=== PATIENT | male | born 1945 | race Hispanic/Latino ===

== ENCOUNTER 2017-07-13 08:56 | Emergency (ER) | payer SELFPAY ==
[2017-07-13 09:50] LABS: Basophils % (Auto) 0.6 % (0.0-1.8); Eosinophils # (Auto) 0.1 K/mm3 (0.0-0.4); Hemoglobin 14.9 gm/dl (11.8-15.2); Lymphocytes # (Auto) 2.2 K/mm3 (1.2-5.4); Lymphocytes % (Auto) 26.3 % (13.4-35.0); Mean Corpuscular HGB Conc 33 % (32-34); Mean Corpuscular Hemoglobin 31 pg (28-32); Mean Corpuscular Volume 95 fl (84-94); Monocytes # (Auto) 0.8 K/mm3 (0.0-0.8); Platelet Count 258 K/mm3 (140-440); Red Blood Count 4.76 M/mm3 (3.65-5.03); Red Cell Distribution Width 13.7 % (13.2-15.2)
[2017-07-13 10:07] LABS: Alanine Aminotransferase 10 units/L (7-56); Albumin 4.4 g/dL (3.9-5); BUN/Creatinine Ratio 19; Blood Urea Nitrogen 17 mg/dL (9-20); Hemolysis Index 15
[2017-07-13 16:06] VITALS: BP 158/108
[2017-07-13 16:35] LABS: Bilirubin,Urine NEG (Negative); Blood,Urine NEG (Negative); Color,Urine Yellow (Yellow); Mucus,Urine FEW /HPF; Nitrite,Urine NEG (Negative); Protein,Urine <15 mg/dL mg/dL (Negative)
--- NOTE | 2017-07-13 18:02 | Emergency Department Report ---
Minor Respiratory - HPI Chief Complaint: Abdominal Pain Stated Complaint: ABDOMINAL PAIN Time Seen by Provider: 07/13/17 16:19 Duration: 5 Days Severity: moderate Minor Respiratory: Yes Rhinorrhea, Yes Able to Tolerate Fluids, Yes Cough ( patient has been complaining of a dry cough for approximately 6 days. Patient states that he thinks the cough is coming from people spraying bug spray in his apartment. Patient states that they've been spraying bug spray in the department for many months), No Sore Throat, No Ear Pain, No Sick Contacts, No Hemoptysis, No Chest Pain, No Shortness of Breath, No Fever ED Review of Systems ROS: Stated complaint: ABDOMINAL PAIN Other details as noted in HPI Comment: All other systems reviewed and negative ED Past Medical Hx - Past Medical History Hx Hypertension: Yes Additional medical history: hernia repair - Medications Home Medications: Home Medications Medication Instructions Recorded Confirmed Last Taken Type Amlodipine Besylate [Norvasc] 5 mg PO DAILY #30 tablet 07/13/17 Unknown Rx Benzonatate [Tessalon Perles] 100 mg PO Q8HR #14 capsule 07/13/17 Unknown Rx Doxycycline [Vibramycin CAP] 100 mg PO Q12HR #14 capsule 07/13/17 Unknown Rx Minor Respiratory Exam - Exam General: Vital signs noted. No distress. Alert and acting appropriately. HEENT: Yes Moist Mucous Membranes, No Pharyngeal Erythema, No Pharyngeal Exudates, No Rhinorrhea, No Conjuctival Injection, No Frontal Tenderness, No Maxillary Tenderness Ear: Neither TM Bulge, Neither TM Erythema, Neither EAC Pain, Neither EAC Discharge Neck: Yes Supple, No Adenopathy Lungs: Yes Good Air Exchange, No Wheezes, No Ronchi, No Stridor, No Cough, No Labored Respirations, No Retractions, No Use of Accessory Muscles, No Other Abnormal Lung Sounds Heart: Yes Regular, No Murmur Abdomen: Yes Normal Bowel Sounds, No Tenderness (patient does have a ventral hernia present), No Peritoneal Signs Skin: No Rash, No Edema Neurologic: Alert and oriented, no deficits. Musculoskeletal: Unremarkable. ED Course Vital Signs 07/13/17 07/13/17 09:24 16:05 Temperature 97.4 F L 97.9 F Pulse Rate 71 83 Respiratory 16 18 Rate Blood Pressure 137/80 Blood Pressure 158/108 [Left] O2 Sat by Pulse 95 97 Oximetry ED Medical Decision Making - Lab Data Result diagrams: 07/13/17 09:33 07/13/17 09:33 - Radiology Data Radiology results: image reviewed No acute process - Medical Decision Making Patient is a 72-year-old male who is presenting with cough cold congestion. X-ray is within normal limits. Patient will be discharged home will start the patient on doxycycline secondary to his age and a cough almost a week in duration. Patient also asked for a refill of his Norvasc which was given as well Critical care attestation.: If time is entered above; I have spent that time in minutes in the direct care of this critically ill patient, excluding procedure time. ED Disposition Clinical Impression: Acute bronchitis Qualifiers: Bronchitis organism: unspecified organism Qualified Code(s): J20.9 - Acute bronchitis, unspecified Disposition: DC-01 TO HOME OR SELFCARE Is pt being admited?: No Does the pt Need Aspirin: No Condition: Stable Instructions: Acute Bronchitis (ED) Prescriptions: Amlodipine Besylate [Norvasc] 5 mg PO DAILY #30 tablet Benzonatate [Tessalon Perles] 100 mg PO Q8HR #14 capsule Doxycycline [Vibramycin CAP] 100 mg PO Q12HR #14 capsule Referrals: PRIMARY CARE, [Primary Care Provider] - 3-5 Days
--- NOTE | 2017-07-13 18:29 | XRay Report ---
FINAL REPORT EXAM: XR CHEST ROUTINE 2V HISTORY: cough TECHNIQUE: 2 view examination of the chest PRIORS: None FINDINGS: Oblique patient position limits the examination. Atherosclerotic change in the thoracic aorta. Degenerative change in the thoracic spine. There is no visible pulmonary consolidation, pleural effusion, or pneumothorax. Cardiac silhouette size is normal without vascular congestion. IMPRESSION: No evidence of acute cardiopulmonary disease
== END 2017-07-13 18:25 | disposition home or self-care (01) ==
LOC: ED 08:56
DX: J20.9 Acute bronchitis, unspecified (principal); I10 Essential (primary) hypertension
CPT/HCPCS: 36415; 71046; 80053; 81001; 85025

== ENCOUNTER 2017-10-05 14:42 | Emergency (ER) | payer MEDICARE ==
[2017-10-05 15:28] VITALS: BP 101/73
--- NOTE | 2017-10-05 17:06 | Emergency Department Report ---
HPI - General Chief Complaint: Abdominal Pain Time Seen by Provider: 10/05/17 16:58 - HPI HPI: patient c/o periumbilical pain, h/o hernia, wants referral to get it fix. no fever, no dysuria. ED Past Medical Hx - Past Medical History Hx Hypertension: Yes Hx Congestive Heart Failure: Yes Additional medical history: hernia repair - Social History Smoking Status: Never Smoker Substance Use Type: Alcohol - Medications Home Medications: Home Medications Medication Instructions Recorded Confirmed Last Taken Type Amlodipine Besylate [Norvasc] 5 mg PO DAILY #30 tablet 07/13/17 Unknown Rx Benzonatate [Tessalon Perles] 100 mg PO Q8HR #14 capsule 07/13/17 Unknown Rx Doxycycline [Vibramycin CAP] 100 mg PO Q12HR #14 capsule 07/13/17 Unknown Rx Acetaminophen [Tylenol Extra 500 mg PO ACHS PRN #60 tablet 10/05/17 Unknown Rx Strength] ED Review of Systems ROS: Stated complaint: ABD PAIN Other details as noted in HPI Constitutional: no symptoms reported Respiratory: denies: cough Cardiovascular: denies: chest pain Endocrine: denies: excessive sweating Gastrointestinal: abdominal pain. denies: nausea Physical Exam - Physical Exam Vital Signs: Vital Signs 10/05/17 15:23 Temperature 98.3 F Pulse Rate 99 H Respiratory 18 Rate Blood Pressure 101/73 O2 Sat by Pulse 95 Oximetry Physical Exam: GENERAL APPEARANCE: Well developed, well nourished, alert and cooperative, and appears to be in no acute distress. HEAD: normocephalic. EYES: PERRL, EOMI. Fundi normal, vision is grossly intact. EARS: External auditory canals and tympanic membranes clear, hearing grossly intact. NOSE: No nasal discharge. THROAT: Oral cavity and pharynx normal. No inflammation, swelling, exudate, or lesions. Teeth and gingiva in good general condition. NECK: Neck supple, non-tender without lymphadenopathy, masses or thyromegaly. CARDIAC: Normal S1 and S2. No S3, S4 or murmurs. Rhythm is regular. There is no peripheral edema, cyanosis or pallor. Extremities are warm and well perfused. Capillary refill is less than 2 seconds. No carotid bruits. LUNGS: Clear to auscultation and percussion without rales, rhonchi, wheezing or diminished breath sounds. ABDOMEN: easily reducible hernia, periumbilical MUSKULOSKELETAL: Adequately aligned spine. ROM intact spine and extremities. No joint erythema or tenderness. Normal muscular development. Normal ED Course Vital Signs 10/05/17 15:23 Temperature 98.3 F Pulse Rate 99 H Respiratory 18 Rate Blood Pressure 101/73 O2 Sat by Pulse 95 Oximetry Critical care attestation.: If time is entered above; I have spent that time in minutes in the direct care of this critically ill patient, excluding procedure time. ED Disposition Clinical Impression: Umbilical hernia Qualifiers: Obstruction and gangrene presence: without obstruction or gangrene Qualified Code(s): K42.9 - Umbilical hernia without obstruction or gangrene Disposition: - TO HOME OR SELFCARE Is pt being admited?: No Does the pt Need Aspirin: No Condition: Stable Instructions: Umbilical Hernia (ED) Prescriptions: Acetaminophen [Tylenol Extra Strength] 500 mg PO ACHS PRN #60 tablet PRN Reason: Pain Referrals: JOSHUA LEIJA DO [Staff Physician] - 3-5 Days
== END 2017-10-05 17:27 | disposition home or self-care (01) ==
LOC: ED 14:42
DX: K42.9 Umbilical hernia without obstruction or gangrene (principal); I11.0 Hypertensive heart disease with heart failure
CPT/HCPCS: 99283

== ENCOUNTER 2017-10-05 18:18 | Emergency (ER) | payer MEDICARE ==
[2017-10-05 19:50] LABS: Hematocrit 43.3 % (35.5-45.6); Mean Corpuscular HGB Conc 35 % (32-34); Mean Corpuscular Hemoglobin 32 pg (28-32); Mean Corpuscular Volume 93 fl (84-94); Platelet Count 250 K/mm3 (140-440); Red Blood Count 4.64 M/mm3 (3.65-5.03); Red Cell Distribution Width 13.4 % (13.2-15.2)
[2017-10-05 19:59] LABS: BUN/Creatinine Ratio 16; Blood Urea Nitrogen 14 mg/dL (9-20); Calcium 9.4 mg/dL (8.4-10.2); Hemolysis Index 13
--- NOTE | 2017-10-05 20:09 | Cat Scan Report ---
FINAL REPORT EXAM: CT HEAD/BRAIN WO CON HISTORY: headache r/t fall/headinjury TECHNIQUE: CT head without contrast PRIORS: None. FINDINGS: No acute intra-axial or extra-axial hemorrhage is identified. There is no evidence of midline shift or mass effect. The ventricles and sulci are within normal limits. Flanagan-white matter differentiation is intact. No acute parenchymal abnormalities seen. Basal ganglia calcifications are. Bony calvarium is grossly intact. Visualized portions of the mastoids and paranasal sinuses are unremarkable. IMPRESSION: Negative CT head
[2017-10-05 20:24] LABS: Bilirubin,Urine NEG (Negative); Blood,Urine NEG (Negative); Color,Urine Yellow (Yellow); Mucus,Urine FEW /HPF; Protein,Urine <15 mg/dL mg/dL (Negative)
[2017-10-05] MEDS ORDERED: TYLENOL PO ONE (21:05)
--- NOTE | 2017-10-05 21:08 | Emergency Department Report ---
ED General Adult HPI - General Chief complaint: Head Injury Stated complaint: FALL Source: patient Mode of arrival: Ambulatory Limitations: No Limitations - History of Present Illness Initial comments: 72-year-old male comes back into the emergency room after being discharge earlier states that he went outside and fell and hit his head. Patient with a past medical history of hernia and hypertension. -: This evening Location: head Severity scale (0 -10): 8 Quality: aching Consistency: constant Improves with: none Worsens with: none Associated Symptoms: denies other symptoms - Related Data Previous Rx's Medication Instructions Recorded Last Taken Type Amlodipine Besylate [Norvasc] 5 mg PO DAILY #30 tablet 07/13/17 Unknown Rx Benzonatate [Tessalon Perles] 100 mg PO Q8HR #14 capsule 07/13/17 Unknown Rx Doxycycline [Vibramycin CAP] 100 mg PO Q12HR #14 capsule 07/13/17 Unknown Rx Acetaminophen [Tylenol Extra 500 mg PO ACHS PRN #60 tablet 10/05/17 Unknown Rx Strength] Allergies Allergy/AdvReac Type Severity Reaction Status Date / Time amitriptyline [From Elavil] Allergy Unknown Verified 10/05/17 15:30 chlorpromazine Allergy Unknown Verified 10/05/17 15:30 [From Thorazine] Penicillins Allergy Unknown Verified 10/05/17 15:30 Sulfa (Sulfonamide Allergy Unknown Verified 10/05/17 15:30 Antibiotics) ED Review of Systems ROS: Stated complaint: FALL Other details as noted in HPI Constitutional: denies: chills, fever Eyes: denies: eye pain, eye discharge, vision change ENT: denies: ear pain, throat pain Respiratory: denies: cough, shortness of breath, wheezing Cardiovascular: denies: chest pain, palpitations Endocrine: no symptoms reported Gastrointestinal: abdominal pain (addressed earlier today). denies: nausea, diarrhea Genitourinary: denies: urgency, dysuria Musculoskeletal: denies: back pain, joint swelling, arthralgia Skin: denies: rash, lesions Neurological: headache Psychiatric: denies: anxiety, depression Hematological/Lymphatic: denies: easy bleeding, easy bruising ED Past Medical Hx - Past Medical History Hx Hypertension: Yes Hx Congestive Heart Failure: Yes Additional medical history: hernia repair - Social History Smoking Status: Never Smoker Substance Use Type: None - Medications Home Medications: Home Medications Medication Instructions Recorded Confirmed Last Taken Type Amlodipine Besylate [Norvasc] 5 mg PO DAILY #30 tablet 07/13/17 Unknown Rx Benzonatate [Tessalon Perles] 100 mg PO Q8HR #14 capsule 07/13/17 Unknown Rx Doxycycline [Vibramycin CAP] 100 mg PO Q12HR #14 capsule 07/13/17 Unknown Rx Acetaminophen [Tylenol Extra 500 mg PO ACHS PRN #60 tablet 10/05/17 Unknown Rx Strength] ED Physical Exam - General Limitations: No Limitations General appearance: alert, in no apparent distress - Head Head exam: Present: atraumatic, normocephalic - Eye Eye exam: Present: normal appearance - ENT ENT exam: Present: mucous membranes moist - Neck Neck exam: Present: normal inspection - Respiratory Respiratory exam: Present: normal lung sounds bilaterally. Absent: respiratory distress - Cardiovascular Cardiovascular Exam: Present: regular rate, normal rhythm. Absent: systolic murmur, diastolic murmur, rubs, gallop - GI/Abdominal GI/Abdominal exam: Present: soft, normal bowel sounds - Rectal Rectal exam: Present: deferred - Extremities Exam Extremities exam: Present: normal inspection, other (no abrasions noted on hands and knees) - Back Exam Back exam: Present: normal inspection, full ROM. Absent: tenderness - Neurological Exam Neurological exam: Present: alert, oriented X3, other (slow gait) - Psychiatric Psychiatric exam: Present: normal affect, normal mood - Skin Skin exam: Present: warm, dry, abrasion (that was noted on his prior ER visit this evening. No active bleeding noted no swelling. Scab is intact) ED Course Vital Signs 10/05/17 18:37 Temperature 98.4 F Pulse Rate 113 H Respiratory 18 Rate Blood Pressure 109/59 O2 Sat by Pulse 100 Oximetry ED Medical Decision Making - Lab Data Result diagrams: 10/05/17 19:24 10/05/17 19:24 - Radiology Data Radiology results: report reviewed, image reviewed FINDINGS: No acute intra-axial or extra-axial hemorrhage is identified. There is no evidence of midline shift or mass effect. The ventricles and sulci are within normal limits. Flanagan-white matter differentiation is intact. No acute parenchymal abnormalities seen. Basal ganglia calcifications are. Bony calvarium is grossly intact. Visualized portions of the mastoids and paranasal sinuses are unremarkable. IMPRESSION: Negative CT head Transcribed By: KELVIN Dictated By: MOHIT KLEIN MD Electronically Authenticated By: MOHIT KLEIN MD Signed Date/Time: 10/05/172002 DD/ 02 TD/TT: 10/05/17 200 Critical care attestation.: If time is entered above; I have spent that time in minutes in the direct care of this critically ill patient, excluding procedure time. ED Disposition Clinical Impression: Fall Qualifiers: Encounter type: initial encounter Qualified Code(s): W19.XXXA - Unspecified fall, initial encounter Disposition: - TO HOME OR SELFCARE Is pt being admited?: No Does the pt Need Aspirin: No Condition: Stable Instructions: Fall Prevention for Older Adults (ED) Additional Instructions: Please take Tylenol as prescribed earlier today. Follow up with her primary care provider if symptoms persist or gets worse. Referrals: [facility] [Provider Group] - 3-5 Days ANA MARIA WU MD [Staff Physician] - 3-5 Days
[2017-10-05] MEDS ORDERED: BOOSTRIX IM ONE (22:00)
[2017-10-06 02:36] VITALS: BP 105/68
== END 2017-10-05 22:00 | disposition home or self-care (01) ==
LOC: ED 18:18
DX: S09.90XA Unspecified injury of head, initial encounter (principal); I10 Essential (primary) hypertension; Z88.0 Allergy status to penicillin; Z88.2 Allergy status to sulfonamides; Z88.8 Allergy status to other drugs, medicaments and biological substances; W18.39XA Other fall on same level, initial encounter; Y93.89 Activity, other specified; Y92.89 Other specified places as the place of occurrence of the external cause; Y99.8 Other external cause status
CPT/HCPCS: 36415; 70450; 80048; 81001; 85027; 90715

== ENCOUNTER 2017-10-05 23:21 | Emergency (ER) | payer MEDICARE ==
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
[2017-10-06 09:35] VITALS: BP 144/89
== END 2017-10-06 17:12 | disposition home or self-care (01) ==
LOC: ED 23:21 → EEVIPCON 23:21 → ED 10-06 17:12
DX: I10 Essential (primary) hypertension (principal); Z88.0 Allergy status to penicillin; Z88.2 Allergy status to sulfonamides
CPT/HCPCS: 99282

== ENCOUNTER 2018-07-08 21:06 | Emergency (ER) | payer MEDICARE ==
[2018-07-08] MEDS ORDERED: NACL 0.9% 1000 ML 1,000 ML IV ONE (21:26)
[2018-07-08 21:49] LABS: Basophils % (Auto) 0.5 % (0.0-1.8); Eosinophils # (Auto) 0.1 K/mm3 (0.0-0.4); Eosinophils % (Auto) 1.5 % (0.0-4.3); Hematocrit 42.6 % (35.5-45.6); Hemoglobin 14.4 gm/dl (11.8-15.2); Lymphocytes # (Auto) 2.5 K/mm3 (1.2-5.4); Lymphocytes % (Auto) 27.9 % (13.4-35.0); Mean Corpuscular HGB Conc 34 % (32-34); Mean Corpuscular Volume 96 fl (84-94); Monocytes # (Auto) 0.9 K/mm3 (0.0-0.8); Monocytes % (Auto) 10.1 % (0.0-7.3); Platelet Count 303 K/mm3 (140-440); Red Blood Count 4.43 M/mm3 (3.65-5.03); Red Cell Distribution Width 14.2 % (13.2-15.2)
[2018-07-08 22:05] LABS: Alanine Aminotransferase 17 units/L (7-56); Albumin 4.1 g/dL (3.9-5); BUN/Creatinine Ratio 21; Blood Urea Nitrogen 19 mg/dL (9-20); Calcium 9.1 mg/dL (8.4-10.2); Hemolysis Index 77
[2018-07-08] MEDS ORDERED: ULTRAM ONE (22:41)
[2018-07-08] MEDS ORDERED: ULTRAM PO ONE (22:44)
--- NOTE | 2018-07-08 23:13 | Emergency Department Report ---
ED General Adult HPI - General Chief complaint: Abdominal Pain Stated complaint: ABDOMINAL PAIN Time Seen by Provider: 07/08/18 21:57 Source: patient Mode of arrival: Ambulatory Limitations: No Limitations - History of Present Illness Initial comments: Patient presents to emergency department with a chief complaint of abdominal pain from his hernia. Patient states she's had this hernia for years but today due to the cold is causing pain. Patient also states that he has nowhere to stay tonight so he thought he come to the hospital. Patient denies chest pain, shortness breath, headache. -: Gradual Location: abdomen Radiation: non-radiation Severity scale (0 -10): 5 Quality: dull Consistency: constant Improves with: none Worsens with: none Associated Symptoms: denies other symptoms Treatments Prior to Arrival: none - Related Data Home Medications Medication Instructions Recorded Confirmed Last Taken Aspirin [Aspirin BABY CHEW TAB] 81 mg PO BID 04/14/18 04/14/18 04/14/18 Previous Rx's Medication Instructions Recorded Last Taken Type Ibuprofen [Motrin] 800 mg PO Q8HR PRN #20 tablet 04/14/18 Unknown Rx EPINEPHrine [Epipen] 0.3 mg IJ ONCE PRN #1 auto.injct 05/09/18 Unknown Rx Ibuprofen [Motrin] 800 mg PO Q8HR PRN #12 tablet 07/08/18 Unknown Rx Allergies Allergy/AdvReac Type Severity Reaction Status Date / Time acetaminophen [From Tylenol] Allergy Angioedema Verified 04/14/18 08:22 amitriptyline [From Elavil] Allergy Unknown Verified 10/06/17 01:05 chlorpromazine Allergy Unknown Verified 10/06/17 01:05 [From Thorazine] diphenhydramine Allergy Angioedema Verified 04/14/18 08:22 [From Benadryl] Penicillins Allergy Unknown Verified 10/06/17 01:05 Sulfa (Sulfonamide Allergy Unknown Verified 10/06/17 01:05 Antibiotics) ED Review of Systems ROS: Stated complaint: ABDOMINAL PAIN Other details as noted in HPI Comment: All other systems reviewed and negative Constitutional: denies: chills, fever Eyes: denies: eye pain, eye discharge, vision change ENT: denies: ear pain, throat pain Respiratory: denies: cough, shortness of breath, wheezing Cardiovascular: denies: chest pain, palpitations Endocrine: no symptoms reported Gastrointestinal: abdominal pain. denies: nausea, diarrhea Genitourinary: denies: urgency, dysuria Musculoskeletal: denies: back pain, joint swelling, arthralgia Skin: denies: rash, lesions Neurological: denies: headache, weakness, paresthesias Psychiatric: denies: anxiety, depression Hematological/Lymphatic: denies: easy bleeding, easy bruising ED Past Medical Hx - Past Medical History Hx Hypertension: Yes Hx Congestive Heart Failure: Yes Additional medical history: hernia repair - Surgical History Additional Surgical History: hernia repair. eye - Social History Smoking Status: Never Smoker Substance Use Type: None - Medications Home Medications: Home Medications Medication Instructions Recorded Confirmed Last Taken Type Aspirin [Aspirin BABY CHEW TAB] 81 mg PO BID 04/14/18 04/14/18 04/14/18 History Ibuprofen [Motrin] 800 mg PO Q8HR PRN #20 tablet 04/14/18 Unknown Rx EPINEPHrine [Epipen] 0.3 mg IJ ONCE PRN #1 auto.injct 05/09/18 Unknown Rx Ibuprofen [Motrin] 800 mg PO Q8HR PRN #12 tablet 07/08/18 Unknown Rx ED Physical Exam - General Limitations: No Limitations General appearance: alert, in no apparent distress - Head Head exam: Present: atraumatic, normocephalic - Eye Eye exam: Present: normal appearance, PERRL, EOMI - ENT ENT exam: Present: mucous membranes moist - Neck Neck exam: Present: normal inspection - Respiratory Respiratory exam: Present: normal lung sounds bilaterally. Absent: respiratory distress, wheezes, rales, rhonchi - Cardiovascular Cardiovascular Exam: Present: regular rate, normal rhythm. Absent: systolic murmur, diastolic murmur, rubs, gallop - GI/Abdominal GI/Abdominal exam: Present: soft, tenderness (tenderness to palpation of the periumbilical hernia which is easily reducible on exam and is not incarcerated. Otherwise abdomen is nice and soft and nontender), normal bowel sounds. Absent: distended - Rectal Rectal exam: Present: deferred - Extremities Exam Extremities exam: Present: normal inspection - Back Exam Back exam: Present: normal inspection - Neurological Exam Neurological exam: Present: alert, oriented X3, CN II-XII intact. Absent: motor sensory deficit - Psychiatric Psychiatric exam: Present: normal affect, normal mood - Skin Skin exam: Present: warm, dry, intact, normal color. Absent: rash ED Course Vital Signs 07/08/18 21:58 Respiratory 14 Rate O2 Sat by Pulse 98 Oximetry ED Medical Decision Making - Lab Data Result diagrams: 07/08/18 21:39 07/08/18 21:39 Lab Results 07/08/18 07/08/18 Range/Units 21:39 21:39 WBC 8.9 (4.5-11.0) K/mm3 RBC 4.43 (3.65-5.03) M/mm3 Hgb 14.4 (11.8-15.2) gm/dl Hct 42.6 (35.5-45.6) % MCV 96 H (84-94) fl MCH 33 H (28-32) pg MCHC 34 (32-34) % RDW 14.2 (13.2-15.2) % Plt Count 303 (140-440) K/mm3 Lymph % (Auto) 27.9 (13.4-35.0) % [place] % (Auto) 10.1 H (0.0-7.3) % Eos % (Auto) 1.5 (0.0-4.3) % Baso % (Auto) 0.5 (0.0-1.8) % Lymph # 2.5 (1.2-5.4) K/mm3 [place] # 0.9 H (0.0-0.8) K/mm3 Eos # 0.1 (0.0-0.4) K/mm3 Baso # 0.0 (0.0-0.1) K/mm3 Seg Neutrophils % 60.0 (40.0-70.0) % Seg Neutrophils # 5.3 (1.8-7.7) K/mm3 Sodium 142 (137-145) mmol/L Potassium 4.7 (3.6-5.0) mmol/L Chloride 103.3 (98-107) mmol/L Carbon Dioxide 31 H (22-30) mmol/L Anion Gap 12 mmol/L BUN 19 (9-20) mg/dL Creatinine 0.9 (0.8-1.5) mg/dL Estimated GFR > 60 ml/min BUN/Creatinine Ratio 21 % Glucose 86 (75-100) mg/dL Calcium 9.1 (8.4-10.2) mg/dL Total Bilirubin 0.40 (0.1-1.2) mg/dL AST 27 (5-40) units/L ALT 17 (7-56) units/L Alkaline Phosphatase 72 (35-129) units/L Total Protein 7.2 (6.3-8.2) g/dL Albumin 4.1 (3.9-5) g/dL Albumin/Globulin Ratio 1.3 % Lipase 22 (13-60) units/L Critical care attestation.: If time is entered above; I have spent that time in minutes in the direct care of this critically ill patient, excluding procedure time. ED Disposition Clinical Impression: Ventral hernia without obstruction or gangrene Disposition: TO HOME OR SELFCARE Is pt being admited?: No Does the pt Need Aspirin: No Condition: Stable Instructions: Ventral Hernia (ED) Additional Instructions: return if worse Prescriptions: Ibuprofen [Motrin] 800 mg PO Q8HR PRN #12 tablet PRN Reason: pain Referrals: TYRON WOODRUFF MD [Primary Care Provider] - 3-5 Days [facility] [Provider Group] - 3-5 Days [facility] [Provider Group] - 3-5 Days Time of Disposition: 23:13
[2018-07-10 13:02] VITALS: BP 131/86
== END 2018-07-08 23:22 | disposition home or self-care (01) ==
LOC: ED 21:06
DX: K43.9 Ventral hernia without obstruction or gangrene (principal); I11.0 Hypertensive heart disease with heart failure; I50.9 Heart failure, unspecified; Z88.2 Allergy status to sulfonamides; Z88.0 Allergy status to penicillin; Z88.8 Allergy status to other drugs, medicaments and biological substances; Z88.6 Allergy status to analgesic agent
CPT/HCPCS: 36415; 80053; 83690; 85025

== ENCOUNTER 2018-07-09 22:10 | Emergency (ER) | payer MEDICARE, OTHER ==
[2018-07-10 08:38] LABS: Basophils % (Auto) 0.5 % (0.0-1.8); Eosinophils # (Auto) 0.2 K/mm3 (0.0-0.4); Eosinophils % (Auto) 2.1 % (0.0-4.3); Hematocrit 43.7 % (35.5-45.6); Hemoglobin 14.6 gm/dl (11.8-15.2); Mean Corpuscular HGB Conc 34 % (32-34); Mean Corpuscular Volume 97 fl (84-94); Monocytes # (Auto) 0.9 K/mm3 (0.0-0.8); Monocytes % (Auto) 10.6 % (0.0-7.3); Platelet Count 264 K/mm3 (140-440); Red Blood Count 4.49 M/mm3 (3.65-5.03); Red Cell Distribution Width 14.1 % (13.2-15.2)
--- NOTE | 2018-07-10 08:48 | Emergency Department Report ---
ED General Adult HPI - General Chief complaint: Medical Clearance Stated complaint: HOMELESS Time Seen by Provider: 07/10/18 08:13 Source: patient Mode of arrival: Ambulatory Limitations: Physical Limitation - History of Present Illness Initial comments: This is a 73-year-old male that I am told regularly and habits the waiting room. He is homeless. He was here 2 days ago complaining of ventral hernia. I do not know that he ever left. Actually he was placed in the room for medical clearance quite some time ago. He was just brought to my attention. I did see the patient. He was eating and tolerating it well. He had no active complaints. He does appear to have some delusions/dementia. He states that he was in a karate class. He has an abraded area on his forehead which looks more like excoriations. Does not complain of headache or acute injury. He is waiting on the patient case manager. -: month(s) - Related Data Home Medications Medication Instructions Recorded Confirmed Last Taken Aspirin [Aspirin BABY CHEW TAB] 81 mg PO BID 04/14/18 04/14/18 04/14/18 Previous Rx's Medication Instructions Recorded Last Taken Type Ibuprofen [Motrin] 800 mg PO Q8HR PRN #20 tablet 04/14/18 Unknown Rx EPINEPHrine [Epipen] 0.3 mg IJ ONCE PRN #1 auto.injct 05/09/18 Unknown Rx Ibuprofen [Motrin] 800 mg PO Q8HR PRN #12 tablet 07/08/18 Unknown Rx Allergies Allergy/AdvReac Type Severity Reaction Status Date / Time acetaminophen [From Tylenol] Allergy Angioedema Verified 04/14/18 08:22 amitriptyline [From Elavil] Allergy Unknown Verified 10/06/17 01:05 chlorpromazine Allergy Unknown Verified 10/06/17 01:05 [From Thorazine] diphenhydramine Allergy Angioedema Verified 04/14/18 08:22 [From Benadryl] Penicillins Allergy Unknown Verified 10/06/17 01:05 Sulfa (Sulfonamide Allergy Unknown Verified 10/06/17 01:05 Antibiotics) ED Review of Systems ROS: Stated complaint: HOMELESS Other details as noted in HPI Constitutional: denies: chills, fever Eyes: denies: eye pain, eye discharge, vision change ENT: denies: ear pain, throat pain Respiratory: denies: cough, shortness of breath, wheezing Cardiovascular: denies: chest pain, palpitations Endocrine: no symptoms reported Gastrointestinal: denies: abdominal pain, nausea, diarrhea Genitourinary: denies: urgency, dysuria Musculoskeletal: denies: back pain, joint swelling, arthralgia Skin: denies: rash, lesions Neurological: denies: headache, weakness, paresthesias Psychiatric: denies: anxiety, depression Hematological/Lymphatic: denies: easy bleeding, easy bruising ED Past Medical Hx - Past Medical History Previous Medical History?: Yes Hx Hypertension: Yes Hx Congestive Heart Failure: Yes Additional medical history: hernia repair, dementia - Surgical History Additional Surgical History: hernia repair. eye - Social History Smoking Status: Unknown if ever smoked Substance Use Type: None - Medications Home Medications: Home Medications Medication Instructions Recorded Confirmed Last Taken Type Aspirin [Aspirin BABY CHEW TAB] 81 mg PO BID 04/14/18 04/14/18 04/14/18 History Ibuprofen [Motrin] 800 mg PO Q8HR PRN #20 tablet 04/14/18 Unknown Rx EPINEPHrine [Epipen] 0.3 mg IJ ONCE PRN #1 auto.injct 05/09/18 Unknown Rx Ibuprofen [Motrin] 800 mg PO Q8HR PRN #12 tablet 07/08/18 Unknown Rx ED Physical Exam - General Limitations: No Limitations General appearance: alert, in no apparent distress - Head Head exam: Present: normocephalic, other (excoriation left forehead) - Eye Eye exam: Present: normal appearance. Absent: scleral icterus - ENT ENT exam: Present: mucous membranes moist - Neck Neck exam: Present: normal inspection - Respiratory Respiratory exam: Present: normal lung sounds bilaterally. Absent: respiratory distress - Cardiovascular Cardiovascular Exam: Present: regular rate, normal rhythm. Absent: systolic murmur, diastolic murmur, rubs, gallop - GI/Abdominal GI/Abdominal exam: Present: soft, distended, normal bowel sounds, hernia (slightly from ventral hernia no incarceration). Absent: tenderness, guarding, rebound, rigid - Rectal Rectal exam: Present: deferred - Extremities Exam Extremities exam: Present: normal inspection - Back Exam Back exam: Present: normal inspection - Neurological Exam Neurological exam: Present: alert, oriented X3, CN II-XII intact. Absent: motor sensory deficit - Psychiatric Psychiatric exam: Present: normal affect, normal mood - Skin Skin exam: Present: warm, dry, intact, normal color. Absent: rash ED Course Vital Signs 07/09/18 22:58 Temperature 98.4 F Pulse Rate 84 Respiratory 18 Rate Blood Pressure 113/76 O2 Sat by Pulse 98 Oximetry - Reevaluation(s) Reevaluation #1: Patient will have medical screening done. Actually his labs were fine from a few days ago. He will see the patient case manager. His disposition is pending. 07/10/18 08:47 Reevaluation #2: I am told that case management advised discharge of this patient. He ate and had no difficulty. He was fully ambulatory. Therefore he will be released. 07/10/18 11:46 ED Medical Decision Making - Lab Data Result diagrams: 07/10/18 08:20 07/10/18 08:20 Laboratory Results - last 24 hr 07/10/18 07/10/18 07/10/18 08:20 08:20 08:20 WBC 8.5 RBC 4.49 Hgb 14.6 Hct 43.7 MCV 97 H MCH 33 H MCHC 34 RDW 14.1 Plt Count 264 Lymph % (Auto) 23.0 [place] % (Auto) 10.6 H Eos % (Auto) 2.1 Baso % (Auto) 0.5 Lymph # 2.0 [place] # 0.9 H Eos # 0.2 Baso # 0.0 Seg Neutrophils % 63.8 Seg Neutrophils # 5.4 Magnesium 1.80 Plasma/Serum Alcohol < 0.01 Critical care attestation.: If time is entered above; I have spent that time in minutes in the direct care of this critically ill patient, excluding procedure time. ED Disposition Clinical Impression: Homelessness, Ventral hernia without obstruction or gangrene Dementia Qualifiers: Dementia type: unspecified type Dementia behavioral disturbance: without behavioral disturbance Qualified Code(s): F03.90 - Unspecified dementia without behavioral disturbance Disposition: DC-01 TO HOME OR SELFCARE Is pt being admited?: No Does the pt Need Aspirin: No Condition: Stable Instructions: Ventral Hernia (ED) Additional Instructions: Emergency department for any acute change or problem. [facility] and [facility] Referrals: LARA CISNEROS MD [Primary Care Provider] - 3-5 Days [facility] [Provider Group] - 3-5 Days [facility] [Outside] - 24 Hours Time of Disposition: 11:47
[2018-07-10 08:49] LABS: Alanine Aminotransferase 16 units/L (7-56); Albumin 4.3 g/dL (3.9-5); BUN/Creatinine Ratio 27; Blood Urea Nitrogen 24 mg/dL (9-20); Calcium 9.1 mg/dL (8.4-10.2); Hemolysis Index 11
[2018-07-10 08:59] LABS: Bilirubin,Direct < 0.2 mg/dL (0-0.2)
[2018-07-10 09:12] LABS: Bilirubin,Urine NEG (Negative); Blood,Urine NEG (Negative); Color,Urine Yellow (Yellow); Protein,Urine <15 mg/dL mg/dL (Negative); Urobilinogen,Urine < 2.0 mg/dL (<2.0); WBC,Urine < 1.0 /HPF (0.0-6.0)
[2018-07-10 09:20] LABS: Amphetamine Screen,Urine PRESUMPTIVE NEGATIVE; Benzodiazepines Screen,Urine PRESUMPTIVE NEGATIVE; Cannabinoid Screen,Urine PRESUMPTIVE NEGATIVE; Cocaine Screen,Urine PRESUMPTIVE NEGATIVE; Methadone Screen,Urine PRESUMPTIVE NEGATIVE; Opiate Screen,Urine PRESUMPTIVE NEGATIVE
[2018-07-10 14:51] VITALS: BP 120/72
== END 2018-07-10 12:12 | disposition home or self-care (01) ==
LOC: ED 22:10
DX: K43.9 Ventral hernia without obstruction or gangrene (principal); F03.90 Unspecified dementia, unspecified severity, without behavioral disturbance, psychotic disturbance, mood disturbance, and anxiety; Z59.0 Homelessness; I11.0 Hypertensive heart disease with heart failure; I50.9 Heart failure, unspecified
CPT/HCPCS: 36415; 80048; 80076; 80307; 81001; 83735; 85025; 99283; G0480; 80320

== ENCOUNTER 2018-11-01 21:53 | Emergency (ER) | payer MEDICARE ==
--- NOTE | 2018-11-01 22:44 | Emergency Department Report ---
Chief Complaint: Abdominal Pain Stated Complaint: ABD PAIN Time Seen by Provider: 11/01/18 22:38 - HPI History of Present Illness: This is a 73 y.o. M. that presents to the ER with abdominal pain 1 hour. PMH: CHF, HTN, dementia, umbilical hernia Denies N/V/D - Exam Vital Signs: Vital Signs 11/01/18 22:37 Temperature 98 F Pulse Rate 96 H Respiratory 18 Rate Blood Pressure 126/81 O2 Sat by Pulse 96 Oximetry MSE screening note: Focused history and physical exam performed. Due to findings the following was ordered: This initial assessment/diagnostic orders/clinical plan/treatment(s) is/are subject to change based on patient's health status, clinical progression and re- assessment by fellow clinical providers in the ED. Further treatment and workup at subsequent clinical providers discretion. Patient/guardians urged not to elope from the ED as their condition may be serious if not clinically assessed and managed. Initial orders include: 1- Patient sent to [facility] for further evaluation and treatment 2- Labs and CT ED Disposition for MSE Condition: Stable
[2018-11-01 23:16] LABS: Basophils # (Auto) 0.1 K/mm3 (0.0-0.1); Basophils % (Auto) 0.5 % (0.0-1.8); Eosinophils # (Auto) 0.2 K/mm3 (0.0-0.4); Eosinophils % (Auto) 2.3 % (0.0-4.3); Hematocrit 43.7 % (35.5-45.6); Hemoglobin 14.8 gm/dl (11.8-15.2); Lymphocytes # (Auto) 2.3 K/mm3 (1.2-5.4); Lymphocytes % (Auto) 23.1 % (13.4-35.0); Mean Corpuscular HGB Conc 34 % (32-34); Mean Corpuscular Volume 97 fl (84-94); Monocytes # (Auto) 1.1 K/mm3 (0.0-0.8); Monocytes % (Auto) 10.8 % (0.0-7.3); Platelet Count 296 K/mm3 (140-440); Red Cell Distribution Width 13.8 % (13.2-15.2)
[2018-11-01 23:50] LABS: Alanine Aminotransferase 23 units/L (7-56); Albumin 4.3 g/dL (3.9-5); BUN/Creatinine Ratio 32; Blood Urea Nitrogen 29 mg/dL (9-20); Calcium 9.9 mg/dL (8.4-10.2); Hemolysis Index 11
--- NOTE | 2018-11-02 03:04 | Cat Scan Report ---
PROCEDURE: CT ABDOMEN PELVIS WO CON Technique: Axial images were acquired from the lung bases through the ischial tuberosities without co ntrast. Coronal and sagittal reconstructed images were acquired. Absent IV contrast precludes adequate evaluation of viscera and vessels, including lymph nodes. HISTORY: Abdominal pain. Priors: None Available Findings: Lower Thorax: Lungs: Bibasilar atelectasis without focal consolidation or pleural effusion. No pneumothorax. Moder ate-sized hiatal hernia. Atherosclerosis: Atherosclerotic changes in the aorta and coronary arteries. Pericardial effusion: No pericardial effusion. Abdomen: Liver: No calcification or adjacent inflammatory change. Gallbladder: Multiple layering gallstones are present. No adjacent inflammatory change. Pancreas: No focal abnormality or adjacent inflammatory change. Adrenals: Usual non-contrast appearance. Spleen: Usual non-contrast appearance. Kidneys: 3.0 cm left upper pole low-attenuation lesion. No obstructive uropathy.. No hydronephrosis. Pelvis: Ureters: Not dilated. Bowel: Non-obstructive pattern. Moderate volume of formed colonic stool fills the colon. Moderate colonic diverticuli without adjacent inflammatory change noted. Appendix normal. Peritoneum: No large volume free intraperitoneal fluid or air noted. Vessels: Atherosclerotic changes or the aorta and its branch vessels. Bladder: Distended with urine. Mild thickening of the posterior bladder wall. Bones: No acute osseous abnormality. Multilevel vertebral endplate degenerative changes. Paraspinal fat planes appear preserved. Miscellaneous: Incidental fat-containing left inguinal hernia. Left, supraumbilical ventral hernia, d iscontinuity measuring 3.4 cm transverse (axial image 101) which contains mesenteric fat and vessels is noted. There is no herniation of bowel into the ventral soft tissues. Hernia sac measures 10.6 cm superior-inferior 8.4 cm transverse. IMPRESSION: 1. Large, fat containing left supraumbilical ventral hernia. 2. Gallstones, no pericholecystic inflammatory change. 3. Moderate hiatal hernia. 4. Moderate volume of formed stool fills the colon. 5. Diverticulosis, no findings of diverticulitis. This document is electronically signed by Fabrizio Anderson DO., Nov 02 2018 03:02:27 AM ET
--- NOTE | 2018-11-02 04:14 | Emergency Department Report ---
ED Abdominal Pain HPI - General Chief Complaint: Abdominal Pain Stated Complaint: ABD PAIN Time Seen by Provider: 11/01/18 22:38 Source: patient, EMS Mode of arrival: Wheelchair Limitations: No Limitations - History of Present Illness Initial Comments: CC: "I gets charley horses. I also had a hernia." HPI: Mr. aGrcia is a 73-year-old male with history of dementia, CHF, HTN, homelessness, ventral hernia who presents to the ER via EMS for evaluation of hernia and "charley horses". He has mild pain in the abdomen. He is concerned that over the years that the hernia has increased in size. He asked his immune system was good enough for repair. Denies fever. Denies vomiting. MD Complaint: abdominal pain -: Gradual, year(s) (several years) Location: periumbilical, epigastric Radiation: none Severity: mild Severity scale (0 -10): 0 Consistency: now resolved Improves With: nothing Worsens With: nothing Associated Symptoms: denies other symptoms - Related Data Home Medications Medication Instructions Recorded Confirmed Last Taken Aspirin [Aspirin BABY CHEW TAB] 81 mg PO BID 04/14/18 04/14/18 04/14/18 Previous Rx's Medication Instructions Recorded Last Taken Type Ibuprofen [Motrin] 800 mg PO Q8HR PRN #20 tablet 04/14/18 Unknown Rx EPINEPHrine [Epipen] 0.3 mg IJ ONCE PRN #1 auto.injct 05/09/18 Unknown Rx Ibuprofen [Motrin] 800 mg PO Q8HR PRN #12 tablet 07/08/18 Unknown Rx Allergies Allergy/AdvReac Type Severity Reaction Status Date / Time acetaminophen [From Tylenol] Allergy Angioedema Verified 04/14/18 08:22 amitriptyline [From Elavil] Allergy Unknown Verified 10/06/17 01:05 chlorpromazine Allergy Unknown Verified 10/06/17 01:05 [From Thorazine] diphenhydramine Allergy Angioedema Verified 04/14/18 08:22 [From Benadryl] Iodinated Contrast- Oral and Allergy Unknown Verified 11/02/18 01:22 IV Dye Penicillins Allergy Unknown Verified 10/06/17 01:05 Sulfa (Sulfonamide Allergy Unknown Verified 10/06/17 01:05 Antibiotics) ED Review of Systems ROS: Stated complaint: ABD PAIN Other details as noted in HPI Comment: All other systems reviewed and negative Constitutional: denies: fever, malaise Cardiovascular: denies: chest pain Gastrointestinal: denies: abdominal pain, nausea ED Past Medical Hx - Past Medical History Previous Medical History?: Yes Hx Hypertension: Yes Hx Congestive Heart Failure: Yes Additional medical history: hernia repair, dementia - Surgical History Past Surgical History?: Yes Additional Surgical History: hernia repair. eye sx/procedure during childhood - Social History Smoking Status: Never Smoker Substance Use Type: None - Medications Home Medications: Home Medications Medication Instructions Recorded Confirmed Last Taken Type Aspirin [Aspirin BABY CHEW TAB] 81 mg PO BID 04/14/18 04/14/18 04/14/18 History Ibuprofen [Motrin] 800 mg PO Q8HR PRN #20 tablet 04/14/18 Unknown Rx EPINEPHrine [Epipen] 0.3 mg IJ ONCE PRN #1 auto.injct 05/09/18 Unknown Rx Ibuprofen [Motrin] 800 mg PO Q8HR PRN #12 tablet 07/08/18 Unknown Rx ED Physical Exam - General Limitations: No Limitations General appearance: alert, in no apparent distress - Head Head exam: Present: atraumatic, normocephalic - Eye Eye exam: Present: normal appearance - ENT ENT exam: Present: mucous membranes moist - Neck Neck exam: Present: normal inspection, full ROM - Respiratory Respiratory exam: Present: normal lung sounds bilaterally. Absent: respiratory distress, wheezes, rales, rhonchi - Cardiovascular Cardiovascular Exam: Present: regular rate, normal rhythm, normal heart sounds. Absent: systolic murmur, diastolic murmur, rubs, gallop - GI/Abdominal GI/Abdominal exam: Present: soft, normal bowel sounds, hernia. Absent: distended, tenderness, guarding, rebound - Rectal Rectal exam: Present: deferred - Extremities Exam Extremities exam: Present: normal inspection - Neurological Exam Neurological exam: Present: alert, oriented X3 - Psychiatric Psychiatric exam: Present: normal affect, normal mood - Skin Skin exam: Present: warm, dry, intact, normal color. Absent: rash ED Course Vital Signs 11/01/18 11/01/18 11/02/18 22:01 22:37 01:25 Temperature 98.0 F 98 F 98 F Pulse Rate 95 H 96 H 79 Respiratory 18 18 16 Rate Blood Pressure 126/81 126/81 Blood Pressure 128/85 [Left] O2 Sat by Pulse 96 96 98 Oximetry ED Medical Decision Making - Lab Data Result diagrams: 11/01/18 22:59 11/01/18 22:55 Laboratory Results - last 24 hr 11/01/18 11/01/18 22:55 22:59 WBC 9.9 RBC 4.50 Hgb 14.8 Hct 43.7 MCV 97 H MCH 33 H MCHC 34 RDW 13.8 Plt Count 296 Lymph % (Auto) 23.1 [place] % (Auto) 10.8 H Eos % (Auto) 2.3 Baso % (Auto) 0.5 Lymph # 2.3 [place] # 1.1 H Eos # 0.2 Baso # 0.1 Seg Neutrophils % 63.3 Seg Neutrophils # 6.2 Sodium 143 Potassium 4.5 Chloride 105.1 Carbon Dioxide 24 Anion Gap 18 BUN 29 H Creatinine 0.9 Estimated GFR > 60 BUN/Creatinine Ratio 32 Glucose 101 H Calcium 9.9 Total Bilirubin 0.30 AST 28 ALT 23 Alkaline Phosphatase 77 Total Protein 7.2 Albumin 4.3 Albumin/Globulin Ratio 1.5 Lipase 18 - Radiology Data Radiology results: report reviewed CT abdomen and pelvis without contrast revealed cholelithiasis and fat- containing ventral hernia - Medical Decision Making Mr. Villegas presents with concerns of charley horses in his extremities and ventral hernia. No evidence of acute emergent illness. Discharged to self-care. Labs and CT reviewed. No acute medical illness present at this time. Critical care attestation.: If time is entered above; I have spent that time in minutes in the direct care of this critically ill patient, excluding procedure time. ED Disposition Clinical Impression: Ventral hernia, Dementia Disposition: - TO HOME OR SELFCARE Is pt being admited?: No Does the pt Need Aspirin: No Condition: Stable Instructions: Ventral Hernia (ED) Referrals: LETICIA SEVILLA MD [Staff Physician] - as needed
[2018-11-02 05:18] VITALS: BP 117/73
== END 2018-11-02 05:02 | disposition home or self-care (01) ==
LOC: ED 21:53
DX: K43.9 Ventral hernia without obstruction or gangrene (principal); F03.90 Unspecified dementia, unspecified severity, without behavioral disturbance, psychotic disturbance, mood disturbance, and anxiety; I11.0 Hypertensive heart disease with heart failure; I50.9 Heart failure, unspecified
CPT/HCPCS: 36415; 74176; 80053; 83690; 85025

== ENCOUNTER 2018-11-08 00:36 | Emergency (ER) | payer MEDICARE ==
[2018-11-08 01:16] LABS: Basophils % (Auto) 0.3 % (0.0-1.8); Eosinophils # (Auto) 0.2 K/mm3 (0.0-0.4); Eosinophils % (Auto) 2.4 % (0.0-4.3); Hematocrit 41.4 % (35.5-45.6); Hemoglobin 14.1 gm/dl (11.8-15.2); Lymphocytes # (Auto) 2.5 K/mm3 (1.2-5.4); Lymphocytes % (Auto) 25.2 % (13.4-35.0); Mean Corpuscular HGB Conc 34 % (32-34); Mean Corpuscular Volume 98 fl (84-94); Monocytes # (Auto) 0.9 K/mm3 (0.0-0.8); Monocytes % (Auto) 8.5 % (0.0-7.3); Platelet Count 267 K/mm3 (140-440); Red Blood Count 4.23 M/mm3 (3.65-5.03); Red Cell Distribution Width 13.9 % (13.2-15.2)
[2018-11-08 01:39] LABS: Alanine Aminotransferase 20 units/L (7-56); Albumin 4.2 g/dL (3.9-5); BUN/Creatinine Ratio 21; Blood Urea Nitrogen 17 mg/dL (9-20); Calcium 9.3 mg/dL (8.4-10.2); Hemolysis Index 8
--- NOTE | 2018-11-08 06:42 | Emergency Department Report ---
ED General Adult HPI - General Chief complaint: Abdominal Pain Stated complaint: HERNIA Time Seen by Provider: 11/08/18 06:18 Source: patient Mode of arrival: Ambulatory Limitations: No Limitations - History of Present Illness Initial comments: The patient presents to the emergency department with a chief complaint of abdominal pain secondary to hernia. Patient states that he's had issues with this hernia for years. Patient states yesterday he laughed which causes hernia to bolus. Patient states she is normally able to reduce the hernia was not able to do it yesterday. Patient has no other complaints at this time. Patient has chest pain, shortness breath, or headache. -: Sudden Location: abdomen Radiation: non-radiation Severity scale (0 -10): 0 Improves with: none Worsens with: none Associated Symptoms: denies other symptoms Treatments Prior to Arrival: none - Related Data Home Medications Medication Instructions Recorded Confirmed Last Taken Aspirin [Aspirin BABY CHEW TAB] 81 mg PO BID 04/14/18 04/14/18 04/14/18 Previous Rx's Medication Instructions Recorded Last Taken Type Ibuprofen [Motrin] 800 mg PO Q8HR PRN #20 tablet 04/14/18 Unknown Rx EPINEPHrine [Epipen] 0.3 mg IJ ONCE PRN #1 auto.injct 05/09/18 Unknown Rx Ibuprofen [Motrin] 800 mg PO Q8HR PRN #12 tablet 07/08/18 Unknown Rx Allergies Allergy/AdvReac Type Severity Reaction Status Date / Time acetaminophen [From Tylenol] Allergy Angioedema Verified 04/14/18 08:22 amitriptyline [From Elavil] Allergy Unknown Verified 10/06/17 01:05 chlorpromazine Allergy Unknown Verified 10/06/17 01:05 [From Thorazine] diphenhydramine Allergy Angioedema Verified 04/14/18 08:22 [From Benadryl] Iodinated Contrast- Oral and Allergy Unknown Verified 11/02/18 01:22 IV Dye Penicillins Allergy Unknown Verified 10/06/17 01:05 Sulfa (Sulfonamide Allergy Unknown Verified 10/06/17 01:05 Antibiotics) ED Review of Systems ROS: Stated complaint: HERNIA Other details as noted in HPI Constitutional: denies: chills, fever Eyes: denies: eye pain, eye discharge, vision change ENT: denies: ear pain, throat pain Respiratory: denies: cough, shortness of breath, wheezing Cardiovascular: denies: chest pain, palpitations Endocrine: no symptoms reported Gastrointestinal: abdominal pain. denies: nausea, diarrhea Genitourinary: denies: urgency, dysuria Musculoskeletal: denies: back pain, joint swelling, arthralgia Skin: denies: rash, lesions Neurological: denies: headache, weakness, paresthesias Psychiatric: denies: anxiety, depression Hematological/Lymphatic: denies: easy bleeding, easy bruising ED Past Medical Hx - Past Medical History Previous Medical History?: Yes Hx Hypertension: Yes Hx Congestive Heart Failure: Yes Additional medical history: hernia repair, dementia - Surgical History Past Surgical History?: Yes Additional Surgical History: hernia repair. eye sx/procedure during childhood - Social History Smoking Status: Never Smoker Substance Use Type: None - Medications Home Medications: Home Medications Medication Instructions Recorded Confirmed Last Taken Type Aspirin [Aspirin BABY CHEW TAB] 81 mg PO BID 04/14/18 04/14/18 04/14/18 History Ibuprofen [Motrin] 800 mg PO Q8HR PRN #20 tablet 04/14/18 Unknown Rx EPINEPHrine [Epipen] 0.3 mg IJ ONCE PRN #1 auto.injct 05/09/18 Unknown Rx Ibuprofen [Motrin] 800 mg PO Q8HR PRN #12 tablet 07/08/18 Unknown Rx ED Physical Exam - General Limitations: No Limitations General appearance: alert, in no apparent distress - Head Head exam: Present: atraumatic, normocephalic - Eye Eye exam: Present: normal appearance, PERRL, EOMI - ENT ENT exam: Present: mucous membranes moist - Neck Neck exam: Present: normal inspection - Respiratory Respiratory exam: Present: normal lung sounds bilaterally. Absent: respiratory distress - Cardiovascular Cardiovascular Exam: Present: regular rate, normal rhythm. Absent: systolic murmur, diastolic murmur, rubs, gallop - GI/Abdominal GI/Abdominal exam: Present: soft, normal bowel sounds, hernia. Absent: distended - Rectal Rectal exam: Present: deferred - Extremities Exam Extremities exam: Present: normal inspection - Back Exam Back exam: Present: normal inspection - Neurological Exam Neurological exam: Present: alert, oriented X3, CN II-XII intact. Absent: motor sensory deficit - Psychiatric Psychiatric exam: Present: normal affect, normal mood - Skin Skin exam: Present: warm, dry, intact, normal color. Absent: rash ED Course Vital Signs 06/04/19 00:48 Temperature 97.4 F L Pulse Rate 85 Respiratory 18 Rate Blood Pressure 128/76 O2 Sat by Pulse 98 Oximetry - Procedure Description Procedures done: Paraumbilical hernia reduction. Verbal consent obtained from the patient to reduce his hernia. Patient was laid in a supine position and palpation was used to assess the area of the hernia. Direct light pressure was placed on the apex of the hernia with complete reduction of the hernia. Patient tolerated procedure well. No sedation was used. Abdominal binder via [place] wrap was placed. ED Medical Decision Making - Lab Data Result diagrams: 11/08/18 00:51 11/08/18 00:55 Lab Results 11/08/18 11/08/18 Range/Units 00:51 00:55 WBC 10.1 (4.5-11.0) K/mm3 RBC 4.23 (3.65-5.03) M/mm3 Hgb 14.1 (11.8-15.2) gm/dl Hct 41.4 (35.5-45.6) % MCV 98 H (84-94) fl MCH 33 H (28-32) pg MCHC 34 (32-34) % RDW 13.9 (13.2-15.2) % Plt Count 267 (140-440) K/mm3 Lymph % (Auto) 25.2 (13.4-35.0) % [place] % (Auto) 8.5 H (0.0-7.3) % Eos % (Auto) 2.4 (0.0-4.3) % Baso % (Auto) 0.3 (0.0-1.8) % Lymph # 2.5 (1.2-5.4) K/mm3 [place] # 0.9 H (0.0-0.8) K/mm3 Eos # 0.2 (0.0-0.4) K/mm3 Baso # 0.0 (0.0-0.1) K/mm3 Seg Neutrophils % 63.6 (40.0-70.0) % Seg Neutrophils # 6.4 (1.8-7.7) K/mm3 Sodium 138 (137-145) mmol/L Potassium 4.3 (3.6-5.0) mmol/L Chloride 101.3 (98-107) mmol/L Carbon Dioxide 28 (22-30) mmol/L Anion Gap 13 mmol/L BUN 17 (9-20) mg/dL Creatinine 0.8 (0.8-1.5) mg/dL Estimated GFR > 60 ml/min BUN/Creatinine Ratio 21 % Glucose 124 H (75-100) mg/dL Calcium 9.3 (8.4-10.2) mg/dL Total Bilirubin 0.50 (0.1-1.2) mg/dL AST 22 (5-40) units/L ALT 20 (7-56) units/L Alkaline Phosphatase 69 (35-129) units/L Total Protein 7.2 (6.3-8.2) g/dL Albumin 4.2 (3.9-5) g/dL Albumin/Globulin Ratio 1.4 % Critical care attestation.: If time is entered above; I have spent that time in minutes in the direct care of this critically ill patient, excluding procedure time. ED Disposition Clinical Impression: Hernia Disposition: DC- TO HOME OR SELFCARE Is pt being admited?: No Does the pt Need Aspirin: No Condition: Stable Instructions: Ventral Hernia (ED), Umbilical Hernia (ED) Additional Instructions: return if worse Referrals: PRIMARY CARE, [Primary Care Provider] - 3-5 Days OCTAVIA CASIANO MD [Staff Physician] - 3-5 Days Time of Disposition: 06:41
[2018-11-08 09:15] VITALS: BP 130/80
== END 2018-11-08 09:22 | disposition home or self-care (01) ==
LOC: ED 00:36
DX: K46.9 Unspecified abdominal hernia without obstruction or gangrene (principal); I11.0 Hypertensive heart disease with heart failure; I50.9 Heart failure, unspecified; Z79.82 Long term (current) use of aspirin; Z88.8 Allergy status to other drugs, medicaments and biological substances; Z88.0 Allergy status to penicillin; Z88.2 Allergy status to sulfonamides; Z91.041 Radiographic dye allergy status
CPT/HCPCS: 36415; 80053; 85025; 99283

== ENCOUNTER 2018-11-29 09:18 | Emergency (ER) | payer MEDICARE ==
[2018-11-29 09:44] VITALS: BP 123/80
--- NOTE | 2018-11-29 12:23 | XRay Report ---
ROUTINE CHEST, TWO VIEWS: HISTORY: Dyspnea. The trachea, heart, mediastinal contour, lung mckinley and bony thorax are unremarkable. No significant change since 07/13/17. IMPRESSION: Unremarkable chest x-ray.
[2018-11-29 12:30] LABS: Basophils # (Auto) 0.1 K/mm3 (0.0-0.1); Basophils % (Auto) 0.5 % (0.0-1.8); Eosinophils # (Auto) 0.2 K/mm3 (0.0-0.4); Eosinophils % (Auto) 1.6 % (0.0-4.3); Hematocrit 42.5 % (35.5-45.6); Hemoglobin 14.5 gm/dl (11.8-15.2); Lymphocytes # (Auto) 2.5 K/mm3 (1.2-5.4); Lymphocytes % (Auto) 23.7 % (13.4-35.0); Mean Corpuscular HGB Conc 34 % (32-34); Mean Corpuscular Volume 96 fl (84-94); Monocytes # (Auto) 1.1 K/mm3 (0.0-0.8); Monocytes % (Auto) 10.7 % (0.0-7.3); Platelet Count 423 K/mm3 (140-440); Red Blood Count 4.41 M/mm3 (3.65-5.03); Red Cell Distribution Width 13.6 % (13.2-15.2)
[2018-11-29 12:51] LABS: BUN/Creatinine Ratio 25; Blood Urea Nitrogen 25 mg/dL (9-20); Calcium 9.6 mg/dL (8.4-10.2); Hemolysis Index 26
--- NOTE | 2018-11-29 13:41 | Vascular Lab Report ---
PROCEDURE: VL VENOUS DUPLEX LE BILAT TECHNIQUE: Grayscale, color flow and spectral waveform images were obtained of bilateral lower extre mities. HISTORY: bilateral leg swelling for week COMPARISON: None FINDINGS: There is no deep venous thrombosis seen in the left or right lower extremity. Flow is demonstrated by color flow and spectral waveform imaging. There is appropriate wall compression and augmentation. There is also no evidence of superficial venous thrombus. IMPRESSION: There is no evidence for DVT in either right or left lower extremity. This document is electronically signed by Rach Zaragoza MD., November 29 2018 01:38:26 PM ET
[2018-11-29 14:06] LABS: Bilirubin,Urine NEG (Negative); Blood,Urine NEG (Negative); Color,Urine Yellow (Yellow); Protein,Urine <15 mg/dL mg/dL (Negative); Urobilinogen,Urine < 2.0 mg/dL (<2.0)
--- NOTE | 2018-11-29 15:15 | Emergency Department Report ---
ED Fever HPI - General Chief Complaint: Extremity Problem,Nontraumatic Stated Complaint: RIB PAIN Time Seen by Provider: 11/29/18 11:56 - History of Present Illness Initial Comments: Patient is a 73-year-old male with a past medical history of congestive heart failure hypertension who is presenting with right rib pain. Patient states that he's had a cough that has been productive of clear sputum for the last 5-6 days. Patient states that today he suddenly developed pain in his right ribs as well as short shortness of breath. Patient denies fevers chills. Patient states is been no nausea vomiting diarrhea. Patient has a history of bilateral lower extremity swelling 3 he feels as though his right leg is more swollen than his left at this time. ED Review of Systems ROS: Stated complaint: RIB PAIN Other details as noted in HPI Comment: All other systems reviewed and negative ED Past Medical Hx - Past Medical History Previous Medical History?: Yes Hx Hypertension: Yes Hx Congestive Heart Failure: Yes Additional medical history: hernia repair, dementia - Surgical History Past Surgical History?: Yes Additional Surgical History: hernia repair. eye sx/procedure during childhood - Social History Smoking Status: Never Smoker Substance Use Type: None, Other - Medications Home Medications: Home Medications Medication Instructions Recorded Confirmed Last Taken Type Aspirin [Aspirin BABY CHEW TAB] 81 mg PO BID 04/14/18 04/14/18 04/14/18 History Ibuprofen [Motrin] 800 mg PO Q8HR PRN #20 tablet 04/14/18 Unknown Rx EPINEPHrine [Epipen] 0.3 mg IJ ONCE PRN #1 auto.injct 05/09/18 Unknown Rx Ibuprofen [Motrin] 800 mg PO Q8HR PRN #12 tablet 07/08/18 Unknown Rx ALBUTEROL Inhaler (OR & NICU) 2 puff IH QID PRN #1 inhalation 11/29/18 Unknown Rx [ProAir HFA Inhaler] Azithromycin [Zithromax Z-PARAG] 250 mg PO DAILY #6 tablet 11/29/18 Unknown Rx Benzonatate [Tessalon Perles] 100 mg PO Q8HR #10 capsule 11/29/18 Unknown Rx Ibuprofen [Motrin 400 MG tab] 400 mg PO Q8H PRN #20 tablet 11/29/18 Unknown Rx traMADol [Ultram] 50 mg PO Q6HR PRN #12 tablet 11/29/18 Unknown Rx ED Physical Exam - General Limitations: No Limitations General appearance: alert, in no apparent distress - Head Head exam: Present: atraumatic, normocephalic - Eye Eye exam: Present: normal appearance - ENT ENT exam: Present: mucous membranes moist - Neck Neck exam: Present: normal inspection - Respiratory Respiratory exam: Present: normal lung sounds bilaterally, chest wall tenderness. Absent: respiratory distress, wheezes, rales, rhonchi, accessory muscle use - Cardiovascular Cardiovascular Exam: Present: regular rate, normal rhythm, normal heart sounds. Absent: systolic murmur, diastolic murmur, rubs, gallop - GI/Abdominal GI/Abdominal exam: Present: soft, normal bowel sounds - Rectal Rectal exam: Present: deferred - Extremities Exam Extremities exam: Present: normal inspection, joint swelling (bilateral ankle swelling) - Back Exam Back exam: Present: normal inspection - Neurological Exam Neurological exam: Present: alert, oriented X3 - Psychiatric Psychiatric exam: Present: normal affect, normal mood - Skin Skin exam: Present: warm, dry, intact, normal color. Absent: rash ED Course Vital Signs 11/29/18 09:41 Temperature 97.9 F Pulse Rate 54 L Respiratory 18 Rate Blood Pressure 123/80 O2 Sat by Pulse 94 Oximetry ED Medical Decision Making - Lab Data Result diagrams: 11/29/18 12:19 11/29/18 12:19 Lab Results 11/29/18 11/29/18 11/29/18 Range/Units 12:19 12:19 12:19 WBC 10.7 (4.5-11.0) K/mm3 RBC 4.41 (3.65-5.03) M/mm3 Hgb 14.5 (11.8-15.2) gm/dl Hct 42.5 (35.5-45.6) % MCV 96 H (84-94) fl MCH 33 H (28-32) pg MCHC 34 (32-34) % RDW 13.6 (13.2-15.2) % Plt Count 423 (140-440) K/mm3 Lymph % (Auto) 23.7 (13.4-35.0) % [place] % (Auto) 10.7 H (0.0-7.3) % Eos % (Auto) 1.6 (0.0-4.3) % Baso % (Auto) 0.5 (0.0-1.8) % Lymph # 2.5 (1.2-5.4) K/mm3 [place] # 1.1 H (0.0-0.8) K/mm3 Eos # 0.2 (0.0-0.4) K/mm3 Baso # 0.1 (0.0-0.1) K/mm3 Seg Neutrophils % 63.5 (40.0-70.0) % Seg Neutrophils # 6.8 (1.8-7.7) K/mm3 D-Dimer 242.71 H (0-234) ng/mlDDU Sodium 140 (137-145) mmol/L Potassium 4.7 (3.6-5.0) mmol/L Chloride 100.4 (98-107) mmol/L Carbon Dioxide 26 (22-30) mmol/L Anion Gap 18 mmol/L BUN 25 H (9-20) mg/dL Creatinine 1.0 (0.8-1.5) mg/dL Estimated GFR > 60 ml/min BUN/Creatinine Ratio 25 % Glucose 85 (75-100) mg/dL Calcium 9.6 (8.4-10.2) mg/dL Troponin T (0.00-0.029) ng/mL NT-Pro-B Natriuret Pep 19.05 (0-900) pg/mL Urine Color (Yellow) Urine Turbidity (Clear) Urine pH (5.0-7.0) Ur Specific [place] (1.003-1.030) Urine Protein (Negative) mg/dL Urine Glucose (UA) (Negative) mg/dL Urine Ketones (Negative) mg/dL Urine Blood (Negative) Urine Nitrite (Negative) Urine Bilirubin (Negative) Urine Urobilinogen (<2.0) mg/dL Ur Leukocyte Esterase (Negative) Urine WBC (Auto) (0.0-6.0) /HPF Urine RBC (Auto) (0.0-6.0) /HPF U Epithel Cells (Auto) (0-13.0) /HPF 11/29/18 11/29/18 Range/Units 12:19 13:59 WBC (4.5-11.0) K/mm3 RBC (3.65-5.03) M/mm3 Hgb (11.8-15.2) gm/dl Hct (35.5-45.6) % MCV (84-94) fl MCH (28-32) pg MCHC (32-34) % RDW (13.2-15.2) % Plt Count (140-440) K/mm3 Lymph % (Auto) (13.4-35.0) % [place] % (Auto) (0.0-7.3) % Eos % (Auto) (0.0-4.3) % Baso % (Auto) (0.0-1.8) % Lymph # (1.2-5.4) K/mm3 [place] # (0.0-0.8) K/mm3 Eos # (0.0-0.4) K/mm3 Baso # (0.0-0.1) K/mm3 Seg Neutrophils % (40.0-70.0) % Seg Neutrophils # (1.8-7.7) K/mm3 D-Dimer (0-234) ng/mlDDU Sodium (137-145) mmol/L Potassium (3.6-5.0) mmol/L Chloride (98-107) mmol/L Carbon Dioxide (22-30) mmol/L Anion Gap mmol/L BUN (9-20) mg/dL Creatinine (0.8-1.5) mg/dL Estimated GFR ml/min BUN/Creatinine Ratio % Glucose (75-100) mg/dL Calcium (8.4-10.2) mg/dL Troponin T < 0.010 (0.00-0.029) ng/mL NT-Pro-B Natriuret Pep (0-900) pg/mL Urine Color Yellow (Yellow) Urine Turbidity Clear (Clear) Urine pH 5.0 (5.0-7.0) Ur Specific [place] 1.017 (1.003-1.030) Urine Protein <15 mg/dl (Negative) mg/dL Urine Glucose (UA) Neg (Negative) mg/dL Urine Ketones Neg (Negative) mg/dL Urine Blood Neg (Negative) Urine Nitrite Neg (Negative) Urine Bilirubin Neg (Negative) Urine Urobilinogen < 2.0 (<2.0) mg/dL Ur Leukocyte Esterase Neg (Negative) Urine WBC (Auto) 1.0 (0.0-6.0) /HPF Urine RBC (Auto) 1.0 (0.0-6.0) /HPF U Epithel Cells (Auto) 1.0 (0-13.0) /HPF - EKG Data -: EKG Interpreted by Nd EKG shows normal: sinus rhythm, axis, intervals, QRS complexes, ST-T waves Rate: normal - EKG Data Interpretation: normal EKG - Radiology Data [address] [address] XRay Report Signed Patient: LYSSA AL III R#: [id number] : 1945 Acct:[id number] Age/Sex: 73 / M ADM Date: 11/29/18 Loc: ED Attending Dr: Ordering Physician: BRAIN DUBON MD Date of Service: 11/29/18 Procedure(s): XR chest routine 2V Accession Number(s): [id number] cc: BRAIN DUBON MD Fluoro Time In Minutes: ROUTINE CHEST, TWO VIEWS: HISTORY: Dyspnea. The trachea, heart, mediastinal contour, lung mckinley and bony thorax are unremarkable. No significant change since 07/13/17. IMPRESSION: Unremarkable chest x-ray. Transcribed By: TTR Dictated By: SHELLY ROSALES JR, MD Electronically Authenticated By: SHELLY ROSALES JR, MD Signed Date/Time: 11/29/181217 DD/ 16 TD/TT: 11/29/181217 [address] [address] Vascular Lab Report Signed Patient: LYSSA AL III R#: [id number] : 1945 Acct:[id number] Age/Sex: 73 / M ADM Date: 11/29/18 Loc: ED Attending Dr: Ordering Physician: BRAIN DUBON MD Date of Service: 11/29/18 Procedure(s): VL venous duplex LE BILAT Accession Number(s): [id number] cc: BRAIN DUBON MD PROCEDURE: VL VENOUS DUPLEX LE BILAT TECHNIQUE: Grayscale, color flow and spectral waveform images were obtained of bilateral lower extremities. HISTORY: bilateral leg swelling for week COMPARISON: None FINDINGS: There is no deep venous thrombosis seen in the left or right lower extremity. Flow is demonstrated by color flow and spectral waveform imaging. There is appropriate wall compression and augmentation. There is also no evidence of superficial venous thrombus. IMPRESSION: There is no evidence for DVT in either right or left lower extremity. This document is electronically signed by Rach Zaragoza MD., November 29 2018 0 1:38:26 PM ET Transcribed By: REBA Dictated By: RACH ZARAGOZA MD Electronically Authenticated By: RACH ZARAGOZA MD Signed Date/Time: 11/29/18 1341 DD/ 1258 TD/TT: 11/29/18 1259 - Medical Decision Making Patient is a 73-year-old gentleman who's had a cough for the last several days but had right rib pain and worsening shortness of breath today while at a gas station. Patient history was concerning for PE since the patient states that he has some worsening right lower extremity swelling because of his pain was pleuritic. Patient does have a history of a chronic cough therefore workup for pulmonary embolus was done. Patient's d-dimer was less than 250 which is the cut off in our system. Patient's ultrasound bilateral lower extremity shows no DVT. Patient likely with costochondritis and pleurisy secondary to his respiratory infection. Patient to be discharged home with medications for symptomatic relief. Critical care attestation.: If time is entered above; I have spent that time in minutes in the direct care of this critically ill patient, excluding procedure time. ED Disposition Clinical Impression: Acute chest wall pain, Dependent edema Upper respiratory infection Qualifiers: URI type: unspecified URI Qualified Code(s): J06.9 - Acute upper respiratory infection, unspecified Disposition: - TO HOME OR SELFCARE Is pt being admited?: No Does the pt Need Aspirin: No Condition: Stable Instructions: Chest Pain (ED), Costochondritis (ED), Upper Respiratory Infection (ED) Referrals: JOSI LOPEZ MD [Primary Care Provider] - 3-5 Days Time of Disposition: 15:19
== END 2018-11-29 16:42 | disposition home or self-care (01) ==
LOC: ED 09:18
DX: J06.9 Acute upper respiratory infection, unspecified (principal); R60.9 Edema, unspecified; I11.0 Hypertensive heart disease with heart failure; I50.9 Heart failure, unspecified; F03.90 Unspecified dementia, unspecified severity, without behavioral disturbance, psychotic disturbance, mood disturbance, and anxiety; Z98.890 Other specified postprocedural states; Z79.899 Other long term (current) drug therapy; Z88.6 Allergy status to analgesic agent; Z88.8 Allergy status to other drugs, medicaments and biological substances
CPT/HCPCS: 36415; 71046; 80048; 81001; 83880; 84484; 85025; 85379; 93970

== ENCOUNTER 2018-12-05 14:07 | Emergency (ER) | payer MEDICARE ==
[2018-12-05 14:15] VITALS: BP 156/83
--- NOTE | 2018-12-05 15:05 | Emergency Department Report ---
ED General Adult HPI - General Chief complaint: Headache Stated complaint: HEADACHE Time Seen by Provider: 12/05/18 14:46 Source: patient Mode of arrival: Ambulatory Limitations: No Limitations - History of Present Illness Initial comments: This is a 73-year-old male who presents to the emergency room with a headache and lower abdominal cramping. Past medical history of hypertension, congestive heart failure, dementia, and hernia. Reports the headache was right frontal and lasted for 1-1/2 hours. She reports the headache improved but he continues to have abdominal cramping. He is wearing an abdominal binder with some discomfort with movement. Onset/Timin -: hour(s) Location: head Radiation: non-radiation Severity scale (0 -10): 3 Quality: aching Consistency: now resolved Improves with: none Worsens with: movement Associated Symptoms: headaches. denies: confusion, chest pain, cough, diaphoresis, fever/chills, loss of appetite, malaise, nausea/vomiting, rash, seizure, shortness of breath, syncope, weakness Treatments Prior to Arrival: NSAID - Related Data Home Medications Medication Instructions Recorded Confirmed Last Taken Aspirin [Aspirin BABY CHEW TAB] 81 mg PO BID 04/14/18 04/14/18 04/14/18 Previous Rx's Medication Instructions Recorded Last Taken Type Ibuprofen [Motrin] 800 mg PO Q8HR PRN #20 tablet 04/14/18 Unknown Rx EPINEPHrine [Epipen] 0.3 mg IJ ONCE PRN #1 auto.injct 05/09/18 Unknown Rx Ibuprofen [Motrin] 800 mg PO Q8HR PRN #12 tablet 07/08/18 Unknown Rx ALBUTEROL Inhaler (OR & NICU) 2 puff IH QID PRN #1 inhalation 11/29/18 Unknown Rx [ProAir HFA Inhaler] Azithromycin [Zithromax Z-PARAG] 250 mg PO DAILY #6 tablet 11/29/18 Unknown Rx Benzonatate [Tessalon Perles] 100 mg PO Q8HR #10 capsule 11/29/18 Unknown Rx Ibuprofen [Motrin 400 MG tab] 400 mg PO Q8H PRN #20 tablet 11/29/18 Unknown Rx traMADol [Ultram] 50 mg PO Q6HR PRN #12 tablet 11/29/18 Unknown Rx Allergies Allergy/AdvReac Type Severity Reaction Status Date / Time acetaminophen [From Tylenol] Allergy Angioedema Verified 04/14/18 08:22 amitriptyline [From Elavil] Allergy Unknown Verified 10/06/17 01:05 chlorpromazine Allergy Unknown Verified 10/06/17 01:05 [From Thorazine] diphenhydramine Allergy Angioedema Verified 04/14/18 08:22 [From Benadryl] Iodinated Contrast- Oral and Allergy Unknown Verified 11/02/18 01:22 IV Dye Penicillins Allergy Unknown Verified 10/06/17 01:05 Sulfa (Sulfonamide Allergy Unknown Verified 10/06/17 01:05 Antibiotics) ED Review of Systems ROS: Stated complaint: HEADACHE Other details as noted in HPI Constitutional: denies: chills, fever Respiratory: denies: cough, shortness of breath, wheezing Cardiovascular: denies: chest pain, palpitations Gastrointestinal: abdominal pain. denies: nausea, diarrhea Musculoskeletal: denies: back pain, joint swelling, arthralgia Skin: denies: rash, lesions Neurological: headache. denies: weakness, paresthesias Psychiatric: denies: anxiety, depression ED Past Medical Hx - Past Medical History Previous Medical History?: Yes Hx Hypertension: Yes Hx Congestive Heart Failure: Yes Additional medical history: hernia repair, dementia - Surgical History Past Surgical History?: Yes Additional Surgical History: hernia repair. eye sx/procedure during childhood - Social History Smoking Status: Former Smoker Substance Use Type: None - Medications Home Medications: Home Medications Medication Instructions Recorded Confirmed Last Taken Type Aspirin [Aspirin BABY CHEW TAB] 81 mg PO BID 04/14/18 04/14/18 04/14/18 History Ibuprofen [Motrin] 800 mg PO Q8HR PRN #20 tablet 04/14/18 Unknown Rx EPINEPHrine [Epipen] 0.3 mg IJ ONCE PRN #1 auto.injct 05/09/18 Unknown Rx Ibuprofen [Motrin] 800 mg PO Q8HR PRN #12 tablet 07/08/18 Unknown Rx ALBUTEROL Inhaler (OR & NICU) 2 puff IH QID PRN #1 inhalation 11/29/18 Unknown Rx [ProAir HFA Inhaler] Azithromycin [Zithromax Z-PARAG] 250 mg PO DAILY #6 tablet 11/29/18 Unknown Rx Benzonatate [Tessalon Perles] 100 mg PO Q8HR #10 capsule 11/29/18 Unknown Rx Ibuprofen [Motrin 400 MG tab] 400 mg PO Q8H PRN #20 tablet 11/29/18 Unknown Rx traMADol [Ultram] 50 mg PO Q6HR PRN #12 tablet 11/29/18 Unknown Rx ED Physical Exam - General Limitations: No Limitations General appearance: alert, in no apparent distress, obese - Respiratory Respiratory exam: Present: normal lung sounds bilaterally. Absent: respiratory distress - Cardiovascular Cardiovascular Exam: Present: regular rate, normal rhythm. Absent: systolic murmur, diastolic murmur, rubs, gallop - GI/Abdominal GI/Abdominal exam: Present: soft, normal bowel sounds, hernia (umbilical hernia). Absent: distended, tenderness, guarding, rebound, rigid - Neurological Exam Neurological exam: Present: alert, oriented X3, normal gait - Psychiatric Psychiatric exam: Present: normal affect, normal mood - Skin Skin exam: Present: warm, dry, intact, normal color. Absent: rash ED Course Vital Signs 12/05/18 14:13 Temperature 97.8 F Pulse Rate 104 H Respiratory 20 Rate Blood Pressure 156/83 O2 Sat by Pulse 96 Oximetry ED Medical Decision Making - Lab Data Result diagrams: 12/05/18 15:08 12/05/18 15:08 Lab Results 12/05/18 12/05/18 Range/Units 15:08 15:08 WBC 8.4 (4.5-11.0) K/mm3 RBC 4.30 (3.65-5.03) M/mm3 Hgb 14.1 (11.8-15.2) gm/dl Hct 41.6 (35.5-45.6) % MCV 97 H (84-94) fl MCH 33 H (28-32) pg MCHC 34 (32-34) % RDW 14.0 (13.2-15.2) % Plt Count 357 (140-440) K/mm3 Sodium 141 (137-145) mmol/L Potassium 4.3 (3.6-5.0) mmol/L Chloride 103.9 (98-107) mmol/L Carbon Dioxide 25 (22-30) mmol/L Anion Gap 16 mmol/L BUN 19 (9-20) mg/dL Creatinine 0.9 (0.8-1.5) mg/dL Estimated GFR > 60 ml/min BUN/Creatinine Ratio 21 % Glucose 114 H (75-100) mg/dL Calcium 8.9 (8.4-10.2) mg/dL Total Bilirubin 0.20 (0.1-1.2) mg/dL AST 24 (5-40) units/L ALT 20 (7-56) units/L Alkaline Phosphatase 103 (35-129) units/L Total Protein 7.3 (6.3-8.2) g/dL Albumin 4.2 (3.9-5) g/dL Albumin/Globulin Ratio 1.4 % - Medical Decision Making Patient was examined by me. Vitals are normal and patient is in no acute distress. Obtained a BMP and CBC. All labs are unremarkable. There is a reproducible umbilical hernia present. Patient reports headache has resolved. Instructed to take NSAIDs for pain relief. Continue wearing abdominal binder. Patient informed of results. Plan discussed with patient to discharge home and treat outpatient. He agrees with ER plan. Patient discharged home in stable condition. Follow up with PCP in 2-3 days. Critical care attestation.: If time is entered above; I have spent that time in minutes in the direct care of this critically ill patient, excluding procedure time. ED Disposition Clinical Impression: Tension headache Abdominal pain Qualifiers: Abdominal location: periumbilical Qualified Code(s): R10.33 - Periumbilical pain Disposition: DC- TO HOME OR SELFCARE Is pt being admited?: No Does the pt Need Aspirin: No Condition: Stable Instructions: Umbilical Hernia (ED), Tension Headache (ED) Additional Instructions: Continues taking scheduled medication. Follow-up with her primary care doctor regarding your hernia. Return to the emergency room if worsening symptoms. Referrals: SALLIE BENITEZ MD [Primary Care Provider] - 3-5 Days STEVEN ROUSSEAU MD [Staff Physician] - 3-5 Days [facility] [Outside] - 3-5 Days Time of Disposition: 17:08
[2018-12-05 15:37] LABS: Hematocrit 41.6 % (35.5-45.6); Hemoglobin 14.1 gm/dl (11.8-15.2); Mean Corpuscular HGB Conc 34 % (32-34); Mean Corpuscular Volume 97 fl (84-94); Platelet Count 357 K/mm3 (140-440)
[2018-12-05 16:02] LABS: Alanine Aminotransferase 20 units/L (7-56); Albumin 4.2 g/dL (3.9-5); BUN/Creatinine Ratio 21; Blood Urea Nitrogen 19 mg/dL (9-20); Calcium 8.9 mg/dL (8.4-10.2); Hemolysis Index 48
== END 2018-12-05 17:29 | disposition home or self-care (01) ==
LOC: ED 14:07
DX: G44.209 Tension-type headache, unspecified, not intractable (principal); K42.9 Umbilical hernia without obstruction or gangrene; I11.0 Hypertensive heart disease with heart failure; I50.9 Heart failure, unspecified; Z79.82 Long term (current) use of aspirin; Z79.1 Long term (current) use of non-steroidal anti-inflammatories (NSAID); Z79.899 Other long term (current) drug therapy; Z88.0 Allergy status to penicillin; Z88.2 Allergy status to sulfonamides; Z88.5 Allergy status to narcotic agent; Z91.041 Radiographic dye allergy status; Z98.890 Other specified postprocedural states; Z87.891 Personal history of nicotine dependence
CPT/HCPCS: 36415; 80053; 81001; 85027; 99283

== ENCOUNTER 2018-12-05 22:56 | Emergency (ER) | payer MEDICARE ==
[2018-12-05 23:40] VITALS: BP 132/88
[2018-12-06 03:21] LABS: Bilirubin,Urine NEG (Negative); Blood,Urine NEG (Negative); Color,Urine Yellow (Yellow); Mucus,Urine FEW /HPF; Protein,Urine <15 mg/dL mg/dL (Negative); Urobilinogen,Urine < 2.0 mg/dL (<2.0)
== END 2018-12-06 00:50 | disposition left against medical advice (07) ==
LOC: ED 22:56
DX: R10.9 Unspecified abdominal pain (principal); Z53.21 Procedure and treatment not carried out due to patient leaving prior to being seen by health care provider
CPT/HCPCS: 81001

== ENCOUNTER 2018-12-13 19:30 | Emergency (ER) | payer MEDICARE ==
--- NOTE | 2018-12-13 19:46 | Emergency Department Report ---
ED General Adult HPI - General Chief complaint: Extremity Injury, Lower Stated complaint: BOTH LEGS SWOLLEN Time Seen by Provider: 12/13/18 19:36 Source: patient, EMS (ems notes not available at time of chart dictation), RN notes reviewed, old records reviewed Mode of arrival: Stretcher Limitations: No Limitations - History of Present Illness Initial comments: This is a 73-year-old gentleman. This patient is not known to this provider previously. Patient has a history of presumed bronchitis, chronic ventral hernia, and homelessness. Patient has presented to this ER multiple times within the past few months for multiple complaints, including abdominal pain, cough, leg pain, mechanical fall. He's had extensive objective testing, including negative DVT study of the bilateral lower extremities, CT scan of the abdomen and pelvis which is demonstrated a chronic-appearing ventral hernia, and constipation, and a negative noncontrast CT scan of the brain. Today, the patient presents to the ER with EMS with a complaint of nontraumatic bilateral extremity pain and swelling. He also complains of chronic ventral hernia. While in the ER, patient continually adjusts and changes his story, and eventually tells me that he fell. He says that he hit his head. At first she states that he hit his head a few years ago. Then he states that he fell and hit his head recently. The patient is interested in speaking to a community case manager about his options for outpatient placement for homeless shelters. His lower extremity swelling is chronic, aching, does not radiate anywhere, increases with palpation and decreases with rest. His ventral wall hernia is chronic, midline, increases with Valsalva and decreases with rest. His headache is left-sided, throbbing, aching, and does not have any exacerbating or relieving factors. The patient makes no complaint of midline neck pain, chest pain, upper abdominal pain, new or different shortness of breath. The patient indicates no DVT or pulmonary embolus risk factors. -: Gradual Location: abdomen, left, right, lower extremity Severity scale (0 -10): 0 Quality: other Consistency: other Improves with: other Worsens with: other Associated Symptoms: other - Related Data Home Medications Medication Instructions Recorded Confirmed Last Taken Aspirin [Aspirin BABY CHEW TAB] 81 mg PO BID 04/14/18 04/14/18 04/14/18 Previous Rx's Medication Instructions Recorded Last Taken Type Ibuprofen [Motrin] 800 mg PO Q8HR PRN #20 tablet 04/14/18 Unknown Rx EPINEPHrine [Epipen] 0.3 mg IJ ONCE PRN #1 auto.injct 05/09/18 Unknown Rx Ibuprofen [Motrin] 800 mg PO Q8HR PRN #12 tablet 07/08/18 Unknown Rx ALBUTEROL Inhaler (OR & NICU) 2 puff IH QID PRN #1 inhalation 11/29/18 Unknown Rx [ProAir HFA Inhaler] Azithromycin [Zithromax Z-PARGA] 250 mg PO DAILY #6 tablet 11/29/18 Unknown Rx Benzonatate [Tessalon Perles] 100 mg PO Q8HR #10 capsule 11/29/18 Unknown Rx Ibuprofen [Motrin 400 MG tab] 400 mg PO Q8H PRN #20 tablet 11/29/18 Unknown Rx traMADol [Ultram] 50 mg PO Q6HR PRN #12 tablet 11/29/18 Unknown Rx Furosemide [Lasix] 20 mg PO QDAY #14 tablet 12/13/18 Unknown Rx Allergies Allergy/AdvReac Type Severity Reaction Status Date / Time acetaminophen [From Tylenol] Allergy Angioedema Verified 04/14/18 08:22 amitriptyline [From Elavil] Allergy Unknown Verified 10/06/17 01:05 chlorpromazine Allergy Unknown Verified 10/06/17 01:05 [From Thorazine] diphenhydramine Allergy Angioedema Verified 04/14/18 08:22 [From Benadryl] Iodinated Contrast- Oral and Allergy Unknown Verified 11/02/18 01:22 IV Dye Penicillins Allergy Unknown Verified 10/06/17 01:05 Sulfa (Sulfonamide Allergy Unknown Verified 10/06/17 01:05 Antibiotics) ED Review of Systems ROS: Stated complaint: BOTH LEGS SWOLLEN Other details as noted in HPI Constitutional: denies: fever Eyes: denies: eye discharge ENT: congestion Respiratory: SOB with exertion Cardiovascular: edema Gastrointestinal: other (HERNIA) Musculoskeletal: myalgia Skin: denies: lesions Neurological: headache, weakness Hematological/Lymphatic: denies: easy bleeding ED Past Medical Hx - Past Medical History Hx Hypertension: Yes Hx Congestive Heart Failure: Yes Additional medical history: hernia repair, dementia - Surgical History Additional Surgical History: hernia repair. eye sx/procedure during childhood - Social History Smoking Status: Former Smoker Substance Use Type: None - Medications Home Medications: Home Medications Medication Instructions Recorded Confirmed Last Taken Type Aspirin [Aspirin BABY CHEW TAB] 81 mg PO BID 04/14/18 04/14/18 04/14/18 History Ibuprofen [Motrin] 800 mg PO Q8HR PRN #20 tablet 04/14/18 Unknown Rx EPINEPHrine [Epipen] 0.3 mg IJ ONCE PRN #1 auto.injct 05/09/18 Unknown Rx Ibuprofen [Motrin] 800 mg PO Q8HR PRN #12 tablet 07/08/18 Unknown Rx ALBUTEROL Inhaler (OR & NICU) 2 puff IH QID PRN #1 inhalation 11/29/18 Unknown Rx [ProAir HFA Inhaler] Azithromycin [Zithromax Z-PARAG] 250 mg PO DAILY #6 tablet 11/29/18 Unknown Rx Benzonatate [Tessalon Perles] 100 mg PO Q8HR #10 capsule 11/29/18 Unknown Rx Ibuprofen [Motrin 400 MG tab] 400 mg PO Q8H PRN #20 tablet 11/29/18 Unknown Rx traMADol [Ultram] 50 mg PO Q6HR PRN #12 tablet 11/29/18 Unknown Rx Furosemide [Lasix] 20 mg PO QDAY #14 tablet 12/13/18 Unknown Rx ED Physical Exam - General Limitations: No Limitations General appearance: alert, in no apparent distress - Head Head exam: Present: normocephalic, other (chronic appearing abrasions/skin discoloration noted to the left lateral hindu) - Eye Eye exam: Present: normal appearance, EOMI (visual acuity intact to finger counting and color perception at a close DISTANCE). Absent: nystagmus - ENT ENT exam: Present: normal exam, normal orophraynx, mucous membranes moist, normal external ear exam - Neck Neck exam: Present: normal inspection, full ROM. Absent: tenderness, meningismus - Respiratory Respiratory exam: Present: rhonchi. Absent: respiratory distress - Cardiovascular Cardiovascular Exam: Present: regular rate, normal rhythm, normal heart sounds. Absent: bradycardia, tachycardia, irregular rhythm, systolic murmur, diastolic murmur, rubs, gallop - GI/Abdominal GI/Abdominal exam: Present: soft, hernia, other (there is a midline hernia, that is reducible, but is nontender). Absent: distended, tenderness, guarding, rebound, rigid, pulsatile mass - Rectal Rectal exam: Present: deferred - Extremities Exam Extremities exam: Present: normal inspection, full ROM, pedal edema, other (2+ p ulses noted in the bilateral upper, lower extremities. Compartments soft. No long bony tenderness. The pelvis is stable.). Absent: calf tenderness - Back Exam Back exam: Present: normal inspection, full ROM. Absent: tenderness, CVA tenderness (R), CVA tenderness (L), paraspinal tenderness, vertebral tenderness - Neurological Exam Neurological exam: Present: alert, oriented X3, other (Extraocular movements intact. Tongue midline. No facial droop. Facial sensation intact to light touch in the V1, V2, V3 distribution bilaterally. 5 and 5 strength in 4 extremities.. Sensation is intact to light touch in 4 extremities.). Absent: motor sensory deficit - Psychiatric Psychiatric exam: Present: anxious - Skin Skin exam: Present: warm, dry, intact, normal color. Absent: rash ED Course Vital Signs 12/13/18 12/13/18 12/13/18 19:44 20:18 21:53 Temperature 98.4 F Pulse Rate 95 H 84 83 Respiratory 17 17 18 Rate Blood Pressure 155/91 121/84 127/79 [Right] O2 Sat by Pulse 96 97 97 Oximetry - Reevaluation(s) Reevaluation #1: 12/13/18 20:35 Differential diagnosis, including not limited to: Homelessness, malingering, chronic edema, bronchitis, intracranial injury Assessment and plan: 73-year-old gentleman who continuously adjusts and changes his clinical history, initially complaining of chronic lower extremity swelling, and any on chronic ventral hernia discomfort, and then making a comment that he may have fallen. The patient does not appear to have an acute-appearing bruise or ecchymosis on his left head. Suspect secondary gain. Screening laboratory studies unremarkable. Saturating well on room air. Recently ruled out for DVT. Recently had a chronic appearing CT scan of the abdomen and pelvis. It appears that the patient does not appear to have an immediate medical emergency condition at this time, but rather has prevailing psychosocial issues. He is unfortunately allergic to acetaminophen. A noncontrast CT scan of the brain is ordered. As needed albuterol is ordered. shared services and outsourcing manager consult is requested. Reevaluation #2: 12/13/18 22:30 Patient walking around the department, and in no acute distress. X-ray of the chest suggest possible mild pulmonary vascular congestion. Patient is not hypoxic. Patient does not meet criteria for hospitalization. He can continue/start Lasix. He may follow up with an outpatient primary care doctor. ED Medical Decision Making - Lab Data Result diagrams: 12/13/18 19:51 12/13/18 19:51 Vital Signs 12/13/18 12/13/18 19:44 20:18 Temperature 98.4 F Pulse Rate 95 H 84 Respiratory 17 17 Rate Blood Pressure 155/91 121/84 [Right] O2 Sat by Pulse 96 97 Oximetry Lab Results 12/13/18 12/13/18 12/13/18 Range/Units 19:51 19:51 19:51 WBC 9.8 (4.5-11.0) K/mm3 RBC 4.31 (3.65-5.03) M/mm3 Hgb 14.4 (11.8-15.2) gm/dl Hct 41.3 (35.5-45.6) % MCV 96 H (84-94) fl MCH 33 H (28-32) pg MCHC 35 H (32-34) % RDW 13.8 (13.2-15.2) % Plt Count 217 (140-440) K/mm3 Sodium 137 (137-145) mmol/L Potassium 4.2 (3.6-5.0) mmol/L Chloride 101.0 (98-107) mmol/L Carbon Dioxide 26 (22-30) mmol/L Anion Gap 14 mmol/L BUN 15 (9-20) mg/dL Creatinine 1.0 (0.8-1.5) mg/dL Estimated GFR > 60 ml/min BUN/Creatinine Ratio 15 % Glucose 98 (75-100) mg/dL Calcium 9.2 (8.4-10.2) mg/dL Magnesium 2.00 (1.7-2.3) mg/dL Total Creatine Kinase 274 H (55-170) units/L Salicylates < 0.3 L (2.8-20.0) mg/dL Acetaminophen (10.0-30.0) ug/mL 12/13/18 Range/Units 19:51 WBC (4.5-11.0) K/mm3 RBC (3.65-5.03) M/mm3 Hgb (11.8-15.2) gm/dl Hct (35.5-45.6) % MCV (84-94) fl MCH (28-32) pg MCHC (32-34) % RDW (13.2-15.2) % Plt Count (140-440) K/mm3 Sodium (137-145) mmol/L Potassium (3.6-5.0) mmol/L Chloride (98-107) mmol/L Carbon Dioxide (22-30) mmol/L Anion Gap mmol/L BUN (9-20) mg/dL Creatinine (0.8-1.5) mg/dL Estimated GFR ml/min BUN/Creatinine Ratio % Glucose (75-100) mg/dL Calcium (8.4-10.2) mg/dL Magnesium (1.7-2.3) mg/dL Total Creatine Kinase (55-170) units/L Salicylates (2.8-20.0) mg/dL Acetaminophen < 5.0 L (10.0-30.0) ug/mL - EKG Data -: EKG Interpreted by [place] EKG shows normal: sinus rhythm Rate: normal - EKG Data 12/13/18 20:36 This is a normal sinus tachycardia, 101 bpm, left axis deviation, left anterior fascicular block, incomplete right bundle branch block, poor R-wave progression, motion artifact, no endorsement of chest pain, the EKG is abnormal, the EKG is not consistent with ST elevation myocardial infarction. - Radiology Data Radiology results: pending Critical care attestation.: If time is entered above; I have spent that time in minutes in the direct care of this critically ill patient, excluding procedure time. ED Disposition Clinical Impression: Dependent edema Ventral hernia Qualifiers: Obstruction and gangrene presence: without obstruction or gangrene Qualified Code(s): K43.9 - Ventral hernia without obstruction or gangrene Disposition: TO HOME OR SELFCARE Is pt being admited?: No Does the pt Need Aspirin: No Condition: Stable Additional Instructions: Limited consumption of salt and water for the time being. Take the Lasix medication as directed. Follow up with a primary care doctor or mail processing machine operator for lower extremity swelling within the next 2-4 weeks. Follow-up with the general surgeon within the next 4 weeks for evaluation for chronic ventral hernia. Return to the emergency room right away with new, worsening or different symptoms not present on the initial emergency room evaluation. Prescriptions: Furosemide [Lasix] 20 mg PO QDAY #14 tablet Referrals: JOSHUA LEIJA DO [Staff Physician] - 3-5 Days ISAMAR LORD MD [Staff Physician] - 3-[address] [facility] [Provider Group] - 3-5 Days
[2018-12-13 20:04] LABS: Hematocrit 41.3 % (35.5-45.6); Hemoglobin 14.4 gm/dl (11.8-15.2); Mean Corpuscular HGB Conc 35 % (32-34); Mean Corpuscular Volume 96 fl (84-94); Platelet Count 217 K/mm3 (140-440); Red Blood Count 4.31 M/mm3 (3.65-5.03); Red Cell Distribution Width 13.8 % (13.2-15.2)
[2018-12-13 20:19] LABS: BUN/Creatinine Ratio 15; Blood Urea Nitrogen 15 mg/dL (9-20); Calcium 9.2 mg/dL (8.4-10.2); Hemolysis Index 22
[2018-12-13] MEDS ORDERED: PROVENTIL IH PRN (20:31)
--- NOTE | 2018-12-13 21:18 | Cat Scan Report ---
CT head/brain wo con INDICATION: head traUMA. 73-year-old male TECHNIQUE: Routine CT head without contrast. All CT scans at this location are performed using CT dos e reduction for ALARA by means of automated exposure control. COMPARISON: None. FINDINGS: BRAIN / INTRACRANIAL CONTENTS: No acute hemorrhage, mass effect, midline shift, hydrocephalus, or acu te, large territorial infarct. Minimal cerebral and cerebellar atrophy. There are minimal areas of decreased attenuation in the white matter of the cerebral hemispheres. The se are nonspecific findings and may be related to microangiopathy (hypertension, diabetes, atheroscle rosis), given the patient's age. It might be difficult to evaluate for small areas of ischemia withou t diffusion imaging by MRI. CRANIOCERVICAL JUNCTION: No significant abnormality. ORBITS: No significant abnormality of visualized orbits. SINUSES / MASTOIDS: No significant abnormality of the visualized paranasal sinuses or mastoid air carmen ls. ADDITIONAL FINDINGS: No significant atherosclerotic disease appreciated. IMPRESSION: 1. No focal mass, hemorrhage, hydrocephalus, or acute, large territorial infarct. Signer Name: Dwayne Call MD, III Signed: 12/13/2018 9:13 PM Workstation Name: [id number]
--- NOTE | 2018-12-13 21:56 | XRay Report ---
CHEST 2 VIEWS INDICATION / CLINICAL INFORMATION: cough weak. COMPARISON: 11/29/2018 FINDINGS: SUPPORT DEVICES: None. HEART / MEDIASTINUM: No significant abnormality. LUNGS / PLEURA: There is mild venous congestion. No focal infiltrate is seen..No pneumothorax. ADDITIONAL FINDINGS: No significant additional findings. IMPRESSION: 1. There is mild venous congestion. Signer Name: Shaggy White MD Signed: 12/13/2018 9:51 PM Workstation Name: [id number]
[2018-12-13] MEDS ORDERED: LASIX PO ONE (22:30)
[2018-12-13 23:14] VITALS: BP 125/83
== END 2018-12-13 23:31 | disposition home or self-care (01) ==
LOC: ED 19:30
DX: K43.9 Ventral hernia without obstruction or gangrene (principal); M79.605 Pain in left leg; M79.604 Pain in right leg; S00.91XA Abrasion of unspecified part of head, initial encounter; R60.9 Edema, unspecified; I11.0 Hypertensive heart disease with heart failure; I50.9 Heart failure, unspecified; Z87.891 Personal history of nicotine dependence; Z79.82 Long term (current) use of aspirin; Z79.899 Other long term (current) drug therapy; Z88.6 Allergy status to analgesic agent; Z88.8 Allergy status to other drugs, medicaments and biological substances; Z88.0 Allergy status to penicillin; Z88.2 Allergy status to sulfonamides; Z91.041 Radiographic dye allergy status; W18.30XA Fall on same level, unspecified, initial encounter; Y93.89 Activity, other specified; Y92.89 Other specified places as the place of occurrence of the external cause; Y99.8 Other external cause status
CPT/HCPCS: 36415; 70450; 71046; 80048; 82550; 83735; 85027; 93005; 93010; 99285; G0480; 80320

== ENCOUNTER 2019-01-09 20:35 | Emergency (ER) | payer MEDICARE ==
--- NOTE | 2019-01-10 03:11 | XRay Report ---
CHEST 1 VIEW INDICATION / CLINICAL INFORMATION: CHF lower extremity edema. COMPARISON: 12/13/2018 FINDINGS: SUPPORT DEVICES: None. HEART / MEDIASTINUM: No significant abnormality. LUNGS / PLEURA: Chronic interstitial lung disease is unchanged. No pneumothorax. ADDITIONAL FINDINGS: No significant additional findings. IMPRESSION: 1. No acute findings. Signer Name: Osorio Hi MD Signed: 01/10/2019 3:07 AM Workstation Name: [id number]
[2019-01-10] MEDS ORDERED: LASIX PO ONE (03:31)
--- NOTE | 2019-01-10 03:37 | Emergency Department Report ---
HPI - General Chief Complaint: Extremity Injury, Lower Time Seen by Provider: 01/09/19 22:19 - HPI HPI: Room 22 The patient is a 73-year-old male presenting with a chief complaint of bilateral lower extremity edema. The patient states he's noticed bilateral lower extremity edema since earlier this afternoon. Patient was occasional shortness of breath for the past 2-3 days but denies chest pain. The patient states she has been compliant with his Lasix. The patient is adamant he does not want blood drawn or an IV started for his evaluation and treatment. Location: [See above] Duration: [See above] Quality: [See above] Severity: [See above] Modifying factors: [see above] Context: [see above] Mode of transportation: [not driving] ED Past Medical Hx - Past Medical History Previous Medical History?: Yes Hx Hypertension: Yes Hx Congestive Heart Failure: Yes Hx Asthma: Yes Hx Dementia: Yes (Hx says dementia) Additional medical history: hernia repair, dementia - Surgical History Past Surgical History?: Yes Additional Surgical History: hernia repair. eye sx/procedure during childhood - Family History Family history: no significant - Social History Smoking Status: Never Smoker Substance Use Type: None (denies illicit drug use) - Medications Home Medications: Home Medications Medication Instructions Recorded Confirmed Last Taken Type Aspirin [Aspirin BABY CHEW TAB] 81 mg PO BID 04/14/18 04/14/18 04/14/18 History Ibuprofen [Motrin] 800 mg PO Q8HR PRN #20 tablet 04/14/18 Unknown Rx EPINEPHrine [Epipen] 0.3 mg IJ ONCE PRN #1 auto.injct 05/09/18 Unknown Rx Ibuprofen [Motrin] 800 mg PO Q8HR PRN #12 tablet 07/08/18 Unknown Rx ALBUTEROL Inhaler (OR & NICU) 2 puff IH QID PRN #1 inhalation 11/29/18 Unknown Rx [ProAir HFA Inhaler] Azithromycin [Zithromax Z-PARAG] 250 mg PO DAILY #6 tablet 11/29/18 Unknown Rx Benzonatate [Tessalon Perles] 100 mg PO Q8HR #10 capsule 11/29/18 Unknown Rx Ibuprofen [Motrin 400 MG tab] 400 mg PO Q8H PRN #20 tablet 11/29/18 Unknown Rx traMADol [Ultram] 50 mg PO Q6HR PRN #12 tablet 11/29/18 Unknown Rx Furosemide [Lasix TAB] 40 mg PO QDAY #14 tablet 01/10/19 Unknown Rx ED Review of Systems ROS: Stated complaint: LE EDEMA Other details as noted in HPI Constitutional: no symptoms reported Eyes: denies: eye pain ENT: denies: throat pain Respiratory: shortness of breath Cardiovascular: denies: chest pain Endocrine: no symptoms reported Gastrointestinal: denies: vomiting Genitourinary: denies: dysuria Musculoskeletal: myalgia Skin: other (bilateral lower extremity edema) Neurological: denies: headache Physical Exam - Physical Exam Vital Signs: Vital Signs 01/09/19 01/10/19 22:15 02:52 Temperature 98.7 F 98 F Pulse Rate 109 H 86 Respiratory 18 23 Rate Blood Pressure 126/89 Blood Pressure 105/88 [Left] O2 Sat by Pulse 96 94 Oximetry Physical Exam: GENERAL: The patient is well-developed well-nourished male lying on stretcher not appearing to be in acute distress. [] HEENT: Normocephalic. Atraumatic. Extraocular motions are intact. Patient has moist mucous membranes. NECK: Supple. No meningitic signs are noted. There is no adenopathy noted. CHEST/LUNGS: Occasional faint expiratory wheezing at bases. There is no respiratory distress noted. HEART/CARDIOVASCULAR: Regular. There is no tachycardia. There is no gallop rub or murmur. ABDOMEN: Abdomen is soft, nontender. Patient has normal bowel sounds. There is no abdominal distention. SKIN: There is no rash. There is 1+ bilateral lower extremity pitting edema. There is no diaphoresis. NEURO: The patient is awake, and alert. The patient is cooperative. The patient has no focal neurologic deficits. The patient has normal speech MUSCULOSKELETAL: There is no evidence of acute injury. ED Course Vital Signs 01/09/19 01/10/19 22:15 02:52 Temperature 98.7 F 98 F Pulse Rate 109 H 86 Respiratory 18 23 Rate Blood Pressure 126/89 Blood Pressure 105/88 [Left] O2 Sat by Pulse 96 94 Oximetry ED Medical Decision Making - EKG Data -: EKG Interpreted by Me EKG shows normal: sinus rhythm Rate: normal - EKG Data When compared to previous EKG there are: previous EKG unavailable Interpretation: other (early repolarization) - Medical Decision Making Patient refuses labs as well as IV. Strong warnings given - Differential Diagnosis peripheral edema, asthma exacerbation, CHF exacerbation Critical care attestation.: If time is entered above; I have spent that time in minutes in the direct care of this critically ill patient, excluding procedure time. ED Disposition Clinical Impression: Peripheral edema Disposition: DC-01 TO HOME OR SELFCARE Is pt being admited?: No Does the pt Need Aspirin: No Condition: Stable Instructions: Leg Edema (ED) Additional Instructions: Return to the emergency department immediately should you develop worsening symptoms, fever, inability to tolerate food or liquid or any other concerns. Prescriptions: Furosemide [Lasix TAB] 40 mg PO QDAY #14 tablet Referrals: SALLIE BENITEZ MD [Primary Care Provider] - 3-5 Days Time of Disposition: 04:23
[2019-01-10] MEDS ORDERED: XOPENEX IH ONE (03:38)
[2019-01-10] MEDS ORDERED: ATROVENT IH ONE (03:38)
[2019-01-10 04:28] VITALS: BP 128/89
== END 2019-01-10 04:49 | disposition home or self-care (01) ==
LOC: ED 20:35
DX: R60.0 Localized edema (principal); I11.0 Hypertensive heart disease with heart failure; I50.9 Heart failure, unspecified; J45.909 Unspecified asthma, uncomplicated; F03.90 Unspecified dementia, unspecified severity, without behavioral disturbance, psychotic disturbance, mood disturbance, and anxiety; Z79.899 Other long term (current) drug therapy; Z88.8 Allergy status to other drugs, medicaments and biological substances
CPT/HCPCS: 71045; 93005; 93010; 94640; 94644

== ENCOUNTER 2019-01-10 06:27 | Emergency (ER) | payer MEDICARE ==
[2019-01-10] MEDS ORDERED: ASPIRIN PO ONE (06:55)
[2019-01-10 07:27] LABS: Basophils # (Auto) 0.1 K/mm3 (0.0-0.1); Basophils % (Auto) 0.7 % (0.0-1.8); Eosinophils # (Auto) 0.1 K/mm3 (0.0-0.4); Eosinophils % (Auto) 0.7 % (0.0-4.3); Hematocrit 41.7 % (35.5-45.6); Hemoglobin 14.4 gm/dl (11.8-15.2); Lymphocytes # (Auto) 2.8 K/mm3 (1.2-5.4); Lymphocytes % (Auto) 18.4 % (13.4-35.0); Mean Corpuscular HGB Conc 35 % (32-34); Mean Corpuscular Volume 96 fl (84-94); Monocytes # (Auto) 1.6 K/mm3 (0.0-0.8); Monocytes % (Auto) 10.6 % (0.0-7.3); Platelet Count 271 K/mm3 (140-440); Red Blood Count 4.36 M/mm3 (3.65-5.03); Red Cell Distribution Width 13.9 % (13.2-15.2)
[2019-01-10 07:39] LABS: BUN/Creatinine Ratio 18; Blood Urea Nitrogen 18 mg/dL (9-20); Calcium 9.6 mg/dL (8.4-10.2); Hemolysis Index 21
--- NOTE | 2019-01-10 08:55 | Emergency Department Report ---
HPI - General Chief Complaint: Chest Pain Time Seen by Provider: 01/10/19 08:04 - HPI HPI: 73-year-old male presents to the emergency department with the complaint of left shoulder pain. He also complains of his abdomen "jumping." However, at the same time, the patient says he is very hungry and asking for something to eat. The patient was seen by my colleague overnight and at that time he had the complaints of lower extremity edema. He was given some Lasix and upon discharge she says that he has spent the rest of the evening/morning u rinating. He never left the emergency department after his previous discharge and was in the waiting room. He appears to be giving different complaints since that time. He mentioned some chest discomfort to triage but has not told me of any chest pain. He is telling me that he needs some type of a "back up" to help him get to appointments. He is also asking for me to "write a recommendation" that basically says that he can be more independent at his residential home. Patient has a past medical history of CHF, dementia, hypertension. ED Past Medical Hx - Past Medical History Previous Medical History?: Yes Hx Hypertension: Yes Hx Congestive Heart Failure: Yes Hx Asthma: Yes Hx Dementia: Yes (Hx says dementia) Additional medical history: hernia repair, dementia - Surgical History Past Surgical History?: Yes Additional Surgical History: hernia repair. eye sx/procedure during childhood - Social History Smoking Status: Never Smoker Substance Use Type: None - Medications Home Medications: Home Medications Medication Instructions Recorded Confirmed Last Taken Type Aspirin [Aspirin BABY CHEW TAB] 81 mg PO BID 04/14/18 04/14/18 04/14/18 History Ibuprofen [Motrin] 800 mg PO Q8HR PRN #20 tablet 04/14/18 Unknown Rx EPINEPHrine [Epipen] 0.3 mg IJ ONCE PRN #1 auto.injct 05/09/18 Unknown Rx Ibuprofen [Motrin] 800 mg PO Q8HR PRN #12 tablet 07/08/18 Unknown Rx ALBUTEROL Inhaler (OR & NICU) 2 puff IH QID PRN #1 inhalation 11/29/18 Unknown Rx [ProAir HFA Inhaler] Azithromycin [Zithromax Z-PARAG] 250 mg PO DAILY #6 tablet 11/29/18 Unknown Rx Benzonatate [Tessalon Perles] 100 mg PO Q8HR #10 capsule 11/29/18 Unknown Rx Ibuprofen [Motrin 400 MG tab] 400 mg PO Q8H PRN #20 tablet 11/29/18 Unknown Rx traMADol [Ultram] 50 mg PO Q6HR PRN #12 tablet 11/29/18 Unknown Rx Docusate Sodium [Colace] 100 mg PO BID PRN #20 capsule 01/10/19 Unknown Rx Furosemide [Lasix TAB] 40 mg PO QDAY #14 tablet 01/10/19 Unknown Rx ED Review of Systems ROS: Stated complaint: CHEST PAIN Other details as noted in HPI Comment: All other systems reviewed and negative Constitutional: denies: chills, fever Eyes: denies: eye pain, vision change ENT: denies: ear pain, throat pain Respiratory: denies: cough, shortness of breath Cardiovascular: denies: palpitations, syncope Gastrointestinal: abdominal pain. denies: nausea, vomiting Genitourinary: denies: dysuria, discharge Musculoskeletal: arthralgia. denies: joint swelling Skin: denies: rash, lesions Neurological: denies: headache, numbness Physical Exam - Physical Exam Vital Signs: Vital Signs 01/10/19 01/10/19 06:53 08:40 Temperature 98.9 F 98.1 F Pulse Rate 98 H Respiratory 18 18 Rate Blood Pressure 116/77 Blood Pressure 111/66 [Left] O2 Sat by Pulse 97 98 Oximetry Physical Exam: GENERAL: The patient is well-developed well-nourished. HENT: Normocephalic. Atraumatic. Patient has moist mucous membranes. EYES: Extraocular motions are intact. NECK: Supple. Trachea is midline. CHEST/LUNGS: Clear to auscultation. There is no respiratory distress noted. HEART/CARDIOVASCULAR: Regular. There is no tachycardia. There is no murmur. ABDOMEN: Abdomen is soft, nontender. Patient has normal bowel sounds. There is no abdominal distention. SKIN: Skin is warm and dry. Mild pitting edema of the bilateral lower extremities. NEURO: The patient is awake, alert, and oriented. The patient is cooperative. The patient has no focal neurologic deficits. The patient has normal speech. MUSCULOSKELETAL: There is some mild tenderness to palpation of the left shoulder. No obvious deformity.. There is no limitation range of motion. There is no evidence of acute injury. ED Course Vital Signs 01/10/19 01/10/19 06:53 08:40 Temperature 98.9 F 98.1 F Pulse Rate 98 H Respiratory 18 18 Rate Blood Pressure 116/77 Blood Pressure 111/66 [Left] O2 Sat by Pulse 97 98 Oximetry ED Medical Decision Making - Lab Data Result diagrams: 01/10/19 07:19 01/10/19 07:19 - EKG Data -: EKG Interpreted by Me EKG shows normal: sinus rhythm, axis (left axis deviation), intervals, QRS complexes (left anterior fascicular block, Q waves to the septal leads), ST-T waves Rate: normal - EKG Data When compared to previous EKG there are: no significant change Interpretation: unchanged when compared t (12/13/18) - Radiology Data Radiology results: image reviewed interpreted by me: X-ray of the left shoulder does not show any fracture, dislocation or any acute process. Chest x-ray does not show any acute process. There are no pleural effusions, obvious pneumonia and there is no pneumothorax. Abdominal x-ray shows nonspecific nonobstructive bowel gas - Medical Decision Making The patient was seen overnight for some lower extremity edema. He then signed back in this morning for multiple different complaints. He admitted the complaint of some chest pain to triage but did not mention it after that. For me, he mentioned some left shoulder pain and some nonspecific abdominal sensation that he describes as "jumping." However I do not believe that he has any significant abdominal pain as he was immediately asking for a food tray to be provided. An x-ray of his left shoulder did not show any fracture, dislocation or any acute process. Chest x-ray did not show any pleural effusions, pneumothorax, pneumonia, focal consolidation, or any other acute proc ess. Abdominal x-ray shows increased stool volume and some non-specific gas. Patient's labs have been mostly unremarkable. the patient had an EKG that is unchanged from previous and does not show any signs of ST elevation [place]. Patient was seen ambulatory in the emergency department and appears stable. He is seen actively using his left upper extremity and does not appear to be bothered by the shoulder pain. He appears safe for discharge home. He was given a referral for orthopedist and multiple primary care clinics. He will return to the ER with any worsening of his symptoms or any acute distress. - Differential Diagnosis osteoarthritis, constipation, hernia, electrolyte abnormalities Critical Care Time: No Critical care attestation.: If time is entered above; I have spent that time in minutes in the direct care of this critically ill patient, excluding procedure time. ED Disposition Clinical Impression: Increased stool volume Left shoulder pain Qualifiers: Chronicity: unspecified Qualified Code(s): M25.512 - Pain in left shoulder Disposition: TO HOME OR SELFCARE Is pt being admited?: No Condition: Stable Instructions: Constipation (ED), Arthralgia (ED) Additional Instructions: Please follow up with a primary care physician in the next few days and I have given you multiple primary care clinics in the area. I have also given you a referral for a local orthopedist, Dr. López, to follow up regarding your shoulder pain. Return to the emergency Department with any worsening of your symptoms or any acute distress. Prescriptions: Docusate Sodium [Colace] 100 mg PO BID PRN #20 capsule PRN Reason: Constipation Referrals: QIAN LÓPEZ MD [Staff Physician] - 3-[address] [facility] [Outside] - 3-5 Days [facility] [Outside] - 3-5 Days [facility] [Outside] - 3-5 Days Time of Disposition: 11:17
--- NOTE | 2019-01-10 09:19 | XRay Report ---
LEFT SHOULDER 3 VIEWS INDICATION / CLINICAL INFORMATION: left shoulder pain. COMPARISON: None available. FINDINGS: No significant skeletal abnormality. Signer Name: Jose Page MD FACEdmond Signed: 01/10/2019 9:14 AM Workstation Name: [id number]
--- NOTE | 2019-01-10 09:20 | XRay Report ---
ABDOMINAL SERIES WITH CHEST X-RAY ONE VIEW HISTORY: Abdominal pain FINDINGS: No comparison. There is a large amount of stool throughout the length of the colon. No evid ence for dilated bowel, air-fluid levels or free air. No pathologic calcifications are identified. Si ngle view of the chest is unremarkable. IMPRESSION: Fecal retention. No acute abdominal process. Signer Name: Elijah Yousif Jr, MD Signed: 01/10/2019 9:15 AM Workstation Name: [id number]
[2019-01-10 11:28] VITALS: BP 127/91
== END 2019-01-10 11:58 | disposition home or self-care (01) ==
LOC: ED 06:27
DX: M25.512 Pain in left shoulder (principal); R19.5 Other fecal abnormalities; I11.0 Hypertensive heart disease with heart failure; I50.9 Heart failure, unspecified; J45.909 Unspecified asthma, uncomplicated; F03.90 Unspecified dementia, unspecified severity, without behavioral disturbance, psychotic disturbance, mood disturbance, and anxiety; Z79.899 Other long term (current) drug therapy; Z88.8 Allergy status to other drugs, medicaments and biological substances
CPT/HCPCS: 36415; 74022; 80048; 84484; 85025; 93005; 93010

== ENCOUNTER 2019-01-27 13:34 | Emergency (ER) | payer MEDICARE ==
--- NOTE | 2019-01-27 13:40 | Event Note ---
ED Screening Note ED Screening Note: comes in co left shoulder pain and abd swelling here often homeless? difficult to obtain hx from This initial assessment/diagnostic orders/clinical plan/treatment(s) is/are subject to change based on patients health status, clinical progression and re- assessment by fellow clinical providers in the ED. Further treatment and workup at subsequent clinical providers discretion. Patient/guardian urged not to elope from the ED as their condition may be serious if not clinically assessed and managed. Initial orders include: basic labs ACC eval
[2019-01-27 14:14] LABS: Hematocrit 44.5 % (35.5-45.6); Hemoglobin 15.3 gm/dl (11.8-15.2); Mean Corpuscular HGB Conc 35 % (32-34); Mean Corpuscular Volume 95 fl (84-94); Platelet Count 347 K/mm3 (140-440); Red Cell Distribution Width 13.9 % (13.2-15.2)
[2019-01-27 14:51] LABS: Alanine Aminotransferase 22 units/L (7-56); Albumin 4.2 g/dL (3.9-5); BUN/Creatinine Ratio 18; Blood Urea Nitrogen 21 mg/dL (9-20); Calcium 9.7 mg/dL (8.4-10.2); Hemolysis Index 11
--- NOTE | 2019-01-27 14:54 | XRay Report ---
ABDOMINAL SERIES WITH CHEST X-RAY HISTORY: Abdominal pain FINDINGS: Compared to 01/10/2019. Single view of the chest remains unremarkable. Supine and upright vie ws of the abdomen demonstrate a large amount of stool throughout the colon. No evidence for dilated b owel, fluid levels or free air. No pathologic calcifications. IMPRESSION: Constipation. Signer Name: Elijah Yousif Jr, MD Signed: 01/27/2019 2:49 PM Workstation Name: [id number]
[2019-01-27 16:10] LABS: Bacteria,Urine 2+ /HPF (Negative); Bilirubin,Urine NEG (Negative); Blood,Urine SM (Negative); Color,Urine Yellow (Yellow); Mucus,Urine FEW /HPF; Urobilinogen,Urine < 2.0 mg/dL (<2.0)
[2019-01-27 16:31] LABS: WBC,Urine > 182.0 /HPF (0.0-6.0)
[2019-01-27] MEDS ORDERED: LEVAQUIN PO ONE (17:05)
[2019-01-27] MEDS ORDERED: COLACE PO ONE (17:05)
--- NOTE | 2019-01-27 17:30 | Emergency Department Report ---
ED Abdominal Pain HPI - General Chief Complaint: Abdominal Pain Stated Complaint: STOMACH PAIN Time Seen by Provider: 01/27/19 13:39 Source: patient Mode of arrival: Wheelchair Limitations: No Limitations - History of Present Illness MD Complaint: abdominal pain -: unknown (pt is a poor histiorian and can not give an exact time) Location: periumbilical, suprapubic Radiation: none Migration to: no migration Severity: moderate Severity scale (0 -10): 4 Quality: cramping Consistency: constant Improves With: nothing Worsens With: movement, other (bending over, urination) Associated Symptoms: constipation, dysuria. denies: nausea, vomiting, diarrhea, hematemesis, hematochezia, hematuria, anorexia, syncope - Related Data Home Medications Medication Instructions Recorded Confirmed Last Taken Aspirin [Aspirin BABY CHEW TAB] 81 mg PO BID 04/14/18 04/14/18 04/14/18 Previous Rx's Medication Instructions Recorded Last Taken Type Ibuprofen [Motrin] 800 mg PO Q8HR PRN #20 tablet 04/14/18 Unknown Rx EPINEPHrine [Epipen] 0.3 mg IJ ONCE PRN #1 auto.injct 05/09/18 Unknown Rx Ibuprofen [Motrin] 800 mg PO Q8HR PRN #12 tablet 07/08/18 Unknown Rx ALBUTEROL Inhaler (OR & NICU) 2 puff IH QID PRN #1 inhalation 11/29/18 Unknown Rx [ProAir HFA Inhaler] Azithromycin [Zithromax Z-PARAG] 250 mg PO DAILY #6 tablet 11/29/18 Unknown Rx Benzonatate [Tessalon Perles] 100 mg PO Q8HR #10 capsule 11/29/18 Unknown Rx Ibuprofen [Motrin 400 MG tab] 400 mg PO Q8H PRN #20 tablet 11/29/18 Unknown Rx traMADol [Ultram] 50 mg PO Q6HR PRN #12 tablet 11/29/18 Unknown Rx Docusate Sodium [Colace] 100 mg PO BID PRN #20 capsule 01/10/19 Unknown Rx Furosemide [Lasix TAB] 40 mg PO QDAY #14 tablet 01/10/19 Unknown Rx Ciprofloxacin HCl [Ciprofloxacin 500 mg PO Q12HR #14 tab 01/27/19 Unknown Rx TAB] Docusate Sodium [Colace] 100 mg PO BID PRN #20 capsule 01/27/19 Unknown Rx Allergies Allergy/AdvReac Type Severity Reaction Status Date / Time acetaminophen [From Tylenol] Allergy Angioedema Verified 04/14/18 08:22 amitriptyline [From Elavil] Allergy Unknown Verified 10/06/17 01:05 chlorpromazine Allergy Unknown Verified 10/06/17 01:05 [From Thorazine] diphenhydramine Allergy Angioedema Verified 04/14/18 08:22 [From Benadryl] Iodinated Contrast- Oral and Allergy Unknown Verified 11/02/18 01:22 IV Dye Penicillins Allergy Unknown Verified 10/06/17 01:05 Sulfa (Sulfonamide Allergy Unknown Verified 10/06/17 01:05 Antibiotics) ED Review of Systems ROS: Stated complaint: STOMACH PAIN Other details as noted in HPI Comment: All other systems reviewed and negative ED Past Medical Hx - Past Medical History Previous Medical History?: Yes Hx Hypertension: Yes Hx Congestive Heart Failure: Yes Hx Asthma: Yes Hx Dementia: Yes (Hx says dementia) Additional medical history: hernia repair, dementia - Surgical History Past Surgical History?: Yes Additional Surgical History: hernia repair. eye sx/procedure during childhood - Social History Smoking Status: Never Smoker Substance Use Type: None - Medications Home Medications: Home Medications Medication Instructions Recorded Confirmed Last Taken Type Aspirin [Aspirin BABY CHEW TAB] 81 mg PO BID 04/14/18 04/14/18 04/14/18 History Ibuprofen [Motrin] 800 mg PO Q8HR PRN #20 tablet 04/14/18 Unknown Rx EPINEPHrine [Epipen] 0.3 mg IJ ONCE PRN #1 auto.injct 05/09/18 Unknown Rx Ibuprofen [Motrin] 800 mg PO Q8HR PRN #12 tablet 07/08/18 Unknown Rx ALBUTEROL Inhaler (OR & NICU) 2 puff IH QID PRN #1 inhalation 11/29/18 Unknown Rx [ProAir HFA Inhaler] Azithromycin [Zithromax Z-PARAG] 250 mg PO DAILY #6 tablet 11/29/18 Unknown Rx Benzonatate [Tessalon Perles] 100 mg PO Q8HR #10 capsule 11/29/18 Unknown Rx Ibuprofen [Motrin 400 MG tab] 400 mg PO Q8H PRN #20 tablet 11/29/18 Unknown Rx traMADol [Ultram] 50 mg PO Q6HR PRN #12 tablet 11/29/18 Unknown Rx Docusate Sodium [Colace] 100 mg PO BID PRN #20 capsule 01/10/19 Unknown Rx Furosemide [Lasix TAB] 40 mg PO QDAY #14 tablet 01/10/19 Unknown Rx Ciprofloxacin HCl [Ciprofloxacin 500 mg PO Q12HR #14 tab 01/27/19 Unknown Rx TAB] Docusate Sodium [Colace] 100 mg PO BID PRN #20 capsule 01/27/19 Unknown Rx ED Physical Exam - General Limitations: No Limitations General appearance: alert, in no apparent distress - Head Head exam: Present: atraumatic, normocephalic - Eye Eye exam: Present: normal appearance - ENT ENT exam: Present: mucous membranes moist - Neck Neck exam: Present: normal inspection - Respiratory Respiratory exam: Present: normal lung sounds bilaterally. Absent: respiratory distress - Cardiovascular Cardiovascular Exam: Present: regular rate, normal rhythm. Absent: systolic murmur, diastolic murmur, rubs, gallop - GI/Abdominal GI/Abdominal exam: Present: soft, distended, tenderness, normal bowel sounds, hernia (lg ventral hernia). Absent: guarding, rebound, rigid - Rectal Rectal exam: Present: deferred - Extremities Exam Extremities exam: Present: normal inspection - Back Exam Back exam: Present: normal inspection - Neurological Exam Neurological exam: Present: alert, oriented X3 - Psychiatric Psychiatric exam: Present: normal affect, normal mood - Skin Skin exam: Present: warm, dry, intact, normal color. Absent: rash ED Course Vital Signs 01/27/19 13:39 Temperature 98.7 F Pulse Rate 105 H Respiratory 18 Rate Blood Pressure 128/102 ED Medical Decision Making - Lab Data Result diagrams: 01/27/19 Unknown 01/27/19 Unknown Lab Results 01/27/19 01/27/19 01/27/19 Range/Units 14:48 Unknown Unknown WBC 11.1 H (4.5-11.0) K/mm3 RBC 4.70 (3.65-5.03) M/mm3 Hgb 15.3 H (11.8-15.2) gm/dl Hct 44.5 (35.5-45.6) % MCV 95 H (84-94) fl MCH 33 H (28-32) pg MCHC 35 H (32-34) % RDW 13.9 (13.2-15.2) % Plt Count 347 (140-440) K/mm3 Sodium (137-145) mmol/L Potassium (3.6-5.0) mmol/L Chloride (98-107) mmol/L Carbon Dioxide (22-30) mmol/L Anion Gap mmol/L BUN (9-20) mg/dL Creatinine (0.8-1.5) mg/dL Estimated GFR ml/min BUN/Creatinine Ratio % Glucose (75-100) mg/dL POC Glucose 100 (70-105) Calcium (8.4-10.2) mg/dL Total Bilirubin (0.1-1.2) mg/dL AST (5-40) units/L ALT (7-56) units/L Alkaline Phosphatase (35-129) units/L Troponin T (0.00-0.029) ng/mL NT-Pro-B Natriuret Pep (0-900) pg/mL Total Protein (6.3-8.2) g/dL Albumin (3.9-5) g/dL Albumin/Globulin Ratio % Urine Color Yellow (Yellow) Urine Turbidity Cloudy (Clear) Urine pH 8.0 H (5.0-7.0) Ur Specific Rea 1.019 (1.003-1.030) Urine Protein 100 mg/dl (Negative) mg/dL Urine Glucose (UA) Neg (Negative) mg/dL Urine Ketones Neg (Negative) mg/dL Urine Blood Sm (Negative) Urine Nitrite Neg (Negative) Urine Bilirubin Neg (Negative) Urine Urobilinogen < 2.0 (<2.0) mg/dL Ur Leukocyte Esterase Lg (Negative) Urine WBC (Auto) > 182.0 H (0.0-6.0) /HPF Urine RBC (Auto) 31.0 (0.0-6.0) /HPF U Epithel Cells (Auto) 1.0 (0-13.0) /HPF Urine Bacteria (Auto) 2+ (Negative) /HPF Urine WBC Clumps 2+ /HPF Urine Mucus Few /HPF 01/27/19 Range/Units Unknown WBC (4.5-11.0) K/mm3 RBC (3.65-5.03) M/mm3 Hgb (11.8-15.2) gm/dl Hct (35.5-45.6) % MCV (84-94) fl MCH (28-32) pg MCHC (32-34) % RDW (13.2-15.2) % Plt Count (140-440) K/mm3 Sodium 140 (137-145) mmol/L Potassium 4.5 (3.6-5.0) mmol/L Chloride 101.1 (98-107) mmol/L Carbon Dioxide 27 (22-30) mmol/L Anion Gap 16 mmol/L BUN 21 H (9-20) mg/dL Creatinine 1.2 (0.8-1.5) mg/dL Estimated GFR 60 ml/min BUN/Creatinine Ratio 18 % Glucose 99 (75-100) mg/dL POC Glucose (70-105) Calcium 9.7 (8.4-10.2) mg/dL Total Bilirubin 0.40 (0.1-1.2) mg/dL AST 22 (5-40) units/L ALT 22 (7-56) units/L Alkaline Phosphatase 103 (35-129) units/L Troponin T < 0.010 (0.00-0.029) ng/mL NT-Pro-B Natriuret Pep 29.45 (0-900) pg/mL Total Protein 8.0 (6.3-8.2) g/dL Albumin 4.2 (3.9-5) g/dL Albumin/Globulin Ratio 1.1 % Urine Color (Yellow) Urine Turbidity (Clear) Urine pH (5.0-7.0) Ur Specific Rea (1.003-1.030) Urine Protein (Negative) mg/dL Urine Glucose (UA) (Negative) mg/dL Urine Ketones (Negative) mg/dL Urine Blood (Negative) Urine Nitrite (Negative) Urine Bilirubin (Negative) Urine Urobilinogen (<2.0) mg/dL Ur Leukocyte Esterase (Negative) Urine WBC (Auto) (0.0-6.0) /HPF Urine RBC (Auto) (0.0-6.0) /HPF U Epithel Cells (Auto) (0-13.0) /HPF Urine Bacteria (Auto) (Negative) /HPF Urine WBC Clumps /HPF Urine Mucus /HPF - Medical Decision Making pt with ventral hernia and contipation, Nl Bowel downs, not concerned for obstruction. Pt with UTI and started on abx Critical care attestation.: If time is entered above; I have spent that time in minutes in the direct care of this critically ill patient, excluding procedure time. ED Disposition Clinical Impression: Acute cystitis Qualifiers: Hematuria presence: without hematuria Qualified Code(s): N30.00 - Acute cystitis without hematuria Ventral hernia Qualifiers: Obstruction and gangrene presence: with obstruction but without gangrene Qualified Code(s): K43.6 - Other and unspecified ventral hernia with obstruction, without gangrene Disposition: - TO HOME OR SELFCARE Is pt being admited?: No Does the pt Need Aspirin: No Condition: Stable Instructions: Urinary Tract Infection in Men (ED), Ventral Hernia (ED) Referrals: PRIMARY CARE, [Primary Care Provider] - 3-5 Days Time of Disposition: 17:29
[2019-01-27 17:52] VITALS: BP 158/93
== END 2019-01-27 17:52 | disposition home or self-care (01) ==
LOC: ED 13:34
DX: N30.00 Acute cystitis without hematuria (principal); K43.6 Other and unspecified ventral hernia with obstruction, without gangrene; I11.0 Hypertensive heart disease with heart failure; I50.9 Heart failure, unspecified; J45.909 Unspecified asthma, uncomplicated; Z88.8 Allergy status to other drugs, medicaments and biological substances; Z79.82 Long term (current) use of aspirin; Z79.899 Other long term (current) drug therapy; Z88.0 Allergy status to penicillin; Z88.2 Allergy status to sulfonamides; Z88.5 Allergy status to narcotic agent; Z91.041 Radiographic dye allergy status; Z98.890 Other specified postprocedural states
CPT/HCPCS: 36415; 74022; 80053; 81001; 82962; 83880; 84484; 85027; 93005; 93010; 99284

== ENCOUNTER 2019-03-16 02:06 | Emergency (ER) | payer MEDICARE ==
--- NOTE | 2019-03-16 04:30 | Emergency Department Report ---
ED Shortness of Breath HPI - General Chief Complaint: Dyspnea/Respdistress Stated Complaint: MOMO Time Seen by Provider: 03/16/19 03:45 Source: patient, EMS Mode of arrival: Wheelchair Limitations: No Limitations - History of Present Illness Initial Comments: 73-year-old male with history of asthma presents to ED with complaint of "breathing spasm"earlier tonight. Patient states he used his inhaler, and his breathing difficulty resolved. Patient is requesting a coworker at this time. He states that he is unhappy with his current arrangement where he is living. Would like someone else to stay. Patient has no other complaints. MD Complaint: shortness of breath -: This morning Severity: mild Consistency: now resolved Improves With: bronchodilators Worsens With: nothing Known History Of: asthma Associated Symptoms: denies other symptoms Treatments Prior to Arrival: bronchodilator - Related Data Home Oxygen Therapy: No Home Medications Medication Instructions Recorded Confirmed Last Taken Aspirin [Aspirin BABY CHEW TAB] 81 mg PO BID 04/14/18 04/14/18 04/14/18 Previous Rx's Medication Instructions Recorded Last Taken Type Ibuprofen [Motrin] 800 mg PO Q8HR PRN #20 tablet 04/14/18 Unknown Rx EPINEPHrine [Epipen] 0.3 mg IJ ONCE PRN #1 auto.injct 05/09/18 Unknown Rx Ibuprofen [Motrin] 800 mg PO Q8HR PRN #12 tablet 07/08/18 Unknown Rx ALBUTEROL Inhaler (OR & NICU) 2 puff IH QID PRN #1 inhalation 11/29/18 Unknown Rx [ProAir HFA Inhaler] Azithromycin [Zithromax Z-PARAG] 250 mg PO DAILY #6 tablet 11/29/18 Unknown Rx Benzonatate [Tessalon Perles] 100 mg PO Q8HR #10 capsule 11/29/18 Unknown Rx Ibuprofen [Motrin 400 MG tab] 400 mg PO Q8H PRN #20 tablet 11/29/18 Unknown Rx traMADol [Ultram] 50 mg PO Q6HR PRN #12 tablet 11/29/18 Unknown Rx Docusate Sodium [Colace] 100 mg PO BID PRN #20 capsule 01/10/19 Unknown Rx Furosemide [Lasix TAB] 40 mg PO QDAY #14 tablet 01/10/19 Unknown Rx Ciprofloxacin HCl [Ciprofloxacin 500 mg PO Q12HR #14 tab 01/27/19 Unknown Rx TAB] Docusate Sodium [Colace] 100 mg PO BID PRN #20 capsule 01/27/19 Unknown Rx Allergies Allergy/AdvReac Type Severity Reaction Status Date / Time acetaminophen [From Tylenol] Allergy Angioedema Verified 04/14/18 08:22 amitriptyline [From Elavil] Allergy Unknown Verified 10/06/17 01:05 chlorpromazine Allergy Unknown Verified 10/06/17 01:05 [From Thorazine] diphenhydramine Allergy Angioedema Verified 04/14/18 08:22 [From Benadryl] Iodinated Contrast Media Allergy Unknown Verified 11/02/18 01:22 Penicillins Allergy Unknown Verified 10/06/17 01:05 Sulfa (Sulfonamide Allergy Unknown Verified 10/06/17 01:05 Antibiotics) ED Review of Systems ROS: Stated complaint: MOMO Other details as noted in HPI Comment: All other systems reviewed and negative Constitutional: denies: chills, fever Respiratory: cough, shortness of breath, wheezing Cardiovascular: denies: chest pain Gastrointestinal: denies: vomiting ED Past Medical Hx - Past Medical History Hx Hypertension: Yes Hx Congestive Heart Failure: Yes Hx Asthma: Yes Hx Dementia: Yes (Hx says dementia) Additional medical history: hernia repair, dementia - Surgical History Additional Surgical History: hernia repair. eye sx/procedure during childhood - Social History Smoking Status: Never Smoker Substance Use Type: None - Medications Home Medications: Home Medications Medication Instructions Recorded Confirmed Last Taken Type Aspirin [Aspirin BABY CHEW TAB] 81 mg PO BID 04/14/18 04/14/18 04/14/18 History Ibuprofen [Motrin] 800 mg PO Q8HR PRN #20 tablet 04/14/18 Unknown Rx EPINEPHrine [Epipen] 0.3 mg IJ ONCE PRN #1 auto.injct 05/09/18 Unknown Rx Ibuprofen [Motrin] 800 mg PO Q8HR PRN #12 tablet 07/08/18 Unknown Rx ALBUTEROL Inhaler (OR & NICU) 2 puff IH QID PRN #1 inhalation 11/29/18 Unknown Rx [ProAir HFA Inhaler] Azithromycin [Zithromax Z-PARAG] 250 mg PO DAILY #6 tablet 11/29/18 Unknown Rx Benzonatate [Tessalon Perles] 100 mg PO Q8HR #10 capsule 11/29/18 Unknown Rx Ibuprofen [Motrin 400 MG tab] 400 mg PO Q8H PRN #20 tablet 11/29/18 Unknown Rx traMADol [Ultram] 50 mg PO Q6HR PRN #12 tablet 11/29/18 Unknown Rx Docusate Sodium [Colace] 100 mg PO BID PRN #20 capsule 01/10/19 Unknown Rx Furosemide [Lasix TAB] 40 mg PO QDAY #14 tablet 01/10/19 Unknown Rx Ciprofloxacin HCl [Ciprofloxacin 500 mg PO Q12HR #14 tab 01/27/19 Unknown Rx TAB] Docusate Sodium [Colace] 100 mg PO BID PRN #20 capsule 01/27/19 Unknown Rx ED Physical Exam - General Limitations: No Limitations General appearance: alert, in no apparent distress - Head Head exam: Present: atraumatic, normocephalic - Eye Eye exam: Present: normal appearance, PERRL, EOMI - ENT ENT exam: Present: mucous membranes moist - Neck Neck exam: Present: normal inspection - Respiratory Respiratory exam: Present: normal lung sounds bilaterally. Absent: respiratory distress - Cardiovascular Cardiovascular Exam: Present: regular rate, normal rhythm - GI/Abdominal GI/Abdominal exam: Present: soft, hernia (umbilical). Absent: distended - Extremities Exam Extremities exam: Present: normal inspection - Neurological Exam Neurological exam: Present: alert, oriented X3 - Psychiatric Psychiatric exam: Present: normal affect, normal mood - Skin Skin exam: Present: warm, dry, intact, normal color ED Course Vital Signs 03/16/19 03/16/19 03/16/19 02:11 04:32 04:33 Temperature 97.8 F Pulse Rate 104 H Respiratory 18 Rate Blood Pressure 128/85 123/78 Blood Pressure [Right] O2 Sat by Pulse 94 95 95 Oximetry 03/16/19 03/16/19 03/16/19 04:34 04:36 04:38 Temperature Pulse Rate Respiratory Rate Blood Pressure 123/78 123/78 123/78 Blood Pressure [Right] O2 Sat by Pulse 98 98 98 Oximetry 03/16/19 03/16/19 03/16/19 04:40 04:42 04:44 Temperature Pulse Rate Respiratory Rate Blood Pressure 123/78 123/78 123/78 Blood Pressure [Right] O2 Sat by Pulse 97 97 97 Oximetry 03/16/19 03/16/19 03/16/19 04:46 04:48 04:50 Temperature Pulse Rate Respiratory Rate Blood Pressure 123/78 123/78 123/78 Blood Pressure [Right] O2 Sat by Pulse 99 98 98 Oximetry 03/16/19 03/16/19 03/16/19 04:52 04:54 04:56 Temperature Pulse Rate Respiratory Rate Blood Pressure 123/78 123/78 123/78 Blood Pressure [Right] O2 Sat by Pulse 99 99 98 Oximetry 03/16/19 03/16/19 03/16/19 04:58 04:59 05:00 Temperature Pulse Rate Respiratory Rate Blood Pressure 123/78 113/74 113/74 Blood Pressure [Right] O2 Sat by Pulse 97 97 Oximetry 03/16/19 03/16/19 03/16/19 05:04 05:06 05:08 Temperature Pulse Rate Respiratory Rate Blood Pressure 113/74 113/74 113/74 Blood Pressure [Right] O2 Sat by Pulse 99 99 98 Oximetry 03/16/19 03/16/19 03/16/19 05:10 05:12 05:14 Temperature Pulse Rate Respiratory Rate Blood Pressure 113/74 113/74 113/74 Blood Pressure [Right] O2 Sat by Pulse 99 98 96 Oximetry 03/16/19 03/16/19 03/16/19 05:16 05:18 05:20 Temperature Pulse Rate Respiratory Rate Blood Pressure 113/74 113/74 113/74 Blood Pressure [Right] O2 Sat by Pulse 97 97 97 Oximetry 03/16/19 03/16/19 03/16/19 05:22 05:24 05:26 Temperature Pulse Rate Respiratory Rate Blood Pressure 113/74 113/74 113/74 Blood Pressure [Right] O2 Sat by Pulse 97 98 97 Oximetry 03/16/19 03/16/19 03/16/19 05:28 05:29 05:31 Temperature Pulse Rate Respiratory Rate Blood Pressure 113/74 156/95 156/95 Blood Pressure [Right] O2 Sat by Pulse 97 93 Oximetry 03/16/19 03/16/19 03/16/19 05:33 05:35 05:37 Temperature Pulse Rate Respiratory Rate Blood Pressure 156/95 156/95 156/95 Blood Pressure [Right] O2 Sat by Pulse 91 81 L Oximetry 03/16/19 03/16/19 05:38 06:36 Temperature Pulse Rate 84 Respiratory 19 Rate Blood Pressure 156/95 Blood Pressure 134/87 [Right] O2 Sat by Pulse 96 Oximetry ED Medical Decision Making - Medical Decision Making Patient in no respiratory distress. Lungs are clear. O2 sats are normal. Patient requests social work consult. Case management consult has been ordered. Will dispo per case management.. Critical care attestation.: If time is entered above; I have spent that time in minutes in the direct care of this critically ill patient, excluding procedure time. ED Disposition Clinical Impression: Asthma Disposition: DC-01 TO HOME OR SELFCARE Is pt being admited?: No Condition: Stable Instructions: Asthma (ED) Referrals: PRIMARY CARE, [Primary Care Provider] - 3-[address] [facility] [Provider Group] - 3-5 Days Time of Disposition: 05:07
[2019-03-16 06:36] VITALS: BP 134/87
== END 2019-03-16 09:53 | disposition home or self-care (01) ==
LOC: ED 02:06
DX: J45.909 Unspecified asthma, uncomplicated (principal); I11.0 Hypertensive heart disease with heart failure; I50.9 Heart failure, unspecified; F03.90 Unspecified dementia, unspecified severity, without behavioral disturbance, psychotic disturbance, mood disturbance, and anxiety

== ENCOUNTER 2019-04-16 15:26 | Emergency (ER) | payer MEDICARE ==
--- NOTE | 2019-04-16 17:26 | Emergency Department Report ---
ED General Adult HPI - General Chief complaint: Urogenital-Male Stated complaint: EXCESSIVE URINATION Time Seen by Provider: 04/16/19 16:32 Source: patient Mode of arrival: Stretcher Limitations: No Limitations - History of Present Illness Initial comments: 75-year-old male with a reported past medical history of asthma, CHF, hypertension, hernia repair and dementia presents emergency department complaining of needing a new place to stay as he is grown weary of his current roommate. Denies any current issues with urination states that he does have lower extremity swelling which is a chronic origin and also a ventral hernia which she states needs to be evaluated for a repair reports no chest pain, palpitations, nausea, vomiting, fever, chills, sweats, hemoptysis, hematemesis, hematochezia, abdominal pain. States that he is taking his medication as prescribed and was taking some Lasix and then got the urge for bowel movement but was unable to make it to the bathroom resulted in him having an accident on himself. States this does happen occasionally when he can't take to the bathroom in a timely fashion. Radiation: non-radiation Severity scale (0 -10): 0 Improves with: none Worsens with: none Associated Symptoms: denies: confusion, chest pain, cough, diaphoresis, headaches, loss of appetite, malaise, nausea/vomiting, rash, shortness of breath, syncope, weakness Treatments Prior to Arrival: none - Related Data Home Medications Medication Instructions Recorded Confirmed Last Taken Aspirin [Aspirin BABY CHEW TAB] 81 mg PO BID 04/14/18 04/14/18 04/14/18 Previous Rx's Medication Instructions Recorded Last Taken Type Ibuprofen [Motrin] 800 mg PO Q8HR PRN #20 tablet 04/14/18 Unknown Rx EPINEPHrine [Epipen] 0.3 mg IJ ONCE PRN #1 auto.injct 05/09/18 Unknown Rx Ibuprofen [Motrin] 800 mg PO Q8HR PRN #12 tablet 07/08/18 Unknown Rx ALBUTEROL Inhaler (OR & NICU) 2 puff IH QID PRN #1 inhalation 11/29/18 Unknown Rx [ProAir HFA Inhaler] Azithromycin [Zithromax Z-PARAG] 250 mg PO DAILY #6 tablet 11/29/18 Unknown Rx Benzonatate [Tessalon Perles] 100 mg PO Q8HR #10 capsule 11/29/18 Unknown Rx Ibuprofen [Motrin 400 MG tab] 400 mg PO Q8H PRN #20 tablet 11/29/18 Unknown Rx traMADol [Ultram] 50 mg PO Q6HR PRN #12 tablet 11/29/18 Unknown Rx Docusate Sodium [Colace] 100 mg PO BID PRN #20 capsule 01/10/19 Unknown Rx Furosemide [Lasix TAB] 40 mg PO QDAY #14 tablet 01/10/19 Unknown Rx Ciprofloxacin HCl [Ciprofloxacin 500 mg PO Q12HR #14 tab 01/27/19 Unknown Rx TAB] Docusate Sodium [Colace] 100 mg PO BID PRN #20 capsule 01/27/19 Unknown Rx Allergies Allergy/AdvReac Type Severity Reaction Status Date / Time acetaminophen [From Tylenol] Allergy Angioedema Verified 04/14/18 08:22 amitriptyline [From Elavil] Allergy Unknown Verified 10/06/17 01:05 chlorpromazine Allergy Unknown Verified 10/06/17 01:05 [From Thorazine] diphenhydramine Allergy Angioedema Verified 04/14/18 08:22 [From Benadryl] Iodinated Contrast Media Allergy Unknown Verified 11/02/18 01:22 Penicillins Allergy Unknown Verified 10/06/17 01:05 Sulfa (Sulfonamide Allergy Unknown Verified 10/06/17 01:05 Antibiotics) ED Review of Systems ROS: Stated complaint: EXCESSIVE URINATION Other details as noted in HPI Comment: All other systems reviewed and negative ED Past Medical Hx - Past Medical History Previous Medical History?: Yes Hx Hypertension: Yes Hx Congestive Heart Failure: Yes Hx Asthma: Yes Hx Dementia: Yes (Hx says dementia) Additional medical history: hernia repair, dementia - Surgical History Past Surgical History?: Yes Additional Surgical History: hernia repair. eye sx/procedure during childhood - Social History Smoking Status: Never Smoker Substance Use Type: None - Medications Home Medications: Home Medications Medication Instructions Recorded Confirmed Last Taken Type Aspirin [Aspirin BABY CHEW TAB] 81 mg PO BID 04/14/18 04/14/18 04/14/18 History Ibuprofen [Motrin] 800 mg PO Q8HR PRN #20 tablet 04/14/18 Unknown Rx EPINEPHrine [Epipen] 0.3 mg IJ ONCE PRN #1 auto.injct 05/09/18 Unknown Rx Ibuprofen [Motrin] 800 mg PO Q8HR PRN #12 tablet 07/08/18 Unknown Rx ALBUTEROL Inhaler (OR & NICU) 2 puff IH QID PRN #1 inhalation 11/29/18 Unknown Rx [ProAir HFA Inhaler] Azithromycin [Zithromax Z-PARAG] 250 mg PO DAILY #6 tablet 11/29/18 Unknown Rx Benzonatate [Tessalon Perles] 100 mg PO Q8HR #10 capsule 11/29/18 Unknown Rx Ibuprofen [Motrin 400 MG tab] 400 mg PO Q8H PRN #20 tablet 11/29/18 Unknown Rx traMADol [Ultram] 50 mg PO Q6HR PRN #12 tablet 11/29/18 Unknown Rx Docusate Sodium [Colace] 100 mg PO BID PRN #20 capsule 01/10/19 Unknown Rx Furosemide [Lasix TAB] 40 mg PO QDAY #14 tablet 01/10/19 Unknown Rx Ciprofloxacin HCl [Ciprofloxacin 500 mg PO Q12HR #14 tab 01/27/19 Unknown Rx TAB] Docusate Sodium [Colace] 100 mg PO BID PRN #20 capsule 01/27/19 Unknown Rx ED Physical Exam - General Limitations: No Limitations General appearance: alert, in no apparent distress, other (jovial alert male in no acute distress sitting up in the bed eating a meal without difficulty) - Head Head exam: Present: atraumatic, normocephalic - Eye Eye exam: Present: normal appearance - ENT ENT exam: Present: mucous membranes moist - Neck Neck exam: Present: normal inspection - Respiratory Respiratory exam: Present: normal lung sounds bilaterally. Absent: respiratory distress - Cardiovascular Cardiovascular Exam: Present: regular rate, normal rhythm. Absent: systolic murmur, diastolic murmur, rubs, gallop - GI/Abdominal GI/Abdominal exam: Present: soft, tenderness, normal bowel sounds, hernia (F ventral hernia soft no cellulitis no warmth no crepitus). Absent: rebound, hyperactive bowel sounds, hypoactive bowel sounds - Rectal Rectal exam: Present: deferred - Extremities Exam Extremities exam: Present: normal inspection, normal capillary refill, pedal edema. Absent: joint swelling, calf tenderness - Back Exam Back exam: Present: normal inspection. Absent: CVA tenderness (R), CVA tenderness (L) - Neurological Exam Neurological exam: Present: alert, oriented X3, CN II-XII intact, normal gait - Psychiatric Psychiatric exam: Present: normal affect, normal mood - Skin Skin exam: Present: warm, dry, intact, normal color. Absent: rash ED Course Vital Signs 04/16/19 16:59 Temperature 98.6 F Pulse Rate 73 Respiratory 18 Rate Blood Pressure 131/82 [Left] O2 Sat by Pulse 97 Oximetry ED Medical Decision Making - Medical Decision Making 74-year-old male with a past medical history CHF and asthma presents to the emergency department requesting [employer] to find another living quarters as he has grown weary of his current roommate. And his roommate went a home care together and he states is becoming quite aggravating. He is actually denying any urinary symptoms. Denies any chest pain, fever, back pain, abdominal pain. He does have a ventral hernia which is been present for several years that he feels needs to be evaluated at some point by surgeon. Hernia shows no sign of any incarceration at present. Specifically, given the very benign exam and lack of significant risk factors, I have a very low suspicion for appendicitis, ischemic bowel, bowel perforation, or any other life threatening disease. I have discussed with the patient the level of uncertainty with undifferentiated symptoms and clearly explained the need to follow-up as noted on the discharge instructions, or return to the Emergency Department immediately if the pain worsens, develops fever, persistent and uncontrollable vomiting, or for any new symptoms or concerns. Mr. Garcia is ambulatory was able to take a full shower to clean himself with no difficulty. He is eating 2 meals and tolerating oral with no complications .I discussed with the patient that this presentation today appears to be nonemergent and no further testing is warranted. In regards to his housing situation and advised him of the need to discuss this further with social work. The patient understands that they must return within 24 hours for a recheck or see their physician within 24 hours for re-exam due to the possibility of significant surgical or medical process. His wrist is to call the emergency department to be is unsure of what to do Critical care attestation.: If time is entered above; I have spent that time in minutes in the direct care of this critically ill patient, excluding procedure time. ED Disposition Clinical Impression: Ventral hernia Disposition: DC-01 TO HOME OR SELFCARE Is pt being admited?: No Does the pt Need Aspirin: No Condition: Stable Instructions: Ventral Hernia (ED) Referrals: [facility] [Provider Group] - 3-5 Days
[2019-04-17 16:46] VITALS: BP 127/78
== END 2019-04-18 23:05 | disposition home or self-care (01) ==
LOC: EEVIPCON 15:26 → ED 15:26
DX: K43.9 Ventral hernia without obstruction or gangrene (principal); I11.0 Hypertensive heart disease with heart failure; I50.9 Heart failure, unspecified; J45.909 Unspecified asthma, uncomplicated; F03.90 Unspecified dementia, unspecified severity, without behavioral disturbance, psychotic disturbance, mood disturbance, and anxiety; Z98.890 Other specified postprocedural states; Z79.899 Other long term (current) drug therapy; Z88.6 Allergy status to analgesic agent; Z88.1 Allergy status to other antibiotic agents; Z91.041 Radiographic dye allergy status; Z88.0 Allergy status to penicillin; Z88.2 Allergy status to sulfonamides; Z88.8 Allergy status to other drugs, medicaments and biological substances

== ENCOUNTER 2019-04-19 01:05 | Emergency (ER) | payer MEDICARE ==
[2019-04-19] MEDS ORDERED: predniSONE 20 MG TAB PO ONE (03:24)
[2019-04-19] MEDS ORDERED: IPRATROPIUM/ALBUTEROL SULFATE 3 ML AMPUL.NEB IH ONE (03:24)
--- NOTE | 2019-04-19 03:48 | XRay Report ---
CHEST 2 VIEWS INDICATION / CLINICAL INFORMATION: cough. COMPARISON: 01/10/2019 FINDINGS: SUPPORT DEVICES: None. HEART / MEDIASTINUM: No significant abnormality. LUNGS / PLEURA: Chronic interstitial lung disease is present not appreciably changed from prior exam. I do not see evidence for superimposed acute pulmonary disease such as pneumonia. No pleural effusio n. No pneumothorax. ADDITIONAL FINDINGS: No significant additional findings. IMPRESSION: 1. Chronic interstitial lung disease. No interval change. Signer Name: Ann Zavala MD Signed: 04/19/2019 3:43 AM Workstation Name: [id number]
--- NOTE | 2019-04-19 05:35 | Emergency Department Report ---
- General Chief Complaint: Dyspnea/Respdistress Source: patient - History of Present Illness Initial Comments: Patient is a 74-year-old white male with a history of asthma, bipolar disorder, anxiety who presented to the ED with complaint of acute onset persistent nasal and sinus congestion with dry cough and wheezing for the last 2 days. Patient denies chest pain, shortness of breath, dizziness, headache, fever, chills, abdominal pain, nausea, vomiting or dysuria, sore throat or change in vision syncope. Patient states that the symptoms are typical of his chronic asthma for which she does not take any medications. MD Complaint: cough, rhinorrhea, nasal congestion -: Sudden, days(s) (2) Severity: mild Quality: dull Consistency: constant Improves With: nothing Worsens With: nothing Associated Symptoms: denies other symptoms, rhinorrhea, nasal congestion, cough, shortness of breath. denies: fever, chills, myalgias, diaphoresis, headache Treatments Prior to Arrival: none - Related Data Home Medications Medication Instructions Recorded Confirmed Last Taken Unobtainable 04/17/19 04/17/19 Unknown Allergies Allergy/AdvReac Type Severity Reaction Status Date / Time acetaminophen [From Tylenol] Allergy Angioedema Verified 04/14/18 08:22 amitriptyline [From Elavil] Allergy Unknown Verified 10/06/17 01:05 chlorpromazine Allergy Unknown Verified 10/06/17 01:05 [From Thorazine] diphenhydramine Allergy Angioedema Verified 04/14/18 08:22 [From Benadryl] Iodinated Contrast Media Allergy Unknown Verified 11/02/18 01:22 Penicillins Allergy Unknown Verified 10/06/17 01:05 Sulfa (Sulfonamide Allergy Unknown Verified 10/06/17 01:05 Antibiotics) ED Review of Systems ROS: Stated complaint: Other details as noted in HPI Comment: All other systems reviewed and negative Constitutional: denies: chills, fever Eyes: denies: eye pain, eye discharge, vision change ENT: congestion. denies: ear pain, throat pain Respiratory: cough, shortness of breath, wheezing Cardiovascular: denies: chest pain, palpitations Endocrine: no symptoms reported Gastrointestinal: denies: abdominal pain, nausea, diarrhea Genitourinary: denies: urgency, dysuria Musculoskeletal: denies: back pain, joint swelling, arthralgia Skin: denies: rash, lesions Neurological: denies: headache, weakness, paresthesias Psychiatric: denies: anxiety, depression Hematological/Lymphatic: denies: easy bleeding, easy bruising ED Past Medical Hx - Past Medical History Hx Hypertension: Yes Hx Congestive Heart Failure: Yes Hx Asthma: Yes Hx Dementia: Yes (Hx says dementia) Additional medical history: hernia repair, dementia - Surgical History Additional Surgical History: hernia repair. eye sx/procedure during childhood - Social History Smoking Status: Never Smoker Substance Use Type: None - Medications Home Medications: Home Medications Medication Instructions Recorded Confirmed Last Taken Type Unobtainable 04/17/19 04/17/19 Unknown History ED Physical Exam - General General appearance: alert, in no apparent distress - Head Head exam: Present: atraumatic, normocephalic, normal inspection - Eye Eye exam: Present: normal appearance, PERRL, EOMI Pupils: Present: normal accommodation - ENT ENT exam: Present: normal exam, normal orophraynx, mucous membranes moist, TM's normal bilaterally, normal external ear exam, other (grossly congested nasal passages) - Neck Neck exam: Present: normal inspection, full ROM - Respiratory Respiratory exam: Present: normal lung sounds bilaterally, wheezes (mildly diffuse wheezes throughout). Absent: respiratory distress, rales, rhonchi, chest wall tenderness, accessory muscle use, prolonged expiratory - Cardiovascular Cardiovascular Exam: Present: regular rate, normal rhythm, normal heart sounds. Absent: systolic murmur, diastolic murmur, rubs, gallop - GI/Abdominal GI/Abdominal exam: Present: soft, normal bowel sounds. Absent: tenderness, guarding, rebound, hyperactive bowel sounds, hypoactive bowel sounds - Extremities Exam Extremities exam: Present: normal inspection, full ROM, normal capillary refill - Back Exam Back exam: Present: normal inspection, full ROM. Absent: muscle spasm, paraspinal tenderness - Neurological Exam Neurological exam: Present: alert, oriented X3, CN II-XII intact, normal gait, reflexes normal - Psychiatric Psychiatric exam: Present: normal affect, normal mood - Skin Skin exam: Present: warm, dry, intact, normal color. Absent: rash ED Medical Decision Making - Radiology Data Radiology results: report reviewed, image reviewed Chest x-ray shows no acute pulmonary abnormalities or pneumonitis. - Medical Decision Making This is a 74-year-old male homeless white male with a history of bipolar disorder, chronic depression and asthma who presented to the ED with a nasal and sinus congestion, dry cough with wheezing for 2 days. In the ED, patient is alert and oriented 3 and is not in distress. Patient was treated in the ED with prednisone, DuoNeb and chest x-ray shows no acute cardiopulmonary abnormalities. On reevaluation, patient's wheezing has resolved patient stated that he was feeling much better. Patient was discharged home and advised to follow-up with his primary care physician in 2-3 days for reevaluation. Patient was advised to return to the ED immediately if symptoms get worse. - Differential Diagnosis acute URI; Asthma exacerbation; Pneumonia; Bronchitis Critical care attestation.: If time is entered above; I have spent that time in minutes in the direct care of this critically ill patient, excluding procedure time. ED Disposition Clinical Impression: Acute upper respiratory infection Chronic bronchitis Qualifiers: Chronic bronchitis type: unspecified Qualified Code(s): J42 - Unspecified chronic bronchitis Disposition: TO HOME OR SELFCARE Is pt being admited?: No Does the pt Need Aspirin: No Condition: Stable Instructions: Chronic Bronchitis (ED), Upper Respiratory Infection (ED) Additional Instructions: Take your regular medications, follow up with your primary care physician in 5-7 days for reevaluation. Return to the ED immediately if symptoms get worse. Referrals: PRIMARY CARE, [Primary Care Provider] - 3-5 Days Time of Disposition: 05:36 Print Language: MEXICAN
== END 2019-04-19 06:11 | disposition home or self-care (01) ==
LOC: ED 01:05
DX: J42 Unspecified chronic bronchitis (principal); J06.9 Acute upper respiratory infection, unspecified; I11.0 Hypertensive heart disease with heart failure; I50.9 Heart failure, unspecified; J45.909 Unspecified asthma, uncomplicated; F03.90 Unspecified dementia, unspecified severity, without behavioral disturbance, psychotic disturbance, mood disturbance, and anxiety
CPT/HCPCS: 71046; 99283; J7512; 99282

== ENCOUNTER 2019-04-19 22:48 | Emergency (ER) | payer MEDICARE ==
[2019-04-20 02:01] VITALS: BP 115/95
--- NOTE | 2019-04-20 03:44 | Emergency Department Report ---
ED General Adult HPI - General Chief complaint: Abdominal Pain Stated complaint: ABD PAIN Time Seen by Provider: 04/20/19 01:54 Source: patient Mode of arrival: Ambulatory Limitations: No Limitations - History of Present Illness Initial comments: pt denies complaint, states homeless wants to see social worker masters. Severity scale (0 -10): 0 - Related Data Home Medications Medication Instructions Recorded Confirmed Last Taken Unobtainable 04/17/19 04/17/19 Unknown Allergies Allergy/AdvReac Type Severity Reaction Status Date / Time acetaminophen [From Tylenol] Allergy Angioedema Verified 04/14/18 08:22 amitriptyline [From Elavil] Allergy Unknown Verified 10/06/17 01:05 chlorpromazine Allergy Unknown Verified 10/06/17 01:05 [From Thorazine] diphenhydramine Allergy Angioedema Verified 04/14/18 08:22 [From Benadryl] Iodinated Contrast Media Allergy Unknown Verified 11/02/18 01:22 Penicillins Allergy Unknown Verified 10/06/17 01:05 Sulfa (Sulfonamide Allergy Unknown Verified 10/06/17 01:05 Antibiotics) ED Review of Systems ROS: Stated complaint: ABD PAIN Other details as noted in HPI Constitutional: denies: chills, fever Eyes: denies: eye pain, eye discharge, vision change ENT: denies: ear pain, throat pain Respiratory: denies: cough, shortness of breath, wheezing Cardiovascular: denies: chest pain, palpitations Endocrine: no symptoms reported Gastrointestinal: denies: abdominal pain, nausea, diarrhea Genitourinary: denies: urgency, dysuria Musculoskeletal: denies: back pain, joint swelling, arthralgia Skin: denies: rash, lesions Neurological: denies: headache, weakness, paresthesias Psychiatric: denies: anxiety, depression Hematological/Lymphatic: denies: easy bleeding, easy bruising ED Past Medical Hx - Past Medical History Previous Medical History?: Yes Hx Hypertension: Yes Hx Congestive Heart Failure: Yes Hx Asthma: Yes Hx Dementia: Yes (Hx says dementia) Additional medical history: hernia repair, dementia - Surgical History Past Surgical History?: Yes Additional Surgical History: hernia repair. eye sx/procedure during childhood - Social History Smoking Status: Never Smoker Substance Use Type: None - Medications Home Medications: Home Medications Medication Instructions Recorded Confirmed Last Taken Type Unobtainable 04/17/19 04/17/19 Unknown History ED Physical Exam - General Limitations: No Limitations General appearance: alert, in no apparent distress - Head Head exam: Present: atraumatic, normocephalic - Eye Eye exam: Present: normal appearance, PERRL, EOMI Pupils: Present: normal accommodation - ENT ENT exam: Present: mucous membranes moist - Neck Neck exam: Present: normal inspection, full ROM. Absent: tenderness - Respiratory Respiratory exam: Present: normal lung sounds bilaterally. Absent: respiratory distress, wheezes, stridor, chest wall tenderness - Cardiovascular Cardiovascular Exam: Present: regular rate, normal rhythm, normal heart sounds. Absent: systolic murmur, diastolic murmur, rubs, gallop - GI/Abdominal GI/Abdominal exam: Present: soft, normal bowel sounds, hernia (ventral hernia ). Absent: distended, tenderness, bruit - Rectal Rectal exam: Present: deferred - Extremities Exam Extremities exam: Present: normal inspection, full ROM, normal capillary refill. Absent: tenderness - Back Exam Back exam: Present: normal inspection, full ROM. Absent: tenderness, vertebral tenderness - Neurological Exam Neurological exam: Present: alert, oriented X3, CN II-XII intact, normal gait - Psychiatric Psychiatric exam: Present: normal affect, normal mood - Skin Skin exam: Present: warm, dry, intact, normal color. Absent: rash ED Course Vital Signs 04/19/19 04/20/19 23:10 02:00 Temperature 98.0 F Pulse Rate 104 H 99 H Respiratory 18 16 Rate Blood Pressure 68/47 Blood Pressure 115/95 [Left] O2 Sat by Pulse 97 97 Oximetry ED Medical Decision Making - Medical Decision Making there is no abdominal pain, pt has completed entire dinner meal without symptoms states he needs to see social worker masters for residential referral Critical care attestation.: If time is entered above; I have spent that time in minutes in the direct care of this critically ill patient, excluding procedure time. ED Disposition Clinical Impression: Malingerer Disposition: -01 TO HOME OR SELFCARE Is pt being admited?: No Does the pt Need Aspirin: No Condition: Stable Referrals: PRIMARY CARE, [Primary Care Provider] - 3-5 Days Time of Disposition: 03:44
== END 2019-04-20 04:00 | disposition home or self-care (01) ==
LOC: ED 22:48
DX: Z76.5 Malingerer [conscious simulation] (principal); I11.0 Hypertensive heart disease with heart failure; I50.9 Heart failure, unspecified; J45.909 Unspecified asthma, uncomplicated; Z59.0 Homelessness; Z88.8 Allergy status to other drugs, medicaments and biological substances; Z88.2 Allergy status to sulfonamides; Z88.0 Allergy status to penicillin; Z91.041 Radiographic dye allergy status; Z98.890 Other specified postprocedural states
CPT/HCPCS: 99282

== ENCOUNTER 2019-05-24 02:31 | Emergency (ER) | payer MEDICARE ==
[2019-05-24 03:22] LABS: Basophils # (Auto) 0.1 K/mm3 (0.0-0.1); Basophils % (Auto) 0.5 % (0.0-1.8); Eosinophils # (Auto) 0.3 K/mm3 (0.0-0.4); Eosinophils % (Auto) 2.7 % (0.0-4.3); Hematocrit 44.8 % (35.5-45.6); Hemoglobin 14.7 gm/dl (11.8-15.2); Lymphocytes # (Auto) 2.8 K/mm3 (1.2-5.4); Lymphocytes % (Auto) 23.4 % (13.4-35.0); Mean Corpuscular HGB Conc 33 % (32-34); Mean Corpuscular Volume 92 fl (84-94); Monocytes # (Auto) 1.3 K/mm3 (0.0-0.8); Monocytes % (Auto) 10.8 % (0.0-7.3); Platelet Count 390 K/mm3 (140-440); Red Blood Count 4.88 M/mm3 (3.65-5.03); Red Cell Distribution Width 14.8 % (13.2-15.2)
[2019-05-24 03:49] LABS: Alanine Aminotransferase 73 units/L (7-56); Albumin 4.3 g/dL (3.9-5); BUN/Creatinine Ratio 22; Blood Urea Nitrogen 26 mg/dL (9-20); Calcium 9.9 mg/dL (8.4-10.2); Hemolysis Index 12
--- NOTE | 2019-05-24 04:01 | XRay Report ---
CHEST 1 VIEW INDICATION / CLINICAL INFORMATION: Chest Pain. COMPARISON: 04/19/2019 FINDINGS: SUPPORT DEVICES: None. HEART / MEDIASTINUM: No significant abnormality. LUNGS / PLEURA: No significant pulmonary or pleural abnormality. No pneumothorax. ADDITIONAL FINDINGS: No significant additional findings. IMPRESSION: 1. No significant change Signer Name: Osorio Hi MD Signed: 05/24/2019 3:57 AM Workstation Name: [id number]
[2019-05-24] MEDS ORDERED: predniSONE 20 MG TAB PO ONE (07:25)
[2019-05-24] MEDS ORDERED: FUROSEMIDE 20 MG TAB PO ONE (07:25)
[2019-05-24] MEDS ORDERED: IPRATROPIUM/ALBUTEROL SULFATE 3 ML AMPUL.NEB IH ONE (07:25)
--- NOTE | 2019-05-24 07:56 | Emergency Department Report ---
HPI - General Chief Complaint: Dyspnea/Respdistress Time Seen by Provider: 05/24/19 07:18 - HPI HPI: Room 18 The patient is a 74-year-old male presenting with chief complaint of "asthma attack." The patient states last night while at rest he had sudden onset of an asthma attack. Patient states she began having shortness of breath and wheezing hearing a "rattling" in his chest. Patient states it felt just like his previous bouts of asthma. Patient is an occasional cough that is nonproductive. The salicylate currently the patient states he feels a tad better. Patient denies chest pain. Patient has a history of CHF and states he has not been compliant with his Lasix Location: [See above] Duration: [See above] Quality: [See above] Severity: [See above] Timing: [See above] Context: [See above] Modifying factors: [See above] Associated signs and symptoms: [see above] ED Past Medical Hx - Past Medical History Previous Medical History?: Yes Hx Hypertension: Yes Hx Congestive Heart Failure: Yes Hx Asthma: Yes Hx Dementia: Yes (Hx says dementia) Additional medical history: hernia repair, dementia - Surgical History Additional Surgical History: hernia repair. eye sx/procedure during childhood - Family History Family history: no significant - Social History Smoking Status: Never Smoker Substance Use Type: None - Medications Home Medications: Home Medications Medication Instructions Recorded Confirmed Last Taken Type ALBUTEROL Inhaler (OR & NICU) 2 puff IH QID PRN #8.5 gram 05/24/19 Unknown Rx [ProAir HFA Inhaler] Aspirin [Adult Aspirin] 81 mg PO QDAY 05/24/19 05/24/19 Unknown History Docusate Sodium [Colace] 100 mg PO BID PRN 05/24/19 05/24/19 Unknown History Furosemide [Lasix] 20 mg PO QDAY 05/24/19 05/24/19 Unknown History Potassium Chloride [K-Dur] 20 meq PO BID 05/24/19 05/24/19 Unknown History Prednisone [predniSONE 10 mg 10 mg PO .TAPER #1 tab.ds.pk 05/24/19 Unknown Rx (6-Day Pack, 21 Tabs)] ED Review of Systems ROS: Stated complaint: MOMO Other details as noted in HPI Constitutional: no symptoms reported Eyes: denies: eye pain ENT: denies: throat pain Respiratory: cough, shortness of breath, wheezing Cardiovascular: denies: chest pain Endocrine: no symptoms reported Gastrointestinal: denies: abdominal pain Genitourinary: denies: dysuria Musculoskeletal: denies: back pain Neurological: denies: headache Physical Exam - Physical Exam Vital Signs: Vital Signs 05/24/19 05/24/19 05/24/19 02:37 04:45 04:49 Temperature 98.3 F Pulse Rate 109 H 84 Respiratory 20 12 20 Rate Blood Pressure 158/94 102/56 Blood Pressure [Left] O2 Sat by Pulse 97 97 94 Oximetry 05/24/19 05/24/19 05/24/19 05:00 05:15 05:30 Temperature Pulse Rate 94 H 81 80 Respiratory 12 12 13 Rate Blood Pressure 102/56 95/69 107/74 Blood Pressure [Left] O2 Sat by Pulse 98 98 100 Oximetry 05/24/19 05/24/19 05/24/19 05:45 06:00 06:15 Temperature Pulse Rate 80 89 79 Respiratory 11 L 11 L 10 L Rate Blood Pressure 98/66 98/66 107/64 Blood Pressure [Left] O2 Sat by Pulse 98 99 99 Oximetry 05/24/19 05/24/19 05/24/19 06:30 06:45 07:00 Temperature Pulse Rate 85 100 H 86 Respiratory 10 L 17 12 Rate Blood Pressure 103/62 108/75 105/69 Blood Pressure [Left] O2 Sat by Pulse 93 100 100 Oximetry 05/24/19 07:41 Temperature 97.1 F L Pulse Rate 96 H Respiratory 17 Rate Blood Pressure Blood Pressure 110/76 [Left] O2 Sat by Pulse 99 Oximetry Physical Exam: GENERAL: The patient is well-developed well-nourished male sitting on stretcher not appearing to be in acute distress. [] HEENT: Normocephalic. Atraumatic. Extraocular motions are intact. Patient has moist mucous membranes. NECK: Supple. Trachea midline CHEST/LUNGS: Clear to auscultation. There is no respiratory distress noted. HEART/CARDIOVASCULAR: Regular. There is no tachycardia. There is no gallop rub or murmur. ABDOMEN: Abdomen is soft, nontender. Patient has normal bowel sounds. There is no abdominal distention. SKIN: There is no rash. There is 2+ bilateral lower extremity pitting edema. There is no diaphoresis. NEURO: The patient is awake, alert, and oriented. The patient is cooperative. The patient has normal speech MUSCULOSKELETAL: There is no evidence of acute injury. ED Course Vital Signs 05/24/19 05/24/19 05/24/19 02:37 04:45 04:49 Temperature 98.3 F Pulse Rate 109 H 84 Respiratory 20 12 20 Rate Blood Pressure 158/94 102/56 Blood Pressure [Left] O2 Sat by Pulse 97 97 94 Oximetry 05/24/19 05/24/19 05/24/19 05:00 05:15 05:30 Temperature Pulse Rate 94 H 81 80 Respiratory 12 12 13 Rate Blood Pressure 102/56 95/69 107/74 Blood Pressure [Left] O2 Sat by Pulse 98 98 100 Oximetry 05/24/19 05/24/19 05/24/19 05:45 06:00 06:15 Temperature Pulse Rate 80 89 79 Respiratory 11 L 11 L 10 L Rate Blood Pressure 98/66 98/66 107/64 Blood Pressure [Left] O2 Sat by Pulse 98 99 99 Oximetry 05/24/19 05/24/19 05/24/19 06:30 06:45 07:00 Temperature Pulse Rate 85 100 H 86 Respiratory 10 L 17 12 Rate Blood Pressure 103/62 108/75 105/69 Blood Pressure [Left] O2 Sat by Pulse 93 100 100 Oximetry 05/24/19 07:41 Temperature 97.1 F L Pulse Rate 96 H Respiratory 17 Rate Blood Pressure Blood Pressure 110/76 [Left] O2 Sat by Pulse 99 Oximetry - Reevaluation(s) Reevaluation #1: 05/24/19 08:09 Patient returns from the bathroom and states while there he felt somewhat off balance transiently. Cranial nerves II through XII grossly intact, no drift. Nursing to perform orthostatics Reevaluation #2: 05/24/19 10:02 Patient eating food comfortably. Heart rate 92 ED Medical Decision Making - Lab Data Result diagrams: 05/24/19 02:55 05/24/19 02:55 Laboratory Tests 05/24/19 05/24/19 05/24/19 02:55 02:55 05:53 WBC 12.0 H RBC 4.88 Hgb 14.7 Hct 44.8 MCV 92 MCH 30 MCHC 33 RDW 14.8 Plt Count 390 Lymph % (Auto) 23.4 Cascade % (Auto) 10.8 H Eos % (Auto) 2.7 Baso % (Auto) 0.5 Lymph # 2.8 Cascade # 1.3 H Eos # 0.3 Baso # 0.1 Seg Neutrophils % 62.6 Seg Neutrophils # 7.5 Sodium 137 Potassium 4.4 Chloride 94.7 L Carbon Dioxide 28 Anion Gap 19 BUN 26 H Creatinine 1.2 Estimated GFR 60 BUN/Creatinine Ratio 22 Glucose 116 H Calcium 9.9 Total Bilirubin 0.40 AST 50 H ALT 73 H Alkaline Phosphatase 122 Troponin T < 0.010 < 0.010 Total Protein 7.7 Albumin 4.3 Albumin/Globulin Ratio 1.3 - EKG Data -: EKG Interpreted by Me EKG shows normal: sinus rhythm Rate: tachycardia (102 bpm) - EKG Data When compared to previous EKG there are: no significant change Interpretation: unchanged when compared t (01/27/2019) - Radiology Data Radiology results: report reviewed (chest x-ray, CT head), image reviewed (chest x-ray, CT head) interpreted by me: Chest x-ray-no focal infiltrate, no pneumothorax [address] [address] XRay Report Signed Patient: LYSSA AL III R#: [id number] : 1945 Acct:[id number] Age/Sex: 74 / M ADM Date: 05/24/19 Loc: ED Attending Dr: Ordering Physician: TANNER NAVARRO Date of Service: 05/24/19 Procedure(s): XR chest 1V ap Accession Number(s): [id number] cc: TANNER NAVARRO Fluoro Time In Minutes: CHEST 1 VIEW INDICATION / CLINICAL INFORMATION: Chest Pain. COMPARISON: 04/19/2019 FINDINGS: SUPPORT DEVICES: None. HEART / MEDIASTINUM: No significant abnormality. LUNGS / PLEURA: No significant pulmonary or pleural abnormality. No pneumothorax. ADDITIONAL FINDINGS: No significant additional findings. IMPRESSION: 1. No significant change Signer Name: Osorio Hi MD Signed: 05/24/2019 3:57 AM Workstation Name: [id number] Transcribed By: KLEBER Dictated By: Osorio Hi MD Electronically Authenticated By: Osorio Hi MD Signed Date/Time: 05/24/19356 DD/DT: 1 07/25/18355 TD/TT: [facility] [address] [place] [address] Cat Scan Report Signed Patient: LYSSA AL III#: [id number] : 1945 Acct:[id number] Age/Sex: 74 / M ADM Date: 05/24/19 Loc: ED Attending Dr: Ordering Physician: ARVIND COREY MD Date of Service: 05/24/19 Procedure(s): CT head/brain wo con Accession Number(s): [id number] cc: ARVIND COREY MD } CT BRAIN: 05/24/2019 INDICATION / CLINICAL INFORMATION: lightheadedness. COMPARISON: None available. FINDINGS: BRAIN/INTRACRANIAL STRUCTURES: Unenhanced CT images of the brain were obtained and compared to the prior exam from 12/13/2018. There has been no change. There is no evidence of acute intracranial abnormality. Ventricles and sulci are slightly prominent in size, consistent with age-related atrophic change. There is no evidence of acute ischemic injury, hemorrhage, or mass. There are no abnormal extra-axial fluid collections. EXTRACRANIAL STRUCTURES: Unremarkable. IMPRESSION: No acute abnormality. All CT scans at this location are performed using dose reduction to ALARA by means of automated exposure control. Signer Name: Ricki Lr MD Signed: 05/24/2019 9:29 AM Workstation Name: [id number] Transcribed By: AMANDA Dictated By: Rikci Lr MD Electronically Authenticated By: Ricki Lr MD Signed Date/Time: 05/24/19928 DD/ 7 TD/TT: - Differential Diagnosis asthma exacerbation, CHF exacerbation Critical care attestation.: If time is entered above; I have spent that time in minutes in the direct care of this critically ill patient, excluding procedure time. ED Disposition Clinical Impression: Shortness of breath, Acute asthma exacerbation Disposition: DC-01 TO HOME OR SELFCARE Is pt being admited?: No Does the pt Need Aspirin: No Condition: Stable Instructions: Asthma (ED) Additional Instructions: Return to the emergency department should you develop worsening symptoms, inability to tolerate food or liquids, high fever or any other concerns Prescriptions: Prednisone [predniSONE 10 mg (6-Day Pack, 21 Tabs)] 10 mg PO .TAPER #1 tab.ds.pk ALBUTEROL Inhaler (OR & NICU) [ProAir HFA Inhaler] 2 puff IH QID PRN #8.5 gram PRN Reason: Shortness Of Breath Referrals: PRIMARY CARE, [Primary Care Provider] - 3-5 Days Time of Disposition: 10:01
--- NOTE | 2019-05-24 09:34 | Cat Scan Report ---
\ } CT BRAIN: 05/24/2019 INDICATION / CLINICAL INFORMATION: lightheadedness. COMPARISON: None available. FINDINGS: BRAIN/INTRACRANIAL STRUCTURES: Unenhanced CT images of the brain were obtained and compared to the pr ior exam from 12/13/2018. There has been no change. There is no evidence of acute intracranial abnormality. Ventricles and sulci are slightly prominent in size, consistent with age-related atrophic change. There is no evidence of acute ischemic injury, hemorrhage, or mass. There are no abnormal extra-axial fluid collections. EXTRACRANIAL STRUCTURES: Unremarkable. IMPRESSION: No acute abnormality. All CT scans at this location are performed using dose reduction to ALARA by means of automated expos ure control. Signer Name: Ricki Lr MD Signed: 05/24/2019 9:29 AM Workstation Name: [id number]
[2019-05-24 10:37] VITALS: BP 103/78
== END 2019-05-24 10:36 | disposition home or self-care (01) ==
LOC: ED 02:31
DX: J45.901 Unspecified asthma with (acute) exacerbation (principal); I11.0 Hypertensive heart disease with heart failure; I50.9 Heart failure, unspecified; F03.90 Unspecified dementia, unspecified severity, without behavioral disturbance, psychotic disturbance, mood disturbance, and anxiety; Z98.890 Other specified postprocedural states; Z79.899 Other long term (current) drug therapy; Z88.6 Allergy status to analgesic agent; Z88.8 Allergy status to other drugs, medicaments and biological substances
CPT/HCPCS: 36415; 70450; 71045; 80053; 84484; 85025; 93005; 93010; 94640; 99285; J7512; 94644

== ENCOUNTER 2019-05-27 11:06 | Emergency (ER) | payer MEDICARE ==
[2019-05-27] MEDS ORDERED: methylPREDNISolone Sod Succinate 125 MG/2 ML INJ IV ONE (11:37)
[2019-05-27] MEDS ORDERED: LEVALBUTEROL 0.63 MG/3 ML NEBU IH ONE (11:37)
[2019-05-27] MEDS ORDERED: IPRATROPIUM 0.02% NEBU 2.5 ML IH ONE (11:37)
--- NOTE | 2019-05-27 11:47 | Emergency Department Report ---
ED Shortness of Breath HPI - General Chief Complaint: Dyspnea/Respdistress Stated Complaint: MOMO Time Seen by Provider: 05/27/19 11:26 Source: patient Mode of arrival: Ambulatory Limitations: No Limitations - History of Present Illness Initial Comments: 74-year-old male with a past medical history asthma, CHF, dementia, and hypertension presents with complaint of asthma attack this morning. Patient states he could not get his inhaler to work properly therefore called EMS. He is feeling somewhat better after receiving albuterol and without but still has some persistent shortness of breath. Patient complains of cough productive of white sputum without fever. Patient is compliant with his Lasix and other medication. Patient was just here on May 24 for asthma exacerbation and medication refill. He is unsure if he is taking the prescribed prednisone. Patient currently has a place to live but would prefer a personal shelter. He is alert and oriented 3. - Related Data Home Medications Medication Instructions Recorded Confirmed Last Taken Aspirin [Adult Aspirin] 81 mg PO QDAY 05/24/19 05/24/19 Unknown Docusate Sodium [Colace] 100 mg PO BID PRN 05/24/19 05/24/19 Unknown Furosemide [Lasix] 20 mg PO QDAY 05/24/19 05/24/19 Unknown Potassium Chloride [K-Dur] 20 meq PO BID 05/24/19 05/24/19 Unknown Previous Rx's Medication Instructions Recorded Last Taken Type ALBUTEROL Inhaler (OR & NICU) 2 puff IH QID PRN #8.5 gram 05/24/19 Unknown Rx [ProAir HFA Inhaler] Prednisone [predniSONE 10 mg 10 mg PO .TAPER #1 tab.ds.pk 05/24/19 Unknown Rx (6-Day Pack, 21 Tabs)] Albuterol Sulfate [Proair 2 puff IH Q4HR PRN #1 aer.pw.bas 05/27/19 Unknown Rx Digihaler] predniSONE [Deltasone] 40 mg PO QDAY 5 Days #10 tab 05/27/19 Unknown Rx Allergies Allergy/AdvReac Type Severity Reaction Status Date / Time acetaminophen [From Tylenol] Allergy Angioedema Verified 04/14/18 08:22 amitriptyline [From Elavil] Allergy Unknown Verified 10/06/17 01:05 chlorpromazine Allergy Unknown Verified 10/06/17 01:05 [From Thorazine] diphenhydramine Allergy Angioedema Verified 04/14/18 08:22 [From Benadryl] Iodinated Contrast Media Allergy Unknown Verified 11/02/18 01:22 Penicillins Allergy Unknown Verified 10/06/17 01:05 Sulfa (Sulfonamide Allergy Unknown Verified 10/06/17 01:05 Antibiotics) ED Review of Systems ROS: Stated complaint: MOMO Other details as noted in HPI Comment: All other systems reviewed and negative ED Past Medical Hx - Past Medical History Previous Medical History?: Yes Hx Hypertension: Yes Hx Congestive Heart Failure: Yes Hx Asthma: Yes Hx Dementia: Yes (Hx says dementia) Additional medical history: hernia repair, dementia - Surgical History Past Surgical History?: Yes Additional Surgical History: hernia repair. eye sx/procedure during childhood - Social History Smoking Status: Never Smoker Substance Use Type: None - Medications Home Medications: Home Medications Medication Instructions Recorded Confirmed Last Taken Type ALBUTEROL Inhaler (OR & NICU) 2 puff IH QID PRN #8.5 gram 05/24/19 Unknown Rx [ProAir HFA Inhaler] Aspirin [Adult Aspirin] 81 mg PO QDAY 05/24/19 05/24/19 Unknown History Docusate Sodium [Colace] 100 mg PO BID PRN 05/24/19 05/24/19 Unknown History Furosemide [Lasix] 20 mg PO QDAY 05/24/19 05/24/19 Unknown History Potassium Chloride [K-Dur] 20 meq PO BID 05/24/19 05/24/19 Unknown History Prednisone [predniSONE 10 mg 10 mg PO .TAPER #1 tab.ds.pk 05/24/19 Unknown Rx (6-Day Pack, 21 Tabs)] Albuterol Sulfate [Proair 2 puff IH Q4HR PRN #1 aer.pw.bas 05/27/19 Unknown Rx Digihaler] predniSONE [Deltasone] 40 mg PO QDAY 5 Days #10 tab 05/27/19 Unknown Rx ED Physical Exam - General Limitations: No Limitations - Other Other exam information: General: No acute distress Head: Atraumatic Eyes: normal appearance ENT: Moist mucous membranes Neck: Normal appearance, no midline tenderness Chest: Mild bilateral wheezing CV: Regular rate and rhythm Abdomen: Soft, normal bowel sounds, nontender, nondistended, no rebound or guarding Back: Normal inspection Extremity: Trace lower extremity edema, no calf tenderness or leg asymmetry Neuro: Alert O x 3, no facial asymmetry, speech clear, no gross motor sensory deficit Psych: Appropriate behavior Skin: No rash ED Course Vital Signs 05/27/19 05/27/19 05/27/19 11:18 12:08 15:46 Temperature 98 F Pulse Rate 120 H 62 Pulse Rate [ 110 H Anterior Bilateral Throughout] Respiratory 16 16 Rate Respiratory 20 Rate [Anterior Bilateral Throughout] Blood Pressure 110/76 Blood Pressure 148/88 [Left] O2 Sat by Pulse 95 95 Oximetry ED Medical Decision Making - EKG Data -: EKG Interpreted by Me (anteroseptal infarct) EKG shows normal: sinus rhythm, ST-T waves (no stemi) Rate: tachycardia (108) - EKG Data When compared to previous EKG there are: no significant change (compared to previous) - Radiology Data Radiology results: report reviewed (cxr: naf) - Medical Decision Making + asthma exacerbation improved with ed tx tachy likely due to nebs GASOLINE TESTER, now resolved ekg unchanged, cxr neg pt declined blood work plan to d/c with meds and asthma exacerbation diag - Differential Diagnosis chf, asthma, pe, unstable angina Critical Care Time: No Critical care attestation.: If time is entered above; I have spent that time in minutes in the direct care of this critically ill patient, excluding procedure time. ED Disposition Clinical Impression: Acute asthma exacerbation Disposition: - TO HOME OR SELFCARE Is pt being admited?: No Does the pt Need Aspirin: No Condition: Stable Instructions: Asthma (ED) Additional Instructions: Take the medication as prescribed. Follow-up with your doctor or doctor/clinic provided. Return if symptoms worsen as indicated by your discharge instructions. Prescriptions: predniSONE [Deltasone] 40 mg PO QDAY 5 Days #10 tab Albuterol Sulfate [Proair Digihaler] 2 puff IH Q4HR PRN #1 aer.pw.bas PRN Reason: Wheezing Referrals: PRIMARY CAREMD [Primary Care Provider] - 3-5 Days SALLIE BENITEZ MD [Staff Physician] - 3-5 Days [facility] [Provider Group] - 3-5 Days Time of Disposition: 16:05
--- NOTE | 2019-05-27 12:09 | XRay Report ---
CHEST 2 VIEWS INDICATION: sob. COMPARISON: 05/24/2019. FINDINGS: Support devices: None. Heart: Within normal limits. Lungs/Pleura: No acute air space or interstitial disease. No significant pleural effusion. IMPRESSION: No acute findings. Signer Name: Willis Casillas MD Signed: 05/27/2019 12:05 PM Workstation Name: [id number]
[2019-05-27 15:51] VITALS: BP 148/88
== END 2019-05-27 16:53 | disposition home or self-care (01) ==
LOC: ED 11:06
DX: J45.901 Unspecified asthma with (acute) exacerbation (principal); I11.0 Hypertensive heart disease with heart failure; I50.9 Heart failure, unspecified; F03.90 Unspecified dementia, unspecified severity, without behavioral disturbance, psychotic disturbance, mood disturbance, and anxiety; Z79.899 Other long term (current) drug therapy; Z88.0 Allergy status to penicillin; Z88.2 Allergy status to sulfonamides; Z88.8 Allergy status to other drugs, medicaments and biological substances
CPT/HCPCS: 71046; 93005; 93010; 94644; 96374; 99284; J2930

== ENCOUNTER 2019-06-11 10:51 | Emergency (ER) | payer MEDICARE ==
--- NOTE | 2019-06-11 14:12 | Emergency Department Report ---
HPI - General Chief Complaint: Abdominal Pain Time Seen by Provider: 06/11/19 14:03 - HPI HPI: 74-year-old male presents to the emergency department via EMS from a local convenience store with a complaint of some abdominal pain and a hernia. He has a hernia since 2004 but says that it has been "sticking out" since June. Patient says that he was reaching for a soda when suddenly the hernia "popped out and went to the left." He has a past nuchal history of asthma, CHF, hypertension, previous hernia and repair. He follows with [facility] for his PCP. He has not taken anything, nor received anything, for his symptoms prior to arrival. The patient presents rather unkempt but says that he does have a residence. He lives in a house and subluts a room. He denies any fever, problems with bowel or bladder, nausea or vomiting. ED Past Medical Hx - Past Medical History Previous Medical History?: Yes Hx Hypertension: Yes Hx Congestive Heart Failure: Yes Hx Asthma: Yes Hx Dementia: Yes (Hx says dementia) Additional medical history: hernia repair, dementia - Surgical History Past Surgical History?: Yes Additional Surgical History: hernia repair. eye sx/procedure during childhood - Social History Smoking Status: Never Smoker Substance Use Type: Prescribed - Medications Home Medications: Home Medications Medication Instructions Recorded Confirmed Last Taken Type ALBUTEROL Inhaler (OR & NICU) 2 puff IH QID PRN #8.5 gram 05/24/19 Unknown Rx [ProAir HFA Inhaler] Aspirin [Adult Aspirin] 81 mg PO QDAY 05/24/19 05/24/19 Unknown History Docusate Sodium [Colace] 100 mg PO BID PRN 05/24/19 05/24/19 Unknown History Furosemide [Lasix] 20 mg PO QDAY 05/24/19 05/24/19 Unknown History Potassium Chloride [K-Dur] 20 meq PO BID 05/24/19 05/24/19 Unknown History Prednisone [predniSONE 10 mg 10 mg PO .TAPER #1 tab.ds.pk 05/24/19 Unknown Rx (6-Day Pack, 21 Tabs)] Albuterol Sulfate [Proair 2 puff IH Q4HR PRN #1 aer.pw.bas 05/27/19 Unknown Rx Digihaler] predniSONE [Deltasone] 40 mg PO QDAY 5 Days #10 tab 05/27/19 Unknown Rx ED Review of Systems ROS: Stated complaint: LT SIDE HERNIA PAIN Other details as noted in HPI Comment: All other systems reviewed and negative Constitutional: denies: chills, fever Eyes: denies: eye pain, vision change ENT: denies: ear pain, throat pain Respiratory: denies: cough, shortness of breath Cardiovascular: denies: chest pain, palpitations Gastrointestinal: abdominal pain. denies: nausea, vomiting Genitourinary: denies: dysuria, discharge Musculoskeletal: denies: back pain, arthralgia Skin: denies: rash, lesions Neurological: denies: headache, weakness Physical Exam - Physical Exam Vital Signs: Vital Signs 06/11/19 10:54 Temperature 98.3 F Pulse Rate 113 H Respiratory 20 Rate Blood Pressure 140/87 O2 Sat by Pulse 96 Oximetry Physical Exam: GENERAL: The patient is well-developed well-nourished. HEENT: Normocephalic. Atraumatic. Patient has moist mucous membranes. EYES: Extraocular motions are intact. NECK: Supple. Trachea is midline CHEST/LUNGS: Clear to auscultation. There is no respiratory distress noted. HEART/CARDIOVASCULAR: Regular. There is no tachycardia. ABDOMEN: Abdomen is soft, nontender. Patient has normal bowel sounds. There is a slight midline firmness and/or distention just above the umbilicus that appears consistent with a ventral hernia. Obese habitus. SKIN: Skin is warm and dry. NEURO: The patient is awake, alert, and oriented. The patient is cooperative. The patient has no focal neurologic deficits. Normal speech. MUSCULOSKELETAL: There is no tenderness or deformity. There is no evidence of acute injury. ED Course Vital Signs 06/11/19 10:54 Temperature 98.3 F Pulse Rate 113 H Respiratory 20 Rate Blood Pressure 140/87 O2 Sat by Pulse 96 Oximetry ED Medical Decision Making - Lab Data Result diagrams: 06/11/19 15:05 06/11/19 15:05 - Radiology Data Radiology results: report reviewed CT scan of the abdomen and pelvis with IV contrast does not show any acute process. There is cholelithiasis without cholecystitis. There is a ventral fat filled hernia. There is a moderate-sized hiatal hernia. Diverticulosis. - Medical Decision Making This patient presents to the emergency department with a complaint of some abdominal pain. The patient does admit that he has a history of previous hernia repair and has been dealing with this particular hernia at least since June of last year. His labs have been unremarkable including CBC, metabolic panel and lactic acid. A CT scan of the abdomen and pelvis with IV contrast was completed that shows no acute abdominal or pelvic pathology. There is a fat filled ventral hernia. He has a moderate-sized hiatal hernia. There is cholelithiasis without cholecystitis. And the patient has diverticulosis without diverticulitis. His vital signs stable throughout his ED course. He appears safe for discharge home. He has been given a referral for gastroenterology regarding the hiatal hernia. He was given a referral for a local general surgeon regarding the cholelithiasis, ventral hernia. He will return to the emergency Department with any worsening of his symptoms or any acute distress. - Differential Diagnosis hernia, bowel obstruction, colitis, constipation Critical Care Time: No Critical care attestation.: If time is entered above; I have spent that time in minutes in the direct care of this critically ill patient, excluding procedure time. ED Disposition Clinical Impression: Hiatal hernia Ventral hernia Qualifiers: Obstruction and gangrene presence: without obstruction or gangrene Qualified Code(s): K43.9 - Ventral hernia without obstruction or gangrene Cholelithiasis Qualifiers: Cholelithiasis location: gallbladder Cholecystitis presence: without cholecystitis Biliary obstruction: without biliary obstruction Qualified Code(s): K80.20 - Calculus of gallbladder without cholecystitis without obstruction Disposition: TO HOME OR SELFCARE Is pt being admited?: No Condition: Stable Instructions: Hiatal Hernia (ED), Cholelithiasis (ED), Ventral Hernia (ED) Additional Instructions: You were found to have a ventral hernia. However this hernia is fat and does not contain any intestines. You were also found to have gallstones without any signs of infection of your gallbladder. Lastly, the CT also showed a hiatal hernia. I have given you information regarding all of these conditions and diagnoses. I am giving you a referral for a local solderer furnace, Dr. Alfonso, to follow up regarding the hiatal hernia. I am giving you a referral for a local general surgeon, Dr. Faustin, to follow up regarding the gallstones and the ventral hernia. Please return to the emergency Department with any worsening of your symptoms or any acute distress. Referrals: MIGUE FAUSTIN MD [Staff Physician] - 3-5 Days CHARLENE ALFONSO MD [Staff Physician] - 3-5 Days [facility] [Provider Group] - 3-5 Days Forms: Work/School Release Form(ED) Time of Disposition: 17:07
--- NOTE | 2019-06-11 15:06 | XRay Report ---
ABDOMEN 2 VIEWS INDICATION / CLINICAL INFORMATION: Abdominal pain. COMPARISON: Abdomen series 01/27/2019 FINDINGS: TUBES / LINES: None. BOWEL GAS PATTERN: No significant abnormality. FREE AIR / EXTRALUMINAL GAS: None seen. LUNGS: Visualized lungs show no significant abnormality. ADDITIONAL FINDINGS: No appreciable abdominal mass lesion or abnormal calcifications. IMPRESSION: 1. No acute abnormality. Signer Name: Fabrizio Warren MD Signed: 06/11/2019 3:02 PM Workstation Name: [id number]
[2019-06-11 15:24] LABS: Basophils # (Auto) 0.1 K/mm3 (0.0-0.1); Basophils % (Auto) 0.6 % (0.0-1.8); Eosinophils # (Auto) 0.2 K/mm3 (0.0-0.4); Eosinophils % (Auto) 2.1 % (0.0-4.3); Hematocrit 42.3 % (35.5-45.6); Lymphocytes # (Auto) 2.8 K/mm3 (1.2-5.4); Lymphocytes % (Auto) 29.5 % (13.4-35.0); Mean Corpuscular HGB Conc 33 % (32-34); Mean Corpuscular Volume 92 fl (84-94); Monocytes # (Auto) 1.1 K/mm3 (0.0-0.8); Monocytes % (Auto) 11.4 % (0.0-7.3); Platelet Count 312 K/mm3 (140-440)
[2019-06-11 15:41] LABS: Alanine Aminotransferase 17 units/L (7-56); BUN/Creatinine Ratio 17; Blood Urea Nitrogen 17 mg/dL (9-20); Calcium 9.3 mg/dL (8.4-10.2); Hemolysis Index 14
--- NOTE | 2019-06-11 16:59 | Cat Scan Report ---
CT ABDOMEN AND PELVIS WITHOUT CONTRAST INDICATION / CLINICAL INFORMATION: abdominal pain, hernia. TECHNIQUE: Axial CT images were obtained through the abdomen and pelvis without IV contrast. All CT scans at [facility] location are performed using CT dose reduction for ALARA by means of automated exposure control. COMPARISON: Abdominal CT scan dated 11/02/2018 FINDINGS: LOWER CHEST: No significant abnormality. LIVER: No significant abnormality. GALLBLADDER: Multiple calcified stones in the gallbladder, which is otherwise unremarkable. BILE DUCTS: No significant abnormality. PANCREAS: No significant abnormality. SPLEEN: No significant abnormality. ADRENALS: No significant abnormality. RIGHT KIDNEY and URETER: No significant abnormality. LEFT KIDNEY and URETER: No significant abnormality. STOMACH and SMALL BOWEL: Moderately sized hiatal hernia containing retroperitoneal fat and a small po rtion of the stomach. COLON: Scattered colonic diverticula. No evidence of acute diverticulitis. APPENDIX: Normal PERITONEUM: No free fluid. No free air. No fluid collection. LYMPH NODES: No adenopathy. AORTA and ARTERIES: No significant abnormality. IVC and VEINS: No significant abnormality. URINARY BLADDER: No significant abnormality. REPRODUCTIVE ORGANS: No significant abnormality. ADDITIONAL FINDINGS: Moderately sized midline ventral hernia with fascial defect nearly 4 cm in trans verse width. No associated inflammatory changes. SKELETAL SYSTEM: No acute abnormality. Moderate bilateral hip partial arthrosis. IMPRESSION: 1. No acute abnormality in the abdomen and pelvis. 2. Cholelithiasis. 3. Diverticulosis. 4. Fat-containing ventral hernia and moderately sized hiatal hernia without acute abnormality. Signer Name: Fabrizio Warren MD Signed: 06/11/2019 4:55 PM Workstation Name: [id number]
[2019-06-11 17:41] VITALS: BP 142/96
== END 2019-06-11 17:42 | disposition home or self-care (01) ==
LOC: ED 10:51
DX: K43.9 Ventral hernia without obstruction or gangrene (principal); K44.9 Diaphragmatic hernia without obstruction or gangrene; K80.20 Calculus of gallbladder without cholecystitis without obstruction; I11.0 Hypertensive heart disease with heart failure; I50.9 Heart failure, unspecified; J45.909 Unspecified asthma, uncomplicated; F03.90 Unspecified dementia, unspecified severity, without behavioral disturbance, psychotic disturbance, mood disturbance, and anxiety; Z79.899 Other long term (current) drug therapy; Z88.6 Allergy status to analgesic agent; Z88.0 Allergy status to penicillin; Z91.041 Radiographic dye allergy status
CPT/HCPCS: 36415; 74019; 74176; 80053; 82140; 85025

== ENCOUNTER 2019-07-18 23:13 | Emergency (ER) | payer MEDICARE ==
[2019-07-19] MEDS ORDERED: IPRATROPIUM/ALBUTEROL SULFATE 3 ML AMPUL.NEB IH ONE (00:18)
[2019-07-19] MEDS ORDERED: IPRATROPIUM 0.02% NEBU 2.5 ML IH ONE (00:32)
[2019-07-19] MEDS ORDERED: predniSONE 20 MG TAB PO ONE (00:32)
[2019-07-19] MEDS ORDERED: ALBUTEROL 2.5 MG/3 ML NEBU IH ONE (00:32)
--- NOTE | 2019-07-19 00:33 | Emergency Department Report ---
ED General Adult HPI - General Chief complaint: Dyspnea/Respdistress Stated complaint: MOMO Time Seen by Provider: 07/19/19 00:23 Source: patient, EMS ( EMS documentation not available at time of chart dictation ), RN notes reviewed, old records reviewed Mode of arrival: Ambulatory Limitations: No Limitations - History of Present Illness Initial comments: Patient is a 74-year-old gentleman whom I have evaluated in the past. His past medical history includes bronchitis, chronic ventral hernia, homelessness. He presents to the ER today with a complaint of painless cough and wheezing for the past week and a half. His symptoms are improved with albuterol, Atrovent and steroids. He is asking to eat. He indicates he is tired of "eating junk food." He denies DVT and pulmonary embolism risk factors. He denies fevers and chills. He denies trauma, and denies additional complaints. After aforementioned therapy, he indicates that he is "ready to go." -: Gradual, week(s) Consistency: constant Improves with: medication, rest - Related Data Home Medications Medication Instructions Recorded Confirmed Last Taken Aspirin [Adult Aspirin] 81 mg PO QDAY 05/24/19 05/24/19 Unknown Docusate Sodium [Colace] 100 mg PO BID PRN 05/24/19 05/24/19 Unknown Furosemide [Lasix] 20 mg PO QDAY 05/24/19 05/24/19 Unknown Potassium Chloride [K-Dur] 20 meq PO BID 05/24/19 05/24/19 Unknown Previous Rx's Medication Instructions Recorded Last Taken Type Albuterol INH(or & Nicu Only) 2 puff IH QID PRN #8.5 gram 05/24/19 Unknown Rx [ProAir HFA Inhaler] Prednisone [predniSONE 10 mg 10 mg PO .TAPER #1 tab.ds.pk 05/24/19 Unknown Rx (6-Day Pack, 21 Tabs)] Albuterol Sulfate [Proair 2 puff IH Q4HR PRN #1 aer.pw.bas 05/27/19 Unknown Rx Digihaler] predniSONE [Deltasone] 40 mg PO QDAY 5 Days #10 tab 05/27/19 Unknown Rx Albuterol Sulfate [Proair 90 mcg IH Q4HR PRN #2 aer.pow.ba 07/19/19 Unknown Rx Respiclick] Benzonatate [Tessalon Perles] 100 mg PO Q8HR PRN #30 capsule 07/19/19 Unknown Rx Ipratropium (Nf) [Atrovent] 2 puff IH Q6HR PRN #1 inha 07/19/19 Unknown Rx predniSONE [Deltasone] 40 mg PO QDAY #8 tab 07/19/19 Unknown Rx Allergies Allergy/AdvReac Type Severity Reaction Status Date / Time acetaminophen [From Tylenol] Allergy Angioedema Verified 04/14/18 08:22 amitriptyline [From Elavil] Allergy Unknown Verified 10/06/17 01:05 chlorpromazine Allergy Unknown Verified 10/06/17 01:05 [From Thorazine] diphenhydramine Allergy Angioedema Verified 04/14/18 08:22 [From Benadryl] Iodinated Contrast Media Allergy Unknown Verified 11/02/18 01:22 Penicillins Allergy Unknown Verified 10/06/17 01:05 Sulfa (Sulfonamide Allergy Unknown Verified 10/06/17 01:05 Antibiotics) ED Review of Systems ROS: Stated complaint: MOMO Other details as noted in HPI Constitutional: denies: fever ENT: congestion Respiratory: cough, shortness of breath, SOB with exertion, wheezing Cardiovascular: denies: syncope Gastrointestinal: denies: abdominal pain Neurological: denies: weakness ED Past Medical Hx - Past Medical History Previous Medical History?: Yes Hx Hypertension: Yes Hx Congestive Heart Failure: Yes Hx Asthma: Yes Hx Dementia: Yes (Hx says dementia) Additional medical history: hernia repair, dementia - Surgical History Past Surgical History?: Yes Additional Surgical History: hernia repair. eye sx/procedure during childhood - Social History Smoking Status: Never Smoker Substance Use Type: None - Medications Home Medications: Home Medications Medication Instructions Recorded Confirmed Last Taken Type Albuterol INH(or & Nicu Only) 2 puff IH QID PRN #8.5 gram 05/24/19 Unknown Rx [ProAir HFA Inhaler] Aspirin [Adult Aspirin] 81 mg PO QDAY 05/24/19 05/24/19 Unknown History Docusate Sodium [Colace] 100 mg PO BID PRN 05/24/19 05/24/19 Unknown History Furosemide [Lasix] 20 mg PO QDAY 05/24/19 05/24/19 Unknown History Potassium Chloride [K-Dur] 20 meq PO BID 05/24/19 05/24/19 Unknown History Prednisone [predniSONE 10 mg 10 mg PO .TAPER #1 tab.ds.pk 05/24/19 Unknown Rx (6-Day Pack, 21 Tabs)] Albuterol Sulfate [Proair 2 puff IH Q4HR PRN #1 aer.pw.bas 05/27/19 Unknown Rx Digihaler] predniSONE [Deltasone] 40 mg PO QDAY 5 Days #10 tab 05/27/19 Unknown Rx Albuterol Sulfate [Proair 90 mcg IH Q4HR PRN #2 aer.pow.ba 07/19/19 Unknown Rx Respiclick] Benzonatate [Tessalon Perles] 100 mg PO Q8HR PRN #30 capsule 07/19/19 Unknown Rx Ipratropium (Nf) [Atrovent] 2 puff IH Q6HR PRN #1 inha 07/19/19 Unknown Rx predniSONE [Deltasone] 40 mg PO QDAY #8 tab 07/19/19 Unknown Rx ED Physical Exam - General Limitations: No Limitations General appearance: alert, anxious, obese - Head Head exam: Present: normocephalic, other (Chronic appearing left-sided temporal skin hyperpigmentation noted) - Eye Eye exam: Present: normal appearance, EOMI. Absent: nystagmus - ENT ENT exam: Present: normal exam, normal orophraynx, mucous membranes moist, normal external ear exam - Neck Neck exam: Present: normal inspection, full ROM. Absent: tenderness, meningismus - Respiratory Respiratory exam: Present: respiratory distress, wheezes, rhonchi - Cardiovascular Cardiovascular Exam: Present: normal rhythm, tachycardia, normal heart sounds. Absent: systolic murmur, diastolic murmur, rubs, gallop - GI/Abdominal GI/Abdominal exam: Present: soft, hernia (Chronic ventral hernia noted, reducible and nontender). Absent: distended, tenderness, guarding, rebound, rigid, pulsatile mass - Rectal Rectal exam: Present: deferred - Extremities Exam Extremities exam: Present: normal inspection, full ROM, other (2+ pulses noted in the bilateral upper and lower extremities. There is no palpable cord. negative Homans sign. Muscular compartments are soft. The pelvis is stable.). Absent: calf tenderness - Back Exam Back exam: Present: normal inspection. Absent: tenderness, CVA tenderness (R), CVA tenderness (L), paraspinal tenderness, vertebral tenderness - Neurological Exam Neurological exam: Present: alert, oriented X3, normal gait, other (There is no facial droop. The tongue is midline. Extraocular movements are intact bilaterally. There is 5 out of 5 strength in bilateral upper and lower extremities. Sensation is intact to light touch bilateral upper and lower extremities. There is a normal gait.). Absent: motor sensory deficit - Psychiatric Psychiatric exam: Present: anxious - Skin Skin exam: Present: warm, dry, intact, normal color. Absent: rash ED Course Vital Signs 07/18/19 07/18/19 07/19/19 23:53 23:54 00:26 Temperature 98.7 F 99 F Pulse Rate 112 H 110 H Pulse Rate [ Anterior Bilateral Throughout] Pulse Rate [ Posterior Bilateral Throughout] Respiratory 18 16 17 Rate Respiratory Rate [Anterior Bilateral Throughout] Respiratory Rate [Posterior Bilateral Throughout] Blood Pressure 137/110 Blood Pressure 123/57 [Left] O2 Sat by Pulse 92 100 96 Oximetry 07/19/19 07/19/19 00:40 01:42 Temperature Pulse Rate 101 H Pulse Rate [ 102 H Anterior Bilateral Throughout] Pulse Rate [ 103 H Posterior Bilateral Throughout] Respiratory 16 Rate Respiratory 20 Rate [Anterior Bilateral Throughout] Respiratory 20 Rate [Posterior Bilateral Throughout] Blood Pressure Blood Pressure 111/73 [Left] O2 Sat by Pulse 100 Oximetry ED Medical Decision Making - Lab Data Vital Signs 07/18/19 07/18/19 07/19/19 23:53 23:54 00:26 Temperature 98.7 F 99 F Pulse Rate 112 H 110 H Pulse Rate [ Anterior Bilateral Throughout] Pulse Rate [ Posterior Bilateral Throughout] Respiratory 18 16 17 Rate Respiratory Rate [Anterior Bilateral Throughout] Respiratory Rate [Posterior Bilateral Throughout] Blood Pressure 137/110 Blood Pressure 123/57 [Left] O2 Sat by Pulse 92 100 96 Oximetry 07/19/19 07/19/19 00:40 01:42 Temperature Pulse Rate 101 H Pulse Rate [ 102 H Anterior Bilateral Throughout] Pulse Rate [ 103 H Posterior Bilateral Throughout] Respiratory 16 Rate Respiratory 20 Rate [Anterior Bilateral Throughout] Respiratory 20 Rate [Posterior Bilateral Throughout] Blood Pressure Blood Pressure 111/73 [Left] O2 Sat by Pulse 100 Oximetry - EKG Data -: EKG Interpreted by Ga EKG shows normal: sinus rhythm Rate: tachycardia - EKG Data When compared to previous EKG there are: no significant change 02/12/20 02:35 Sinus tachycardia, 118 bpm, left axis deviation, left anterior fascicular block, poor R wave progression, motion artifact. Abnormal EKG, unchanged from prior EKG from 05/27/2019. This is not a STEMI. - Radiology Data Radiology results: report reviewed, image reviewed X-ray of the chest is negative for acute disease. Atelectatic changes noted - Medical Decision Making Differential diagnosis, including but not limited to: Bronchitis, asthma exacerbation, pneumonia Assessment and plan: 74-year-old gentleman with no DVT or pulmonary embolism risk factors who is low risk by Wells criteria, who is typically ambulatory, known to myself at this institution previously, presenting with cough, wheezing, shortness of breath, improve albuterol, Atrovent, steroids, most likely experiencing reactive airway disease. Tachycardia is appreciated, likely secondary to albuterol. Saturating well after the aforementioned therapy. He indicates he is ready for discharge. Critical Care Time: Yes Critical care time in (mins) excluding proc time.: 35 Critical care attestation.: If time is entered above; I have spent that time in minutes in the direct care of this critically ill patient, excluding procedure time. ED Disposition Clinical Impression: Reactive airway disease Qualifiers: Asthma severity: mild Asthma persistence: intermittent Asthma complication type: with acute exacerbation Qualified Code(s): J45.21 - Mild intermittent asthma with (acute) exacerbation Disposition: DC-01 TO HOME OR SELFCARE Is pt being admited?: No Does the pt Need Aspirin: No Condition: Stable Additional Instructions: Take the medications as needed and directed. Avoid consumption of tobacco and smoke products. Follow-up with a primary care doctor within 2 weeks. Return to the emergency room right away with new, worsened or different symptoms, or symptoms not present on the initial emergency room evaluation. Prescriptions: Ipratropium (Nf) [Atrovent] 2 puff IH Q6HR PRN #1 inha PRN Reason: Wheezing predniSONE [Deltasone] 40 mg PO QDAY #8 tab Albuterol Sulfate [Proair Respiclick] 90 mcg IH Q4HR PRN #2 aer.pow.ba PRN Reason: Wheezing Benzonatate [Tessalon Perles] 100 mg PO Q8HR PRN #30 capsule PRN Reason: Cough Referrals: [facility] [Provider Group] - as needed [facility] [Provider Group] - as needed SALLIE BENITEZ MD [Staff Physician] - as needed
--- NOTE | 2019-07-19 01:18 | XRay Report ---
CHEST 1 VIEW 07/19/2019 12:18 AM INDICATION / CLINICAL INFORMATION: Chest Pain. Additional history: Cough, shortness of breath, nasal congestion. COMPARISON: 2 views of the chest from 05/27/2019. FINDINGS: SUPPORT DEVICES: None. HEART / MEDIASTINUM: No significant abnormality. LUNGS / PLEURA: There is probable bibasilar atelectasis. The lungs are otherwise clear. No significan t pleural effusion. No pneumothorax. ADDITIONAL FINDINGS: No significant additional findings. IMPRESSION: Probable bibasilar atelectasis. Signer Name: Johnson Fisher MD Signed: 07/19/2019 1:13 AM Workstation Name: [id number]
[2019-07-19 01:43] VITALS: BP 111/73
== END 2019-07-19 03:00 | disposition home or self-care (01) ==
LOC: ED 23:13
DX: J45.909 Unspecified asthma, uncomplicated (principal); I11.0 Hypertensive heart disease with heart failure; I50.9 Heart failure, unspecified; F03.90 Unspecified dementia, unspecified severity, without behavioral disturbance, psychotic disturbance, mood disturbance, and anxiety; Z79.899 Other long term (current) drug therapy; Z88.8 Allergy status to other drugs, medicaments and biological substances
CPT/HCPCS: 71045; 93005; 93010; 94640; 99283; J7512; 94644

== ENCOUNTER 2019-07-21 21:47 | Emergency (ER) | payer MEDICARE ==
[2019-07-21 22:09] VITALS: BP 127/84
--- NOTE | 2019-07-21 22:17 | Emergency Department Report ---
Chief Complaint: Dyspnea/Respdistress Stated Complaint: MOMO Time Seen by Provider: 07/21/19 22:12 - HPI History of Present Illness: 74 y/o male comes in for MOMO. Patient was seen on 07/19/19 and was discharged on Predinsone, Atrovent and Albuterol. Patient has not filled his medications. - Exam Vital Signs: Vital Signs 07/21/19 22:07 Temperature 98.7 F Pulse Rate 101 H Respiratory 20 Rate Blood Pressure 127/84 O2 Sat by Pulse 97 Oximetry Physical Exam: AxO times 3 NAD non toxic Chest mild wheezing but moving air Cardiac RRR ambulatory with out sob and difficulties. MSE screening note: Focused history and physical exam performed. Due to findings the following was ordered: 74 y/o male comes in for MOMO. Patient was seen on 07/19/19 and was discharged on Predinsone, Atrovent and Albuterol. Patient has not filled his medications. Prescriptions will be called in to [facility] by nurse. Patient is instructed to go to [facility] and pick prescription up. Patient to follow up at [facility] or Dr. Toledo. ED Disposition for MSE Clinical Impression: Reactive airway disease Disposition: DC-01 TO HOME OR SELFCARE Is pt being admited?: No Does the pt Need Aspirin: No Condition: Stable Instructions: Reactive Airways Disease (ED) Additional Instructions: Patient is instructed to go to [facility] and pick prescription up. Patient to follow up at [facility] or Dr. Toledo. Referrals: SALLIE TOLEDO MD [Staff Physician] - 3-5 Days [facility] [Provider Group] - 3-5 Days
== END 2019-07-21 23:00 | disposition home or self-care (01) ==
LOC: ED 21:47
DX: J45.909 Unspecified asthma, uncomplicated (principal)
CPT/HCPCS: 99282

== ENCOUNTER 2019-07-31 19:45 | Emergency (ER) | payer MEDICARE ==
--- NOTE | 2019-07-31 20:54 | Event Note ---
ED Screening Note ED Screening Note: asthma exacerbation that began 4 days ago +productive cough thick yellow mucus no fever uses albuterol inhaler This initial assessment/diagnostic orders/clinical plan/treatment(s) is/are subject to change based on patients health status, clinical progression and re- assessment by fellow clinical providers in the ED. Further treatment and workup at subsequent clinical providers discretion. Patient/guardian urged not to elope from the ED as their condition may be serious if not clinically assessed and managed. Initial orders include: CXR, labs
[2019-07-31] MEDS ORDERED: dexAMETHasone 20 MG/5 ML VIAL IM ONE (20:56)
[2019-07-31] MEDS ORDERED: ALBUTEROL 2.5 MG/3 ML NEBU IH ONE (20:56)
[2019-07-31] MEDS ORDERED: IPRATROPIUM 0.02% NEBU 2.5 ML IH ONE (20:56)
[2019-07-31 21:52] LABS: Basophils # (Auto) 0.1 K/mm3 (0.0-0.1); Basophils % (Auto) 0.5 % (0.0-1.8); Eosinophils # (Auto) 0.1 K/mm3 (0.0-0.4); Eosinophils % (Auto) 1.1 % (0.0-4.3); Hematocrit 41.7 % (35.5-45.6); Hemoglobin 13.8 gm/dl (11.8-15.2); Lymphocytes # (Auto) 2.3 K/mm3 (1.2-5.4); Lymphocytes % (Auto) 20.3 % (13.4-35.0); Mean Corpuscular HGB Conc 33 % (32-34); Mean Corpuscular Volume 90 fl (84-94); Monocytes # (Auto) 1.3 K/mm3 (0.0-0.8); Monocytes % (Auto) 11.7 % (0.0-7.3); Platelet Count 367 K/mm3 (140-440); Red Blood Count 4.64 M/mm3 (3.65-5.03); Red Cell Distribution Width 14.7 % (13.2-15.2)
--- NOTE | 2019-07-31 21:57 | XRay Report ---
CHEST 2 VIEWS INDICATION / CLINICAL INFORMATION: MAIN: asthma, productive cough; MOMO for 30 min [employer] of [employer]. Nonlabored. Talking without difficulty. D id not take own inhaler today. EMS states pt was wheezing and given 5mg albuterol. MAEW. Productive c ough. occasional expiratory wheezing.. COMPARISON: 07/27/2019 FINDINGS: SUPPORT DEVICES: None. HEART / MEDIASTINUM: No significant abnormality. LUNGS / PLEURA: Increased interstitial markings are unchanged. No superimposed infiltrate, edema or e ffusion. No pneumothorax. ADDITIONAL FINDINGS: No significant additional findings. IMPRESSION: 1. No acute findings. Signer Name: Osorio Hi MD Signed: 07/31/2019 9:53 PM Workstation Name: [id number]
[2019-07-31 22:12] LABS: Alanine Aminotransferase 14 units/L (7-56); Albumin 4.1 g/dL (3.9-5); BUN/Creatinine Ratio 24; Blood Urea Nitrogen 26 mg/dL (9-20); Calcium 9.3 mg/dL (8.4-10.2); Hemolysis Index 3
--- NOTE | 2019-07-31 22:45 | Emergency Department Report ---
ED General Adult HPI - General Chief complaint: Dyspnea/Respdistress Stated complaint: MOMO Time Seen by Provider: 07/31/19 20:53 Source: patient, EMS Mode of arrival: Wheelchair Limitations: Physical Limitation - History of Present Illness Initial comments: 74-year-old male with a history of CHF COPD who recently was discharged on July 27 for CHF exacerbation presents with complaint of difficulty breathing for 30 minutes prior to arrival EMS. Patient is able to talk without difficulty. Patient did not take his own inhaler today. Patient states that the yellow mucus production today. Patient denies any chest pain at current time. Patient states he has been taking his Lasix. Patient had a recent echocardiogram showed ejection fraction of 60%. - Related Data Home Medications Medication Instructions Recorded Confirmed Last Taken Docusate Sodium [Colace CAP] 100 mg PO BID PRN 05/24/19 07/23/19 Unknown Potassium Chloride [K-Dur] 20 meq PO BID 05/24/19 07/23/19 Unknown B-12 07/23/19 07/23/19 Unknown Previous Rx's Medication Instructions Recorded Last Taken Type Albuterol INH(or & Nicu Only) 2 puff IH QID PRN #8.5 gram 05/24/19 Unknown Rx [ProAir HFA Inhaler] Prednisone [predniSONE 10 mg 10 mg PO .TAPER #1 tab.ds.pk 05/24/19 Unknown Rx (6-Day Pack, 21 Tabs)] Albuterol Sulfate [Proair 2 puff IH Q4HR PRN #1 aer.pw.bas 05/27/19 Unknown Rx Digihaler] predniSONE [Deltasone] 40 mg PO QDAY 5 Days #10 tab 05/27/19 Unknown Rx Albuterol Sulfate [Proair 90 mcg IH Q4HR PRN #2 aer.pow.ba 07/19/19 Unknown Rx Respiclick] Benzonatate [Tessalon Perles] 100 mg PO Q8HR PRN #30 capsule 07/19/19 Unknown Rx Ipratropium (Nf) [Atrovent HFA 2 puff IH Q6HR PRN #1 inha 07/19/19 Unknown Rx 17MCG/PUFF] predniSONE [Deltasone] 40 mg PO QDAY #8 tab 07/19/19 Unknown Rx Aspirin [Adult Aspirin] 81 mg PO QDAY #30 07/27/19 Unknown Rx Furosemide [Lasix TAB] 20 mg PO QDAY #30 07/27/19 Unknown Rx levoFLOXacin [Levaquin TAB] 500 mg PO Q24HR tablet 07/27/19 Unknown Rx lisinopriL [Zestril TAB] 20 mg PO QDAY #30 tablet 07/27/19 Unknown Rx Albuterol Sulfate [Proair 90 mcg IH DAILY #1 aer.pw.bas 08/01/19 Unknown Rx Digihaler] predniSONE [Deltasone] 20 mg PO QDAY #10 tab 08/01/19 Unknown Rx Allergies Allergy/AdvReac Type Severity Reaction Status Date / Time Sulfa (Sulfonamide Allergy Severe Itching Verified 07/23/19 13:02 Antibiotics) acetaminophen [From Tylenol] Allergy Angioedema Verified 04/14/18 08:22 amitriptyline [From Elavil] Allergy Unknown Verified 10/06/17 01:05 chlorpromazine Allergy Unknown Verified 10/06/17 01:05 [From Thorazine] diphenhydramine Allergy Angioedema Verified 04/14/18 08:22 [From Benadryl] Iodinated Contrast Media Allergy Unknown Verified 11/02/18 01:22 Penicillins Allergy Unknown Verified 10/06/17 01:05 ED Review of Systems ROS: Stated complaint: MOMO Other details as noted in HPI Constitutional: denies: chills, fever Eyes: denies: eye pain, eye discharge, vision change ENT: denies: ear pain, throat pain Respiratory: SOB at rest, wheezing Cardiovascular: denies: chest pain, palpitations Endocrine: no symptoms reported Gastrointestinal: denies: abdominal pain, nausea, diarrhea Genitourinary: denies: urgency, dysuria Musculoskeletal: denies: back pain, joint swelling, arthralgia Skin: denies: rash, lesions Neurological: denies: headache, weakness, paresthesias Psychiatric: denies: anxiety, depression Hematological/Lymphatic: denies: easy bleeding, easy bruising ED Past Medical Hx - Past Medical History Hx Hypertension: Yes Hx Congestive Heart Failure: Yes Hx Asthma: Yes Hx Dementia: Yes (Hx says dementia) Additional medical history: hernia repair, dementia - Surgical History Additional Surgical History: hernia repair. eye sx/procedure during childhood - Social History Smoking Status: Never Smoker Substance Use Type: None - Medications Home Medications: Home Medications Medication Instructions Recorded Confirmed Last Taken Type Albuterol INH(or & Nicu Only) 2 puff IH QID PRN #8.5 gram 05/24/19 Unknown Rx [ProAir HFA Inhaler] Docusate Sodium [Colace CAP] 100 mg PO BID PRN 05/24/19 07/23/19 Unknown History Potassium Chloride [K-Dur] 20 meq PO BID 05/24/19 07/23/19 Unknown History Prednisone [predniSONE 10 mg 10 mg PO .TAPER #1 tab.ds.pk 05/24/19 Unknown Rx (6-Day Pack, 21 Tabs)] Albuterol Sulfate [Proair 2 puff IH Q4HR PRN #1 aer.pw.bas 05/27/19 Unknown Rx Digihaler] predniSONE [Deltasone] 40 mg PO QDAY 5 Days #10 tab 05/27/19 Unknown Rx Albuterol Sulfate [Proair 90 mcg IH Q4HR PRN #2 aer.pow.ba 07/19/19 07/23/19 Unknown Rx Respiclick] Benzonatate [Tessalon Perles] 100 mg PO Q8HR PRN #30 capsule 07/19/19 Unknown Rx Ipratropium (Nf) [Atrovent HFA 2 puff IH Q6HR PRN #1 inha 07/19/19 07/23/19 Unknown Rx 17MCG/PUFF] predniSONE [Deltasone] 40 mg PO QDAY #8 tab 07/19/19 07/23/19 Unknown Rx B-12 07/23/19 07/23/19 Unknown History Aspirin [Adult Aspirin] 81 mg PO QDAY #30 07/27/19 Unknown Rx Furosemide [Lasix TAB] 20 mg PO QDAY #30 07/27/19 Unknown Rx levoFLOXacin [Levaquin TAB] 500 mg PO Q24HR tablet 07/27/19 Unknown Rx lisinopriL [Zestril TAB] 20 mg PO QDAY #30 tablet 07/27/19 Unknown Rx Albuterol Sulfate [Proair 90 mcg IH DAILY #1 aer.pw.bas 08/01/19 Unknown Rx Digihaler] predniSONE [Deltasone] 20 mg PO QDAY #10 tab 08/01/19 Unknown Rx ED Physical Exam - General Limitations: Physical Limitation ED Course Vital Signs 07/31/19 07/31/19 07/31/19 19:57 20:52 23:00 Temperature 98.9 F 98.9 F Pulse Rate 116 H 115 H 109 H Respiratory 18 18 20 Rate Blood Pressure 121/81 121/81 Blood Pressure 126/71 [Right] O2 Sat by Pulse 96 97 97 Oximetry 07/31/19 23:34 Temperature Pulse Rate Respiratory 20 Rate Blood Pressure Blood Pressure [Right] O2 Sat by Pulse 96 Oximetry ED Medical Decision Making - Lab Data Result diagrams: 07/31/19 22:26 07/31/19 21:39 - EKG Data EKG shows normal: sinus rhythm Rate: tachycardia - EKG Data Interpretation: no acute changes - Medical Decision Making Patient received albuterol nebulizer treatment while in emergency department. Patient also received IM Decadron therapy while here in the emergency depa rtment. Patient improved status post receiving albuterol treatment while here in emergency department. Patient has normal oxygen saturation as well. Patient be discharged to follow-up with PCP as an outpatient. Patient's BNP is normal and patient's chest x-ray shows no acute process either. - Differential Diagnosis CHF exacerbation; STEMI; NSTEMI; asthma exacerbation; pneumonia Critical care attestation.: If time is entered above; I have spent that time in minutes in the direct care of this critically ill patient, excluding procedure time. ED Disposition Clinical Impression: COPD with exacerbation Disposition: TO HOME OR SELFCARE Is pt being admited?: No Condition: Stable Instructions: Chronic Obstructive Pulmonary Disease (ED) Prescriptions: predniSONE [Deltasone] 20 mg PO QDAY #10 tab Albuterol Sulfate [Proair Digihaler] 90 mcg IH DAILY #1 aer.pw.bas Referrals: JOSI DIOR [Primary Care Provider] - 3-5 Days Time of Disposition: :00 Print Language: ARMENIAN
[2019-07-31 22:53] LABS: Hematocrit 38.9 % (35.5-45.6); Mean Corpuscular HGB Conc 34 % (32-34); Mean Corpuscular Volume 91 fl (84-94); Platelet Count 357 K/mm3 (140-440); Red Blood Count 4.29 M/mm3 (3.65-5.03); Red Cell Distribution Width 14.7 % (13.2-15.2)
[2019-08-01 02:02] VITALS: BP 122/71
== END 2019-08-01 02:14 | disposition home or self-care (01) ==
LOC: ED 19:45
DX: J44.1 Chronic obstructive pulmonary disease with (acute) exacerbation (principal); I11.0 Hypertensive heart disease with heart failure; J45.909 Unspecified asthma, uncomplicated; F03.90 Unspecified dementia, unspecified severity, without behavioral disturbance, psychotic disturbance, mood disturbance, and anxiety; Z98.890 Other specified postprocedural states; Z79.899 Other long term (current) drug therapy; Z88.2 Allergy status to sulfonamides; Z88.6 Allergy status to analgesic agent
CPT/HCPCS: 36415; 71046; 80053; 83880; 84484; 85025; 85027; 93005; 93010

== ENCOUNTER 2019-08-02 01:11 | Emergency (ER) | payer MEDICARE ==
[2019-08-02 01:36] VITALS: BP 132/82
[2019-08-02] MEDS ORDERED: IPRATROPIUM 0.02% NEBU 2.5 ML IH ONE (02:12)
[2019-08-02] MEDS ORDERED: ALBUTEROL 2.5 MG/3 ML NEBU IH ONE (02:12)
[2019-08-02] MEDS ORDERED: methylPREDNISolone Sod Succinate 125 MG/2 ML INJ IV ONE (02:12)
[2019-08-02] MEDS ORDERED: FUROSEMIDE 40 MG/4 ML INJ IV ONE (02:12)
[2019-08-02 02:33] LABS: Basophils # (Auto) 0.1 K/mm3 (0.0-0.1); Basophils % (Auto) 0.5 % (0.0-1.8); Eosinophils # (Auto) 0.2 K/mm3 (0.0-0.4); Eosinophils % (Auto) 2.1 % (0.0-4.3); Hematocrit 38.6 % (35.5-45.6); Hemoglobin 13.1 gm/dl (11.8-15.2); Lymphocytes # (Auto) 1.9 K/mm3 (1.2-5.4); Lymphocytes % (Auto) 18.9 % (13.4-35.0); Mean Corpuscular HGB Conc 34 % (32-34); Mean Corpuscular Volume 90 fl (84-94); Monocytes # (Auto) 1.1 K/mm3 (0.0-0.8); Monocytes % (Auto) 10.8 % (0.0-7.3); Platelet Count 330 K/mm3 (140-440); Red Blood Count 4.31 M/mm3 (3.65-5.03); Red Cell Distribution Width 14.8 % (13.2-15.2)
--- NOTE | 2019-08-02 02:38 | XRay Report ---
CHEST 1 VIEW INDICATION: dyspnea. COMPARISON: 2 days prior FINDINGS: Support devices: None. Heart: Stable. Lungs/Pleura: Mild interstitial opacities are stable. No consolidation, significant effusion, or pneu mothorax. IMPRESSION: 1. No significant change. Signer Name: Ramy Lezama MD Signed: 08/02/2019 2:33 AM Workstation Name: [email or web address]
[2019-08-02] MEDS ORDERED: FUROSEMIDE 20 MG TAB PO ONE (02:46)
[2019-08-02] MEDS ORDERED: predniSONE 20 MG TAB PO ONE (02:46)
[2019-08-02 02:49] LABS: INR 0.92 (0.87-1.13); Partial Thromboplastin Time 28.4 Sec. (24.2-36.6)
[2019-08-02 02:55] LABS: BUN/Creatinine Ratio 27; Blood Urea Nitrogen 24 mg/dL (9-20); Calcium 9.5 mg/dL (8.4-10.2); Hemolysis Index 3
--- NOTE | 2019-08-02 04:20 | Emergency Department Report ---
- General Chief Complaint: Dyspnea/Respdistress Stated Complaint: MOMO Time Seen by Provider: 08/02/19 02:11 Source: patient Mode of arrival: Ambulatory Limitations: No Limitations - History of Present Illness Initial Comments: Patient is a 74-year-old male with a past medical history of COPD congestive heart failure and hypertension who is presenting with status of brett re cough and chest tightness. Patient states that he did lose his prescription for Lasix and believes he may be fluid overloaded. He does have swelling to his bilateral legs. Patient was here 2 days ago for COPD exacerbation was wheezing. Patient was given a prescription for prednisone. Patient denies fever. Cough is nonproductive. Patient states the chest tightness is 5 out of 10 in severi ty. - Related Data Home Medications Medication Instructions Recorded Confirmed Last Taken Docusate Sodium [Colace CAP] 100 mg PO BID PRN 05/24/19 07/23/19 Unknown Potassium Chloride [K-Dur] 20 meq PO BID 05/24/19 07/23/19 Unknown B-12 07/23/19 07/23/19 Unknown Previous Rx's Medication Instructions Recorded Last Taken Type Albuterol Sulfate [Proair 2 puff IH Q4HR PRN #1 aer.pw.bas 05/27/19 Unknown Rx Digihaler] predniSONE [Deltasone] 40 mg PO QDAY 5 Days #10 tab 05/27/19 Unknown Rx Albuterol Sulfate [Proair 90 mcg IH Q4HR PRN #2 aer.pow.ba 07/19/19 Unknown Rx Respiclick] Benzonatate [Tessalon Perles] 100 mg PO Q8HR PRN #30 capsule 07/19/19 Unknown Rx Ipratropium (Nf) [Atrovent HFA 2 puff IH Q6HR PRN #1 inha 07/19/19 Unknown Rx 17MCG/PUFF] predniSONE [Deltasone] 40 mg PO QDAY #8 tab 07/19/19 Unknown Rx Aspirin [Adult Aspirin] 81 mg PO QDAY #30 07/27/19 Unknown Rx levoFLOXacin [Levaquin TAB] 500 mg PO Q24HR tablet 07/27/19 Unknown Rx lisinopriL [Zestril TAB] 20 mg PO QDAY #30 tablet 07/27/19 Unknown Rx Albuterol Sulfate [Proair 90 mcg IH DAILY #1 aer.pw.bas 08/01/19 Unknown Rx Digihaler] predniSONE [Deltasone] 20 mg PO QDAY #10 tab 08/01/19 Unknown Rx Albuterol INH(or & Nicu Only) 2 puff IH QID PRN #8.5 gram 08/02/19 Unknown Rx [ProAir HFA Inhaler] Furosemide [Lasix TAB] 20 mg PO QDAY #30 08/02/19 Unknown Rx Prednisone [predniSONE 10 mg 10 mg PO .TAPER #1 tab.ds.pk 08/02/19 Unknown Rx (6-Day Pack, 21 Tabs)] Allergies Allergy/AdvReac Type Severity Reaction Status Date / Time Sulfa (Sulfonamide Allergy Severe Itching Verified 07/23/19 13:02 Antibiotics) acetaminophen [From Tylenol] Allergy Angioedema Verified 04/14/18 08:22 amitriptyline [From Elavil] Allergy Unknown Verified 10/06/17 01:05 chlorpromazine Allergy Unknown Verified 10/06/17 01:05 [From Thorazine] diphenhydramine Allergy Angioedema Verified 04/14/18 08:22 [From Benadryl] Iodinated Contrast Media Allergy Unknown Verified 11/02/18 01:22 Penicillins Allergy Unknown Verified 10/06/17 01:05 ED Review of Systems ROS: Stated complaint: MOMO Other details as noted in HPI Comment: All other systems reviewed and negative ED Past Medical Hx - Past Medical History Previous Medical History?: Yes Hx Hypertension: Yes Hx Congestive Heart Failure: Yes Hx Asthma: Yes Hx Dementia: Yes (Hx says dementia) Additional medical history: hernia repair, dementia - Surgical History Past Surgical History?: Yes Additional Surgical History: hernia repair. eye sx/procedure during childhood - Social History Smoking Status: Never Smoker Substance Use Type: None - Medications Home Medications: Home Medications Medication Instructions Recorded Confirmed Last Taken Type Docusate Sodium [Colace CAP] 100 mg PO BID PRN 05/24/19 07/23/19 Unknown History Potassium Chloride [K-Dur] 20 meq PO BID 05/24/19 07/23/19 Unknown History Albuterol Sulfate [Proair 2 puff IH Q4HR PRN #1 aer.pw.bas 05/27/19 Unknown Rx Digihaler] predniSONE [Deltasone] 40 mg PO QDAY 5 Days #10 tab 05/27/19 Unknown Rx Albuterol Sulfate [Proair 90 mcg IH Q4HR PRN #2 aer.pow.ba 07/19/19 07/23/19 Un known Rx Respiclick] Benzonatate [Tessalon Perles] 100 mg PO Q8HR PRN #30 capsule 07/19/19 Unknown Rx Ipratropium (Nf) [Atrovent HFA 2 puff IH Q6HR PRN #1 inha 07/19/19 07/23/19 Unknown Rx 17MCG/PUFF] predniSONE [Deltasone] 40 mg PO QDAY #8 tab 07/19/19 07/23/19 Unknown Rx B-12 07/23/19 07/23/19 Unknown History Aspirin [Adult Aspirin] 81 mg PO QDAY #30 07/27/19 Unknown Rx levoFLOXacin [Levaquin TAB] 500 mg PO Q24HR tablet 07/27/19 Unknown Rx lisinopriL [Zestril TAB] 20 mg PO QDAY #30 tablet 07/27/19 Unknown Rx Albuterol Sulfate [Proair 90 mcg IH DAILY #1 aer.pw.bas 08/01/19 Unknown Rx Digihaler] predniSONE [Deltasone] 20 mg PO QDAY #10 tab 08/01/19 Unknown Rx Albuterol INH(or & Nicu Only) 2 puff IH QID PRN #8.5 gram 08/02/19 Unknown Rx [ProAir HFA Inhaler] Furosemide [Lasix TAB] 20 mg PO QDAY #30 08/02/19 Unknown Rx Prednisone [predniSONE 10 mg 10 mg PO .TAPER #1 tab.ds.pk 08/02/19 Unknown Rx (6-Day Pack, 21 Tabs)] ED Physical Exam - General Limitations: No Limitations General appearance: alert, in no apparent distress - Head Head exam: Present: atraumatic, normocephalic - Eye Eye exam: Present: normal appearance - ENT ENT exam: Present: mucous membranes moist - Neck Neck exam: Present: normal inspection - Respiratory Respiratory exam: Present: respiratory distress, wheezes. Absent: normal lung sounds bilaterally, rales, rhonchi - Cardiovascular Cardiovascular Exam: Present: regular rate, normal rhythm, normal heart sounds. Absent: systolic murmur, diastolic murmur, rubs, gallop - GI/Abdominal GI/Abdominal exam: Present: soft, normal bowel sounds. Absent: distended, tenderness, guarding, rebound - Rectal Rectal exam: Present: deferred - Extremities Exam Extremities exam: Present: normal inspection, other (2+ lower extremity edema to the bilateral legs) - Back Exam Back exam: Present: normal inspection - Neurological Exam Neurological exam: Present: alert, oriented X3 - Psychiatric Psychiatric exam: Present: normal affect, normal mood - Skin Skin exam: Present: warm, dry, intact, normal color. Absent: rash ED Course Vital Signs 08/02/19 08/02/19 01:35 02:28 Temperature 98.3 F Pulse Rate 104 H Pulse Rate [ 108 H Bilateral] Respiratory 18 Rate Respiratory 24 Rate [Bilateral ] Blood Pressure 132/82 [Right] O2 Sat by Pulse 96 Oximetry ED Medical Decision Making - Lab Data Result diagrams: 08/02/19 02:20 08/02/19 02:20 Lab Results 08/02/19 08/02/19 08/02/19 Range/Units 02:20 02:20 02:20 WBC 10.3 (4.5-11.0) K/mm3 RBC 4.31 (3.65-5.03) M/mm3 Hgb 13.1 (11.8-15.2) gm/dl Hct 38.6 (35.5-45.6) % MCV 90 (84-94) fl MCH 30 (28-32) pg MCHC 34 (32-34) % RDW 14.8 (13.2-15.2) % Plt Count 330 (140-440) K/mm3 Lymph % (Auto) 18.9 (13.4-35.0) % [place] % (Auto) 10.8 H (0.0-7.3) % Eos % (Auto) 2.1 (0.0-4.3) % Baso % (Auto) 0.5 (0.0-1.8) % Lymph # 1.9 (1.2-5.4) K/mm3 [place] # 1.1 H (0.0-0.8) K/mm3 Eos # 0.2 (0.0-0.4) K/mm3 Baso # 0.1 (0.0-0.1) K/mm3 Seg Neutrophils % 67.7 (40.0-70.0) % Seg Neutrophils # 7.0 (1.8-7.7) K/mm3 PT 12.5 (12.2-14.9) Sec. INR 0.92 (0.87-1.13) APTT 28.4 (24.2-36.6) Sec. Sodium 143 (137-145) mmol/L Potassium 4.5 (3.6-5.0) mmol/L Chloride 102.8 (98-107) mmol/L Carbon Dioxide 28 (22-30) mmol/L Anion Gap 17 mmol/L BUN 24 H (9-20) mg/dL Creatinine 0.9 (0.8-1.5) mg/dL Estimated GFR > 60 ml/min BUN/Creatinine Ratio 27 % Glucose 106 H (75-100) mg/dL Calcium 9.5 (8.4-10.2) mg/dL Troponin T < 0.010 (0.00-0.029) ng/mL NT-Pro-B Natriuret Pep 17.06 (0-900) pg/mL - EKG Data -: EKG Interpreted by Me - EKG Data 08/02/19 04:17 EKG shows sinus rhythm rate of 95. Normal axis normal intervals. Patient with Q waves in the septal leads. NoST elevations or depressions. - Radiology Data CHEST 1 VIEW INDICATION: dyspnea. COMPARISON: 2 days prior FINDINGS: Support devices: None. Heart: Stable. Lungs/Pleura: Mild interstitial opacities are stable. No consolidation, significant effusion, or pneumothorax. IMPRESSION: 1. No significant change. Signer Name: Ramy Lezama MD Signed: 08/02/2019 2:33 AM Workstation Name: [email or web address] - Medical Decision Making Patient did have some wheezing on presentation. Was given hour-long neb treatment is feeling much improved. Patient states chest tightness has resolved. Patient does have some lower extremity edema however chest x-ray is not consistent with florid pulmonary edema. Patient will be given a prescription for his Lasix however to ensure that there is congestive heart failure does not worsen. Patient been encouraged to continue to take the prednisone that was prescribed several days ago. When asked that the patient receive the prescription he states he did does not know if he has the paper. This was reprinted for him. Critical care attestation.: If time is entered above; I have spent that time in minutes in the direct care of this critically ill patient, excluding procedure time. ED Disposition Clinical Impression: COPD with exacerbation Disposition: DC-01 TO HOME OR SELFCARE Is pt being admited?: No Does the pt Need Aspirin: No Condition: Stable Instructions: Chronic Obstructive Pulmonary Disease (ED) Prescriptions: Furosemide [Lasix TAB] 20 mg PO QDAY #30 Prednisone [predniSONE 10 mg (6-Day Pack, 21 Tabs)] 10 mg PO .TAPER #1 tab.ds.pk Albuterol INH(or & Nicu Only) [ProAir HFA Inhaler] 2 puff IH QID PRN #8.5 gram PRN Reason: Shortness Of Breath Referrals: PRIMARY CARE, [Primary Care Provider] - 3-5 Days Time of Disposition: 04:21
== END 2019-08-02 04:35 | disposition home or self-care (01) ==
LOC: ED 01:11
DX: J44.1 Chronic obstructive pulmonary disease with (acute) exacerbation (principal); I11.0 Hypertensive heart disease with heart failure; I50.9 Heart failure, unspecified; F03.90 Unspecified dementia, unspecified severity, without behavioral disturbance, psychotic disturbance, mood disturbance, and anxiety; Z88.2 Allergy status to sulfonamides; Z88.8 Allergy status to other drugs, medicaments and biological substances; Z79.899 Other long term (current) drug therapy
CPT/HCPCS: 36415; 71045; 80048; 83880; 84484; 85025; 85610; 85730; 93005; 93010; 94644; 99284; J7512; J1940; J2930

== ENCOUNTER 2019-08-04 20:08 | Emergency (ER) | payer MEDICARE ==
[2019-08-04 20:39] VITALS: BP 147/103
--- NOTE | 2019-08-04 22:07 | Emergency Department Report ---
Chief Complaint: Abdominal Pain Stated Complaint: CHEST CONGESTION - HPI History of Present Illness: Mr. Villegas desires money for antibiotic prescription. Denies pain. Has mild chest congestion. - Exam Vital Signs: Vital Signs 08/04/19 20:38 Temperature 98.1 F Pulse Rate 108 H Respiratory 15 Rate Blood Pressure 147/103 O2 Sat by Pulse 95 Oximetry MSE screening note: Focused history and physical exam performed. Due to findings the following was ordered: ED Disposition for MSE Clinical Impression: Encounter for medical screening examination Disposition: MED SCREENING EXAM-LEFT Is pt being admited?: No Does the pt Need Aspirin: No Condition: Stable
== END 2019-08-04 22:35 | disposition left against medical advice (07) ==
LOC: ED 20:08
DX: R09.89 Other specified symptoms and signs involving the circulatory and respiratory systems (principal); Z00.00 Encounter for general adult medical examination without abnormal findings

== ENCOUNTER 2019-08-20 07:23 | Emergency (ER) | payer MEDICARE ==
--- NOTE | 2019-08-20 11:50 | Emergency Department Report ---
ED General Adult HPI - General Chief complaint: Extremity Injury, Lower Stated complaint: LEG SWELLING Time Seen by Provider: 08/20/19 11:44 Source: patient, EMS Mode of arrival: Ambulatory Limitations: Other - History of Present Illness Initial comments: Mr. Costello is a 74-year-old male with history of dementia, asthma, COPD, diastolic heart failure who presents with bilateral leg swelling. Leg swelling has been present for several days. Denies chest pain. Denies shortness of breath. He is currently homeless. Recent echocardiogram performed last month revealed normal left ventricular systolic function with ejection fraction of 60 to 65%. -: Gradual, days(s) (Several days) Location: left, right, upper extremity, lower extremity Consistency: constant Improves with: none, immobilization Associated Symptoms: denies other symptoms - Related Data Home Medications Medication Instructions Recorded Confirmed Last Taken Docusate Sodium [Colace CAP] 100 mg PO BID PRN 05/24/19 07/23/19 Unknown Potassium Chloride [K-Dur] 20 meq PO BID 05/24/19 07/23/19 Unknown B-12 07/23/19 07/23/19 Unknown Previous Rx's Medication Instructions Recorded Last Taken Type Albuterol Sulfate [Proair 2 puff IH Q4HR PRN #1 aer.pw.bas 05/27/19 Unknown Rx Digihaler] predniSONE [Deltasone] 40 mg PO QDAY 5 Days #10 tab 05/27/19 Unknown Rx Albuterol Sulfate [Proair 90 mcg IH Q4HR PRN #2 aer.pow.ba 07/19/19 Unknown Rx Respiclick] Benzonatate [Tessalon Perles] 100 mg PO Q8HR PRN #30 capsule 07/19/19 Unknown Rx Ipratropium (Nf) [Atrovent HFA 2 puff IH Q6HR PRN #1 inha 07/19/19 Unknown Rx 17MCG/PUFF] predniSONE [Deltasone] 40 mg PO QDAY #8 tab 07/19/19 Unknown Rx Aspirin [Adult Aspirin] 81 mg PO QDAY #30 07/27/19 Unknown Rx levoFLOXacin [Levaquin TAB] 500 mg PO Q24HR tablet 07/27/19 Unknown Rx lisinopriL [Zestril TAB] 20 mg PO QDAY #30 tablet 07/27/19 Unknown Rx Albuterol Sulfate [Proair 90 mcg IH DAILY #1 aer.pw.bas 08/01/19 Unknown Rx Digihaler] predniSONE [Deltasone] 20 mg PO QDAY #10 tab 08/01/19 Unknown Rx Albuterol INH(or & Nicu Only) 2 puff IH QID PRN #8.5 gram 08/02/19 Unknown Rx [ProAir HFA Inhaler] Furosemide [Lasix TAB] 20 mg PO QDAY #30 08/02/19 Unknown Rx Prednisone [predniSONE 10 mg 10 mg PO .TAPER #1 tab.ds.pk 08/02/19 Unknown Rx (6-Day Pack, 21 Tabs)] Allergies Allergy/AdvReac Type Severity Reaction Status Date / Time Sulfa (Sulfonamide Allergy Severe Itching Verified 07/23/19 13:02 Antibiotics) acetaminophen [From Tylenol] Allergy Angioedema Verified 04/14/18 08:22 amitriptyline [From Elavil] Allergy Unknown Verified 10/06/17 01:05 chlorpromazine Allergy Unknown Verified 10/06/17 01:05 [From Thorazine] diphenhydramine Allergy Angioedema Verified 04/14/18 08:22 [From Benadryl] Iodinated Contrast Media Allergy Unknown Verified 11/02/18 01:22 Penicillins Allergy Unknown Verified 10/06/17 01:05 ED Review of Systems ROS: Stated complaint: LEG SWELLING Other details as noted in HPI Comment: All other systems reviewed and negative Constitutional: denies: fever, malaise Respiratory: denies: orthopnea Cardiovascular: denies: chest pain ED Past Medical Hx - Past Medical History Previous Medical History?: Yes Hx Hypertension: Yes Hx Congestive Heart Failure: Yes Hx Asthma: Yes Hx Dementia: Yes (Hx says dementia) Additional medical history: hernia repair, dementia - Surgical History Past Surgical History?: Yes Additional Surgical History: hernia repair. eye sx/procedure during childhood - Social History Smoking Status: Former Smoker Substance Use Type: None - Medications Home Medications: Home Medications Medication Instructions Recorded Confirmed Last Taken Type Docusate Sodium [Colace CAP] 100 mg PO BID PRN 05/24/19 07/23/19 Unknown History Potassium Chloride [K-Dur] 20 meq PO BID 05/24/19 07/23/19 Unknown History Albuterol Sulfate [Proair 2 puff IH Q4HR PRN #1 aer.pw.bas 05/27/19 Unknown Rx Digihaler] predniSONE [Deltasone] 40 mg PO QDAY 5 Days #10 tab 05/27/19 Unknown Rx Albuterol Sulfate [Proair 90 mcg IH Q4HR PRN #2 aer.pow.ba 07/19/19 07/23/19 Unknown Rx Respiclick] Benzonatate [Tessalon Perles] 100 mg PO Q8HR PRN #30 capsule 07/19/19 Unknown Rx Ipratropium (Nf) [Atrovent HFA 2 puff IH Q6HR PRN #1 inha 07/19/19 07/23/19 Unknown Rx 17MCG/PUFF] predniSONE [Deltasone] 40 mg PO QDAY #8 tab 07/19/19 07/23/19 Unknown Rx B-12 07/23/19 07/23/19 Unknown History Aspirin [Adult Aspirin] 81 mg PO QDAY #30 07/27/19 Unknown Rx levoFLOXacin [Levaquin TAB] 500 mg PO Q24HR tablet 07/27/19 Unknown Rx lisinopriL [Zestril TAB] 20 mg PO QDAY #30 tablet 07/27/19 Unknown Rx Albuterol Sulfate [Proair 90 mcg IH DAILY #1 aer.pw.bas 08/01/19 Unknown Rx Digihaler] predniSONE [Deltasone] 20 mg PO QDAY #10 tab 08/01/19 Unknown Rx Albuterol INH(or & Nicu Only) 2 puff IH QID PRN #8.5 gram 08/02/19 Unknown Rx [ProAir HFA Inhaler] Furosemide [Lasix TAB] 20 mg PO QDAY #30 08/02/19 Unknown Rx Prednisone [predniSONE 10 mg 10 mg PO .TAPER #1 tab.ds.pk 08/02/19 Unknown Rx (6-Day Pack, 21 Tabs)] ED Physical Exam - General Limitations: Other General appearance: alert, in no apparent distress - Head Head exam: Present: atraumatic, normocephalic - Eye Eye exam: Present: normal appearance - ENT ENT exam: Present: mucous membranes moist - Neck Neck exam: Present: normal inspection, full ROM - Respiratory Respiratory exam: Present: normal lung sounds bilaterally. Absent: respiratory distress, wheezes, rales, stridor - Cardiovascular Cardiovascular Exam: Present: regular rate, normal rhythm, normal heart sounds. Absent: systolic murmur, diastolic murmur, rubs, gallop - GI/Abdominal GI/Abdominal exam: Present: soft, normal bowel sounds. Absent: distended, tenderness, guarding, rebound - Rectal Rectal exam: Present: deferred - Extremities Exam Extremities exam: Present: normal inspection - Back Exam Back exam: Present: normal inspection - Neurological Exam Neurological exam: Present: alert, oriented X3 - Psychiatric Psychiatric exam: Present: normal affect, normal mood - Skin Skin exam: Present: warm, dry, intact, normal color. Absent: rash ED Course Vital Signs 08/20/19 07:26 Temperature 97.9 F Pulse Rate 94 H Respiratory 18 Rate Blood Pressure 136/89 O2 Sat by Pulse 94 Oximetry ED Medical Decision Making - Medical Decision Making Mr. Garcia presents with bilateral lower extremity swelling. Recently diagnosed with diastolic heart failure. He has been compliant with his medication according to his report. He denies chest pain shortness of breath on exertion. 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 Further investigation is not necessary at this time. Mr. Villegas has had extensive work-up recently and several recurrent ED visits. Critical care attestation.: If time is entered above; I have spent that time in minutes in the direct care of this critically ill patient, excluding procedure time. ED Disposition Clinical Impression: Swelling of both lower extremities Disposition: DC-01 TO HOME OR SELFCARE Is pt being admited?: No Does the pt Need Aspirin: No Condition: Stable Referrals: GASPER SULLIVAN MD [Staff Physician] - 3-5 Days
[2019-08-20 13:26] VITALS: BP 146/106
== END 2019-08-20 13:30 | disposition home or self-care (01) ==
LOC: ED 07:23
DX: M79.89 Other specified soft tissue disorders (principal); I11.0 Hypertensive heart disease with heart failure; I50.9 Heart failure, unspecified; F03.90 Unspecified dementia, unspecified severity, without behavioral disturbance, psychotic disturbance, mood disturbance, and anxiety; J45.909 Unspecified asthma, uncomplicated; Z87.891 Personal history of nicotine dependence; Z88.0 Allergy status to penicillin; Z88.2 Allergy status to sulfonamides; Z88.8 Allergy status to other drugs, medicaments and biological substances; Z79.899 Other long term (current) drug therapy; Z98.890 Other specified postprocedural states
CPT/HCPCS: 99283

== ENCOUNTER 2019-09-05 12:37 | Emergency (ER) | payer MEDICARE ==
[2019-09-05 13:31] LABS: Hematocrit 42.1 % (35.5-45.6); Hemoglobin 14.3 gm/dl (11.8-15.2); Mean Corpuscular HGB Conc 34 % (32-34); Mean Corpuscular Volume 90 fl (84-94); Platelet Count 361 K/mm3 (140-440); Red Blood Count 4.69 M/mm3 (3.65-5.03); Red Cell Distribution Width 13.8 % (13.2-15.2)
[2019-09-05 13:41] LABS: INR 1.04 (0.87-1.13)
[2019-09-05 13:43] LABS: Partial Thromboplastin Time 31.6 Sec. (24.2-36.6)
[2019-09-05 13:55] LABS: Alanine Aminotransferase 16 units/L (7-56); Albumin 4.4 g/dL (3.9-5); BUN/Creatinine Ratio 17; Blood Urea Nitrogen 19 mg/dL (9-20); Calcium 9.2 mg/dL (8.4-10.2); Hemolysis Index 5
[2019-09-05 14:22] LABS: Band Neutrophils # (Manual) 0.3 K/mm3; Total Cells Counted 100
[2019-09-05 14:23] LABS: Basophils % (Manual) 0 % (0.0-1.8); Eosinophils % (Manual) 0 % (0.0-4.3); Large Platelets Few; Platelet Estimate Consistent w Auto; RBC Morphology Normal; Toxic Vacuolation 2+
[2019-09-05] MEDS ORDERED: FUROSEMIDE 20 MG TAB PO ONE (14:25)
--- NOTE | 2019-09-05 14:30 | XRay Report ---
CHEST 1 VIEW 09/05/2019 2:07 PM INDICATION / CLINICAL INFORMATION: Dyspnea. COMPARISON: Chest x-ray on 08/02/2019. FINDINGS: SUPPORT DEVICES: None. HEART / MEDIASTINUM: Stable mild cardiomegaly. LUNGS / PLEURA: No significant pulmonary or pleural abnormality. No pneumothorax. ADDITIONAL FINDINGS: No significant additional findings. IMPRESSION: 1. No acute findings. Signer Name: Rikki Dillon MD Signed: 09/05/2019 2:26 PM Workstation Name: [email or web address]
--- NOTE | 2019-09-05 15:29 | Emergency Department Report ---
ED Shortness of Breath HPI - General Chief Complaint: Dyspnea/Respdistress Stated Complaint: MOMO Time Seen by Provider: 09/05/19 14:12 Source: patient, EMS Mode of arrival: Ambulatory Limitations: No Limitations - History of Present Illness Initial Comments: Patient is a 74-year-old male who has a past medical history of asthma COPD and congestive heart failure who is presenting with some shortness of breath. Patient states he ran out of his Lasix week ago. He states he does have his inhalers for his asthma has still compliant with the prednisone he was given his last prescription. Patient states that he is fine while in the house but left to visit some friends and became short of breath while walking. He denies cough chest pain fevers chills nausea vomiting at this time. While resting patient states he is rather comfortable and is lying flat during our interaction. Patient does have some complaints of his leg starting to swell over the last several days as well. - Related Data Home Medications Medication Instructions Recorded Confirmed Last Taken Docusate Sodium [Colace CAP] 100 mg PO BID PRN 05/24/19 07/23/19 Unknown Potassium Chloride [K-Dur] 20 meq PO BID 05/24/19 07/23/19 Unknown B-12 07/23/19 07/23/19 Unknown Previous Rx's Medication Instructions Recorded Last Taken Type Albuterol Sulfate [Proair 2 puff IH Q4HR PRN #1 aer.pw.bas 05/27/19 Unknown Rx Digihaler] predniSONE [Deltasone] 40 mg PO QDAY 5 Days #10 tab 05/27/19 Unknown Rx Albuterol Sulfate [Proair 90 mcg IH Q4HR PRN #2 aer.pow.ba 07/19/19 Unknown Rx Respiclick] Benzonatate [Tessalon Perles] 100 mg PO Q8HR PRN #30 capsule 07/19/19 Unknown Rx Ipratropium (Nf) [Atrovent HFA 2 puff IH Q6HR PRN #1 inha 07/19/19 Unknown Rx 17MCG/PUFF] predniSONE [Deltasone] 40 mg PO QDAY #8 tab 07/19/19 Unknown Rx Aspirin [Adult Aspirin] 81 mg PO QDAY #30 07/27/19 Unknown Rx levoFLOXacin [Levaquin TAB] 500 mg PO Q24HR tablet 07/27/19 Unknown Rx lisinopriL [Zestril TAB] 20 mg PO QDAY #30 tablet 07/27/19 Unknown Rx Albuterol Sulfate [Proair 90 mcg IH DAILY #1 aer.pw.bas 08/01/19 Unknown Rx Digihaler] predniSONE [Deltasone] 20 mg PO QDAY #10 tab 08/01/19 Unknown Rx Albuterol INH(or & Nicu Only) 2 puff IH QID PRN #8.5 gram 08/02/19 Unknown Rx [ProAir HFA Inhaler] Prednisone [predniSONE 10 mg 10 mg PO .TAPER #1 tab.ds.pk 08/02/19 Unknown Rx (6-Day Pack, 21 Tabs)] Furosemide [Lasix TAB] 20 mg PO QDAY #30 09/05/19 Unknown Rx Allergies Allergy/AdvReac Type Severity Reaction Status Date / Time Sulfa (Sulfonamide Allergy Severe Itching Verified 07/23/19 13:02 Antibiotics) acetaminophen [From Tylenol] Allergy Angioedema Verified 04/14/18 08:22 amitriptyline [From Elavil] Allergy Unknown Verified 10/06/17 01:05 chlorpromazine Allergy Unknown Verified 10/06/17 01:05 [From Thorazine] diphenhydramine Allergy Angioedema Verified 04/14/18 08:22 [From Benadryl] Iodinated Contrast Media Allergy Unknown Verified 11/02/18 01:22 Penicillins Allergy Unknown Verified 10/06/17 01:05 ED Review of Systems ROS: Stated complaint: MOMO Other details as noted in HPI Comment: All other systems reviewed and negative ED Past Medical Hx - Past Medical History Hx Hypertension: Yes Hx Congestive Heart Failure: Yes Hx Asthma: Yes Hx COPD: Yes Hx Dementia: Yes (Hx says dementia) Additional medical history: hernia repair, dementia - Surgical History Additional Surgical History: hernia repair. eye sx/procedure during childhood - Social History Smoking Status: Current Every Day Smoker Substance Use Type: None - Medications Home Medications: Home Medications Medication Instructions Recorded Confirmed Last Taken Type Docusate Sodium [Colace CAP] 100 mg PO BID PRN 05/24/19 07/23/19 Unknown History Potassium Chloride [K-Dur] 20 meq PO BID 05/24/19 07/23/19 Unknown History Albuterol Sulfate [Proair 2 puff IH Q4HR PRN #1 aer.pw.bas 05/27/19 Unknown Rx Digihaler] predniSONE [Deltasone] 40 mg PO QDAY 5 Days #10 tab 05/27/19 Unknown Rx Albuterol Sulfate [Proair 90 mcg IH Q4HR PRN #2 aer.pow.ba 07/19/19 07/23/19 Unknown Rx Respiclick] Benzonatate [Tessalon Perles] 100 mg PO Q8HR PRN #30 capsule 07/19/19 Unknown Rx Ipratropium (Nf) [Atrovent HFA 2 puff IH Q6HR PRN #1 inha 07/19/19 07/23/19 Unknown Rx 17MCG/PUFF] predniSONE [Deltasone] 40 mg PO QDAY #8 tab 07/19/19 07/23/19 Unknown Rx B-12 07/23/19 07/23/19 Unknown History Aspirin [Adult Aspirin] 81 mg PO QDAY #30 07/27/19 Unknown Rx levoFLOXacin [Levaquin TAB] 500 mg PO Q24HR tablet 07/27/19 Unknown Rx lisinopriL [Zestril TAB] 20 mg PO QDAY #30 tablet 07/27/19 Unknown Rx Albuterol Sulfate [Proair 90 mcg IH DAILY #1 aer.pw.bas 08/01/19 Unknown Rx Digihaler] predniSONE [Deltasone] 20 mg PO QDAY #10 tab 08/01/19 Unknown Rx Albuterol INH(or & Nicu Only) 2 puff IH QID PRN #8.5 gram 08/02/19 Unknown Rx [ProAir HFA Inhaler] Prednisone [predniSONE 10 mg 10 mg PO .TAPER #1 tab.ds.pk 08/02/19 Unknown Rx (6-Day Pack, 21 Tabs)] Furosemide [Lasix TAB] 20 mg PO QDAY #30 09/05/19 Unknown Rx ED Physical Exam - General Limitations: No Limitations General appearance: alert, in no apparent distress - Head Head exam: Present: atraumatic, normocephalic - Eye Eye exam: Present: normal appearance - ENT ENT exam: Present: mucous membranes moist - Neck Neck exam: Present: normal inspection - Respiratory Respiratory exam: Present: wheezes. Absent: normal lung sounds bilaterally, respiratory distress, rales, rhonchi, stridor - Cardiovascular Cardiovascular Exam: Present: regular rate, normal rhythm, normal heart sounds. Absent: systolic murmur, diastolic murmur, rubs, gallop - GI/Abdominal GI/Abdominal exam: Present: soft, normal bowel sounds. Absent: distended, tenderness, guarding, rebound - Rectal Rectal exam: Present: deferred - Extremities Exam Extremities exam: Present: normal inspection - Back Exam Back exam: Present: normal inspection - Neurological Exam Neurological exam: Present: alert, oriented X3 - Psychiatric Psychiatric exam: Present: normal affect, normal mood - Skin Skin exam: Present: warm, dry, intact, normal color. Absent: rash ED Medical Decision Making - Lab Data Result diagrams: 09/05/19 13:11 09/05/19 13:15 Lab Results 09/05/19 09/05/19 09/05/19 Range/Units 13:11 13:15 13:15 WBC 25.3 H (4.5-11.0) K/mm3 RBC 4.69 (3.65-5.03) M/mm3 Hgb 14.3 (11.8-15.2) gm/dl Hct 42.1 (35.5-45.6) % MCV 90 (84-94) fl MCH 31 (28-32) pg MCHC 34 (32-34) % RDW 13.8 (13.2-15.2) % Plt Count 361 (140-440) K/mm3 Add Manual Diff Complete Total Counted 100 Seg Neuts % (Manual) 75.0 H (40.0-70.0) % Band Neutrophils % 1.0 % Lymphocytes % (Manual) 17.0 (13.4-35.0) % Reactive Lymphs % (Man) 0 % Monocytes % (Manual) 7.0 (0.0-7.3) % Eosinophils % (Manual) 0 (0.0-4.3) % Basophils % (Manual) 0 (0.0-1.8) % Metamyelocytes % 0 % Myelocytes % 0 % Promyelocytes % 0 % Blast Cells % 0 % Nucleated RBC % Not Reportable Seg Neutrophils # Man 19.0 H (1.8-7.7) K/mm3 Band Neutrophils # 0.3 K/mm3 Lymphocytes # (Manual) 4.3 (1.2-5.4) K/mm3 Abs React Lymphs (Man) 0.0 K/mm3 Monocytes # (Manual) 1.8 H (0.0-0.8) K/mm3 Eosinophils # (Manual) 0.0 (0.0-0.4) K/mm3 Basophils # (Manual) 0.0 (0.0-0.1) K/mm3 Metamyelocytes # 0.0 K/mm3 Myelocytes # 0.0 K/mm3 Promyelocytes # 0.0 K/mm3 Blast Cells # 0.0 K/mm3 WBC Morphology Not Reportable Hypersegmented Neuts Not Reportable Hyposegmented Neuts Not Reportable Hypogranular Neuts Not Reportable Smudge Cells Not Reportable Toxic Granulation Not Reportable Toxic Vacuolation 2+ Dohle Bodies Not Reportable Pelger-Huet Anomaly Not Reportable Natanael Rods Not Reportable Platelet Estimate Consistent w auto Clumped Platelets Not Reportable Plt Clumps, EDTA Not Reportable Large Platelets Few Giant Platelets Not Reportable Platelet Satelliting Not Reportable Plt Morphology Comment Not Reportable RBC Morphology Normal Dimorphic RBCs Not Reportable Polychromasia Not Reportable Hypochromasia Not Reportable Poikilocytosis Not Reportable Anisocytosis Not Reportable Microcytosis Not Reportable Macrocytosis Not Reportable Spherocytes Not Reportable Pappenheimer Bodies Not Reportable Sickle Cells Not Reportable Target Cells Not Reportable Tear Drop Cells Not Reportable Ovalocytes Not Reportable Helmet Cells Not Reportable [place] Bodies Not Reportable [place] Rings Not Reportable [place] Cells Not Reportable Bite Cells Not Reportable Crenated Cell Not Reportable Elliptocytes Not Reportable Acanthocytes (Spur) Not Reportable Rouleaux Not Reportable Hemoglobin C Crystals Not Reportable Schistocytes Not Reportable Malaria parasites Not Reportable Paul Bodies Not Reportable Hem Pathologist Commnt No PT 13.7 (12.2-14.9) Sec. INR 1.04 (0.87-1.13) APTT 31.6 (24.2-36.6) Sec. Sodium 141 (137-145) mmol/L Potassium 4.2 (3.6-5.0) mmol/L Chloride 101.1 (98-107) mmol/L Carbon Dioxide 23 (22-30) mmol/L Anion Gap 21 mmol/L BUN 19 (9-20) mg/dL Creatinine 1.1 (0.8-1.5) mg/dL Estimated GFR > 60 ml/min BUN/Creatinine Ratio 17 % Glucose 117 H (75-100) mg/dL Calcium 9.2 (8.4-10.2) mg/dL Total Bilirubin 0.80 (0.1-1.2) mg/dL AST 22 (5-40) units/L ALT 16 (7-56) units/L Alkaline Phosphatase 83 (35-129) units/L NT-Pro-B Natriuret Pep 148.9 (0-900) pg/mL Total Protein 7.3 (6.3-8.2) g/dL Albumin 4.4 (3.9-5) g/dL Albumin/Globulin Ratio 1.5 % - Radiology Data Ordering Physician: NORMA RAO Date of Service: 09/05/19 Procedure(s): XR chest routine 2V Accession Number(s): [id number] cc: NORMA RAO Fluoro Time In Minutes: CHEST 2 VIEWS INDICATION / CLINICAL INFORMATION: Chest Pain. COMPARISON: 07/26/2017. FINDINGS: SUPPORT DEVICES: None. HEART / MEDIASTINUM: Normal heart size. Atherosclerosis in the thoracic aorta. LUNGS / PLEURA: No significant pulmonary or pleural abnormality. No pneumothorax. ADDITIONAL FINDINGS: No significant additional findings. IMPRESSION: 1. No acute findings. Signer Name: Rikki Dillon MD Signed: 09/05/2019 2:26 PM Workstation Name: [email or web address] - Medical Decision Making Patient is relatively comfortable while lying flat. He states he actually just wants a refill of his Lasix. His vital signs are within normal limits and he states he feels fine to be discharged at this time. Critical care attestation.: If time is entered above; I have spent that time in minutes in the direct care of this critically ill patient, excluding procedure time. ED Disposition Clinical Impression: CHF exacerbation, Medical non-compliance Disposition: DC-01 TO HOME OR SELFCARE Is pt being admited?: No Does the pt Need Aspirin: No Condition: Stable Instructions: Heart Failure (ED) Prescriptions: Furosemide [Lasix TAB] 20 mg PO QDAY #30 Referrals: EMELYN AGUIRRE [Other] - 3-5 Days Time of Disposition: 15:29
[2019-09-05 15:54] VITALS: BP 132/75
== END 2019-09-05 15:45 | disposition home or self-care (01) ==
LOC: ED 12:37
DX: I50.9 Heart failure, unspecified (principal); Z91.14 Patient's other noncompliance with medication regimen; I11.0 Hypertensive heart disease with heart failure; J44.9 Chronic obstructive pulmonary disease, unspecified; F03.90 Unspecified dementia, unspecified severity, without behavioral disturbance, psychotic disturbance, mood disturbance, and anxiety; F17.200 Nicotine dependence, unspecified, uncomplicated
CPT/HCPCS: 36415; 71045; 80053; 83880; 85007; 85025; 85610; 85730; 99284

== ENCOUNTER 2019-09-09 13:57 | Emergency (ER) | payer MEDICARE ==
[2019-09-09] MEDS ORDERED: ALBUTEROL 2.5 MG/3 ML NEBU IH ONE (15:57)
[2019-09-09] MEDS ORDERED: FUROSEMIDE 20 MG TAB PO ONE (15:57)
[2019-09-09] MEDS ORDERED: IPRATROPIUM 0.02% NEBU 2.5 ML IH ONE (15:57)
--- NOTE | 2019-09-09 16:36 | XRay Report ---
CHEST 1 VIEW 09/09/2019 4:16 PM INDICATION / CLINICAL INFORMATION: dyspnea. COMPARISON: One view of the chest from 09/05/2019. FINDINGS: SUPPORT DEVICES: None. HEART / MEDIASTINUM: Stable. LUNGS / PLEURA: Bibasilar opacities have worsened. No significant pleural effusion. No pneumothorax. ADDITIONAL FINDINGS: No significant additional findings. IMPRESSION: Interval worsening of bibasilar opacities, which are concerning for pneumonia. Continued radiographic follow-up to resolution is recommended. Signer Name: Johnson Fisher MD Signed: 09/09/2019 4:31 PM Workstation Name: [id number]
--- NOTE | 2019-09-09 18:39 | Emergency Department Report ---
ED Shortness of Breath HPI - General Chief Complaint: Dyspnea/Respdistress Stated Complaint: COUGH/SHORTNESS OF BREATH Time Seen by Provider: 09/09/19 15:58 Source: patient, EMS Mode of arrival: Wheelchair Limitations: No Limitations - History of Present Illness Initial Comments: Patient is a 74-year-old male with a past medical history of con gestive heart failure and COPD who is been recently very noncompliant with his medications. I saw this patient 4 days ago and gave him a prescription for Lasix. At that time he had a mild amount of pulmonary edema. He has been out of his Lasix for several days. Patient states in the interim since his last visit the patient states he gave the prescription to someone to have a prescription filled and they took his money and did not return for the prescription. Patient states he does have some shortness of breath with exertion but is able to lay flat. He denies fevers chills cough or congestion. He has a mild wheeze but he wheezes at baseline. - Related Data Home Medications Medication Instructions Recorded Confirmed Last Taken Docusate Sodium [Colace CAP] 100 mg PO BID PRN 05/24/19 07/23/19 Unknown Potassium Chloride [K-Dur] 20 meq PO BID 05/24/19 07/23/19 Unknown B-12 07/23/19 07/23/19 Unknown Previous Rx's Medication Instructions Recorded Last Taken Type Albuterol Sulfate [Proair 2 puff IH Q4HR PRN #1 aer.pw.bas 05/27/19 Unknown Rx Digihaler] predniSONE [Deltasone] 40 mg PO QDAY 5 Days #10 tab 05/27/19 Unknown Rx Albuterol Sulfate [Proair 90 mcg IH Q4HR PRN #2 aer.pow.ba 07/19/19 Unknown Rx Respiclick] Benzonatate [Tessalon Perles] 100 mg PO Q8HR PRN #30 capsule 07/19/19 Unknown Rx Ipratropium (Nf) [Atrovent HFA 2 puff IH Q6HR PRN #1 inha 07/19/19 Unknown Rx 17MCG/PUFF] predniSONE [Deltasone] 40 mg PO QDAY #8 tab 07/19/19 Unknown Rx Aspirin [Adult Aspirin] 81 mg PO QDAY #30 07/27/19 Unknown Rx levoFLOXacin [Levaquin TAB] 500 mg PO Q24HR tablet 07/27/19 Unknown Rx lisinopriL [Zestril TAB] 20 mg PO QDAY #30 tablet 07/27/19 Unknown Rx Albuterol Sulfate [Proair 90 mcg IH DAILY #1 aer.pw.bas 08/01/19 Unknown Rx Digihaler] predniSONE [Deltasone] 20 mg PO QDAY #10 tab 08/01/19 Unknown Rx Albuterol INH(or & Nicu Only) 2 puff IH QID PRN #8.5 gram 08/02/19 Unknown Rx [ProAir HFA Inhaler] Prednisone [predniSONE 10 mg 10 mg PO .TAPER #1 tab.ds.pk 08/02/19 Unknown Rx (6-Day Pack, 21 Tabs)] Furosemide [Lasix TAB] 20 mg PO QDAY #30 09/09/19 Unknown Rx Allergies Allergy/AdvReac Type Severity Reaction Status Date / Time Sulfa (Sulfonamide Allergy Severe Itching Verified 07/23/19 13:02 Antibiotics) acetaminophen [From Tylenol] Allergy Angioedema Verified 04/14/18 08:22 amitriptyline [From Elavil] Allergy Unknown Verified 10/06/17 01:05 chlorpromazine Allergy Unknown Verified 10/06/17 01:05 [From Thorazine] diphenhydramine Allergy Angioedema Verified 04/14/18 08:22 [From Benadryl] Iodinated Contrast Media Allergy Unknown Verified 11/02/18 01:22 Penicillins Allergy Unknown Verified 10/06/17 01:05 ED Review of Systems ROS: Stated complaint: COUGH/SHORTNESS OF BREATH Other details as noted in HPI Comment: All other systems reviewed and negative ED Past Medical Hx - Past Medical History Hx Hypertension: Yes Hx Congestive Heart Failure: Yes Hx Asthma: Yes Hx COPD: Yes Hx Dementia: Yes (Hx says dementia) Additional medical history: hernia repair, dementia - Surgical History Additional Surgical History: hernia repair. eye sx/procedure during childhood - Social History Smoking Status: Never Smoker - Medications Home Medications: Home Medications Medication Instructions Recorded Confirmed Last Taken Type Docusate Sodium [Colace CAP] 100 mg PO BID PRN 05/24/19 07/23/19 Unknown History Potassium Chloride [K-Dur] 20 meq PO BID 05/24/19 07/23/19 Unknown History Albuterol Sulfate [Proair 2 puff IH Q4HR PRN #1 aer.pw.bas 05/27/19 Unknown Rx Digihaler] predniSONE [Deltasone] 40 mg PO QDAY 5 Days #10 tab 05/27/19 Unknown Rx Albuterol Sulfate [Proair 90 mcg IH Q4HR PRN #2 aer.pow.ba 07/19/19 07/23/19 Unknown Rx Respiclick] Benzonatate [Tessalon Perles] 100 mg PO Q8HR PRN #30 capsule 07/19/19 Unknown Rx Ipratropium (Nf) [Atrovent HFA 2 puff IH Q6HR PRN #1 inha 07/19/19 07/23/19 Unknown Rx 17MCG/PUFF] predniSONE [Deltasone] 40 mg PO QDAY #8 tab 07/19/19 07/23/19 Unknown Rx B-12 07/23/19 07/23/19 Unknown History Aspirin [Adult Aspirin] 81 mg PO QDAY #30 07/27/19 Unknown Rx levoFLOXacin [Levaquin TAB] 500 mg PO Q24HR tablet 07/27/19 Unknown Rx lisinopriL [Zestril TAB] 20 mg PO QDAY #30 tablet 07/27/19 Unknown Rx Albuterol Sulfate [Proair 90 mcg IH DAILY #1 aer.pw.bas 08/01/19 Unknown Rx Digihaler] predniSONE [Deltasone] 20 mg PO QDAY #10 tab 08/01/19 Unknown Rx Albuterol INH(or & Nicu Only) 2 puff IH QID PRN #8.5 gram 08/02/19 Unknown Rx [ProAir HFA Inhaler] Prednisone [predniSONE 10 mg 10 mg PO .TAPER #1 tab.ds.pk 08/02/19 Unknown Rx (6-Day Pack, 21 Tabs)] Furosemide [Lasix TAB] 20 mg PO QDAY #30 09/09/19 Unknown Rx ED Physical Exam - General Limitations: No Limitations General appearance: alert, in no apparent distress - Head Head exam: Present: atraumatic, normocephalic - Eye Eye exam: Present: normal appearance, PERRL, EOMI - ENT ENT exam: Present: mucous membranes moist - Neck Neck exam: Present: normal inspection - Respiratory Respiratory exam: Present: wheezes, chest wall tenderness. Absent: normal lung sounds bilaterally, respiratory distress, rales, rhonchi - Cardiovascular Cardiovascular Exam: Present: regular rate, normal rhythm, normal heart sounds. Absent: systolic murmur, diastolic murmur, rubs, gallop - GI/Abdominal GI/Abdominal exam: Present: soft, normal bowel sounds. Absent: distended, tenderness, guarding, rebound - Rectal Rectal exam: Present: deferred - Extremities Exam Extremities exam: Present: normal inspection - Back Exam Back exam: Present: normal inspection - Neurological Exam Neurological exam: Present: alert, oriented X3 - Psychiatric Psychiatric exam: Present: normal affect, normal mood - Skin Skin exam: Present: warm, dry, intact, normal color. Absent: rash ED Course Vital Signs 09/09/19 14:10 Temperature 98.9 F Pulse Rate 102 H Respiratory 22 Rate Blood Pressure 130/98 O2 Sat by Pulse 92 Oximetry ED Medical Decision Making - Medical Decision Making Patient refused IV Lasix. He refused laboratory studies as well stating that he had labs done several days ago. Patient's chest x-ray shows some worsening infiltrate which is likely pulmonary edema. Patient was reluctant to take 80 mg of Lasix here in emergency department but I did convince him that we needed to diurese him so that he could be discharged. Patient diuresed and was given neb treatment and is feeling better and will be discharged home with another prescription for his Lasix. Advised him that he needs to get his Lasix prescription filled and stopped coming to the emergency department for medication refills as we are undergoing a coronavirus pandemic and he is a high risk of contacting an infection Critical care attestation.: If time is entered above; I have spent that time in minutes in the direct care of this critically ill patient, excluding procedure time. ED Disposition Clinical Impression: CHF exacerbation, Shortness of breath, Medical non-compliance Disposition: DC-01 TO HOME OR SELFCARE Is pt being admited?: No Does the pt Need Aspirin: No Condition: Stable Instructions: Heart Failure (ED) Additional Instructions: Please make sure you get your prescription for Lasix today! Every time you come to the emergency department you are at high risk for michelle coronavirus. Please isolate yourself at home until this pandemic has past Prescriptions: Furosemide [Lasix TAB] 20 mg PO QDAY #30 Referrals: PRIMARY CARE, [Primary Care Provider] - 3-5 Days Time of Disposition: 18:42
[2019-09-09 19:54] VITALS: BP 116/64
== END 2019-09-10 11:14 | disposition home or self-care (01) ==
LOC: ED 13:57
DX: I11.0 Hypertensive heart disease with heart failure (principal); I50.9 Heart failure, unspecified; J44.9 Chronic obstructive pulmonary disease, unspecified; F03.90 Unspecified dementia, unspecified severity, without behavioral disturbance, psychotic disturbance, mood disturbance, and anxiety; Z98.890 Other specified postprocedural states; Z79.899 Other long term (current) drug therapy; Z88.2 Allergy status to sulfonamides; Z88.6 Allergy status to analgesic agent
CPT/HCPCS: 71045; 82962; 94640; 94644

== ENCOUNTER 2019-09-16 23:03 | Emergency (ER) | payer MEDICARE ==
[2019-09-16 23:49] LABS: Basophils # (Auto) 0.1 K/mm3 (0.0-0.1); Basophils % (Auto) 0.6 % (0.0-1.8); Eosinophils # (Auto) 0.3 K/mm3 (0.0-0.4); Eosinophils % (Auto) 2.7 % (0.0-4.3); Hematocrit 42.4 % (35.5-45.6); Hemoglobin 14.2 gm/dl (11.8-15.2); Lymphocytes # (Auto) 2.2 K/mm3 (1.2-5.4); Lymphocytes % (Auto) 17.2 % (13.4-35.0); Mean Corpuscular HGB Conc 33 % (32-34); Mean Corpuscular Volume 89 fl (84-94); Monocytes % (Auto) 7.6 % (0.0-7.3); Platelet Count 429 K/mm3 (140-440); Red Blood Count 4.77 M/mm3 (3.65-5.03); Red Cell Distribution Width 13.7 % (13.2-15.2)
[2019-09-17 00:07] LABS: BUN/Creatinine Ratio 24; Blood Urea Nitrogen 26 mg/dL (9-20); Hemolysis Index 16
[2019-09-17 00:09] LABS: Bilirubin,Urine NEG (Negative); Blood,Urine NEG (Negative); Color,Urine Yellow (Yellow); Mucus,Urine FEW /HPF; Protein,Urine <15 mg/dL mg/dL (Negative); Urobilinogen,Urine < 2.0 mg/dL (<2.0)
--- NOTE | 2019-09-17 00:09 | Emergency Department Report ---
ED Psych HPI - General Chief Complaint: Psych Stated Complaint: SUICIDAL IDEATIONS Time Seen by Provider: 09/16/19 23:28 Source: patient, EMS Mode of arrival: Ambulatory - History of Present Illness Initial Comments: 74-year-old male presents to ED with complaint of depression x3 days. Patient states he is feeling "kind of "suicidal. Patient has no plan. He denies any HI or hallucinations. MD Complaint: feels depressed -: days(s) (3) Associated Psychiatric Symptoms: depression, suicidal ideation Quality: constant Improves With: none Worsens With: none Associated Symptoms: denies other symptoms If Self Harm: admits thoughts of - Related Data Home Medications Medication Instructions Recorded Confirmed Last Taken Potassium Chloride [K-Dur] 20 meq PO BID 05/24/19 09/17/19 Unknown Previous Rx's Medication Instructions Recorded Last Taken Type Albuterol Sulfate [Proair 2 puff IH Q4HR PRN #1 aer.pw.bas 05/27/19 Unknown Rx Digihaler] Ipratropium (Nf) [Atrovent HFA 2 puff IH Q6HR PRN #1 inha 07/19/19 Unknown Rx 17MCG/PUFF] Aspirin [Adult Aspirin] 81 mg PO QDAY #30 07/27/19 Unknown Rx Albuterol Sulfate [Proair 90 mcg IH DAILY #1 aer.pw.bas 08/01/19 Unknown Rx Digihaler] Furosemide [Lasix TAB] 20 mg PO QDAY #30 09/09/19 Unknown Rx OLANzapine [ZyPREXA] 5 mg PO QDAY #30 tablet 09/17/19 Unknown Rx Allergies Allergy/AdvReac Type Severity Reaction Status Date / Time Sulfa (Sulfonamide Allergy Severe Itching Verified 07/23/19 13:02 Antibiotics) acetaminophen [From Tylenol] Allergy Angioedema Verified 04/14/18 08:22 amitriptyline [From Elavil] Allergy Unknown Verified 10/06/17 01:05 chlorpromazine Allergy Unknown Verified 10/06/17 01:05 [From Thorazine] diphenhydramine Allergy Angioedema Verified 04/14/18 08:22 [From Benadryl] Iodinated Contrast Media Allergy Unknown Verified 11/02/18 01:22 Penicillins Allergy Unknown Verified 10/06/17 01:05 ED Review of Systems ROS: Stated complaint: SUICIDAL IDEATIONS Other details as noted in HPI Comment: All other systems reviewed and negative Psychiatric: depression, suicidal thoughts. denies: auditory hallucinations, visual hallucinations, homicidal thoughts ED Past Medical Hx - Past Medical History Previous Medical History?: Yes Hx Hypertension: Yes Hx Congestive Heart Failure: Yes Hx Asthma: Yes Hx COPD: Yes Hx Dementia: Yes (Hx says dementia) Additional medical history: hernia repair, dementia - Surgical History Past Surgical History?: Yes Additional Surgical History: hernia repair. eye sx/procedure during childhood - Social History Smoking Status: Never Smoker - Medications Home Medications: Home Medications Medication Instructions Recorded Confirmed Last Taken Type Potassium Chloride [K-Dur] 20 meq PO BID 05/24/19 09/17/19 Unknown History Albuterol Sulfate [Proair 2 puff IH Q4HR PRN #1 aer.pw.bas 05/27/19 09/17/19 Unknown Rx Digihaler] Ipratropium (Nf) [Atrovent HFA 2 puff IH Q6HR PRN #1 inha 07/19/19 09/17/19 Unknown Rx 17MCG/PUFF] Aspirin [Adult Aspirin] 81 mg PO QDAY #30 07/27/19 09/17/19 Unknown Rx Albuterol Sulfate [Proair 90 mcg IH DAILY #1 aer.pw.bas 08/01/19 09/17/19 Unknown Rx Digihaler] Furosemide [Lasix TAB] 20 mg PO QDAY #30 09/09/19 09/17/19 Unknown Rx OLANzapine [ZyPREXA] 5 mg PO QDAY #30 tablet 09/17/19 Unknown Rx ED Physical Exam - General Limitations: No Limitations General appearance: alert, in no apparent distress - Head Head exam: Present: atraumatic - Eye Eye exam: Present: normal appearance, EOMI - ENT ENT exam: Present: mucous membranes moist - Neck Neck exam: Present: normal inspection - Respiratory Respiratory exam: Present: normal lung sounds bilaterally. Absent: respiratory distress - Cardiovascular Cardiovascular Exam: Present: regular rate, normal rhythm - GI/Abdominal GI/Abdominal exam: Absent: distended - Extremities Exam Extremities exam: Present: normal inspection - Neurological Exam Neurological exam: Present: alert, oriented X3 - Psychiatric Psychiatric exam: Present: normal affect, normal mood - Skin Skin exam: Present: warm, dry, intact, normal color ED Course Vital Signs 0409/17/19 09/17/19 00:00 01:00 03:04 Temperature 98.5 F 97.4 F L Pulse Rate 98 H 74 Respiratory 18 20 18 Rate Blood Pressure 131/74 104/68 [Left] O2 Sat by Pulse 96 96 96 Oximetry 09/17/19 09:20 Temperature 97.7 F Pulse Rate Respiratory 20 Rate Blood Pressure 126/74 [Left] O2 Sat by Pulse 94 Oximetry ED Medical Decision Making - Lab Data Result diagrams: 09/16/19 23:29 09/16/19 23:29 Critical care attestation.: If time is entered above; I have spent that time in minutes in the direct care of this critically ill patient, excluding procedure time. ED Disposition Clinical Impression: Depression Disposition: DC-01 TO HOME OR SELFCARE Is pt being admited?: No Condition: Stable Prescriptions: OLANzapine [ZyPREXA] 5 mg PO QDAY #30 tablet Referrals: PRIMARY CARE, [Primary Care Provider] - 3-5 Days
[2019-09-17 00:17] LABS: Amphetamine Screen,Urine PRESUMPTIVE NEGATIVE; Benzodiazepines Screen,Urine PRESUMPTIVE NEGATIVE; Cannabinoid Screen,Urine PRESUMPTIVE NEGATIVE; Cocaine Screen,Urine PRESUMPTIVE NEGATIVE; Methadone Screen,Urine PRESUMPTIVE NEGATIVE; Opiate Screen,Urine PRESUMPTIVE NEGATIVE
[2019-09-17 09:22] VITALS: BP 126/74
--- NOTE | 2019-09-17 13:47 | Consultation ---
History of Present Illness - Reason for Consult Consult date: 09/16/19 Reason for consult: Mental Health Evaluation Requesting physician: ALMAS CRAIG JR - Chief Complaint Chief complaint: Kind of Suicidal - History of Present Psychiatric Illness Per ED Provider: 74-year-old male presents to ED with complaint of depression x3 days. Patient states he is feeling "kind of "suicidal. Patient has no plan. He denies any HI or hallucinations. Per [facility] Note: Pt is a 74 yo male presenting to ED for MHE, as pt reports thoughts to self harm, placement disruption. During ax, pt presented with uncooperative behaviors, anvious mood and congruent affect. Pt refused to participate in Zoom videoconference. Pt reports "I don't want my business broadcasted". Pt informed ED Nurse he was here to get his medications back and a new placement. Pt denied SI/HI. Pt denied A/V Hallucinations. Pt repors hx of mental health dx. Per Psych Provider HPI: Patient is a 75-year-old single disabled homeless male with past medical history of schizoaffective disorder who presented to the ED with chief complaint of "I am kind of suicidal". Patient reported has been having low motivation needs his Zyprexa he has been having some racing thoughts. Patient reported he thinks he had some suicidal ideation because he has been having flashback about losing his mouth that due to a drunken episode. Patient denies any illicit drug use, denies any paranoia auditory or visual destination s. Patient is alert and oriented to time place and person. Patient did not have tremors on video monitoring or by Nurse, on entrance to room, pt began shaking, this patient is exhibiting drug seeking behavior. Compliance with requested meds may reinforce behavior. PAST PSYCHIATRIC HISTORY: Diagnoses: Schizoaffective disorder Suicide attempts or Self-harm behavior: None reported Prior psychiatric hospitalizations: Yes at this facility Substance Abuse history: None reported Previous psychiatric medications tried: Zyprexa Outpatient treatment: None reported PAST MEDICAL HISTORY: Hernia, Asthma and Lower extremity Edema Family Psychiatric History: Drug and alcohol Addiction SOCIAL HISTORY Marital Status: Single Living Arrangements: Homeless Employment Status: Disabled Access to guns/weapons: None reported Education: 12th Grade with G[employer] History of Abuse: None reported Legal History: None reported ROS: Constitutional: Negative for weight loss ENT: Negative for stridor Respiratory: Negative for cough or hemoptysis All other systems reviewed and are negative MENTAL STATUS General Appearance and Behavior: age appropriate, disheveled appearance, good eye contact, cooperative with questioning and polite/ Cooperation: Cooperative Psychomotor Behavior: Within normal limits Mood: OK Affect and affective range: Congruent with stated mood Thought Process: Fluent/Logical and Goal-directed Thought Content: Deneies AH and VU and Paranoia Speech: Normal volume and Regular rate and rhythm Intellectual Functioning: Average Suicidal Ideation: Denies SI Homicidal Ideation: Denies HI Impulse Control: intact Insight and Judgment: Normal insight and poor judgment Memory: Normal Attention: Normal Orientation: alert and oriented Diagnosis - Psychiatric problem (1) Medication nonadherence due to psychosocial problem Status: Acute (2) Schizoaffective disorder, bipolar type Status: Acute RECOMMENDATIONS MEDICATIONS: To continue home meds Risks, benefits and alternatives of medications discussed with the patient, questions answered and consent obtained from patient. PSYCHOTHERAPY: Supportive psychotherapy provided MEDICAL: Per primary team STRIKE OPERATIONS OFFICER: Not indicated DISPOSITION: No Acute inpatient psychiatric hospitalization indicated LEGAL STATUS: 1013 rescinded FOLLOW-UP: Will sign OFF Thank you for the consult. Please contact with any questions and/or concerns. Medications and Allergies Allergies Allergy/AdvReac Type Severity Reaction Status Date / Time Sulfa (Sulfonamide Allergy Severe Itching Verified 07/23/19 13:02 Antibiotics) acetaminophen [From Tylenol] Allergy Angioedema Verified 04/14/18 08:22 amitriptyline [From Elavil] Allergy Unknown Verified 10/06/17 01:05 chlorpromazine Allergy Unknown Verified 10/06/17 01:05 [From Thorazine] diphenhydramine Allergy Angioedema Verified 04/14/18 08:22 [From Benadryl] Iodinated Contrast Media Allergy Unknown Verified 11/02/18 01:22 Penicillins Allergy Unknown Verified 10/06/17 01:05 Home Medications Medication Instructions Recorded Confirmed Last Taken Type Potassium Chloride [K-Dur] 20 meq PO BID 05/24/19 09/17/19 Unknown History Albuterol Sulfate [Proair 2 puff IH Q4HR PRN #1 aer.pw.bas 05/27/19 09/17/19 Unknown Rx Digihaler] Ipratropium (Nf) [Atrovent HFA 2 puff IH Q6HR PRN #1 inha 07/19/19 09/17/19 Unknown Rx 17MCG/PUFF] Aspirin [Adult Aspirin] 81 mg PO QDAY #30 07/27/19 09/17/19 Unknown Rx Albuterol Sulfate [Proair 90 mcg IH DAILY #1 aer.pw.bas 08/01/19 09/17/19 Unknown Rx Digihaler] Furosemide [Lasix TAB] 20 mg PO QDAY #30 09/09/19 09/17/19 Unknown Rx OLANzapine [ZyPREXA] 5 mg PO QDAY #30 tablet 09/17/19 Unknown Rx Mental Status Exam - Vital signs Last Vital Signs Temp 97.7 F 09/17/19 09:20 Pulse 74 09/17/19 03:04 Resp 20 09/17/19 09:20 BP 126/74 09/17/19 09:20 Pulse Ox 94 09/17/19 09:20 Results Result Diagrams: 09/16/19 23:29 09/16/19 23:29 Abnormal lab results 09/16/19 09/16/19 09/16/19 Range/Units 23:29 23:29 23:29 WBC (4.5-11.0) K/mm3 [place] % (Auto) (0.0-7.3) % [place] # (0.0-0.8) K/mm3 Seg Neutrophils % (40.0-70.0) % Seg Neutrophils # (1.8-7.7) K/mm3 Sodium 135 L (137-145) mmol/L Chloride 96.1 L (98-107) mmol/L BUN 26 H (9-20) mg/dL Glucose 102 H (75-100) mg/dL Salicylates < 0.3 L (2.8-20.0) mg/dL Acetaminophen < 5.0 L (10.0-30.0) ug/mL 09/16/19 Range/Units 23:29 WBC 12.6 H (4.5-11.0) K/mm3 [place] % (Auto) 7.6 H (0.0-7.3) % [place] # 1.0 H (0.0-0.8) K/mm3 Seg Neutrophils % 71.9 H (40.0-70.0) % Seg Neutrophils # 9.0 H (1.8-7.7) K/mm3 Sodium (137-145) mmol/L Chloride (98-107) mmol/L BUN (9-20) mg/dL Glucose (75-100) mg/dL Salicylates (2.8-20.0) mg/dL Acetaminophen (10.0-30.0) ug/mL All other labs normal. Assessment and Plan - Psychiatric problem (1) Medication nonadherence due to psychosocial problem Status: Acute (2) Schizoaffective disorder, bipolar type Status: Acute
== END 2019-09-17 13:33 | disposition home or self-care (01) ==
LOC: EEVIPCON 23:03 → ED 23:03
DX: F32.89 Other specified depressive episodes (principal); I11.0 Hypertensive heart disease with heart failure; I50.9 Heart failure, unspecified; J44.9 Chronic obstructive pulmonary disease, unspecified; F03.90 Unspecified dementia, unspecified severity, without behavioral disturbance, psychotic disturbance, mood disturbance, and anxiety; Z98.890 Other specified postprocedural states; Z79.899 Other long term (current) drug therapy; Z88.2 Allergy status to sulfonamides; Z88.6 Allergy status to analgesic agent
CPT/HCPCS: 36415; 80048; 80307; 80320; 81001; 85025; G0480

== ENCOUNTER 2019-09-25 15:27 | Emergency (ER) | payer MEDICARE | END 2019-09-25 17:13 | disposition left against medical advice (07) | LOC: ED 15:27 | DX: K46.9 Unspecified abdominal hernia without obstruction or gangrene (principal); Z88.8 Allergy status to other drugs, medicaments and biological substances ==

== ENCOUNTER 2019-09-26 01:41 | Emergency (ER) | payer MEDICARE ==
[2019-09-26] MEDS ORDERED: ONDANSETRON 4 MG/2 ML INJ IV ONE (02:23)
[2019-09-26] MEDS ORDERED: MORPHINE 4 MG/1 ML INJ IV ONE (02:23)
--- NOTE | 2019-09-26 02:28 | Emergency Department Report ---
ED Abdominal Pain HPI - General Chief Complaint: Abdominal Pain Stated Complaint: ABDOMINAL PAIN Time Seen by Provider: 09/26/19 02:22 Source: patient Mode of arrival: Ambulatory Limitations: Physical Limitation - History of Present Illness Initial Comments: Patient is 74 years old male with history of hypertension, congestive heart failure and COPD. Patient presented to the ER complaining of abdominal pain mainly to the periumbilical area. Patient stated that he had history of hernia since 2004 but since last night he feel more pain and started having some nausea but no vomiting. Patient denied any fever or chills. No chest pain or shortness of breath. MD Complaint: abdominal pain -: Last night Location: periumbilical Radiation: none - Related Data Home Medications Medication Instructions Recorded Confirmed Last Taken Potassium Chloride [K-Dur] 20 meq PO BID 05/24/19 09/17/19 Unknown Previous Rx's Medication Instructions Recorded Last Taken Type Albuterol Sulfate [Proair 2 puff IH Q4HR PRN #1 aer.pw.bas 05/27/19 Unknown Rx Digihaler] Ipratropium (Nf) [Atrovent HFA 2 puff IH Q6HR PRN #1 inha 07/19/19 Unknown Rx 17MCG/PUFF] Aspirin [Adult Aspirin] 81 mg PO QDAY #30 07/27/19 Unknown Rx Albuterol Sulfate [Proair 90 mcg IH DAILY #1 aer.pw.bas 08/01/19 Unknown Rx Digihaler] Furosemide [Lasix TAB] 20 mg PO QDAY #30 09/09/19 Unknown Rx OLANzapine [ZyPREXA] 5 mg PO QDAY #30 tablet 09/17/19 Unknown Rx Allergies Allergy/AdvReac Type Severity Reaction Status Date / Time Sulfa (Sulfonamide Allergy Severe Itching Verified 07/23/19 13:02 Antibiotics) acetaminophen [From Tylenol] Allergy Angioedema Verified 04/14/18 08:22 amitriptyline [From Elavil] Allergy Unknown Verified 10/06/17 01:05 chlorpromazine Allergy Unknown Verified 10/06/17 01:05 [From Thorazine] diphenhydramine Allergy Angioedema Verified 04/14/18 08:22 [From Benadryl] Iodinated Contrast Media Allergy Unknown Verified 11/02/18 01:22 Penicillins Allergy Unknown Verified 10/06/17 01:05 ED Review of Systems ROS: Stated complaint: ABDOMINAL PAIN Other details as noted in HPI Comment: All other systems reviewed and negative Constitutional: denies: chills, fever Respiratory: denies: cough Cardiovascular: denies: chest pain, palpitations Gastrointestinal: abdominal pain, nausea. denies: vomiting, diarrhea, constipation, hematemesis, melena, hematochezia ED Past Medical Hx - Past Medical History Previous Medical History?: Yes Hx Hypertension: Yes Hx Congestive Heart Failure: Yes Hx Asthma: Yes Hx COPD: Yes Hx Dementia: Yes (Hx says dementia) Additional medical history: hernia repair, dementia - Surgical History Past Surgical History?: Yes Additional Surgical History: hernia repair. eye sx/procedure during childhood - Social History Smoking Status: Never Smoker Substance Use Type: None - Medications Home Medications: Home Medications Medication Instructions Recorded Confirmed Last Taken Type Potassium Chloride [K-Dur] 20 meq PO BID 05/24/19 09/17/19 Unknown History Albuterol Sulfate [Proair 2 puff IH Q4HR PRN #1 aer.pw.bas 05/27/19 09/17/19 Unknown Rx Digihaler] Ipratropium (Nf) [Atrovent HFA 2 puff IH Q6HR PRN #1 inha 07/19/19 09/17/19 Unknown Rx 17MCG/PUFF] Aspirin [Adult Aspirin] 81 mg PO QDAY #30 07/27/19 09/17/19 Unknown Rx Albuterol Sulfate [Proair 90 mcg IH DAILY #1 aer.pw.bas 08/01/19 09/17/19 Unknown Rx Digihaler] Furosemide [Lasix TAB] 20 mg PO QDAY #30 09/09/19 09/17/19 Unknown Rx OLANzapine [ZyPREXA] 5 mg PO QDAY #30 tablet 09/17/19 Unknown Rx ED Physical Exam - General Limitations: Physical Limitation General appearance: alert, in no apparent distress - Head Head exam: Present: atraumatic, normocephalic, normal inspection - Eye Eye exam: Present: normal appearance - ENT ENT exam: Present: normal exam, normal orophraynx, mucous membranes moist - Neck Neck exam: Present: normal inspection - Respiratory Respiratory exam: Present: normal lung sounds bilaterally - Cardiovascular Cardiovascular Exam: Present: regular rate, normal rhythm, normal heart sounds - GI/Abdominal GI/Abdominal exam: Present: soft, normal bowel sounds, hernia. Absent: distended, tenderness, guarding, rebound, rigid, organomegaly, mass, bruit, pulsatile mass - Back Exam Back exam: Present: normal inspection, full ROM. Absent: CVA tenderness (R), CVA tenderness (L) - Neurological Exam Neurological exam: Present: alert, oriented X3, CN II-XII intact - Psychiatric Psychiatric exam: Present: normal mood. Absent: homicidal ideation, suicidal ideation - Skin Skin exam: Present: warm, intact, normal color ED Course Vital Signs 09/26/19 09/26/19 09/26/19 01:47 02:55 03:40 Temperature 98.2 F Pulse Rate 101 H Respiratory 18 20 Rate Blood Pressure 135/83 Blood Pressure 116/80 [Right] O2 Sat by Pulse 95 96 Oximetry Critical care attestation.: If time is entered above; I have spent that time in minutes in the direct care of this critically ill patient, excluding procedure time. ED Disposition Clinical Impression: Abdominal pain, Ventral hernia Disposition: - LEFT AGAINST MED ADVICE Is pt being admited?: No Condition: Stable Referrals: JOSI DIOR [Primary Care Provider] - 3-5 Days Forms: AMA Form
[2019-09-26 03:41] VITALS: BP 116/80
== END 2019-09-26 03:43 | disposition left against medical advice (07) ==
LOC: ED 01:41
DX: K43.9 Ventral hernia without obstruction or gangrene (principal); R10.9 Unspecified abdominal pain; I11.0 Hypertensive heart disease with heart failure; I50.9 Heart failure, unspecified; J44.9 Chronic obstructive pulmonary disease, unspecified; F03.90 Unspecified dementia, unspecified severity, without behavioral disturbance, psychotic disturbance, mood disturbance, and anxiety; Z98.890 Other specified postprocedural states; Z88.6 Allergy status to analgesic agent; Z88.8 Allergy status to other drugs, medicaments and biological substances; Z79.899 Other long term (current) drug therapy
CPT/HCPCS: 93005; 99282; J2270; J2405

== ENCOUNTER 2019-09-29 13:26 | Emergency (ER) | payer MEDICARE ==
[2019-09-29 13:40] VITALS: BP 114/72
[2019-09-29] MEDS ORDERED: predniSONE 20 MG TAB PO ONE (15:17)
[2019-09-29] MEDS ORDERED: IPRATROPIUM 0.02% NEBU 2.5 ML IH ONE (15:17)
[2019-09-29] MEDS ORDERED: ALBUTEROL 2.5 MG/3 ML NEBU IH ONE (15:17)
--- NOTE | 2019-09-29 17:27 | XRay Report ---
CHEST 1 VIEW 3:19 PM INDICATION / CLINICAL INFORMATION: Dyspnea. COMPARISON: 09/09/19. FINDINGS: SUPPORT DEVICES: None. HEART / MEDIASTINUM: The heart size and pulmonary vasculature are normal. LUNGS / PLEURA: Patchy parenchymal disease in the mid to lower lung zones, right greater than left, h as shown significant improvement. Mild disease persists. There may be a minimal right pleural effusio n. No pneumothorax. ADDITIONAL FINDINGS: No significant additional findings. IMPRESSION: Improving patchy parenchymal opacities in both mid to lower lung zones, right greater che n left. Signer Name: Harshad Mathias MD Signed: 09/29/2019 5:22 PM Workstation Name: [id number]
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
== END 2019-09-29 19:55 | disposition home or self-care (01) ==
LOC: ED 13:26
DX: J44.1 Chronic obstructive pulmonary disease with (acute) exacerbation (principal); I11.0 Hypertensive heart disease with heart failure; I50.9 Heart failure, unspecified; F03.90 Unspecified dementia, unspecified severity, without behavioral disturbance, psychotic disturbance, mood disturbance, and anxiety; Z98.890 Other specified postprocedural states; Z88.2 Allergy status to sulfonamides; Z88.8 Allergy status to other drugs, medicaments and biological substances; Z79.899 Other long term (current) drug therapy
CPT/HCPCS: 71045; 93005; 94640; 99284; J7512; 94644

== ENCOUNTER 2019-10-02 21:46 | Emergency (ER) | payer MEDICARE ==
--- NOTE | 2019-10-02 22:43 | XRay Report ---
CHEST 2 VIEWS INDICATION / CLINICAL INFORMATION: Shortness breath/difficulty breathing for a couple of weeks. COMPARISON: 09/29/19. FINDINGS: SUPPORT DEVICES: None. HEART / MEDIASTINUM: The heart size and pulmonary vasculature are normal. LUNGS / PLEURA: Mild patchy parenchymal disease in both mid to lower lung zones has cleared. No defin ite pleural effusion. No new abnormality. No pneumothorax. ADDITIONAL FINDINGS: No significant additional findings. IMPRESSION: No acute findings. Signer Name: Harshad Mathias MD Signed: 10/02/2019 10:38 PM Workstation Name: [id number]
[2019-10-02] MEDS ORDERED: IPRATROPIUM/ALBUTEROL SULFATE 3 ML AMPUL.NEB IH ONE (22:44)
[2019-10-02] MEDS ORDERED: methylPREDNISolone Sod Succinate 125 MG/2 ML INJ IM ONE (22:44)
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
[2019-10-03 01:05] VITALS: BP 122/62
== END 2019-10-03 11:30 | disposition home or self-care (01) ==
LOC: ED 21:46
DX: J44.1 Chronic obstructive pulmonary disease with (acute) exacerbation (principal); I11.0 Hypertensive heart disease with heart failure; I50.9 Heart failure, unspecified; F03.90 Unspecified dementia, unspecified severity, without behavioral disturbance, psychotic disturbance, mood disturbance, and anxiety; Z98.890 Other specified postprocedural states; Z79.899 Other long term (current) drug therapy; Z88.2 Allergy status to sulfonamides; Z88.8 Allergy status to other drugs, medicaments and biological substances; Z59.0 Homelessness
CPT/HCPCS: 71046; 94640; 94644

== ENCOUNTER 2019-10-03 23:12 | Emergency (ER) | payer MEDICARE ==
[2019-10-03 23:48] VITALS: BP 130/90
--- NOTE | 2019-10-04 00:04 | Emergency Department Report ---
ED General Adult HPI - General Chief complaint: Dyspnea/Respdistress Stated complaint: MOMO Time Seen by Provider: 10/04/19 00:00 Source: patient, EMS Mode of arrival: Ambulatory Limitations: No Limitations - History of Present Illness Initial comments: Mr. Garcia is 75 years old male, familiar to me and to this ER staff. Patient with almost a daily visit to the ER especially at night. Patient is homeless. Patient presented to the ER stating that he is having shortness of breath. Patient denied any fever or chills. Patient has been evaluated by social services technician several times but patient is not following the order and recommendation. Patient will come to the ER and ask for food and stay overnight and will leave in the morning. - Related Data Home Medications Medication Instructions Recorded Confirmed Last Taken Potassium Chloride [K-Dur] 20 meq PO BID 05/24/19 10/05/19 Unknown Previous Rx's Medication Instructions Recorded Last Taken Type Albuterol Sulfate [Proair 2 puff IH Q4HR PRN #1 aer.pw.bas 05/27/19 Unknown Rx Digihaler] Ipratropium (Nf) [Atrovent HFA 2 puff IH Q6HR PRN #1 inha 07/19/19 Unknown Rx 17MCG/PUFF] Aspirin [Adult Aspirin] 81 mg PO QDAY #30 07/27/19 Unknown Rx Albuterol Sulfate [Proair 90 mcg IH DAILY #1 aer.pw.bas 08/01/19 Unknown Rx Digihaler] Furosemide [Lasix TAB] 20 mg PO QDAY #30 09/09/19 Unknown Rx OLANzapine [ZyPREXA] 5 mg PO QDAY #30 tablet 09/17/19 Unknown Rx Benzonatate [Tessalon Perles] 100 mg PO Q8HR #10 capsule 09/29/19 Unknown Rx predniSONE [Deltasone] 20 mg PO QDAY #5 tab 09/29/19 Unknown Rx Allergies Allergy/AdvReac Type Severity Reaction Status Date / Time Sulfa (Sulfonamide Allergy Severe Itching Verified 10/04/19 20:20 Antibiotics) acetaminophen [From Tylenol] Allergy Angioedema Verified 10/04/19 20:20 amitriptyline [From Elavil] Allergy Unknown Verified 10/04/19 20:20 chlorpromazine Allergy Unknown Verified 10/04/19 20:20 [From Thorazine] diphenhydramine Allergy Angioedema Verified 10/04/19 20:20 [From Benadryl] Iodinated Contrast Media Allergy Unknown Verified 10/04/19 20:20 Penicillins Allergy Unknown Verified 10/04/19 20:20 ED Review of Systems ROS: Stated complaint: MOMO Other details as noted in HPI Comment: All other systems reviewed and negative Constitutional: denies: chills, fever Respiratory: denies: cough, shortness of breath, SOB with exertion, wheezing Cardiovascular: denies: chest pain, palpitations Gastrointestinal: denies: abdominal pain, nausea, vomiting Neurological: denies: headache, weakness, numbness, paresthesias, confusion, abnormal gait ED Past Medical Hx - Past Medical History Previous Medical History?: Yes Hx Hypertension: Yes Hx Congestive Heart Failure: Yes Hx Asthma: Yes Hx COPD: Yes Hx Dementia: Yes (Hx says dementia) Additional medical history: hernia repair, dementia - Surgical History Past Surgical History?: Yes Additional Surgical History: hernia repair. eye sx/procedure during childhood - Social History Smoking Status: Never Smoker Substance Use Type: Alcohol - Medications Home Medications: Home Medications Medication Instructions Recorded Confirmed Last Taken Type Potassium Chloride [K-Dur] 20 meq PO BID 05/24/19 10/05/19 Unknown History Albuterol Sulfate [Proair 2 puff IH Q4HR PRN #1 aer.pw.bas 05/27/19 10/05/19 Unknown Rx Digihaler] Ipratropium (Nf) [Atrovent HFA 2 puff IH Q6HR PRN #1 inha 07/19/19 10/05/19 Unknown Rx 17MCG/PUFF] Aspirin [Adult Aspirin] 81 mg PO QDAY #30 07/27/19 10/05/19 Unknown Rx Albuterol Sulfate [Proair 90 mcg IH DAILY #1 aer.pw.bas 08/01/19 10/05/19 Unknown Rx Digihaler] Furosemide [Lasix TAB] 20 mg PO QDAY #30 09/09/19 10/05/19 Unknown Rx OLANzapine [ZyPREXA] 5 mg PO QDAY #30 tablet 09/17/19 10/05/19 Unknown Rx Benzonatate [Tessalon Perles] 100 mg PO Q8HR #10 capsule 09/29/19 10/05/19 Unknown Rx predniSONE [Deltasone] 20 mg PO QDAY #5 tab 09/29/19 10/05/19 Unknown Rx ED Physical Exam - General Limitations: No Limitations General appearance: alert, in no apparent distress - Head Head exam: Present: atraumatic, normocephalic, normal inspection - Eye Eye exam: Present: normal appearance, PERRL - ENT ENT exam: Present: normal exam, normal orophraynx, mucous membranes moist - Neck Neck exam: Present: normal inspection, full ROM. Absent: tenderness, meningismus, lymphadenopathy, thyromegaly - Respiratory Respiratory exam: Present: wheezes (Mild). Absent: respiratory distress, rales, rhonchi, chest wall tenderness, accessory muscle use, decreased breath sounds, prolonged expiratory - Cardiovascular Cardiovascular Exam: Present: regular rate, normal rhythm, normal heart sounds - GI/Abdominal GI/Abdominal exam: Present: soft, normal bowel sounds. Absent: distended, tenderness, guarding, rebound, rigid, organomegaly, mass, bruit, pulsatile mass, hernia - Extremities Exam Extremities exam: Present: normal inspection, full ROM, normal capillary refill. Absent: tenderness, pedal edema, calf tenderness - Back Exam Back exam: Present: normal inspection, full ROM. Absent: tenderness, CVA tenderness (R), CVA tenderness (L), muscle spasm, paraspinal tenderness, vertebral tenderness - Neurological Exam Neurological exam: Present: alert, oriented X3, CN II-XII intact, normal gait, reflexes normal - Psychiatric Psychiatric exam: Present: normal mood - Skin Skin exam: Present: warm, intact, normal color ED Course Vital Signs 10/03/19 23:40 Temperature 98.1 F Pulse Rate 104 H Respiratory 22 Rate Blood Pressure 130/90 O2 Sat by Pulse 94 Oximetry ED Medical Decision Making - Medical Decision Making Mr. Garcia is 75 years old male, familiar to me and to this ER staff. Patient with almost a daily visit to the ER especially at night. Patient is homeless. Patient presented to the ER stating that he is having shortness of breath. Patient denied any fever or chills. Patient has been evaluated by social services technician several times but patient is not following the order and recommendation. Lakia ent will come to the ER and ask for food and stay overnight and will leave in the morning. Patient refused labs and x-rays. Patient given albuterol/Atrovent breathing treatment and given a follow-up with [facility] for further management. Critical care attestation.: If time is entered above; I have spent that time in minutes in the direct care of this critically ill patient, excluding procedure time. ED Disposition Clinical Impression: COPD exacerbation Disposition: DC-01 TO HOME OR SELFCARE Is pt being admited?: No Condition: Stable Instructions: Chronic Obstructive Pulmonary Disease (ED) Referrals: [facility] [Provider Group] - 3-5 Days
[2019-10-04] MEDS: IPRATROPIUM/ALBUTEROL SULFATE 3 ML AMPUL.NEB IH ONE (00:16)
== END 2019-10-04 01:00 | disposition home or self-care (01) ==
LOC: ED 23:12
DX: J44.1 Chronic obstructive pulmonary disease with (acute) exacerbation (principal); I11.0 Hypertensive heart disease with heart failure; I50.9 Heart failure, unspecified; F03.90 Unspecified dementia, unspecified severity, without behavioral disturbance, psychotic disturbance, mood disturbance, and anxiety; Z98.890 Other specified postprocedural states; Z88.2 Allergy status to sulfonamides; Z88.6 Allergy status to analgesic agent
CPT/HCPCS: 94640

== ENCOUNTER 2019-10-04 19:56 | Emergency (ER) | payer MEDICARE ==
[2019-10-04 21:16] LABS: Basophils # (Auto) 0.1 K/mm3 (0.0-0.1); Basophils % (Auto) 0.6 % (0.0-1.8); Eosinophils % (Auto) 0.3 % (0.0-4.3); Hematocrit 43.9 % (35.5-45.6); Hemoglobin 14.3 gm/dl (11.8-15.2); Lymphocytes # (Auto) 1.2 K/mm3 (1.2-5.4); Lymphocytes % (Auto) 7.9 % (13.4-35.0); Mean Corpuscular HGB Conc 33 % (32-34); Mean Corpuscular Volume 90 fl (84-94); Monocytes # (Auto) 0.6 K/mm3 (0.0-0.8); Platelet Count 377 K/mm3 (140-440); Red Blood Count 4.89 M/mm3 (3.65-5.03); Red Cell Distribution Width 14.5 % (13.2-15.2)
[2019-10-04 21:35] LABS: BUN/Creatinine Ratio 31; Blood Urea Nitrogen 34 mg/dL (9-20); Calcium 9.7 mg/dL (8.4-10.2); Hemolysis Index 22
[2019-10-05] MEDS ORDERED: ZIPRASIDONE MESYLATE 20 MG VIAL IM ONE ×2 (00:17→00:20)
[2019-10-05] MEDS ORDERED: WATER FOR INJ Sterile (PF) 10 ML ONE (00:17)
[2019-10-05 00:33] LABS: Amphetamine Screen,Urine PRESUMPTIVE NEGATIVE; Benzodiazepines Screen,Urine PRESUMPTIVE NEGATIVE; Cannabinoid Screen,Urine PRESUMPTIVE NEGATIVE; Cocaine Screen,Urine PRESUMPTIVE NEGATIVE; Methadone Screen,Urine PRESUMPTIVE NEGATIVE; Opiate Screen,Urine PRESUMPTIVE NEGATIVE
[2019-10-05 00:34] LABS: Bilirubin,Urine NEG (Negative); Blood,Urine NEG (Negative); Color,Urine Yellow (Yellow); Mucus,Urine FEW /HPF; Protein,Urine <15 mg/dL mg/dL (Negative); Urobilinogen,Urine < 2.0 mg/dL (<2.0)
--- NOTE | 2019-10-05 00:43 | Emergency Department Report ---
<TYRON EASLEY M - Last Filed: 10/05/19 13:49> ED Psych HPI - General Chief Complaint: Psych Stated Complaint: BREATHING PROBLEMS Time Seen by Provider: 10/04/19 23:36 - Related Data Home Medications Medication Instructions Recorded Confirmed Last Taken Potassium Chloride [K-Dur] 20 meq PO BID 05/24/19 10/05/19 Unknown Previous Rx's Medication Instructions Recorded Last Taken Type Albuterol Sulfate [Proair 2 puff IH Q4HR PRN #1 aer.pw.bas 05/27/19 Unknown Rx Digihaler] Ipratropium (Nf) [Atrovent HFA 2 puff IH Q6HR PRN #1 inha 07/19/19 Unknown Rx 17MCG/PUFF] Aspirin [Adult Aspirin] 81 mg PO QDAY #30 07/27/19 Unknown Rx Albuterol Sulfate [Proair 90 mcg IH DAILY #1 aer.pw.bas 08/01/19 Unknown Rx Digihaler] Furosemide [Lasix TAB] 20 mg PO QDAY #30 09/09/19 Unknown Rx OLANzapine [ZyPREXA] 5 mg PO QDAY #30 tablet 09/17/19 Unknown Rx Benzonatate [Tessalon Perles] 100 mg PO Q8HR #10 capsule 09/29/19 Unknown Rx predniSONE [Deltasone] 20 mg PO QDAY #5 tab 09/29/19 Unknown Rx Allergies Allergy/AdvReac Type Severity Reaction Status Date / Time Sulfa (Sulfonamide Allergy Severe Itching Verified 10/04/19 20:20 Antibiotics) acetaminophen [From Tylenol] Allergy Angioedema Verified 10/04/19 20:20 amitriptyline [From Elavil] Allergy Unknown Verified 10/04/19 20:20 chlorpromazine Allergy Unknown Verified 10/04/19 20:20 [From Thorazine] diphenhydramine Allergy Angioedema Verified 10/04/19 20:20 [From Benadryl] Iodinated Contrast Media Allergy Unknown Verified 10/04/19 20:20 Penicillins Allergy Unknown Verified 10/04/19 20:20 ED Past Medical Hx - Medications Home Medications: Home Medications Medication Instructions Recorded Confirmed Last Taken Type Potassium Chloride [K-Dur] 20 meq PO BID 05/24/19 10/05/19 Unknown History Albuterol Sulfate [Proair 2 puff IH Q4HR PRN #1 aer.pw.bas 05/27/19 10/05/19 Unknown Rx Digihaler] Ipratropium (Nf) [Atrovent HFA 2 puff IH Q6HR PRN #1 inha 07/19/19 10/05/19 Unknown Rx 17MCG/PUFF] Aspirin [Adult Aspirin] 81 mg PO QDAY #30 07/27/19 10/05/19 Unknown Rx Albuterol Sulfate [Proair 90 mcg IH DAILY #1 aer.pw.bas 08/01/19 10/05/19 Unknown Rx Digihaler] Furosemide [Lasix TAB] 20 mg PO QDAY #30 09/09/19 10/05/19 Unknown Rx OLANzapine [ZyPREXA] 5 mg PO QDAY #30 tablet 09/17/19 10/05/19 Unknown Rx Benzonatate [Tessalon Perles] 100 mg PO Q8HR #10 capsule 09/29/19 10/05/19 Unknown Rx predniSONE [Deltasone] 20 mg PO QDAY #5 tab 09/29/19 10/05/19 Unknown Rx ED Medical Decision Making - Lab Data Result diagrams: 10/04/19 20:58 10/04/19 20:58 ED Disposition Clinical Impression: Suicidal ideation Schizoaffective disorder Qualifiers: Schizoaffective disorder type: unspecified Qualified Code(s): F25.9 - Schizoaffective disorder, unspecified Disposition: DC-01 TO HOME OR SELFCARE Is pt being admited?: No Does the pt Need Aspirin: No Condition: Stable Instructions: Schizophrenia (ED), Suicide Prevention for Adults (ED) Referrals: [facility] [Primary Care Provider] - 3-5 Days Time of Disposition: 13:50 <BRIAN DUBON - Last Filed: 10/05/19 20:39> ED Psych HPI - General Source: patient Mode of arrival: Ambulatory - History of Present Illness Initial Comments: Patient is a 74-year-old male with a past medical history of schizoaffective disorder as well as COPD and CHF who is presenting with suicidal ideations. Patient states that "I was thinking about ending it all". Patient then made a gesture of shooting a gun with his hand. I asked the patient does he have a gun and he stated that he gave it away and came to the emergency department for evaluation. Patient states he is short of breath however he is recently compliant with all of his medications and is not exhibiting any symptoms or shortness of breath at this time. ED Review of Systems ROS: Stated complaint: BREATHING PROBLEMS Other details as noted in HPI Comment: All other systems reviewed and negative ED Past Medical Hx - Past Medical History Hx Hypertension: Yes Hx Congestive Heart Failure: Yes Hx Asthma: Yes Hx COPD: Yes Hx Dementia: Yes (Hx says dementia) Additional medical history: hernia repair, dementia - Surgical History Additional Surgical History: hernia repair. eye sx/procedure during childhood - Social History Smoking Status: Never Smoker Substance Use Type: None ED Physical Exam - General Limitations: No Limitations General appearance: alert, in no apparent distress - Head Head exam: Present: atraumatic, normocephalic - Eye Eye exam: Present: normal appearance - ENT ENT exam: Present: normal orophraynx, mucous membranes moist - Neck Neck exam: Present: normal inspection - Respiratory Respiratory exam: Present: normal lung sounds bilaterally. Absent: respiratory distress, wheezes, rales, rhonchi - Cardiovascular Cardiovascular Exam: Present: regular rate, normal rhythm. Absent: systolic murmur, diastolic murmur, rubs, gallop - GI/Abdominal GI/Abdominal exam: Present: soft, normal bowel sounds - Rectal Rectal exam: Present: deferred - Extremities Exam Extremities exam: Present: normal inspection - Back Exam Back exam: Present: normal inspection - Neurological Exam Neurological exam: Present: alert, oriented X3 - Psychiatric Psychiatric exam: Present: normal affect, normal mood - Skin Skin exam: Present: warm, dry, intact, normal color. Absent: rash ED Course Vital Signs 10/04/19 10/05/19 10/05/19 20:18 00:00 08:00 Temperature 97.5 F L 98.2 F 97.3 F L Pulse Rate 115 H 111 H 91 H Respiratory 18 16 20 Rate Blood Pressure 109/75 Blood Pressure 156/84 134/92 [Left] O2 Sat by Pulse 95 96 Oximetry 10/05/19 14:30 Temperature 97.5 F L Pulse Rate 97 H Respiratory 20 Rate Blood Pressure Blood Pressure 109/73 [Left] O2 Sat by Pulse 95 Oximetry - Reevaluation(s) Reevaluation #1: 10/05/19 00:42 Patient was very defiant to taking off his backpack or changing into a gown. Patient states just because he stated that he was going to kill himself and did not mean that we can keep him here in the emergency department. Patient stated he wanted to leave AMA. Patient was made a 1013 for his protection. Reevaluation #2: 10/05/19 00:43 Patient is medically cleared for psychiatric evaluation Reevaluation #3: 10/05/19 20:38 LYSSA AL III Male : 1945 [facility]# [id number] 10/05/19 11:14 - Agricultural Research Director's Note by KRUPA NAJERA [facility] Num: [id number] : 1945 Patient Age: 74 MENTAL HEALTH ASSESSMENT COMPLETED: Pt is a 74 year old male who presents to the ED with SI w/ plan due to multiple stressors. Pt carries a diagnosis of Schizoaffective Disorder. Pt reports, he has "a little bit of Schizphrenia." Pt reports that he sees a psychiatrist at [facility]; pt is compliant with his medications. Pt has loud slow speech. Pt rambles and has tangential thought process. Pt denies any AH or VH. Pt is disheveled with poor hygeine.Pt has good eye contact. Pt has impaired concentration/attention.Pt denies homicidal ideations, plans or attempts. Pt made suicidal statements to the provider at triage with a plan to shoot himself in the head. Pt reports triggers as lack of support system, housing situation and medical problems. Pt has suicide attempts in the past, but pt will provide no details.Pt denies drug use; pt tox is negative. "I only take my water pill and my medicines."Pt is currently homeless; pt was previously living in a private detention. "I had a one time, and her came and got her." Pt mood range from being funny/telling jokes to opening up about stressors/depression/SI. RECOMMENDATION: Refer for inpatient psychiatric treatment due to SI w/plan. Krupa Reynaga LPC Initialized on 10/05/19 11:14 - END OF NOTE Reevaluation #4: 10/05/19 20:37 LYSSA AL III Male : 1945 [facility]# [id number] 10/05/19 11:21 - [facility] Agricultural Research Director's Note by KRUPA NAJERA Acct Num: [id number] : 1945 Patient Age: 74 ACCEPTED: Pt has been accepted to 5th floor/[facility] by Dr. Limon. Admitting diagnosis: F25.1 Schizoaffective, Depressive Type Pt will be going to Room 516. New A number is [id number]. Krupa Reynaga LPC Initialized on 10/05/19 11:21 - END OF NOTE ED Medical Decision Making - Lab Data Result diagrams: 10/04/19 20:58 10/04/19 20:58 Lab Results 10/04/19 10/04/19 10/04/19 Range/Units 20:58 20:58 20:58 WBC (4.5-11.0) K/mm3 RBC (3.65-5.03) M/mm3 Hgb (11.8-15.2) gm/dl Hct (35.5-45.6) % MCV (84-94) fl MCH (28-32) pg MCHC (32-34) % RDW (13.2-15.2) % Plt Count (140-440) K/mm3 Lymph % (Auto) (13.4-35.0) % Bremer % (Auto) (0.0-7.3) % Eos % (Auto) (0.0-4.3) % Baso % (Auto) (0.0-1.8) % Lymph # (1.2-5.4) K/mm3 Bremer # (0.0-0.8) K/mm3 Eos # (0.0-0.4) K/mm3 Baso # (0.0-0.1) K/mm3 Seg Neutrophils % (40.0-70.0) % Seg Neutrophils # (1.8-7.7) K/mm3 Sodium 139 (137-145) mmol/L Potassium 5.0 (3.6-5.0) mmol/L Chloride 100.9 (98-107) mmol/L Carbon Dioxide 25 (22-30) mmol/L Anion Gap 18 mmol/L BUN 34 H (9-20) mg/dL Creatinine 1.1 (0.8-1.5) mg/dL Estimated GFR > 60 ml/min BUN/Creatinine Ratio 31 % Glucose 178 H (75-100) mg/dL Calcium 9.7 (8.4-10.2) mg/dL Urine Color (Yellow) Urine Turbidity (Clear) Urine pH (5.0-7.0) Ur Specific [place] (1.003-1.030) Urine Protein (Negative) mg/dL Urine Glucose (UA) (Negative) mg/dL Urine Ketones (Negative) mg/dL Urine Blood (Negative) Urine Nitrite (Negative) Urine Bilirubin (Negative) Urine Urobilinogen (<2.0) mg/dL Ur Leukocyte Esterase (Negative) Urine WBC (Auto) (0.0-6.0) /HPF Urine RBC (Auto) (0.0-6.0) /HPF U Epithel Cells (Auto) (0-13.0) /HPF Urine Mucus /HPF Salicylates < 0.3 L (2.8-20.0) mg/dL Urine Opiates Screen Urine Methadone Screen Acetaminophen < 5.0 L (10.0-30.0) ug/mL Ur Barbiturates Screen Ur Phencyclidine Scrn Ur Amphetamines Screen U Benzodiazepines Scrn Urine Cocaine Screen U Marijuana (THC) Screen Plasma/Serum Alcohol (0-0.07) % 10/04/19 10/04/19 10/04/19 Range/Units 20:58 20:58 23:48 WBC 14.7 H (4.5-11.0) K/mm3 RBC 4.89 (3.65-5.03) M/mm3 Hgb 14.3 (11.8-15.2) gm/dl Hct 43.9 (35.5-45.6) % MCV 90 (84-94) fl MCH 29 (28-32) pg MCHC 33 (32-34) % RDW 14.5 (13.2-15.2) % Plt Count 377 (140-440) K/mm3 Lymph % (Auto) 7.9 L (13.4-35.0) % Bremer % (Auto) 4.0 (0.0-7.3) % Eos % (Auto) 0.3 (0.0-4.3) % Baso % (Auto) 0.6 (0.0-1.8) % Lymph # 1.2 (1.2-5.4) K/mm3 Bremer # 0.6 (0.0-0.8) K/mm3 Eos # 0.0 (0.0-0.4) K/mm3 Baso # 0.1 (0.0-0.1) K/mm3 Seg Neutrophils % 87.2 H (40.0-70.0) % Seg Neutrophils # 12.8 H (1.8-7.7) K/mm3 Sodium (137-145) mmol/L Potassium (3.6-5.0) mmol/L Chloride (98-107) mmol/L Carbon Dioxide (22-30) mmol/L Anion Gap mmol/L BUN (9-20) mg/dL Creatinine (0.8-1.5) mg/dL Estimated GFR ml/min BUN/Creatinine Ratio % Glucose (75-100) mg/dL Calcium (8.4-10.2) mg/dL Urine Color Yellow (Yellow) Urine Turbidity Clear (Clear) Urine pH 5.0 (5.0-7.0) Ur Specific [place] 1.018 (1.003-1.030) Urine Protein <15 mg/dl (Negative) mg/dL Urine Glucose (UA) Neg (Negative) mg/dL Urine Ketones Neg (Negative) mg/dL Urine Blood Neg (Negative) Urine Nitrite Neg (Negative) Urine Bilirubin Neg (Negative) Urine Urobilinogen < 2.0 (<2.0) mg/dL Ur Leukocyte Esterase Neg (Negative) Urine WBC (Auto) 1.0 (0.0-6.0) /HPF Urine RBC (Auto) 2.0 (0.0-6.0) /HPF U Epithel Cells (Auto) 1.0 (0-13.0) /HPF Urine Mucus Few /HPF Salicylates (2.8-20.0) mg/dL Urine Opiates Screen Urine Methadone Screen Acetaminophen (10.0-30.0) ug/mL Ur Barbiturates Screen Ur Phencyclidine Scrn Ur Amphetamines Screen U Benzodiazepines Scrn Urine Cocaine Screen U Marijuana (THC) Screen Plasma/Serum Alcohol < 0.01 (0-0.07) % 10/04/19 Range/Units 23:48 WBC (4.5-11.0) K/mm3 RBC (3.65-5.03) M/mm3 Hgb (11.8-15.2) gm/dl Hct (35.5-45.6) % MCV (84-94) fl MCH (28-32) pg MCHC (32-34) % RDW (13.2-15.2) % Plt Count (140-440) K/mm3 Lymph % (Auto) (13.4-35.0) % Bremer % (Auto) (0.0-7.3) % Eos % (Auto) (0.0-4.3) % Baso % (Auto) (0.0-1.8) % Lymph # (1.2-5.4) K/mm3 Bremer # (0.0-0.8) K/mm3 Eos # (0.0-0.4) K/mm3 Baso # (0.0-0.1) K/mm3 Seg Neutrophils % (40.0-70.0) % Seg Neutrophils # (1.8-7.7) K/mm3 Sodium (137-145) mmol/L Potassium (3.6-5.0) mmol/L Chloride (98-107) mmol/L Carbon Dioxide (22-30) mmol/L Anion Gap mmol/L BUN (9-20) mg/dL Creatinine (0.8-1.5) mg/dL Estimated GFR ml/min BUN/Creatinine Ratio % Glucose (75-100) mg/dL Calcium (8.4-10.2) mg/dL Urine Color (Yellow) Urine Turbidity (Clear) Urine pH (5.0-7.0) Ur Specific [place] (1.003-1.030) Urine Protein (Negative) mg/dL Urine Glucose (UA) (Negative) mg/dL Urine Ketones (Negative) mg/dL Urine Blood (Negative) Urine Nitrite (Negative) Urine Bilirubin (Negative) Urine Urobilinogen (<2.0) mg/dL Ur Leukocyte Esterase (Negative) Urine WBC (Auto) (0.0-6.0) /HPF Urine RBC (Auto) (0.0-6.0) /HPF U Epithel Cells (Auto) (0-13.0) /HPF Urine Mucus /HPF Salicylates (2.8-20.0) mg/dL Urine Opiates Screen Presumptive negative Urine Methadone Screen Presumptive negative Acetaminophen (10.0-30.0) ug/mL Ur Barbiturates Screen Presumptive negative Ur Phencyclidine Scrn Presumptive negative Ur Amphetamines Screen Presumptive negative U Benzodiazepines Scrn Presumptive negative Urine Cocaine Screen Presumptive negative U Marijuana (THC) Screen Presumptive negative Plasma/Serum Alcohol (0-0.07) % Critical care attestation.: If time is entered above; I have spent that time in minutes in the direct care of this critically ill patient, excluding procedure time. ED Disposition Is pt being admited?: No Does the pt Need Aspirin: No
[2019-10-05 14:50] VITALS: BP 109/73
== END 2019-10-05 14:30 | disposition home or self-care (01) ==
LOC: ED 19:56 → EEVIPCON 19:56 → ED 10-05 14:30
DX: R45.851 Suicidal ideations (principal); F25.9 Schizoaffective disorder, unspecified; R06.02 Shortness of breath; I11.0 Hypertensive heart disease with heart failure; I50.9 Heart failure, unspecified; J44.9 Chronic obstructive pulmonary disease, unspecified; F03.90 Unspecified dementia, unspecified severity, without behavioral disturbance, psychotic disturbance, mood disturbance, and anxiety; Z98.890 Other specified postprocedural states; Z88.2 Allergy status to sulfonamides; Z88.8 Allergy status to other drugs, medicaments and biological substances
CPT/HCPCS: 36415; 80048; 80307; 81001; 85025; 96372; 99284; J3486; 80320; G0480

== ENCOUNTER 2019-10-05 11:25 | Inpatient (IN) | payer MEDICARE ==
[2019-10-05] MEDS ORDERED: MELATONIN 5 MG TAB PO PRN (12:41)
[2019-10-05] MEDS ORDERED: ZIPRASIDONE MESYLATE 20 MG VIAL IM PRN (12:42)
--- NOTE | 2019-10-05 12:58 | Consultation ---
History of Present Illness - Reason for Consult Consult date: 10/05/19 Requesting physician: SKY CAT - History of Present Illness 74 YO Male with HTN, Diastolic CHF, Asthma, Dementia, Obesity Hypoventilation Syndrome, Schizoaffective Disorder admitted to [facility] for psychiatric stabilization. Consult placed by for Medical management. Patient seen and evaluated. Lab and imaging studies reviewed. Patient resting comfortably. Patient denies fever, chills, chest pain, shortness of breath, productive cough, recent ill contacts, or known exposure to COVID-19. 1013 placed for suicidal ideation. No reported nursing events. Past History Past Medical History: heart failure, hypertension, other (See HPI) Past Surgical History: hernia repair, Other (Eye surgery) Social history: single Family history: hypertension Medications and Allergies Allergies Allergy/AdvReac Type Severity Reaction Status Date / Time Sulfa (Sulfonamide Allergy Severe Itching Verified 10/04/19 20:20 Antibiotics) acetaminophen [From Tylenol] Allergy Angioedema Verified 10/04/19 20:20 amitriptyline [From Elavil] Allergy Unknown Verified 10/04/19 20:20 chlorpromazine Allergy Unknown Verified 10/04/19 20:20 [From Thorazine] diphenhydramine Allergy Angioedema Verified 10/04/19 20:20 [From Benadryl] Iodinated Contrast Media Allergy Unknown Verified 10/04/19 20:20 Penicillins Allergy Unknown Verified 10/04/19 20:20 Home Medications Medication Instructions Recorded Confirmed Last Taken Type Potassium Chloride [K-Dur] 20 meq PO BID 05/24/19 09/17/19 Unknown History Albuterol Sulfate [Proair 2 puff IH Q4HR PRN #1 aer.pw.bas 05/27/19 09/17/19 Unknown Rx Digihaler] Ipratropium (Nf) [Atrovent HFA 2 puff IH Q6HR PRN #1 inha 07/19/19 09/17/19 Unknown Rx 17MCG/PUFF] Aspirin [Adult Aspirin] 81 mg PO QDAY #30 07/27/19 09/17/19 Unknown Rx Albuterol Sulfate [Proair 90 mcg IH DAILY #1 aer.pw.bas 08/01/19 09/17/19 Unknown Rx Digihaler] Furosemide [Lasix TAB] 20 mg PO QDAY #30 09/09/19 09/17/19 Unknown Rx OLANzapine [ZyPREXA] 5 mg PO QDAY #30 tablet 09/17/19 Unknown Rx Benzonatate [Tessalon Perles] 100 mg PO Q8HR #10 capsule 09/29/19 Unknown Rx predniSONE [Deltasone] 20 mg PO QDAY #5 tab 09/29/19 Unknown Rx Active Meds: Active Medications Melatonin (Melatonin) 5 mg PO QHS PRN PRN Reason: Sleep Risperidone (Risperdal) 0.25 mg PO BID AVELINA Trazodone HCl (Desyrel) 50 mg PO QHS AVELINA Ziprasidone (Geodon) 10 mg IM Q6H PRN PRN Reason: Agitation Review of Systems Constitutional: no weight loss, no weight gain, no fever, no chills Ears, nose, mouth and throat: no ear pain, no ear discharge, no tinnitis, no decreased hearing, no nose pain Cardiovascular: no chest pain, no orthopnea, no palpitations, no rapid/irregular heart beat, no syncope Respiratory: no cough, no cough with sputum, no excessive sputum, no hemoptysis, no shortness of breath Gastrointestinal: no abdominal pain, no nausea, no vomiting, no diarrhea, no constipation, no change in bowel habits Genitourinary Male: no hematuria, no flank pain, no discharge, no urinary frequency, no urinary hesitancy Rectal: no pain, no incontinence, no bleeding Musculoskeletal: no neck stiffness, no neck pain, no shooting arm pain, no arm numbness/tingling, no shooting leg pain, no leg numbness/tingling Integumentary: no rash, no pruritis, no wounds Neurological: no head injury, no paralysis, no numbness, no tingling, no seizures, no syncope Psychiatric: sleep disturbances, suicidal ideation, depression, hopelessness, anhedonia, no memory loss, no change in sleep habits Endocrine: no cold intolerance, no heat intolerance, no polyphagia, no excessive thirst, no polydipsia, no polyuria, no nocturia Hematologic/Lymphatic: no easy bruising, no easy bleeding, no lymphadenopathy, no lymphedema Allergic/Immunologic: no urticaria, no wheezing, no anaphylaxis, no angioedema Exam - Constitutional General appearance: Present: no acute distress, obese - EENT Eyes: Present: PERRL ENT: hearing intact, clear oral mucosa - Neck Neck: Present: supple, normal ROM - Respiratory Respiratory effort: normal Respiratory: bilateral: CTA - Cardiovascular Heart Sounds: Present: S1 & S2. Absent: rub, click - Extremities Extremities: pulses symmetrical, No edema Peripheral Pulses: within normal limits - Abdominal General gastrointestinal: Present: soft, non-tender, non-distended, normal bowel sounds Male genitourinary: Present: normal - Integumentary Integumentary: Present: clear, warm, dry - Musculoskeletal Musculoskeletal: gait normal, strength equal bilaterally - Psychiatric Psychiatric: appropriate mood/affect, intact judgment & insight, depressed - Neurologic Neurologic: CNII-XII intact, moves all extremities Assessment and Plan - Patient Problems (1) CHF (congestive heart failure) Status: Acute Qualifiers: Heart failure type: diastolic Heart failure chronicity: chronic Qualified Code(s): I50.32 - Chronic diastolic (congestive) heart failure Plan to address problem: Currently compensated. No decompensation at this time. Continue Lasix daily, continue potassium supplementation daily, cardiac diet, continue fluid restriction with no more than 8 cups of water daily (2) Hypertension Status: Acute Qualifiers: Hypertension type: essential hypertension Qualified Code(s): I10 - Essential (primary) hypertension Plan to address problem: Monitor blood pressure every shift, continue medical management. (3) Leukocytosis Status: Acute Qualifiers: Leukocytosis type: leukemoid reaction Qualified Code(s): D72.823 - Leukemoid reaction Plan to address problem: Secondary to steroid use, no signs of infection, continue supportive care. Repeat CBC, chest x-ray, urinalysis if patient develops fever. (4) Obesity hypoventilation syndrome Status: Acute Plan to address problem: Submental oxygen as clinically indicated, CPAP nightly as tolerated. (5) Advance care planning Status: Acute Plan to address problem: Disease education conducted, patient is full code, patient knowledge understanding and agreement with care plan, +30 minutes.
[2019-10-05] MEDS ORDERED: ALBUTEROL SULFATE IH PRN (13:04)
[2019-10-05] MEDS ORDERED: NON-FORMULARY EACH (Ipratropium (Nf) 2 PUFF) IH PRN (13:04)
[2019-10-05] MEDS ORDERED: ALBUTEROL 2.5 MG/3 ML NEBU IH PRN (14:19)
[2019-10-05] MEDS: BENZONATATE 100 MG CAP PO SCH ×2 (16:54→21:59)
[2019-10-05] MEDS: POTASSIUM CHLORIDE ER 20 MEQ TAB PO SCH (21:59)
[2019-10-05] MEDS: traZODone 50 MG TAB PO SCH (21:59)
[2019-10-05] MEDS ORDERED: risperiDONE 0.25 MG TAB PO SCH (22:00)
[2019-10-06] MEDS: BENZONATATE 100 MG CAP PO SCH ×3 (06:18→21:33)
[2019-10-06] MEDS: FUROSEMIDE 20 MG TAB PO SCH (06:18)
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
[2019-10-06] MEDS: ASPIRIN EC 81 MG TAB PO SCH (11:11)
[2019-10-06] MEDS: POTASSIUM CHLORIDE ER 20 MEQ TAB PO SCH ×2 (11:13→21:33)
[2019-10-06] MEDS: predniSONE 20 MG TAB PO SCH (11:13)
[2019-10-06] MEDS: SERTRALINE 25 MG TAB PO SCH (11:31)
[2019-10-06 19:02] LABS: Bilirubin,Urine NEG (Negative); Blood,Urine NEG (Negative); Color,Urine Yellow (Yellow); Mucus,Urine FEW /HPF; Protein,Urine <15 mg/dL mg/dL (Negative); Urobilinogen,Urine < 2.0 mg/dL (<2.0)
[2019-10-06] MEDS: traZODone 50 MG TAB PO SCH (21:33)
[2019-10-07] MEDS: FUROSEMIDE 20 MG TAB PO SCH (05:44)
[2019-10-07] MEDS: BENZONATATE 100 MG CAP PO SCH ×3 (05:44→21:36)
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
[2019-10-07] MEDS: predniSONE 20 MG TAB PO SCH (09:17)
[2019-10-07] MEDS: ASPIRIN EC 81 MG TAB PO SCH (09:17)
[2019-10-07] MEDS: POTASSIUM CHLORIDE ER 20 MEQ TAB PO SCH ×2 (09:17→21:36)
[2019-10-07] MEDS: SERTRALINE 25 MG TAB PO SCH (09:17)
[2019-10-07] MEDS ORDERED: SERTRALINE 25 MG TAB PO SCH ×2 (09:21→10:00)
[2019-10-07] MEDS ORDERED: SERTRALINE 25 MG TAB PO ONE (10:00)
[2019-10-07] MEDS: traZODone 50 MG TAB PO SCH (21:36)
[2019-10-08] MEDS: BENZONATATE 100 MG CAP PO SCH ×3 (06:28→21:54)
[2019-10-08] MEDS: FUROSEMIDE 20 MG TAB PO SCH (06:28)
[2019-10-08 07:58] LABS: Basophils # (Auto) 0.1 K/mm3 (0.0-0.1); Basophils % (Auto) 0.4 % (0.0-1.8); Eosinophils # (Auto) 0.3 K/mm3 (0.0-0.4); Eosinophils % (Auto) 2.3 % (0.0-4.3); Hemoglobin 15.6 gm/dl (11.8-15.2); Lymphocytes # (Auto) 2.9 K/mm3 (1.2-5.4); Lymphocytes % (Auto) 20.9 % (13.4-35.0); Mean Corpuscular HGB Conc 34 % (32-34); Mean Corpuscular Volume 88 fl (84-94); Monocytes # (Auto) 1.5 K/mm3 (0.0-0.8); Monocytes % (Auto) 10.9 % (0.0-7.3); Platelet Count 332 K/mm3 (140-440); Red Blood Count 5.24 M/mm3 (3.65-5.03); Red Cell Distribution Width 14.2 % (13.2-15.2)
[2019-10-08 08:12] LABS: Alanine Aminotransferase 16 units/L (7-56); Albumin 4.4 g/dL (3.9-5); BUN/Creatinine Ratio 25; Blood Urea Nitrogen 28 mg/dL (9-20); Calcium 9.8 mg/dL (8.4-10.2); Chol/HDL Ratio 3.59 %; HDL Cholesterol 54 mg/dL (40-59); Hemolysis Index 8; LDL Cholesterol,Direct 126 mg/dL (50-130)
[2019-10-08] MEDS: ASPIRIN EC 81 MG TAB PO SCH (09:43)
[2019-10-08] MEDS: SERTRALINE 50 MG TAB PO SCH (09:43)
[2019-10-08] MEDS: predniSONE 20 MG TAB PO SCH (09:43)
--- NOTE | 2019-10-08 10:01 | Progress Note ---
Subjective Date of service: 10/08/19 Principal diagnosis: Schizoaffective Disorder, Depressive Type Subjective Comment: Per Nurse Note: Pt met in the room relaxing. A&OX3. Reports the medications he took earlier make him weak. Denies pain, SI or HI. No acute distress observed or reported. Will continue to monitor. Per Provider Note: Patient was seen the same in the room resting comfortably after finishing breakfast. Patient reported feels good better than yesterday, reports care and the staff has been good. Endorses good appetite and sleep. No SI HI. Reason for continued inpatient treatment: Elevated TSH, pending t3t4. The patient admits to underlying depression, he also expresses fear for his life upon discharge. MENTAL STATUS EXAMINATION General Appearance and Behavior: Age appropriate, good hygiene, wearing appropriate clothes, lying in bed, good eye contact, cooperative with questioning and polite Cooperation: Participating/engaged Psychomotor Behavior: unremarkable and within normal limits Mood: Good Affect and affective range: Congruent with mood Thought Process: Fluent/Logical Thought Content: Within reality Speech: Normal volume, Regular rate and rhythm Intellectual Functioning: Average Suicidal Ideation: Passive SI Homicidal Ideation: Denies HI Impulse Control: Impaired Insight and Judgment: Normal insight and judgment Memory: Normal Attention: Normal Orientation: Alert, oriented Assessment and Plan - Patient Problems (1) Schizoaffective disorder, depressive type Current Visit: Yes Status: Acute Treatment Plan Elevated Pottasium, consult Hospitalist. T3 T4 labs pending. Continue current medications Patient will be admitted for inpatient psychiatric evaluation, medication adjustment and close monitoring The patient's behavior, mood, sleep and appetite will be closely monitored. Patient will be enrolled in individual and group therapeutic sessions and encouraged to attend. Patient will be provided with a safe and structured environment. Patient's physical health needs will be addressed by the Hospitalist. Hospitalist Consulted Labs including CBC, CMP, Lipid profile and Hemoglobin A1C ordered Social Assessment will be completed and the Adjunct Professor will work with patie nt and family to ensure a suitable and safe disposition Medication adjustment will be made as clinically indicated Usual Wellness Yazidism/Preservation: Increase Zoloft 50mg to decrease underlying depression The patient agreed on the treatment plan, understood the risk, benefit, alternative treatment, potential consequence of no treatment, and gave informed consent. Estimated period of time patient will need to remain in the hospital: [2] Plan for post-hospital care: [Outpatient] Assessment and Plan - Patient Problems (1) Schizoaffective disorder, depressive type Current Visit: Yes Status: Acute Medications and Allergies Allergies Allergy/AdvReac Type Severity Reaction Status Date / Time Sulfa (Sulfonamide Allergy Severe Itching Verified 10/04/19 20:20 Antibiotics) acetaminophen [From Tylenol] Allergy Angioedema Verified 10/04/19 20:20 amitriptyline [From Elavil] Allergy Unknown Verified 10/04/19 20:20 chlorpromazine Allergy Unknown Verified 10/04/19 20:20 [From Thorazine] diphenhydramine Allergy Angioedema Verified 10/04/19 20:20 [From Benadryl] Iodinated Contrast Media Allergy Unknown Verified 10/04/19 20:20 Penicillins Allergy Unknown Verified 10/04/19 20:20 Home Medications Medication Instructions Recorded Confirmed Last Taken Type Potassium Chloride [K-Dur] 20 meq PO BID 05/24/19 10/05/19 Unknown History Albuterol Sulfate [Proair 2 puff IH Q4HR PRN #1 aer.pw.bas 05/27/19 10/05/19 Unknown Rx Digihaler] Ipratropium (Nf) [Atrovent HFA 2 puff IH Q6HR PRN #1 inha 07/19/19 10/05/19 Unknown Rx 17MCG/PUFF] Aspirin [Adult Aspirin] 81 mg PO QDAY #30 07/27/19 10/05/19 Unknown Rx Albuterol Sulfate [Proair 90 mcg IH DAILY #1 aer.pw.bas 08/01/19 10/05/19 Unknown Rx Digihaler] Furosemide [Lasix TAB] 20 mg PO QDAY #30 09/09/19 10/05/19 Unknown Rx OLANzapine [ZyPREXA] 5 mg PO QDAY #30 tablet 09/17/19 10/05/19 Unknown Rx Benzonatate [Tessalon Perles] 100 mg PO Q8HR #10 capsule 09/29/19 10/05/19 Unknown Rx predniSONE [Deltasone] 20 mg PO QDAY #5 tab 09/29/19 10/05/19 Unknown Rx Active Meds: Active Medications Albuterol (Proventil) 2.5 mg IH Q4HRT PRN PRN Reason: Shortness Of Breath Aspirin (Halfprin Ec) 81 mg PO QDAY [facility] Last Admin: 05/03/20 09:43 Dose: 81 mg Documented by: Benzonatate (Tessalon Perles) 100 mg PO Q8HR [facility] Last Admin: 10/08/19 06:28 Dose: 100 mg Documented by: Furosemide (Lasix) 20 mg PO DAILY@0600 [facility] Last Admin: 10/08/19 06:28 Dose: 20 mg Documented by: Ipratropium [place] (Atrovent) 0.5 mg IH Q6HRT [facility] Melatonin (Melatonin) 5 mg PO QHS PRN PRN Reason: Sleep Olanzapine (Zyprexa) 7.5 mg PO QDAY [facility] Last Admin: 10/08/19 09:43 Dose: 7.5 mg Documented by: Potassium Chloride (K-Dur) 20 meq PO BID [facility] Last Admin: 10/07/19 21:36 Dose: 20 meq Documented by: Prednisone (Deltasone) 20 mg PO QDAY [facility] Last Admin: 10/08/19 09:43 Dose: 20 mg Documented by: Sertraline HCl (Zoloft) 50 mg PO QDAY [facility] Last Admin: 10/08/19 09:43 Dose: 50 mg Documented by: Trazodone HCl (Desyrel) 50 mg PO QHS [facility] Last Admin: 10/07/19 21:36 Dose: 50 mg Documented by: Ziprasidone (Geodon) 10 mg IM Q6H PRN PRN Reason: Agitation Results - Results Labs/Vitals: Laboratory Last Values WBC 13.7 K/mm3 (4.5-11.0) H 10/08/19 07:43 RBC 5.24 M/mm3 (3.65-5.03) H 10/08/19 07:43 Hgb 15.6 gm/dl (11.8-15.2) H 10/08/19 07:43 Hct 46.0 % (35.5-45.6) H 10/08/19 07:43 MCV 88 fl (84-94) 10/08/19 07:43 MCH 30 pg (28-32) 10/08/19 07:43 MCHC 34 % (32-34) 10/08/19 07:43 RDW 14.2 % (13.2-15.2) 10/08/19 07:43 Plt Count 332 K/mm3 (140-440) 10/08/19 07:43 Lymph % (Auto) 20.9 % (13.4-35.0) 10/08/19 07:43 [place] % (Auto) 10.9 % (0.0-7.3) H 10/08/19 07:43 Eos % (Auto) 2.3 % (0.0-4.3) 10/08/19 07:43 Baso % (Auto) 0.4 % (0.0-1.8) 10/08/19 07:43 Lymph # 2.9 K/mm3 (1.2-5.4) 10/08/19 07:43 [place] # 1.5 K/mm3 (0.0-0.8) H 10/08/19 07:43 Eos # 0.3 K/mm3 (0.0-0.4) 10/08/19 07:43 Baso # 0.1 K/mm3 (0.0-0.1) 10/08/19 07:43 Seg Neutrophils % 65.5 % (40.0-70.0) 10/08/19 07:43 Seg Neutrophils # 9.0 K/mm3 (1.8-7.7) H 10/08/19 07:43 Sodium 136 mmol/L (137-145) L 10/08/19 07:43 Potassium 5.1 mmol/L (3.6-5.0) H 10/08/19 07:43 Chloride 95.9 mmol/L (98-107) L 10/08/19 07:43 Carbon Dioxide 29 mmol/L (22-30) 10/08/19 07:43 Anion Gap 16 mmol/L 10/08/19 07:43 BUN 28 mg/dL (9-20) H 10/08/19 07:43 Creatinine 1.1 mg/dL (0.8-1.5) 10/08/19 07:43 Estimated GFR > 60 ml/min 10/08/19 07:43 BUN/Creatinine Ratio 25 % 10/08/19 07:43 Glucose 92 mg/dL (75-100) 10/08/19 07:43 POC Glucose 106 (70-105) H 10/05/19 16:14 Hemoglobin A1c 5.9 % (4-6) 10/08/19 07:43 Calcium 9.8 mg/dL (8.4-10.2) 10/08/19 07:43 Total Bilirubin 0.40 mg/dL (0.1-1.2) 10/08/19 07:43 AST 20 units/L (5-40) 10/08/19 07:43 ALT 16 units/L (7-56) 10/08/19 07:43 Alkaline Phosphatase 81 units/L (35-129) 10/08/19 07:43 Total Protein 7.9 g/dL (6.3-8.2) 10/08/19 07:43 Albumin 4.4 g/dL (3.9-5) 10/08/19 07:43 Albumin/Globulin Ratio 1.3 % 10/08/19 07:43 Triglycerides 188 mg/dL (2-149) H 10/08/19 07:43 Cholesterol 194 mg/dL (50-199) 10/08/19 07:43 LDL Cholesterol Direct 126 mg/dL (50-130) 10/08/19 07:43 HDL Cholesterol 54 mg/dL (40-59) 10/08/19 07:43 Cholesterol/HDL Ratio 3.59 % 10/08/19 07:43 TSH 9.340 mlU/mL (0.270-4.200) H 10/08/19 07:43 Urine Color Yellow (Yellow) 10/06/19 18:30 Urine Turbidity Clear (Clear) 10/06/19 18:30 Urine pH 5.0 (5.0-7.0) 10/06/19 18:30 Ur Specific [place] 1.015 (1.003-1.030) 10/06/19 18:30 Urine Protein <15 mg/dl mg/dL (Negative) 10/06/19 18:30 Urine Glucose (UA) Neg mg/dL (Negative) 10/06/19 18:30 Urine Ketones Neg mg/dL (Negative) 10/06/19 18:30 Urine Blood Neg (Negative) 10/06/19 18:30 Urine Nitrite Neg (Negative) 10/06/19 18:30 Urine Bilirubin Neg (Negative) 10/06/19 18:30 Urine Urobilinogen < 2.0 mg/dL (<2.0) 10/06/19 18:30 Ur Leukocyte Esterase Neg (Negative) 10/06/19 18:30 Urine WBC (Auto) 1.0 /HPF (0.0-6.0) 10/06/19 18:30 Urine RBC (Auto) 2.0 /HPF (0.0-6.0) 10/06/19 18:30 U Epithel Cells (Auto) < 1.0 /HPF (0-13.0) 10/06/19 18:30 Urine Mucus Few /HPF 10/06/19 18:30 Last Vital Signs Temp 98.8 F 10/08/19 09:21 Pulse 89 10/08/19 09:21 Resp 16 10/08/19 09:21 BP 126/79 10/08/19 09:21 Pulse Ox 93 10/08/19 09:21
--- NOTE | 2019-10-08 15:46 | Progress Note ---
Assessment and Plan - Patient Problems (1) CHF (congestive heart failure) Current Visit: No Status: Acute Qualifiers: Heart failure type: diastolic Heart failure chronicity: chronic Qualified Code(s): I50.32 - Chronic diastolic (congestive) heart failure Plan to address problem: Currently compensated. No decompensation at this time. Continue Lasix daily, continue potassium supplementation daily, cardiac diet, continue fluid restriction with no more than 8 cups of water daily (2) Hypertension Current Visit: No Status: Acute Qualifiers: Hypertension type: essential hypertension Qualified Code(s): I10 - Essential (primary) hypertension Plan to address problem: Monitor blood pressure every shift, continue medical management. (3) Leukocytosis Current Visit: No Status: Acute Qualifiers: Leukocytosis type: leukemoid reaction Qualified Code(s): D72.823 - Leukemoid reaction Plan to address problem: Secondary to steroid use, no signs of infection, continue supportive care. (4) Obesity hypoventilation syndrome Current Visit: No Status: Acute Plan to address problem: Supplemental oxygen as clinically indicated, CPAP nightly as tolerated. (5) Advance care planning Current Visit: No Status: Acute Plan to address problem: Disease education conducted, patient is full code, patient knowledge understanding and agreement with care plan, +30 minutes. History Interval history: 74 YO Male with Obesity Hypoventilation Syndrome, HTN, CHF which is currently compensated. Patient resting comfortably overnight. Patient denies pain, shortness of breath, dyspnea at rest, dyspnea on exertion. No reported nursing events. Hospitalist Physical - Constitutional Vitals: Temp Pulse Resp BP Pulse Ox 98.8 F 89 16 126/79 93 10/08/19 09:21 10/08/19 09:21 10/08/19 09:21 10/08/19 09:21 10/08/19 09:21 General appearance: Present: no acute distress, obese - EENT Eyes: Present: PERRL, EOM intact ENT: hearing intact - Neck Neck: Present: supple - Respiratory Respiratory effort: normal Respiratory: bilateral: CTA - Cardiovascular Rhythm: regular Heart Sounds: Present: S1 & S2 Peripheral Pulses: within normal limits - Abdominal General gastrointestinal: soft, non-tender, non-distended - Integumentary Integumentary: Present: clear, warm, dry - Psychiatric Psychiatric: appropriate mood/affect, cooperative - Neurologic Neurologic: CNII-XII intact Results - Labs CBC & Chem 7: 10/08/19 07:43 10/08/19 07:43 Labs: Laboratory Last Values WBC 13.7 K/mm3 (4.5-11.0) H 10/08/19 07:43 RBC 5.24 M/mm3 (3.65-5.03) H 10/08/19 07:43 Hgb 15.6 gm/dl (11.8-15.2) H 10/08/19 07:43 Hct 46.0 % (35.5-45.6) H 10/08/19 07:43 MCV 88 fl (84-94) 10/08/19 07:43 MCH 30 pg (28-32) 10/08/19 07:43 MCHC 34 % (32-34) 10/08/19 07:43 RDW 14.2 % (13.2-15.2) 10/08/19 07:43 Plt Count 332 K/mm3 (140-440) 10/08/19 07:43 Lymph % (Auto) 20.9 % (13.4-35.0) 10/08/19 07:43 [place] % (Auto) 10.9 % (0.0-7.3) H 10/08/19 07:43 Eos % (Auto) 2.3 % (0.0-4.3) 10/08/19 07:43 Baso % (Auto) 0.4 % (0.0-1.8) 10/08/19 07:43 Lymph # 2.9 K/mm3 (1.2-5.4) 10/08/19 07:43 [place] # 1.5 K/mm3 (0.0-0.8) H 10/08/19 07:43 Eos # 0.3 K/mm3 (0.0-0.4) 10/08/19 07:43 Baso # 0.1 K/mm3 (0.0-0.1) 10/08/19 07:43 Seg Neutrophils % 65.5 % (40.0-70.0) 10/08/19 07:43 Seg Neutrophils # 9.0 K/mm3 (1.8-7.7) H 10/08/19 07:43 Sodium 136 mmol/L (137-145) L 10/08/19 07:43 Potassium 5.1 mmol/L (3.6-5.0) H 10/08/19 07:43 Chloride 95.9 mmol/L (98-107) L 10/08/19 07:43 Carbon Dioxide 29 mmol/L (22-30) 10/08/19 07:43 Anion Gap 16 mmol/L 10/08/19 07:43 BUN 28 mg/dL (9-20) H 10/08/19 07:43 Creatinine 1.1 mg/dL (0.8-1.5) 10/08/19 07:43 Estimated GFR > 60 ml/min 10/08/19 07:43 BUN/Creatinine Ratio 25 % 10/08/19 07:43 Glucose 92 mg/dL (75-100) 10/08/19 07:43 POC Glucose 106 (70-105) H 10/05/19 16:14 Hemoglobin A1c 5.9 % (4-6) 10/08/19 07:43 Calcium 9.8 mg/dL (8.4-10.2) 10/08/19 07:43 Total Bilirubin 0.40 mg/dL (0.1-1.2) 10/08/19 07:43 AST 20 units/L (5-40) 10/08/19 07:43 ALT 16 units/L (7-56) 10/08/19 07:43 Alkaline Phosphatase 81 units/L (35-129) 10/08/19 07:43 Total Protein 7.9 g/dL (6.3-8.2) 10/08/19 07:43 Albumin 4.4 g/dL (3.9-5) 10/08/19 07:43 Albumin/Globulin Ratio 1.3 % 10/08/19 07:43 Triglycerides 188 mg/dL (2-149) H 10/08/19 07:43 Cholesterol 194 mg/dL (50-199) 10/08/19 07:43 LDL Cholesterol Direct 126 mg/dL (50-130) 10/08/19 07:43 HDL Cholesterol 54 mg/dL (40-59) 10/08/19 07:43 Cholesterol/HDL Ratio 3.59 % 10/08/19 07:43 TSH 9.340 mlU/mL (0.270-4.200) H 10/08/19 07:43 Free T4 0.77 ng/dL (0.76-1.46) 10/08/19 07:30 Urine Color Yellow (Yellow) 10/06/19 18:30 Urine Turbidity Clear (Clear) 10/06/19 18:30 Urine pH 5.0 (5.0-7.0) 10/06/19 18:30 Ur Specific [place] 1.015 (1.003-1.030) 10/06/19 18:30 Urine Protein <15 mg/dl mg/dL (Negative) 10/06/19 18:30 Urine Glucose (UA) Neg mg/dL (Negative) 10/06/19 18:30 Urine Ketones Neg mg/dL (Negative) 10/06/19 18:30 Urine Blood Neg (Negative) 10/06/19 18:30 Urine Nitrite Neg (Negative) 10/06/19 18:30 Urine Bilirubin Neg (Negative) 10/06/19 18:30 Urine Urobilinogen < 2.0 mg/dL (<2.0) 10/06/19 18:30 Ur Leukocyte Esterase Neg (Negative) 10/06/19 18:30 Urine WBC (Auto) 1.0 /HPF (0.0-6.0) 10/06/19 18:30 Urine RBC (Auto) 2.0 /HPF (0.0-6.0) 10/06/19 18:30 U Epithel Cells (Auto) < 1.0 /HPF (0-13.0) 10/06/19 18:30 Urine Mucus Few /HPF 10/06/19 18:30 [place]/IV: Voiding Method Toilet Active Medications - Current Medications Current Medications: Generic Name Dose Route Start Last Admin Trade Name Freq PRN Reason Stop Dose Admin Albuterol 2.5 mg 10/05/19 14:19 Proventil IH Q4HRT PRN Shortness Of Breath Aspirin 81 mg 10/06/19 10:00 10/08/19 09:43 Halfprin Ec PO 81 mg QDAY [facility] Administration Benzonatate 100 mg 10/05/19 15:00 10/08/19 14:47 Tessalon Perles PO 100 mg Q8HR [facility] Administration Furosemide 20 mg 10/06/19 06:00 10/08/19 06:28 Lasix PO 20 mg DAILY@0600 [facility] Administration Ipratropium [place] 0.5 mg 10/05/19 20:00 Atrovent IH Q6HRT [facility] Melatonin 5 mg 10/05/19 12:41 Melatonin PO QHS PRN Sleep Olanzapine 7.5 mg 10/06/19 10:00 10/08/19 09:43 Zyprexa PO 7.5 mg QDAY [facility] Administration Potassium Chloride 20 meq 10/05/19 22:00 10/07/19 21:36 K-Dur PO 20 meq BID [facility] Administration Prednisone 20 mg 10/06/19 10:00 10/08/19 09:43 Deltasone PO 20 mg QDAY [facility] Administration Sertraline HCl 50 mg 10/08/19 10:00 10/08/19 09:43 Zoloft PO 50 mg QDAY [facility] Administration Trazodone HCl 50 mg 10/05/19 22:00 10/07/19 21:36 Desyrel PO 50 mg QHS [facility] Administration Ziprasidone 10 mg 10/05/19 12:42 Geodon IM Q6H PRN Agitation
[2019-10-08] MEDS: IPRATROPIUM 0.02% NEBU 2.5 ML IH SCH ×2 (16:33→16:34)
[2019-10-08] MEDS: traZODone 50 MG TAB PO SCH (21:53)
[2019-10-09] MEDS: BENZONATATE 100 MG CAP PO SCH (05:57)
[2019-10-09] MEDS: FUROSEMIDE 20 MG TAB PO SCH (05:57)
--- NOTE | 2019-10-09 06:50 | Progress Note ---
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 Manager Air met pt and explained to him the reason he have to have the test done, but pt was uncooperative. Complies with medication regimens. Rested w/o acute distress overnight. Per Provider Note: Patient found in room, awake and ready to go to social room. Patient describes mood as super good, eating well and denies feeling depressed. Patient denies any sleep disturbances, and able to stay asleep all nigth. No SI, or HI reported. Patient also denies hearing voices or seeing things out of the ordinary. Patient also expressing desire to go home. MENTAL STATUS EXAMINATION General Appearance and Behavior: Age appropriate, good hygiene, wearing appropriate clothes, lying in bed, good eye contact, cooperative with questioning and polite Cooperation: Participating/engaged Psychomotor Behavior: unremarkable and within normal limits Mood: "Super Good" Affect and affective range: Congruent with mood Thought Process: Fluent/Logical Thought Content: Within reality Speech: Normal volume, Regular rate and rhythm Intellectual Functioning: Average Suicidal Ideation: Denies SI Homicidal Ideation: Denies HI Impulse Control: Unimpaired Insight and Judgment: Normal insight and judgment Memory: Normal Attention: Normal Orientation: Alert, oriented Assessment and Plan - Patient Problems (1) Schizoaffective disorder, depressive type Current Visit: Yes Status: Acute Treatment Plan Discharge today. Continue current medications Patient will be admitted for inpatient psychiatric evaluation, medication adjustment and close monitoring The patient's behavior, mood, sleep and appetite will be closely monitored. Patient will be enrolled in individual and group therapeutic sessions and encouraged to attend. Patient will be provided with a safe and structured environment. Patient's physical health needs will be addressed by the Hospitalist. Hospitalist Consulted Labs including CBC, CMP, Lipid profile and Hemoglobin A1C ordered Social Assessment will be completed and the Industrial Designer will work with pat ient and family to ensure a suitable and safe disposition The patient agreed on the treatment plan, understood the risk, benefit, alternative treatment, potential consequence of no treatment, and gave informed consent. Estimated period of time patient will need to remain in the hospital: [o] Plan for post-hospital care: [Outpatient] Assessment and Plan - Patient Problems (1) Schizoaffective disorder, depressive type Current Visit: Yes Status: Acute Medications and Allergies Allergies Allergy/AdvReac Type Severity Reaction Status Date / Time Sulfa (Sulfonamide Allergy Severe Itching Verified 10/04/19 20:20 Antibiotics) acetaminophen [From Tylenol] Allergy Angioedema Verified 10/04/19 20:20 amitriptyline [From Elavil] Allergy Unknown Verified 10/04/19 20:20 chlorpromazine Allergy Unknown Verified 10/04/19 20:20 [From Thorazine] diphenhydramine Allergy Angioedema Verified 10/04/19 20:20 [From Benadryl] Iodinated Contrast Media Allergy Unknown Verified 10/04/19 20:20 Penicillins Allergy Unknown Verified 10/04/19 20:20 Home Medications Medication Instructions Recorded Confirmed Last Taken Type Potassium Chloride [K-Dur] 20 meq PO BID 05/24/19 10/05/19 Unknown History Albuterol Sulfate [Proair 2 puff IH Q4HR PRN #1 aer.pw.bas 05/27/19 10/05/19 Unknown Rx Digihaler] Ipratropium (Nf) [Atrovent HFA 2 puff IH Q6HR PRN #1 inha 07/19/19 10/05/19 U nknown Rx 17MCG/PUFF] Aspirin [Adult Aspirin] 81 mg PO QDAY #30 07/27/19 10/05/19 Unknown Rx Albuterol Sulfate [Proair 90 mcg IH DAILY #1 aer.pw.bas 08/01/19 10/05/19 Unknown Rx Digihaler] Furosemide [Lasix TAB] 20 mg PO QDAY #30 09/09/19 10/05/19 Unknown Rx OLANzapine [ZyPREXA] 5 mg PO QDAY #30 tablet 09/17/19 10/05/19 Unknown Rx Benzonatate [Tessalon Perles] 100 mg PO Q8HR #10 capsule 09/29/19 10/05/19 Unknown Rx predniSONE [Deltasone] 20 mg PO QDAY #5 tab 09/29/19 10/05/19 Unknown Rx Active Meds: Active Medications Albuterol (Proventil) 2.5 mg IH Q4HRT PRN PRN Reason: Shortness Of Breath Aspirin (Halfprin Ec) 81 mg PO QDAY [facility] Last Admin: 05/03/20 09:43 Dose: 81 mg Documented by: Benzonatate (Tessalon Perles) 100 mg PO Q8HR [facility] Last Admin: 10/09/19 05:57 Dose: 100 mg Documented by: Furosemide (Lasix) 20 mg PO DAILY@0600 [facility] Last Admin: 10/09/19 05:57 Dose: 20 mg Documented by: Ipratropium [place] (Atrovent) 0.5 mg IH Q6HRT [facility] Last Admin: 10/08/19 16:34 Dose: Not Given Documented by: Melatonin (Melatonin) 5 mg PO QHS PRN PRN Reason: Sleep Olanzapine (Zyprexa) 7.5 mg PO QDAY [facility] Last Admin: 10/08/19 09:43 Dose: 7.5 mg Documented by: Potassium Chloride (K-Dur) 20 meq PO BID [facility] Last Admin: 10/07/19 21:36 Dose: 20 meq Documented by: Prednisone (Deltasone) 20 mg PO QDAY [facility] Last Admin: 10/08/19 09:43 Dose: 20 mg Documented by: Sertraline HCl (Zoloft) 50 mg PO QDAY [facility] Last Admin: 10/08/19 09:43 Dose: 50 mg Documented by: Trazodone HCl (Desyrel) 50 mg PO QHS [facility] Last Admin: 10/08/19 21:53 Dose: 50 mg Documented by: Ziprasidone (Geodon) 10 mg IM Q6H PRN PRN Reason: Agitation Results - Results Labs/Vitals: Laboratory Last Values WBC 13.7 K/mm3 (4.5-11.0) H 10/08/19 07:43 RBC 5.24 M/mm3 (3.65-5.03) H 10/08/19 07:43 Hgb 15.6 gm/dl (11.8-15.2) H 10/08/19 07:43 Hct 46.0 % (35.5-45.6) H 10/08/19 07:43 MCV 88 fl (84-94) 10/08/19 07:43 MCH 30 pg (28-32) 10/08/19 07:43 MCHC 34 % (32-34) 10/08/19 07:43 RDW 14.2 % (13.2-15.2) 10/08/19 07:43 Plt Count 332 K/mm3 (140-440) 10/08/19 07:43 Lymph % (Auto) 20.9 % (13.4-35.0) 10/08/19 07:43 [place] % (Auto) 10.9 % (0.0-7.3) H 10/08/19 07:43 Eos % (Auto) 2.3 % (0.0-4.3) 10/08/19 07:43 Baso % (Auto) 0.4 % (0.0-1.8) 10/08/19 07:43 Lymph # 2.9 K/mm3 (1.2-5.4) 10/08/19 07:43 [place] # 1.5 K/mm3 (0.0-0.8) H 10/08/19 07:43 Eos # 0.3 K/mm3 (0.0-0.4) 10/08/19 07:43 Baso # 0.1 K/mm3 (0.0-0.1) 10/08/19 07:43 Seg Neutrophils % 65.5 % (40.0-70.0) 10/08/19 07:43 Seg Neutrophils # 9.0 K/mm3 (1.8-7.7) H 10/08/19 07:43 Sodium 136 mmol/L (137-145) L 10/08/19 07:43 Potassium 5.1 mmol/L (3.6-5.0) H 10/08/19 07:43 Chloride 95.9 mmol/L (98-107) L 10/08/19 07:43 Carbon Dioxide 29 mmol/L (22-30) 10/08/19 07:43 Anion Gap 16 mmol/L 10/08/19 07:43 BUN 28 mg/dL (9-20) H 10/08/19 07:43 Creatinine 1.1 mg/dL (0.8-1.5) 10/08/19 07:43 Estimated GFR > 60 ml/min 10/08/19 07:43 BUN/Creatinine Ratio 25 % 10/08/19 07:43 Glucose 92 mg/dL (75-100) 10/08/19 07:43 POC Glucose 106 (70-105) H 10/05/19 16:14 Hemoglobin A1c 5.9 % (4-6) 10/08/19 07:43 Calcium 9.8 mg/dL (8.4-10.2) 10/08/19 07:43 Total Bilirubin 0.40 mg/dL (0.1-1.2) 10/08/19 07:43 AST 20 units/L (5-40) 10/08/19 07:43 ALT 16 units/L (7-56) 10/08/19 07:43 Alkaline Phosphatase 81 units/L (35-129) 10/08/19 07:43 Total Protein 7.9 g/dL (6.3-8.2) 10/08/19 07:43 Albumin 4.4 g/dL (3.9-5) 10/08/19 07:43 Albumin/Globulin Ratio 1.3 % 10/08/19 07:43 Triglycerides 188 mg/dL (2-149) H 10/08/19 07:43 Cholesterol 194 mg/dL (50-199) 10/08/19 07:43 LDL Cholesterol Direct 126 mg/dL (50-130) 10/08/19 07:43 HDL Cholesterol 54 mg/dL (40-59) 10/08/19 07:43 Cholesterol/HDL Ratio 3.59 % 10/08/19 07:43 TSH 9.340 mlU/mL (0.270-4.200) H 10/08/19 07:43 Free T4 0.77 ng/dL (0.76-1.46) 10/08/19 07:30 Urine Color Yellow (Yellow) 10/06/19 18:30 Urine Turbidity Clear (Clear) 10/06/19 18:30 Urine pH 5.0 (5.0-7.0) 10/06/19 18:30 Ur Specific [place] 1.015 (1.003-1.030) 10/06/19 18:30 Urine Protein <15 mg/dl mg/dL (Negative) 10/06/19 18:30 Urine Glucose (UA) Neg mg/dL (Negative) 10/06/19 18:30 Urine Ketones Neg mg/dL (Negative) 10/06/19 18:30 Urine Blood Neg (Negative) 10/06/19 18:30 Urine Nitrite Neg (Negative) 10/06/19 18:30 Urine Bilirubin Neg (Negative) 10/06/19 18:30 Urine Urobilinogen < 2.0 mg/dL (<2.0) 10/06/19 18:30 Ur Leukocyte Esterase Neg (Negative) 10/06/19 18:30 Urine WBC (Auto) 1.0 /HPF (0.0-6.0) 10/06/19 18:30 Urine RBC (Auto) 2.0 /HPF (0.0-6.0) 10/06/19 18:30 U Epithel Cells (Auto) < 1.0 /HPF (0-13.0) 10/06/19 18:30 Urine Mucus Few /HPF 10/06/19 18:30 Last Vital Signs Temp 98.8 F 10/08/19 09:21 Pulse 89 10/08/19 19:06 Resp 16 10/08/19 09:21 BP 133/89 10/08/19 19:06 Pulse Ox 93 10/08/19 19:06
--- NOTE | 2019-10-09 08:51 | Discharge Summary ---
Providers - Providers Date of Admission: 10/05/19 15:12 Date of discharge: 10/09/19 Attending physician: SKY CAT MD 10/05/19 12:38 Consult to Physician [CONS] Routine Comment: Consulting Provider: ANTON CHAVIRA Physician Instructions: Reason For Exam: Manage medical conditions Primary care physician: [employer] Hospitalization Reason for admission: Danger to self Condition: Good Hospital course: The patient was provided inpatient psychiatric treatment with safe and supportive environment, group/individual therapy, psychiatric medication, medication adjustment, adverse effect monitor, medical evaluation, medical treatment, social service assessment, social support meeting, placement asse ssment and psycho-education. The patients mood, cognition, behavior, motivation, compliance to treatment and appreciation on family/social support are improved and stabilized. At the time of discharge, the patient had no suicidal ideas, no homicidal ideas, no aggressive thoughts, no endangering behavior and no debilitating adverse effects. The patient agreed on the treatment plan, understood the risk, benefit, alternative treatment, potential consequence of no treatment, and gave informed consent. Disposition: DC-01 TO HOME OR SELFCARE Allergies/Adverse Reactions: Allergies Sulfa (Sulfonamide Antibiotics) Allergy (Severe, Verified 10/04/19 20:20) Itching acetaminophen [From Tylenol] Allergy (Verified 10/04/19 20:20) Angioedema amitriptyline [From Elavil] Allergy (Verified 10/04/19 20:20) Unknown chlorpromazine [From Thorazine] Allergy (Verified 10/04/19 20:20) Unknown diphenhydramine [From Benadryl] Allergy (Verified 10/04/19 20:20) Angioedema Iodinated Contrast Media Allergy (Verified 10/04/19 20:20) Unknown Penicillins Allergy (Verified 10/04/19 20:20) Unknown Vital Signs: Last Vital Signs Temp 98.8 F 10/08/19 09:21 Pulse 89 10/08/19 19:06 Resp 16 10/08/19 09:21 BP 133/89 10/08/19 19:06 Pulse Ox 93 10/08/19 19:06 Last Lab: Laboratory Last Values WBC 13.7 K/mm3 (4.5-11.0) H 10/08/19 07:43 RBC 5.24 M/mm3 (3.65-5.03) H 10/08/19 07:43 Hgb 15.6 gm/dl (11.8-15.2) H 10/08/19 07:43 Hct 46.0 % (35.5-45.6) H 10/08/19 07:43 MCV 88 fl (84-94) 10/08/19 07:43 MCH 30 pg (28-32) 10/08/19 07:43 MCHC 34 % (32-34) 10/08/19 07:43 RDW 14.2 % (13.2-15.2) 10/08/19 07:43 Plt Count 332 K/mm3 (140-440) 10/08/19 07:43 Lymph % (Auto) 20.9 % (13.4-35.0) 10/08/19 07:43 [place] % (Auto) 10.9 % (0.0-7.3) H 10/08/19 07:43 Eos % (Auto) 2.3 % (0.0-4.3) 10/08/19 07:43 Baso % (Auto) 0.4 % (0.0-1.8) 10/08/19 07:43 Lymph # 2.9 K/mm3 (1.2-5.4) 10/08/19 07:43 [place] # 1.5 K/mm3 (0.0-0.8) H 10/08/19 07:43 Eos # 0.3 K/mm3 (0.0-0.4) 10/08/19 07:43 Baso # 0.1 K/mm3 (0.0-0.1) 10/08/19 07:43 Seg Neutrophils % 65.5 % (40.0-70.0) 10/08/19 07:43 Seg Neutrophils # 9.0 K/mm3 (1.8-7.7) H 10/08/19 07:43 Sodium 136 mmol/L (137-145) L 10/08/19 07:43 Potassium 5.1 mmol/L (3.6-5.0) H 10/08/19 07:43 Chloride 95.9 mmol/L (98-107) L 10/08/19 07:43 Carbon Dioxide 29 mmol/L (22-30) 10/08/19 07:43 Anion Gap 16 mmol/L 10/08/19 07:43 BUN 28 mg/dL (9-20) H 10/08/19 07:43 Creatinine 1.1 mg/dL (0.8-1.5) 10/08/19 07:43 Estimated GFR > 60 ml/min 10/08/19 07:43 BUN/Creatinine Ratio 25 % 10/08/19 07:43 Glucose 92 mg/dL (75-100) 10/08/19 07:43 POC Glucose 106 (70-105) H 10/05/19 16:14 Hemoglobin A1c 5.9 % (4-6) 10/08/19 07:43 Calcium 9.8 mg/dL (8.4-10.2) 10/08/19 07:43 Total Bilirubin 0.40 mg/dL (0.1-1.2) 10/08/19 07:43 AST 20 units/L (5-40) 10/08/19 07:43 ALT 16 units/L (7-56) 10/08/19 07:43 Alkaline Phosphatase 81 units/L (35-129) 10/08/19 07:43 Total Protein 7.9 g/dL (6.3-8.2) 10/08/19 07:43 Albumin 4.4 g/dL (3.9-5) 10/08/19 07:43 Albumin/Globulin Ratio 1.3 % 10/08/19 07:43 Triglycerides 188 mg/dL (2-149) H 10/08/19 07:43 Cholesterol 194 mg/dL (50-199) 10/08/19 07:43 LDL Cholesterol Direct 126 mg/dL (50-130) 10/08/19 07:43 HDL Cholesterol 54 mg/dL (40-59) 10/08/19 07:43 Cholesterol/HDL Ratio 3.59 % 10/08/19 07:43 TSH 9.340 mlU/mL (0.270-4.200) H 10/08/19 07:43 Free T4 0.77 ng/dL (0.76-1.46) 10/08/19 07:30 Urine Color Yellow (Yellow) 10/06/19 18:30 Urine Turbidity Clear (Clear) 10/06/19 18:30 Urine pH 5.0 (5.0-7.0) 10/06/19 18:30 Ur Specific [place] 1.015 (1.003-1.030) 10/06/19 18:30 Urine Protein <15 mg/dl mg/dL (Negative) 10/06/19 18:30 Urine Glucose (UA) Neg mg/dL (Negative) 10/06/19 18:30 Urine Ketones Neg mg/dL (Negative) 10/06/19 18:30 Urine Blood Neg (Negative) 10/06/19 18:30 Urine Nitrite Neg (Negative) 10/06/19 18:30 Urine Bilirubin Neg (Negative) 10/06/19 18:30 Urine Urobilinogen < 2.0 mg/dL (<2.0) 10/06/19 18:30 Ur Leukocyte Esterase Neg (Negative) 10/06/19 18:30 Urine WBC (Auto) 1.0 /HPF (0.0-6.0) 10/06/19 18:30 Urine RBC (Auto) 2.0 /HPF (0.0-6.0) 10/06/19 18:30 U Epithel Cells (Auto) < 1.0 /HPF (0-13.0) 10/06/19 18:30 Urine Mucus Few /HPF 10/06/19 18:30 - Discharge Diagnoses (1) Schizoaffective disorder, depressive type Status: Acute Core Measure Documentation - Palliative Care Palliative Care/ Comfort Measures: Not Applicable - Core Measures Any of the following diagnoses?: none Exam - Constitutional Vitals: Temp Pulse Resp BP Pulse Ox 98.8 F 89 16 133/89 93 10/08/19 09:21 10/08/19 19:06 10/08/19 09:21 10/08/19 19:06 10/08/19 19:06 - EENT Eyes: Present: PERRL, EOM intact ENT: hearing intact, clear oral mucosa - Neck Neck: Present: supple, normal ROM - Respiratory Respiratory effort: normal - Abdominal Male genitourinary: Present: normal - Integumentary Integumentary: Present: clear, warm, dry, rash Plan Activity: no restrictions Care Plan Goals: Maintain good and stable mental health. Plan of Treatment: The patient should be compliant with medications, not to use drugs and not to drink alcohol. The patient understands that if suicidal ideas, homicidal ideas, or any endangering thoughts arise, the patient should immediately seek for emergent assistance including but not limited to crisis hot line and emergency room. Follow up with outpatient Psychiatrist and PCP within 7 - 14 days of discharge. Follow up with: PRIMARY CARE,MD [Primary Care Provider] - 7 Days Prescriptions: Sertraline [Zoloft] 50 mg PO QDAY #30 tablet Pending Studies none
[2019-10-09 10:29] VITALS: BP 135/86
[2019-10-09] MEDS: SERTRALINE 50 MG TAB PO SCH (10:31)
[2019-10-09] MEDS: predniSONE 20 MG TAB PO SCH (10:31)
[2019-10-09] MEDS: ASPIRIN EC 81 MG TAB PO SCH (10:31)
== END 2019-10-09 20:45 | disposition home or self-care (01) | DRG 885 ==
LOC: UNDOADMIN 11:25 → 3A 11:25 → 5A 15:12
PROVIDERS: ADMIT Psychiatry & Neurology Psychiatry; ATTEND Psychiatry & Neurology Psychiatry
DX: F25.1 Schizoaffective disorder, depressive type (principal); E66.2 Morbid (severe) obesity with alveolar hypoventilation; Z68.42 Body mass index [BMI] 45.0-49.9, adult; I50.32 Chronic diastolic (congestive) heart failure; D72.823 Leukemoid reaction; T38.0X5A Adverse effect of glucocorticoids and synthetic analogues, initial encounter; I11.0 Hypertensive heart disease with heart failure; J45.909 Unspecified asthma, uncomplicated; Z82.49 Family history of ischemic heart disease and other diseases of the circulatory system; Z88.2 Allergy status to sulfonamides; Z88.8 Allergy status to other drugs, medicaments and biological substances; Z88.6 Allergy status to analgesic agent; Z88.0 Allergy status to penicillin; Z91.041 Radiographic dye allergy status; Z79.82 Long term (current) use of aspirin; Z79.899 Other long term (current) drug therapy; Y92.098 Other place in other non-institutional residence as the place of occurrence of the external cause
CPT/HCPCS: 36415; 80053; 80061; 81001; 82962; 83036; 84439; 84443; 84481; 85025; G0378; J3486; J7512

== ENCOUNTER 2019-10-10 01:33 | Emergency (ER) | payer MEDICARE ==
[2019-10-10 01:51] VITALS: BP 125/85
--- NOTE | 2019-10-10 02:43 | Emergency Department Report ---
ED Shortness of Breath HPI - General Chief Complaint: Dyspnea/Respdistress Stated Complaint: DIFFICULTY IN BREATHING Time Seen by Provider: 10/10/19 02:27 Source: patient, EMS Mode of arrival: Wheelchair Limitations: Physical Limitation - History of Present Illness Initial Comments: Mr. Mclean is a 74 yo male wit hx of CHF, HTN, schizoaffective disorder, COPD who presents with shortness of breath. He has had intermittent dull chest pain. He has chronic leg swelling. No current chest pain. No new cough. These complaints were listed on triage form. He currently does not have any concerns or discomfort. He thinks his shortness of breath is due to pollen outside. According to EMR, Mr. Villegas was discharged yesterday morning from this hospital after 3 day admission inpatient unit for geriatric mental services. MD Complaint: shortness of breath -: Gradual, days(s) (several) Severity: mild Consistency: constant Improves With: rest Worsens With: exertion Known History Of: COPD, congestive heart failure Associated Symptoms: chest pain - Related Data Previous Rx's Medication Instructions Recorded Last Taken Type Albuterol Sulfate [Proair 2 puff IH Q4HR PRN #1 aer.pw.bas 05/27/19 Unknown Rx Digihaler] Ipratropium (Nf) [Atrovent HFA 2 puff IH Q6HR PRN #1 inha 07/19/19 Unknown Rx 17MCG/PUFF] Aspirin [Adult Aspirin] 81 mg PO QDAY #30 07/27/19 Unknown Rx Albuterol Sulfate [Proair 90 mcg IH DAILY #1 aer.pw.bas 08/01/19 Unknown Rx Digihaler] Furosemide [Lasix TAB] 20 mg PO QDAY #30 09/09/19 Unknown Rx ALBUTEROL NEB's [Proventil 0.083% 2.5 mg IH Q4HRT PRN nebu 10/09/19 Unknown Rx NEBS] Aspirin EC [Halfprin EC] 81 mg PO QDAY tablet 10/09/19 Unknown Rx Ipratropium [Atrovent NEB] 0.5 mg IH Q6HRT nebu 10/09/19 Unknown Rx OLANzapine [ZyPREXA] 7.5 mg PO QDAY tablet 10/09/19 Unknown Rx Sertraline [Zoloft] 50 mg PO QDAY #30 tablet 10/09/19 Unknown Rx predniSONE [Deltasone] 20 mg PO QDAY tablet 10/09/19 Unknown Rx levoFLOXacin [Levaquin TAB] 500 mg PO QDAY 6 Days #6 tablet 10/10/19 Unknown Rx Allergies Allergy/AdvReac Type Severity Reaction Status Date / Time Sulfa (Sulfonamide Allergy Severe Itching Verified 10/04/19 20:20 Antibiotics) acetaminophen [From Tylenol] Allergy Angioedema Verified 10/04/19 20:20 amitriptyline [From Elavil] Allergy Unknown Verified 10/04/19 20:20 chlorpromazine Allergy Unknown Verified 10/04/19 20:20 [From Thorazine] diphenhydramine Allergy Angioedema Verified 10/04/19 20:20 [From Benadryl] Iodinated Contrast Media Allergy Unknown Verified 10/04/19 20:20 Penicillins Allergy Unknown Verified 10/04/19 20:20 ED Review of Systems ROS: Stated complaint: DIFFICULTY IN BREATHING Other details as noted in HPI Comment: All other systems reviewed and negative Constitutional: denies: fever Eyes: denies: eye discharge Respiratory: cough, shortness of breath Cardiovascular: chest pain Gastrointestinal: denies: abdominal pain, nausea, vomiting ED Past Medical Hx - Past Medical History Previous Medical History?: Yes Hx Hypertension: Yes Hx Congestive Heart Failure: Yes Hx Renal Disease: No Hx Arthritis: No Hx Seizures: No Hx Asthma: Yes Hx COPD: Yes Hx Dementia: Yes Additional medical history: hernia repair, dementia - Surgical History Past Surgical History?: Yes Hx Cholecystectomy: No Hx Appendectomy: No Additional Surgical History: hernia repair. eye sx/procedure during childhood - Social History Smoking Status: Never Smoker Substance Use Type: None - Medications Home Medications: Home Medications Medication Instructions Recorded Confirmed Last Taken Type Albuterol Sulfate [Proair 2 puff IH Q4HR PRN #1 aer.pw.bas 05/27/19 10/05/19 Unknown Rx Digihaler] Ipratropium (Nf) [Atrovent HFA 2 puff IH Q6HR PRN #1 inha 07/19/19 10/05/19 Unknown Rx 17MCG/PUFF] Aspirin [Adult Aspirin] 81 mg PO QDAY #30 07/27/19 10/05/19 Unknown Rx Albuterol Sulfate [Proair 90 mcg IH DAILY #1 aer.pw.bas 08/01/19 10/05/19 Unknown Rx Digihaler] Furosemide [Lasix TAB] 20 mg PO QDAY #30 09/09/19 10/05/19 Unknown Rx ALBUTEROL NEB's [Proventil 0.083% 2.5 mg IH Q4HRT PRN nebu 10/09/19 Unknown Rx NEBS] Aspirin EC [Halfprin EC] 81 mg PO QDAY tablet 10/09/19 Unknown Rx Ipratropium [Atrovent NEB] 0.5 mg IH Q6HRT nebu 10/09/19 Unknown Rx OLANzapine [ZyPREXA] 7.5 mg PO QDAY tablet 10/09/19 Unknown Rx Sertraline [Zoloft] 50 mg PO QDAY #30 tablet 10/09/19 Unknown Rx predniSONE [Deltasone] 20 mg PO QDAY tablet 10/09/19 Unknown Rx levoFLOXacin [Levaquin TAB] 500 mg PO QDAY 6 Days #6 tablet 10/10/19 Unknown Rx ED Physical Exam - General Limitations: Physical Limitation General appearance: alert, in no apparent distress, other (Patient is lying comfortably semi-supine head of bed 30 degrees) - Head Head exam: Present: atraumatic, normocephalic - Eye Eye exam: Present: normal appearance - ENT ENT exam: Present: mucous membranes moist - Neck Neck exam: Present: normal inspection, full ROM - Respiratory Respiratory exam: Present: normal lung sounds bilaterally. Absent: respiratory distress, wheezes, rhonchi - Cardiovascular Cardiovascular Exam: Present: regular rate, normal rhythm, normal heart sounds. Absent: rubs, gallop - GI/Abdominal GI/Abdominal exam: Present: soft, normal bowel sounds. Absent: distended, tenderness, guarding, rebound - Rectal Rectal exam: Present: deferred - Extremities Exam Extremities exam: Present: pedal edema - Neurological Exam Neurological exam: Present: alert, oriented X3 - Psychiatric Psychiatric exam: Present: normal affect, normal mood - Skin Skin exam: Present: warm, dry, intact, normal color. Absent: rash ED Course Vital Signs 10/10/19 01:50 Temperature 97.5 F L Pulse Rate 110 H Respiratory 18 Rate Blood Pressure 125/85 [Right] O2 Sat by Pulse 98 Oximetry ED Medical Decision Making - Lab Data Result diagrams: 10/10/19 02:53 10/10/19 02:53 - EKG Data 10/10/19 03:05 EKG obtained 0158 Sinus tachycardia rate 110 bpm normal axis normal intervals no ST-T signs of ischemia - Radiology Data Radiology results: report reviewed cxr: No acute process - Medical Decision Making Mr. Villegas presents with shortness of breath. he denies chest pain or new cough to me. w/u remarkable for leukocytosis which has been elevated in August. Without SIRS fever, I do not suspect sepsis or infection. He will need hematology w/u for possible malignancy Critical care attestation.: If time is entered above; I have spent that time in minutes in the direct care of this critically ill patient, excluding procedure time. ED Disposition Clinical Impression: Leukocytosis, Shortness of breath Disposition: DC-01 TO HOME OR SELFCARE Is pt being admited?: No Does the pt Need Aspirin: No Condition: Stable Additional Instructions: Your white count is elevated. You need to see a blood specialist. Prescriptions: levoFLOXacin [Levaquin TAB] 500 mg PO QDAY 6 Days #6 tablet Referrals: LAURA ZULUAGA MD [Staff Physician] - 3-5 Days
[2019-10-10 03:22] LABS: Hematocrit 47.2 % (35.5-45.6); Hemoglobin 15.5 gm/dl (11.8-15.2); Mean Corpuscular HGB Conc 33 % (32-34); Mean Corpuscular Volume 89 fl (84-94); Red Blood Count 5.33 M/mm3 (3.65-5.03); Red Cell Distribution Width 14.2 % (13.2-15.2)
[2019-10-10 03:27] LABS: BUN/Creatinine Ratio 27; Blood Urea Nitrogen 32 mg/dL (9-20); Calcium 10.3 mg/dL (8.4-10.2); Hemolysis Index 19
[2019-10-10 03:28] LABS: Platelet Count 371 K/mm3 (140-440)
--- NOTE | 2019-10-10 03:38 | XRay Report ---
CHEST 1 VIEW INDICATION: ghanshyam. COMPARISON: 10/02/2019 FINDINGS: Support devices: None. Heart: Within normal limits. Lungs/Pleura: No acute air space or interstitial disease. Additional findings: None. IMPRESSION: No acute abnormality. Signer Name: Willis Casillas MD Signed: 10/10/2019 3:34 AM Workstation Name: [id number]
[2019-10-10] MEDS ORDERED: levoFLOXacin 500 MG TAB PO ONE (04:14)
[2019-10-10] MEDS ORDERED: levoFLOXacin 500 MG TAB ONE (06:53)
== END 2019-10-10 06:54 | disposition home or self-care (01) ==
LOC: ED 01:33
DX: D72.829 Elevated white blood cell count, unspecified (principal); R06.02 Shortness of breath; I11.0 Hypertensive heart disease with heart failure; I50.9 Heart failure, unspecified; J44.9 Chronic obstructive pulmonary disease, unspecified; Z98.890 Other specified postprocedural states; Z88.0 Allergy status to penicillin; Z88.2 Allergy status to sulfonamides; Z88.8 Allergy status to other drugs, medicaments and biological substances
CPT/HCPCS: 36415; 71045; 80048; 83880; 84484; 85027; 93005

== ENCOUNTER 2019-10-15 21:12 | Emergency (ER) | payer MEDICARE ==
[2019-10-15] MEDS ORDERED: IBUPROFEN 600 MG TAB PO ONE (22:21)
--- NOTE | 2019-10-15 22:34 | Emergency Department Report ---
ED Extremity Problem HPI - General Chief complaint: Extremity Injury, Lower Stated complaint: PAIN IN FEET Source: EMS Mode of arrival: Wheelchair Limitations: No Limitations - History of Present Illness Initial comments: Patient is a 74-year-old white male with a history of chronic anxiety and depression, schizophrenia, CHF, COPD, hypertension and chronic pain who presents to the ED with worsening bilateral ankle pain after he jumped across a ditch to escape a dog but had charged at him in his neighborhood. Patient states that the dog was intent on biting him but he jumped over a ditch and landed on both feet without being bitten by the dog about 6 hours ago. Patient states that initially the pain in the bilateral ankles was mild but the pain got worse in the last 2 hours. Patient states that the pain is worse with ambulation or palpation. Patient states that he would also like to be given a meal tray since he has not eaten anything in the last 6 hours. Patient denies fall, traumatic injury, numbness and tingling or weakness of lower extremities bilaterally, back pain, nausea, vomiting, chest pain, shortness of breath, dizziness, syncope or head or neck injuries. MD Complaint: extremity pain (Bilateral ankel pain) -: Sudden, hour(s) (6) Location: bilateral lower extremity (ankles) History of Same: Yes -: Yes arthralgia Radiation: none Severity scale (0 -10): 7 Quality: aching, sharp Consistency: constant Improves with: nothing Worsens with: weight bearing, walking, exertion, palpation Associated Symptoms: denies other symptoms, arthralgias. denies: chest pain, shortness of breath, fever, myalgias, rash - Related Data Previous Rx's Medication Instructions Recorded Last Taken Type Albuterol Sulfate [Proair 2 puff IH Q4HR PRN #1 aer.pw.bas 05/27/19 Unknown Rx Digihaler] Ipratropium (Nf) [Atrovent HFA 2 puff IH Q6HR PRN #1 inha 07/19/19 Unknown Rx 17MCG/PUFF] Aspirin [Adult Aspirin] 81 mg PO QDAY #30 07/27/19 Unknown Rx Albuterol Sulfate [Proair 90 mcg IH DAILY #1 aer.pw.bas 08/01/19 Unknown Rx Digihaler] Furosemide [Lasix TAB] 20 mg PO QDAY #30 09/09/19 Unknown Rx ALBUTEROL NEB's [Proventil 0.083% 2.5 mg IH Q4HRT PRN nebu 10/09/19 Unknown Rx NEBS] Aspirin EC [Halfprin EC] 81 mg PO QDAY tablet 10/09/19 Unknown Rx Ipratropium [Atrovent NEB] 0.5 mg IH Q6HRT nebu 10/09/19 Unknown Rx OLANzapine [ZyPREXA] 7.5 mg PO QDAY tablet 10/09/19 Unknown Rx Sertraline [Zoloft] 50 mg PO QDAY #30 tablet 10/09/19 Unknown Rx predniSONE [Deltasone] 20 mg PO QDAY tablet 10/09/19 Unknown Rx levoFLOXacin [Levaquin TAB] 500 mg PO QDAY 6 Days #6 tablet 10/10/19 Unknown Rx Ibuprofen [Motrin] 600 mg PO Q8H PRN #20 tablet 10/15/19 Unknown Rx Allergies Allergy/AdvReac Type Severity Reaction Status Date / Time Sulfa (Sulfonamide Allergy Severe Itching Verified 10/04/19 20:20 Antibiotics) acetaminophen [From Tylenol] Allergy Angioedema Verified 10/04/19 20:20 amitriptyline [From Elavil] Allergy Unknown Verified 10/04/19 20:20 chlorpromazine Allergy Unknown Verified 10/04/19 20:20 [From Thorazine] diphenhydramine Allergy Angioedema Verified 10/04/19 20:20 [From Benadryl] Iodinated Contrast Media Allergy Unknown Verified 10/04/19 20:20 Penicillins Allergy Unknown Verified 10/04/19 20:20 ED Review of Systems ROS: Stated complaint: PAIN IN FEET Other details as noted in HPI Constitutional: denies: chills, fever Eyes: denies: eye pain, eye discharge, vision change ENT: denies: ear pain, throat pain Respiratory: denies: cough, shortness of breath, wheezing Cardiovascular: denies: chest pain, palpitations Endocrine: no symptoms reported Gastrointestinal: denies: abdominal pain, nausea, diarrhea Genitourinary: denies: urgency, dysuria Musculoskeletal: arthralgia (Bilateral ankle pain), myalgia. denies: back pain Skin: denies: rash, lesions Neurological: denies: headache, weakness, paresthesias Psychiatric: denies: anxiety, depression Hematological/Lymphatic: denies: easy bleeding, easy bruising ED Past Medical Hx - Past Medical History Previous Medical History?: Yes Hx Hypertension: Yes Hx Congestive Heart Failure: Yes Hx Renal Disease: No Hx Arthritis: No Hx Seizures: No Hx Asthma: Yes Hx COPD: Yes Hx Dementia: Yes Additional medical history: hernia repair, dementia - Surgical History Past Surgical History?: Yes Hx Cholecystectomy: No Hx Appendectomy: No Additional Surgical History: hernia repair. eye sx/procedure during childhood - Social History Smoking Status: Never Smoker Substance Use Type: None - Medications Home Medications: Home Medications Medication Instructions Recorded Confirmed Last Taken Type Albuterol Sulfate [Proair 2 puff IH Q4HR PRN #1 aer.pw.bas 05/27/19 10/05/19 Unknown Rx Digihaler] Ipratropium (Nf) [Atrovent HFA 2 puff IH Q6HR PRN #1 inha 07/19/19 10/05/19 Unknown Rx 17MCG/PUFF] Aspirin [Adult Aspirin] 81 mg PO QDAY #30 07/27/19 10/05/19 Unknown Rx Albuterol Sulfate [Proair 90 mcg IH DAILY #1 aer.pw.bas 08/01/19 10/05/19 Unknown Rx Digihaler] Furosemide [Lasix TAB] 20 mg PO QDAY #30 09/09/19 10/05/19 Unknown Rx ALBUTEROL NEB's [Proventil 0.083% 2.5 mg IH Q4HRT PRN nebu 10/09/19 Unknown Rx NEBS] Aspirin EC [Halfprin EC] 81 mg PO QDAY tablet 10/09/19 Unknown Rx Ipratropium [Atrovent NEB] 0.5 mg IH Q6HRT nebu 10/09/19 Unknown Rx OLANzapine [ZyPREXA] 7.5 mg PO QDAY tablet 10/09/19 Unknown Rx Sertraline [Zoloft] 50 mg PO QDAY #30 tablet 10/09/19 Unknown Rx predniSONE [Deltasone] 20 mg PO QDAY tablet 10/09/19 Unknown Rx levoFLOXacin [Levaquin TAB] 500 mg PO QDAY 6 Days #6 tablet 10/10/19 Unknown Rx Ibuprofen [Motrin] 600 mg PO Q8H PRN #20 tablet 10/15/19 Unknown Rx ED Physical Exam - General Limitations: No Limitations General appearance: alert, in no apparent distress - Head Head exam: Present: atraumatic, normocephalic, normal inspection - Eye Eye exam: Present: normal appearance, PERRL, EOMI Pupils: Present: normal accommodation - ENT ENT exam: Present: normal exam, mucous membranes moist, TM's normal bilaterally. Absent: normal orophraynx, normal external ear exam - Neck Neck exam: Present: normal inspection, full ROM - Respiratory Respiratory exam: Present: normal lung sounds bilaterally. Absent: respiratory distress, wheezes, rales, rhonchi, chest wall tenderness, accessory muscle use, decreased breath sounds, prolonged expiratory - Cardiovascular Cardiovascular Exam: Present: regular rate, normal rhythm, normal heart sounds. Absent: systolic murmur, diastolic murmur, rubs, gallop - GI/Abdominal GI/Abdominal exam: Present: soft, normal bowel sounds. Absent: tenderness, guarding, hyperactive bowel sounds - Extremities Exam Extremities exam: Present: normal inspection, full ROM, tenderness (Palpable mild bilateral ankle tenderness), normal capillary refill - Back Exam Back exam: Present: normal inspection, full ROM. Absent: tenderness, CVA tenderness (R), CVA tenderness (L), muscle spasm, paraspinal tenderness, vertebral tenderness - Neurological Exam Neurological exam: Present: alert, oriented X3, CN II-XII intact, normal gait, reflexes normal - Psychiatric Psychiatric exam: Present: normal affect, normal mood - Skin Skin exam: Present: warm, dry, intact, normal color. Absent: rash ED Course Vital Signs 10/15/19 10/15/19 10/15/19 21:19 22:26 22:55 Temperature 98.3 F 98.2 F Pulse Rate 121 H 65 Respiratory 18 19 16 Rate Blood Pressure 138/85 Blood Pressure 117/75 [Left] O2 Sat by Pulse 95 98 Oximetry ED Medical Decision Making - Medical Decision Making This is a 74-year-old white male with a history of chronic anxiety and depression, schizophrenia, CHF, COPD, hypertension and chronic pain who presents to the ED with worsening bilateral ankle pain after he jumped across a ditch to escape a dog but had charged at him in his neighborhood. Patient states that the dog was intent on biting him but he jumped over a ditch and landed on both feet without being bitten by the dog about 6 hours ago. Patient states that initially the pain in the bilateral ankles was mild but the pain got worse in the last 2 hours. Patient states that the pain is worse with ambulation or palpation. Patient states that he would also like to be given a meal tray since he has not eaten anything in the last 6 hours. In the ED, patient is alert and oriented x3 and is not in distress but tachycardic in triage. Patient was treated for pain with ibuprofen. Patient was also given a meal tray to eat. Patient symptoms are due to muscle strain of the bilateral ankles after exerting himself and jumping to escape charging dog earlier. Patient carrying out conversations normally in the ED with occasional appropriate jokes during the physical exam. On reevaluation, patient's pain is well controlled with medications. Patient vital signs were rechecked and tachycardia resolved. Patient was discharged home and advised to follow-up with his primary care physician in 3 to 5 days for reevaluation or return to the ED immediately if symptoms get worse. - Differential Diagnosis Muscle strain; Muscle spasm; Ankle contusion Critical care attestation.: If time is entered above; I have spent that time in minutes in the direct care of this critically ill patient, excluding procedure time. ED Disposition Clinical Impression: Muscle spasm of both lower legs Muscle strain of ankle Qualifiers: Encounter type: initial encounter Laterality: unspecified laterality Qualified Code(s): S96.919A - Strain of unspecified muscle and tendon at ankle and foot level, unspecified foot, initial encounter Muscle strain of foot Qualifiers: Encounter type: initial encounter Laterality: unspecified laterality Qualified Code(s): S96.919A - Strain of unspecified muscle and tendon at ankle and foot level, unspecified foot, initial encounter Disposition: DC-01 TO HOME OR SELFCARE Is pt being admited?: No Does the pt Need Aspirin: No Condition: Stable Instructions: Muscle Strain (ED), Muscle Spasm (ED) Additional Instructions: Take pain medication with food as needed with food, drink plenty of fluids and follow-up with your primary care physician in 5 to 7 days for reevaluation. Return to the ED immediately if symptoms get worse. Prescriptions: Ibuprofen [Motrin] 600 mg PO Q8H PRN #20 tablet PRN Reason: Pain Referrals: PRIMARY CARE, [Primary Care Provider] - 3-5 Days Time of Disposition: 22:32 Print Language: BHUTANESE
[2019-10-17 12:54] VITALS: BP 117/75
== END 2019-10-15 23:12 | disposition home or self-care (01) ==
LOC: ED 21:12
DX: S96.912A Strain of unspecified muscle and tendon at ankle and foot level, left foot, initial encounter (principal); S96.911A Strain of unspecified muscle and tendon at ankle and foot level, right foot, initial encounter; M62.838 Other muscle spasm; I11.0 Hypertensive heart disease with heart failure; I50.9 Heart failure, unspecified; J45.909 Unspecified asthma, uncomplicated; F03.90 Unspecified dementia, unspecified severity, without behavioral disturbance, psychotic disturbance, mood disturbance, and anxiety; F25.1 Schizoaffective disorder, depressive type; Z98.890 Other specified postprocedural states; Z79.899 Other long term (current) drug therapy; Z88.2 Allergy status to sulfonamides; Z88.8 Allergy status to other drugs, medicaments and biological substances; W54.0XXA Bitten by dog, initial encounter; Y93.89 Activity, other specified; Y92.89 Other specified places as the place of occurrence of the external cause; Y99.8 Other external cause status
CPT/HCPCS: 99283

== ENCOUNTER 2019-10-20 19:55 | Emergency (ER) | payer MEDICARE ==
--- NOTE | 2019-10-21 04:18 | Emergency Department Report ---
ED Medical Clearance HPI - General Chief complaint: Extremity Injury, Lower Stated complaint: LEG SWELLING Time Seen by Provider: 10/21/19 04:08 Source: EMS Mode of arrival: Stretcher - History of Present Illness Initial comments: 74-year-old -[place] male presents to the emergency room complaining of bilateral leg swelling. Patient reports he has been out of his Lasix for 3 days. Patient was seen here on 10/15/2019 as well as 10/10/2019 as well as 10/09/2019. Patient reports he takes Lasix 20 mg daily. Patient admits that he eats processed foods such as bologna and can vegetables. Patient reports that his legs look fine a couple days ago when he was sitting on the bench and then all of a sudden this started to swell. Patient denies any pain. Onset/Timin -: days(s) Alledged Intoxication: No Compliant with Home Medications: Yes Traumatic Symptoms: denies traumatic injury Associated Symptoms: denies: chest pain, shortness of breath, palpitations, diaphoresis, cough, fever/chills Treatments Prior to Arrival: none Home medications: Previous Rx's Medication Instructions Recorded Last Taken Type Albuterol Sulfate [Proair 2 puff IH Q4HR PRN #1 aer.pw.bas 05/27/19 Unknown Rx Digihaler] Ipratropium (Nf) [Atrovent HFA 2 puff IH Q6HR PRN #1 inha 07/19/19 Unknown Rx 17MCG/PUFF] Aspirin [Adult Aspirin] 81 mg PO QDAY #30 07/27/19 Unknown Rx Albuterol Sulfate [Proair 90 mcg IH DAILY #1 aer.pw.bas 08/01/19 Unknown Rx Digihaler] Furosemide [Lasix TAB] 20 mg PO QDAY #30 09/09/19 Unknown Rx ALBUTEROL NEB's [Proventil 0.083% 2.5 mg IH Q4HRT PRN nebu 10/09/19 Unknown Rx NEBS] Aspirin EC [Halfprin EC] 81 mg PO QDAY tablet 10/09/19 Unknown Rx Ipratropium [Atrovent NEB] 0.5 mg IH Q6HRT nebu 10/09/19 Unknown Rx OLANzapine [ZyPREXA] 7.5 mg PO QDAY tablet 10/09/19 Unknown Rx Sertraline [Zoloft] 50 mg PO QDAY #30 tablet 10/09/19 Unknown Rx predniSONE [Deltasone] 20 mg PO QDAY tablet 10/09/19 Unknown Rx levoFLOXacin [Levaquin TAB] 500 mg PO QDAY 6 Days #6 tablet 10/10/19 Unknown Rx Ibuprofen [Motrin] 600 mg PO Q8H PRN #20 tablet 10/15/19 Unknown Rx Furosemide [Lasix] 20 mg PO QDAY 30 Days #30 tablet 10/21/19 Unknown Rx Allergies/Adverse reactions: Allergies Allergy/AdvReac Type Severity Reaction Status Date / Time Sulfa (Sulfonamide Allergy Severe Itching Verified 10/04/19 20:20 Antibiotics) acetaminophen [From Tylenol] Allergy Angioedema Verified 10/04/19 20:20 amitriptyline [From Elavil] Allergy Unknown Verified 10/04/19 20:20 chlorpromazine Allergy Unknown Verified 10/04/19 20:20 [From Thorazine] diphenhydramine Allergy Angioedema Verified 10/04/19 20:20 [From Benadryl] Iodinated Contrast Media Allergy Unknown Verified 10/04/19 20:20 Penicillins Allergy Unknown Verified 10/04/19 20:20 ED Review of Systems ROS: Stated complaint: LEG SWELLING Other details as noted in HPI Comment: All other systems reviewed and negative ED Past Medical Hx - Past Medical History Hx Hypertension: Yes Hx Congestive Heart Failure: Yes Hx Renal Disease: No Hx Arthritis: No Hx Seizures: No Hx Asthma: Yes Hx COPD: Yes Hx Dementia: Yes Additional medical history: hernia repair, dementia - Surgical History Hx Cholecystectomy: No Hx Appendectomy: No Additional Surgical History: hernia repair. eye sx/procedure during childhood - Social History Smoking Status: Never Smoker Substance Use Type: None - Medications Home Medications: Home Medications Medication Instructions Recorded Confirmed Last Taken Type Albuterol Sulfate [Proair 2 puff IH Q4HR PRN #1 aer.pw.bas 05/27/19 10/05/19 Unknown Rx Digihaler] Ipratropium (Nf) [Atrovent HFA 2 puff IH Q6HR PRN #1 inha 07/19/19 10/05/19 Unknown Rx 17MCG/PUFF] Aspirin [Adult Aspirin] 81 mg PO QDAY #30 07/27/19 10/05/19 Unknown Rx Albuterol Sulfate [Proair 90 mcg IH DAILY #1 aer.pw.bas 08/01/19 10/05/19 Unknown Rx Digihaler] Furosemide [Lasix TAB] 20 mg PO QDAY #30 09/09/19 10/05/19 Unknown Rx ALBUTEROL NEB's [Proventil 0.083% 2.5 mg IH Q4HRT PRN nebu 10/09/19 Unknown Rx NEBS] Aspirin EC [Halfprin EC] 81 mg PO QDAY tablet 10/09/19 Unknown Rx Ipratropium [Atrovent NEB] 0.5 mg IH Q6HRT nebu 10/09/19 Unknown Rx OLANzapine [ZyPREXA] 7.5 mg PO QDAY tablet 10/09/19 Unknown Rx Sertraline [Zoloft] 50 mg PO QDAY #30 tablet 10/09/19 Unknown Rx predniSONE [Deltasone] 20 mg PO QDAY tablet 10/09/19 Unknown Rx levoFLOXacin [Levaquin TAB] 500 mg PO QDAY 6 Days #6 tablet 10/10/19 Unknown Rx Ibuprofen [Motrin] 600 mg PO Q8H PRN #20 tablet 10/15/19 Unknown Rx Furosemide [Lasix] 20 mg PO QDAY 30 Days #30 tablet 10/21/19 Unknown Rx ED Physical Exam - General Limitations: No Limitations General appearance: alert, in no apparent distress, obese - Head Head exam: Present: atraumatic, normocephalic - Eye Eye exam: Present: normal appearance - ENT ENT exam: Present: mucous membranes moist - Neck Neck exam: Present: normal inspection - Extremities Exam Extremities exam: Present: pedal edema (2+) - Back Exam Back exam: Present: normal inspection - Neurological Exam Neurological exam: Present: alert, oriented X3 - Psychiatric Psychiatric exam: Present: normal affect, normal mood - Skin Skin exam: Present: warm, dry, intact, normal color. Absent: rash ED Course Vital Signs 10/20/19 22:22 Temperature 98.3 F Pulse Rate 117 H Respiratory 18 Rate Blood Pressure 140/77 O2 Sat by Pulse 96 Oximetry ED Medical Decision Making - Medical Decision Making 74-year-old -[place] male presents to the emergency room complaining of bilateral leg swelling. Patient reports he has been out of his Lasix for 3 days. Patient was seen here on 10/15/2019 as well as 10/10/2019 as well as 10/09/2019. Patient reports he takes Lasix 20 mg daily. Patient admits that he eats processed foods such as bologna and can vegetables. Patient reports that his legs look fine a couple days ago when he was sitting on the bench and then all of a sudden this started to swell. Patient denies any pain. Discussed with patient that sodium is found in many foods such as canned vegetables processed foods such as bologna ham salami hot dogs. Discussed with patient he needs to increase his fluid intake decrease his sodium intake. Also discussed with patient that sitting for long periods of time and having your legs dangle from a seat can also cause swelling to the lower extremities. I will refill patient's Lasix as he has a history of congestive heart failure and chronic lower leg edema. ED Disposition Clinical Impression: Leg edema, Obesity hypoventilation syndrome, CHF (congestive heart failure) Disposition: [id number] TO HOME OR SELFCARE Is pt being admited?: No Does the pt Need Aspirin: No Condition: Stable Additional Instructions: Please refrain from eating high sodium foods such as can vegetables processed foods such as bologna ham sausage hotdogs. Be sure to take your Lasix daily. Follow-up with your primary care provider. Prescriptions: Furosemide [Lasix] 20 mg PO QDAY 30 Days #30 tablet Referrals: PRIMARY CARE, [Primary Care Provider] - 3-5 Days [facility] [Provider Group] - 3-5 Days
[2019-10-21 04:23] VITALS: BP 143/72
== END 2019-10-21 04:27 | disposition home or self-care (01) ==
LOC: ED 19:55
DX: R60.0 Localized edema (principal); I11.0 Hypertensive heart disease with heart failure; I50.9 Heart failure, unspecified; J44.9 Chronic obstructive pulmonary disease, unspecified; F03.90 Unspecified dementia, unspecified severity, without behavioral disturbance, psychotic disturbance, mood disturbance, and anxiety; Z98.890 Other specified postprocedural states; Z88.6 Allergy status to analgesic agent; Z88.2 Allergy status to sulfonamides

== ENCOUNTER 2020-06-02 12:59 | Emergency (ER) | payer MEDICARE ==
[2020-06-02 13:08] VITALS: BP 142/99
--- NOTE | 2020-06-02 13:22 | Event Note ---
ED Screening Note Date of service: 06/02/20 Time: 13:21 ED Screening Note: 75-year-old male presents to the emergency room for chronic shortness of breath. Patient has a past medical history of CHF COPD mental health bases. This initial assessment/diagnostic orders/clinical plan/treatment(s) is/are subject to change based on patients health status, clinical progression and re- assessment by fellow clinical providers in the ED. Further treatment and workup at subsequent clinical providers discretion. Patient/guardian urged not to elope from the ED as their condition may be serious if not clinically assessed and managed. Initial orders include:
[2020-06-02 14:42] LABS: Basophils % (Auto) 0.5 % (0.0-1.8); Eosinophils # (Auto) 0.3 K/mm3 (0.0-0.4); Eosinophils % (Auto) 2.9 % (0.0-4.3); Hematocrit 39.6 % (35.5-45.6); Hemoglobin 14.2 gm/dl (11.8-15.2); Lymphocytes # (Auto) 3.1 K/mm3 (1.2-5.4); Lymphocytes % (Auto) 34.4 % (13.4-35.0); Mean Corpuscular HGB Conc 36 % (32-34); Mean Corpuscular Volume 88 fl (84-94); Monocytes # (Auto) 0.9 K/mm3 (0.0-0.8); Monocytes % (Auto) 9.4 % (0.0-7.3); Platelet Count 361 K/mm3 (140-440); Red Blood Count 4.52 M/mm3 (3.65-5.03); Red Cell Distribution Width 15.8 % (13.2-15.2)
--- NOTE | 2020-06-02 14:48 | XRay Report ---
CHEST 2 VIEWS INDICATION / CLINICAL INFORMATION: Difficulty breathing. COMPARISON: 10/10/19. FINDINGS: SUPPORT DEVICES: None. HEART / MEDIASTINUM: The heart size and pulmonary vasculature are normal. LUNGS / PLEURA: No significant pulmonary or pleural abnormality. No pneumothorax. ADDITIONAL FINDINGS: No significant additional findings. IMPRESSION: No acute findings. Signer Name: Harshad Mathias MD Signed: 06/02/2020 2:44 PM Workstation Name: [id number]
[2020-06-02] MEDS ORDERED: predniSONE 20 MG TAB PO ONE (14:52)
[2020-06-02] MEDS ORDERED: IPRATROPIUM/ALBUTEROL SULFATE 3 ML AMPUL.NEB IH ONE (14:52)
[2020-06-02 14:54] LABS: Alanine Aminotransferase 16 units/L (7-56); Albumin 4.5 g/dL (3.9-5); BUN/Creatinine Ratio 14; Blood Urea Nitrogen 15 mg/dL (9-20); Calcium 9.6 mg/dL (8.4-10.2); Hemolysis Index 8
--- NOTE | 2020-06-02 17:44 | Emergency Department Report ---
ED Shortness of Breath HPI - General Chief Complaint: Dyspnea/Respdistress Stated Complaint: COUGHING Time Seen by Provider: 06/02/20 14:47 Source: patient, family Mode of arrival: Ambulatory Limitations: No Limitations - History of Present Illness Initial Comments: Mr. Garcia is a 75-year-old male with history of schizoaffective disorder, hypertension, dementia COPD, CHF who presents with chest congestion. Patient has mild amount chest congestion for several days. He requests inhaler. He denies fever. Denies chest pain. He has mild cough. He has mild symptoms of breath. He denies any pain. MD Complaint: shortness of breath -: Gradual, days(s) (Several days) Severity: mild Pain Scale: 0 Consistency: constant Improves With: nothing Worsens With: nothing Known History Of: COPD, congestive heart failure Associated Symptoms: cough - Related Data Previous Rx's Medication Instructions Recorded Last Taken Type Albuterol Sulfate [Proair 2 puff IH Q4HR PRN #1 aer.pw.bas 05/27/19 Unknown Rx Digihaler] Ipratropium (Nf) [Atrovent HFA 2 puff IH Q6HR PRN #1 inha 07/19/19 Unknown Rx 17MCG/PUFF] Aspirin [Adult Aspirin] 81 mg PO QDAY #30 07/27/19 Unknown Rx Albuterol Sulfate [Proair 90 mcg IH DAILY #1 aer.pw.bas 08/01/19 Unknown Rx Digihaler] Furosemide [Lasix TAB] 20 mg PO QDAY #30 09/09/19 Unknown Rx ALBUTEROL NEB's [Proventil 0.083% 2.5 mg IH Q4HRT PRN nebu 10/09/19 Unknown Rx NEBS] Aspirin EC [Halfprin EC] 81 mg PO QDAY tablet 10/09/19 Unknown Rx Ipratropium [Atrovent NEB] 0.5 mg IH Q6HRT nebu 10/09/19 Unknown Rx OLANzapine [ZyPREXA] 7.5 mg PO QDAY tablet 10/09/19 Unknown Rx Sertraline [Zoloft] 50 mg PO QDAY #30 tablet 10/09/19 Unknown Rx predniSONE [Deltasone] 20 mg PO QDAY tablet 10/09/19 Unknown Rx levoFLOXacin [Levaquin TAB] 500 mg PO QDAY 6 Days #6 tablet 10/10/19 Unknown Rx Ibuprofen [Motrin] 600 mg PO Q8H PRN #20 tablet 10/15/19 Unknown Rx Furosemide [Lasix TAB] 20 mg PO QDAY 30 Days #30 tablet 10/22/19 Unknown Rx Albuterol Mdi (or & Nicu Only) 2 puff IH QID PRN #8.5 gram 06/02/20 Unknown Rx [ProAir HFA Inhaler] Doxycycline Hyclate [Doxycycline 100 mg PO Q12HR 7 Days #14 tab 06/02/20 Unknown Rx Hyclate TAB] Prednisone [predniSONE 10 mg 10 mg PO .TAPER #1 tab.ds.pk 06/02/20 Unknown Rx (6-Day Pack, 21 Tabs)] Allergies Allergy/AdvReac Type Severity Reaction Status Date / Time Sulfa (Sulfonamide Allergy Severe Itching Verified 10/04/19 20:20 Antibiotics) acetaminophen [From Tylenol] Allergy Angioedema Verified 10/04/19 20:20 amitriptyline [From Elavil] Allergy Unknown Verified 10/04/19 20:20 chlorpromazine Allergy Unknown Verified 10/04/19 20:20 [From Thorazine] diphenhydramine Allergy Angioedema Verified 10/04/19 20:20 [From Benadryl] Iodinated Contrast Media Allergy Unknown Verified 10/04/19 20:20 Penicillins Allergy Unknown Verified 10/04/19 20:20 ED Review of Systems ROS: Stated complaint: COUGHING Other details as noted in HPI Comment: All other systems reviewed and negative Constitutional: denies: fever, malaise Respiratory: cough, shortness of breath. denies: wheezing Cardiovascular: denies: chest pain Gastrointestinal: denies: abdominal pain, nausea, vomiting ED Past Medical Hx - Past Medical History Previous Medical History?: Yes Hx Hypertension: Yes Hx Congestive Heart Failure: Yes Hx Renal Disease: No Hx Arthritis: No Hx Seizures: No Hx Asthma: Yes Hx COPD: Yes Hx Dementia: Yes Additional medical history: hernia repair, dementia - Surgical History Past Surgical History?: Yes Hx Cholecystectomy: No Hx Appendectomy: No Additional Surgical History: hernia repair. eye sx/procedure during childhood - Social History Smoking Status: Never Smoker Substance Use Type: None - Medications Home Medications: Home Medications Medication Instructions Recorded Confirmed Last Taken Type Albuterol Sulfate [Proair 2 puff IH Q4HR PRN #1 aer.pw.bas 05/27/19 10/05/19 Unknown Rx Digihaler] Ipratropium (Nf) [Atrovent HFA 2 puff IH Q6HR PRN #1 inha 07/19/19 10/05/19 Unknown Rx 17MCG/PUFF] Aspirin [Adult Aspirin] 81 mg PO QDAY #30 07/27/19 10/05/19 Unknown Rx Albuterol Sulfate [Proair 90 mcg IH DAILY #1 aer.pw.bas 08/01/19 10/05/19 Unknown Rx Digihaler] Furosemide [Lasix TAB] 20 mg PO QDAY #30 09/09/19 10/05/19 Unknown Rx ALBUTEROL NEB's [Proventil 0.083% 2.5 mg IH Q4HRT PRN nebu 10/09/19 Unknown Rx NEBS] Aspirin EC [Halfprin EC] 81 mg PO QDAY tablet 10/09/19 Unknown Rx Ipratropium [Atrovent NEB] 0.5 mg IH Q6HRT nebu 10/09/19 Unknown Rx OLANzapine [ZyPREXA] 7.5 mg PO QDAY tablet 10/09/19 Unknown Rx Sertraline [Zoloft] 50 mg PO QDAY #30 tablet 10/09/19 Unknown Rx predniSONE [Deltasone] 20 mg PO QDAY tablet 10/09/19 Unknown Rx levoFLOXacin [Levaquin TAB] 500 mg PO QDAY 6 Days #6 tablet 10/10/19 Unknown Rx Ibuprofen [Motrin] 600 mg PO Q8H PRN #20 tablet 10/15/19 Unknown Rx Furosemide [Lasix TAB] 20 mg PO QDAY 30 Days #30 tablet 10/22/19 Unknown Rx Albuterol Mdi (or & Nicu Only) 2 puff IH QID PRN #8.5 gram 06/02/20 Unknown Rx [ProAir HFA Inhaler] Doxycycline Hyclate [Doxycycline 100 mg PO Q12HR 7 Days #14 tab 06/02/20 Unknown Rx Hyclate TAB] Prednisone [predniSONE 10 mg 10 mg PO .TAPER #1 tab.ds.pk 06/02/20 Unknown Rx (6-Day Pack, 21 Tabs)] ED Physical Exam - General Limitations: No Limitations General appearance: alert, in no apparent distress, other (Ambulates around the room with ease, talkative, pleasant) - Head Head exam: Present: atraumatic, normocephalic - Eye Eye exam: Present: normal appearance - ENT ENT exam: Present: mucous membranes moist - Neck Neck exam: Present: normal inspection, full ROM - Respiratory Respiratory exam: Present: normal lung sounds bilaterally. Absent: respiratory distress, wheezes, rales, rhonchi - Cardiovascular Cardiovascular Exam: Present: regular rate, normal rhythm, normal heart sounds. Absent: rubs, gallop - GI/Abdominal GI/Abdominal exam: Present: soft. Absent: distended, tenderness, guarding, rebound - Extremities Exam Extremities exam: Present: other (Mild ankle edema) - Neurological Exam Neurological exam: Present: alert, other (Oriented to name and place) - Psychiatric Psychiatric exam: Present: normal affect, normal mood - Skin Skin exam: Present: warm, dry, intact, normal color. Absent: rash ED Course Vital Signs 06/02/20 13:06 Temperature 98.0 F Pulse Rate 94 H Respiratory 18 Rate Blood Pressure 142/99 O2 Sat by Pulse 95 Oximetry ED Medical Decision Making - Lab Data Result diagrams: 06/02/20 14:18 06/02/20 14:18 - Radiology Data Radiology results: report reviewed, image reviewed Chest radiograph PA lateral: No acute findings according to radiology impression - Medical Decision Making Mr. Garcia is a 75-year-old male history of COPD CHF who presents with shortnes s of breath cough. Patient appears well. No acute distress. Normal work-up in the emergency department including normal chest radiograph normal CBC normal chemistry normal proBNP. Patient was provided prescription for albuterol MDI. Also provided prescription for prednisone taper as well as doxycycline. Diagnosis acute COPD exacerbation, acute bronchitis. Critical care attestation.: If time is entered above; I have spent that time in minutes in the direct care of this critically ill patient, excluding procedure time. ED Disposition Clinical Impression: Acute bronchitis Disposition: - TO HOME OR SELFCARE Is pt being admited?: No Does the pt Need Aspirin: No Condition: Stable Instructions: Acute Bronchitis (ED), Acute Bronchitis, Adult, [id number] Prescriptions: Doxycycline Hyclate [Doxycycline Hyclate TAB] 100 mg PO Q12HR 7 Days #14 tab Prednisone [predniSONE 10 mg (6-Day Pack, 21 Tabs)] 10 mg PO .TAPER #1 tab.ds.pk Albuterol Mdi (or & Nicu Only) [ProAir HFA Inhaler] 2 puff IH QID PRN #8.5 gram PRN Reason: Shortness Of Breath Referrals: PRIMARY CARE, [Primary Care Provider] - 3-5 Days
== END 2020-06-02 19:09 | disposition home or self-care (01) ==
LOC: ED 12:59
DX: J20.9 Acute bronchitis, unspecified (principal); I11.0 Hypertensive heart disease with heart failure; I50.9 Heart failure, unspecified; J44.9 Chronic obstructive pulmonary disease, unspecified; Z98.890 Other specified postprocedural states; Z79.1 Long term (current) use of non-steroidal anti-inflammatories (NSAID); Z79.899 Other long term (current) drug therapy; Z88.2 Allergy status to sulfonamides; Z88.8 Allergy status to other drugs, medicaments and biological substances
CPT/HCPCS: 36415; 71046; 80053; 83880; 85025; 94640; 99284; J7512